=== PATIENT | female | born 1930 | race Caucasian/White ===

== ENCOUNTER → 2017-05-29 | Outpatient (CLI) | payer MEDICARE, BC ==
[2017-05-29 10:00] LABS: PROTHROMBIN TIME 24.5 SEC (11.4-15.4)
== END ==
LOC: OD 08:45
PROVIDERS: ATTEND Internal Medicine Cardiovascular Disease
DX: I48.0 Paroxysmal atrial fibrillation (principal)
CPT/HCPCS: 36415; 85610

== ENCOUNTER 2017-05-30 17:05 | Emergency (ER) | payer MEDICARE, BC ==
--- NOTE | 2017-05-30 17:36 | ER Document Report ---
ED Medical Screen (RME) - General Chief Complaint: Shortness Of Breath Stated Complaint: SHORTNESS OF BREATH Time Seen by Provider: 05/30/17 17:32 Notes: Patient was referred from her primary care doctor's office. Family states that patient's O2 saturation was in the 70s at the doctor's office. Patient also had an x-ray done today which showed new bilateral pleural effusions. Patient states she just feels weak and wore out. No specific pain. She does have shortness of breath with exertion. She has chronic afib TRAVEL OUTSIDE OF THE [place] IN LAST 30 DAYS: No - Related Data Allergies/Adverse Reactions: cefdinir [From Omnicef] Allergy (Unknown, Verified 05/30/17 17:09) Choline Fenofibrate [From Trilipix] Allergy (Unknown, Verified 05/30/17 17:09) clopidogrel bisulfate [From Plavix] Allergy (Unknown, Verified 05/30/17 17:09) codeine [Codeine] Allergy (Unknown, Verified 05/30/17 17:09) guaifenesin [From Mucinex] Allergy (Unknown, Verified 05/30/17 17:09) hydralazine [Hydralazine] Allergy (Unknown, Verified 05/30/17 17:09) Influenza Vaccine,Trival 2010 * [Influenza Vaccine,Trival 2010] Allergy (Unknown , Verified 05/30/17 17:09) lovastatin [From Mevacor] Allergy (Unknown, Verified 05/30/17 17:09) meperidine HCl [From Demerol] Allergy (Unknown, Verified 05/30/17 17:09) niacin [Niacin] Allergy (Unknown, Verified 05/30/17 17:09) nifedipine [From Procardia] Allergy (Unknown, Verified 05/30/17 17:09) pentazocine lactate [From Talwin] Allergy (Unknown, Verified 05/30/17 17:09) pravastatin sodium [From Pravachol] Allergy (Unknown, Verified 05/30/17 17:09) propoxyphene HCl [From Darvon] Allergy (Unknown, Verified 05/30/17 17:09) rosuvastatin calcium [From Crestor] Allergy (Unknown, Verified 05/30/17 17:09) Sulfa (Sulfonamide Antibiotics) Allergy (Unknown, Verified 05/30/17 17:09) metoprolol succinate [From Toprol XL] Allergy (Verified 05/30/17 17:09) atorvastatin calcium [From Lipitor] Adverse Reaction (Severe, Verified 05/30/17 17:09) Home Medications: Current Home Medications Metoprolol Tartrate 25 mg PO BID 05/30/17 [History] Past Medical History - Social History Chew tobacco use (# tins/day): No Frequency of alcohol use: None Drug Abuse: None - Past Medical History Cardiac Medical History: Reports: Hx Hypercholesterolemia, Hx Hypertension Pulmonary Medical History: Reports: Hx Bronchitis Denies: Hx Tuberculosis Renal/ Medical History: Denies: Hx Peritoneal Dialysis GI Medical History: Reports: Hx Hiatal Hernia Past Surgical History: Reports: Hx Abdominal Surgery - hernia repair 2008, Hx Cardiac Catheterization - december 2011, Hx Cardiac Surgery - triple bypass 1992, cardiac stent, Hx Cholecystectomy - 1995, Hx Coronary Artery Bypass Graft, Hx Hysterectomy, Hx PacemakerComment Only: Hx Gastric Bypass Surgery - Triple - Immunizations Hx Diphtheria, Pertussis, Tetanus Vaccination: Yes Physical Exam - Vital signs Vitals: Temp Pulse Resp BP Pulse Ox 98.2 F 119 H 22 H 154/110 H 100 05/30/17 17:08 05/30/17 17:08 05/30/17 17:08 05/30/17 17:08 05/30/17 17:08 Course - Vital Signs Vital signs: Temp Pulse Resp BP Pulse Ox 98.2 F 119 H 22 H 154/110 H 100 05/30/17 17:08 05/30/17 17:08 05/30/17 17:08 05/30/17 17:08 05/30/17 17:08
[2017-05-30 18:10] LABS: ABSOLUTE BASOPHILS # (AUTO) 0.1 10^3/uL (0.0-0.2); ABSOLUTE EOSINOPHILS # (AUTO) 0.3 10^3/uL (0.0-0.6); ABSOLUTE LYMPHOCYTES (AUTO) 1.3 10^3/uL (0.5-4.7); ABSOLUTE MONOCYTES (AUTO) 0.7 10^3/uL (0.1-1.4); BASOPHILS % (AUTO) 0.8 % (0-2); HEMATOCRIT 37.7 % (36.0-47.0); HEMOGLOBIN 12.5 g/dL (12.0-15.5); HGB HCT DIFFERENCE -0.2; LYMPHOCYTES % (AUTO) 21.1 % (13-45); MEAN CORPUSCULAR HEMOGLOBIN 26.6 pg (27.0-33.4); MEAN CORPUSCULAR VOLUME 81 fl (80-97); MONOCYTES % (AUTO) 10.6 % (3-13); RED BLOOD COUNT 4.69 10^6/uL (3.72-5.28); RED CELL DISTRIBUTION WIDTH 21.1 % (11.5-14.0); SEGMENTED NEUTROPHILS % (AUTO) 62.5 % (42-78); WHITE BLOOD COUNT 6.4 10^3/uL (4.0-10.5)
[2017-05-30 18:16] LABS: PROTHROMBIN TIME 25.2 SEC (11.4-15.4)
[2017-05-30 18:28] LABS: ALANINE AMINOTRANSFERASE 25 U/L (9-52); ALBUMIN 4.1 g/dL (3.5-5.0); ALKALINE PHOSPHATASE 90 U/L (38-126); ANION GAP 12 (5-19); ASPARTATE AMINO TRANSFERASE 24 U/L (14-36); BILIRUBIN,DIRECT 0.4 mg/dL (0.0-0.4); BILIRUBIN,TOTAL 0.8 mg/dL (0.2-1.3); BLOOD UREA NITROGEN 16 mg/dL (7-20); CARBON DIOXIDE 27 mmol/L (22-30); CHLORIDE 100 mmol/L (98-107); CREATININE RESULT 0.96 mg/dL (0.52-1.25); GLUCOSE 96 mg/dL (75-110); POTASSIUM 4.7 mmol/L (3.6-5.0); SODIUM 139.3 mmol/L (137-145); TOTAL PROTEIN 7.3 g/dL (6.3-8.2)
[2017-05-30 18:47] LABS: TROPONIN I < 0.012 ng/mL
[2017-05-30 19:02] VITALS: BP 149/89
--- NOTE | 2017-05-30 19:37 | RADIOLOGY REPORT (SQ) ---
EXAM DESCRIPTION: CHEST SINGLE VIEW COMPLETED DATE/TIME: 05/30/2017 7:23 pm REASON FOR STUDY: sob COMPARISON: 05/30/2017 1107 hours EXAM PARAMETERS: NUMBER OF VIEWS: One view. TECHNIQUE: Single frontal radiographic view of the chest acquired. RADIATION DOSE: NA LIMITATIONS: None. FINDINGS: LUNGS AND PLEURA: Persistent bilateral pleural effusions left greater than right. MEDIASTINUM AND HILAR STRUCTURES: No masses. Contour normal. HEART AND VASCULAR STRUCTURES: Heart enlarged. Mild vascular congestion. CABG hardware. BONES: No acute findings. HARDWARE: Pacemaker/ defibrillator unchanged. OTHER: No other significant finding. IMPRESSION: Persistent effusions. Persistent mild vascular congestion. TECHNICAL DOCUMENTATION: JOB ID: [id number] [employer]- All Rights Reserved
--- NOTE | 2017-05-30 20:21 | ER Document Report ---
ED General - General Chief Complaint: Shortness Of Breath Stated Complaint: SHORTNESS OF BREATH Time Seen by Provider: 05/30/17 17:32 Notes: Patient is an 87-year-old female with a past medical history of coronary artery disease, atrial fibrillation, hypertension, congestive heart failure, who presents with concerns that she had hypoxemia at her primary care doctor's office. Apparently a nurse at her doctor's office told her that her oxygen saturation was 71% but they still sent her home. A chest x-ray was obtained while she was there and she was contacted with findings of bilateral pleural effusions. This prompted her to come to the emergency department for further evaluation. Patient states her only symptom is intermittent mild shortness of breath but denies any shortness of breath at time of my assessment. She denies any chest pain. Nothing seems to improve or worsen her symptoms. She denies any recent medication changes. She has not had any fever, cough, sputum production, orthopnea. Denies any recent weight gain. She is scheduled to follow-up with her primary care doctor in the morning for repeat visit. TRAVEL OUTSIDE OF THE [place] IN LAST 30 DAYS: No - Related Data Allergies/Adverse Reactions: cefdinir [From Omnicef] Allergy (Unknown, Verified 05/30/17 17:09) Choline Fenofibrate [From Trilipix] Allergy (Unknown, Verified 05/30/17 17:09) clopidogrel bisulfate [From Plavix] Allergy (Unknown, Verified 05/30/17 17:09) codeine [Codeine] Allergy (Unknown, Verified 05/30/17 17:09) guaifenesin [From Mucinex] Allergy (Unknown, Verified 05/30/17 17:09) hydralazine [Hydralazine] Allergy (Unknown, Verified 05/30/17 17:09) Influenza Vaccine,Trival 2010 * [Influenza Vaccine,Trival 2010] Allergy (Unknown , Verified 05/30/17 17:09) lovastatin [From Mevacor] Allergy (Unknown, Verified 05/30/17 17:09) meperidine HCl [From Demerol] Allergy (Unknown, Verified 05/30/17 17:09) niacin [Niacin] Allergy (Unknown, Verified 05/30/17 17:09) nifedipine [From Procardia] Allergy (Unknown, Verified 05/30/17 17:09) pentazocine lactate [From Talwin] Allergy (Unknown, Verified 05/30/17 17:09) pravastatin sodium [From Pravachol] Allergy (Unknown, Verified 05/30/17 17:09) propoxyphene HCl [From Darvon] Allergy (Unknown, Verified 05/30/17 17:09) rosuvastatin calcium [From Crestor] Allergy (Unknown, Verified 05/30/17 17:09) Sulfa (Sulfonamide Antibiotics) Allergy (Unknown, Verified 05/30/17 17:09) metoprolol succinate [From Toprol XL] Allergy (Verified 05/30/17 17:09) atorvastatin calcium [From Lipitor] Adverse Reaction (Severe, Verified 05/30/17 17:09) Home Medications: Current Home Medications Metoprolol Tartrate 25 mg PO BID 05/30/17 [History] Past Medical History - General Information source: Patient - Social History Smoking Status: Never Smoker Chew tobacco use (# tins/day): No Frequency of alcohol use: None Drug Abuse: None Lives with: Family Family History: Reviewed & Not Pertinent Patient has suicidal ideation: No Patient has homicidal ideation: No - Past Medical History Cardiac Medical History: Reports: Hx Hypercholesterolemia, Hx Hypertension Pulmonary Medical History: Reports: Hx Bronchitis Denies: Hx Tuberculosis Renal/ Medical History: Denies: Hx Peritoneal Dialysis GI Medical History: Reports: Hx Hiatal Hernia Past Surgical History: Reports: Hx Abdominal Surgery - hernia repair 2008, Hx Cardiac Catheterization - december 2011, Hx Cardiac Surgery - triple bypass 1992, cardiac stent, Hx Cholecystectomy - 1995, Hx Coronary Artery Bypass Graft, Hx Hysterectomy, Hx PacemakerComment Only: Hx Gastric Bypass Surgery - Triple - Immunizations Hx Diphtheria, Pertussis, Tetanus Vaccination: Yes Hx Pneumococcal Vaccination: 07/17/99 Review of Systems - Review of Systems Notes: Constitutional: Negative for fever. HENT: Negative for sore throat. Eyes: Negative for visual changes. Cardiovascular: Negative for chest pain. Respiratory: Positive for shortness of breath. Gastrointestinal: Negative for abdominal pain, vomiting or diarrhea. Genitourinary: Negative for dysuria. Musculoskeletal: Negative for back pain. Skin: Negative for rash. Neurological: Negative for headaches, weakness or numbness. 10 point ROS negative except as marked above and in HPI. Physical Exam - Vital signs Vitals: Temp Pulse Resp BP Pulse Ox 98.2 F 119 H 22 H 154/110 H 100 05/30/17 17:08 05/30/17 17:08 05/30/17 17:08 05/30/17 17:08 05/30/17 17:08 Interpretation: Tachycardic Notes: PHYSICAL EXAMINATION: GENERAL: Well-appearing, well-nourished and in no acute distress. HEAD: Atraumatic, normocephalic. EYES: Pupils equal round and reactive to light, extraocular movements intact, sclera anicteric, conjunctiva are normal. ENT: nares patent, oropharynx clear without exudates. Moist mucous membranes. NECK: Normal range of motion, supple without lymphadenopathy LUNGS: Slightly diminished breath sounds at the bases bilaterally. No tachypnea or retractions. No wheezes rales or rhonchi. HEART: Irregularly irregular tachycardia without murmurs ABDOMEN: Soft, nontender, normoactive bowel sounds. No guarding, no rebound. No masses appreciated. EXTREMITIES: Normal range of motion, no pitting or edema. No cyanosis. NEUROLOGICAL: No focal neurological deficits. Moves all extremities spontaneously and on command. PSYCH: Normal mood, normal affect. SKIN: Warm, Dry, normal turgor, no rashes or lesions noted. Course - Re-evaluation Re-evalutation: 05/30/17 20:16 Patient presents with concerns of possible hypoxemia at her doctor's office although I suspect that this is a surreptitious result as patient has not been hypoxic here in the emergency department even when lying in the bed and had an ambulatory pulse oximetry that was normal. Her chest x-ray does show bilateral pleural effusions although she has a chronic left pleural effusion and dental he does have some pulmonary vascular congestion on prior chest x-rays dating back to 2011. She does have a new right pleural effusion. She does not have any symptoms to suggest an acute infectious etiology. Patient's weight is unchanged today relative to November at 56 kilograms and her BNP is actually lower today at 2040 than it was in 2011 when it was 3300. Patient herself at time of my assessment denies any symptoms and states that she would like to go home. She denies any symptoms to suggest an acute pulmonary embolus, ACS, or aortic dissection as the etiology of her presentation. Patient does report check she has a follow-up appointment with her primary care doctor at 11 AM. At this time will discharge with return precautions and follow-up recommendations. Verbal discharge instructions given a the bedside and opportunity for questions given. Medication warnings reviewed. Patient is in agreement with this plan and has verbalized understanding of return precautions and the need for primary care follow-up in the next 24-72 hours. - Vital Signs Vital signs: Temp Pulse Resp BP Pulse Ox 98.2 F 119 H 18 149/89 H 99 05/30/17 17:08 05/30/17 17:08 05/30/17 20:48 05/30/17 19:01 05/30/17 20:48 - Laboratory Result Diagrams: 05/30/17 17:59 05/30/17 17:59 Laboratory results interpreted by me: 05/30/17 05/30/17 05/30/17 17:59 17:59 17:59 MCH 26.6 L RDW 21.1 H PT 25.2 H Est GFR (Non-Af Amer) 55 L NT-Pro-B Natriuret Pep 05/30/17 17:59 MCH RDW PT Est GFR (Non-Af Amer) NT-Pro-B Natriuret Pep 2040 H - Diagnostic Test Radiology reviewed: Image reviewed, Reports reviewed Radiology results interpreted by me: 05/30/17 20:20 Chest x-ray: Bilateral basilar pleural effusions and slight pulmonary vascular congestion - EKG Interpretation by Me Additional EKG results interpreted by me: 05/30/17 20:21 Atrial fibrillation. Rate 118. Right bundle branch block. No ST elevations or depressions. Discharge - Discharge Clinical Impression: Shortness of breath, Pleural effusion Atrial fibrillation Qualifiers: Atrial fibrillation type: chronic Qualified Code(s): I48.2 - Chronic atrial fibrillation Condition: Stable Disposition: HOME, SELF-CARE Additional Instructions: Please follow-up with your primary care doctor in the morning. Your oxygen number is normal here and I suspect that the reading they got in the office was not accurate. Please return if you develop chest pain, shortness of breath, pass out, or have any other symptoms that are worrisome to you. Referrals: GRACIE JUAREZ MD [Primary Care Provider] - Follow up tomorrow
--- NOTE | 2017-05-31 09:33 | EKG REPORT ---
SEVERITY:- ABNORMAL ECG - ATRIAL FIBRILLATION RBBB AND LPFB : Confirmed by: Ynes Mohan 31-May-2017 09:33:04
== END 2017-05-30 20:48 | disposition home or self-care (01) ==
LOC: ER 17:05
DX: J90 Pleural effusion, not elsewhere classified (principal); I48.2 Chronic atrial fibrillation; R06.02 Shortness of breath; I25.10 Atherosclerotic heart disease of native coronary artery without angina pectoris; I10 Essential (primary) hypertension; I50.9 Heart failure, unspecified
CPT/HCPCS: 36415; 71010; 80053; 83880; 84484; 85025; 85610; 93005; 93010; 99285

== ENCOUNTER → 2017-05-30 | Outpatient (CLI) | payer MEDICARE, BC ==
--- NOTE | 2017-05-30 12:23 | RADIOLOGY REPORT (SQ) ---
EXAM DESCRIPTION: CHEST PA/LATERAL COMPLETED DATE/TIME: 05/30/2017 11:13 am REASON FOR STUDY: WHEEZING,COUGH,ACUTE BRONCHITIS,HYPOXEMIA COMPARISON: 01/13/2012 EXAM PARAMETERS: NUMBER OF VIEWS: two views TECHNIQUE: Digital Frontal and Lateral radiographic views of the chest acquired. RADIATION DOSE: NA LIMITATIONS: none FINDINGS: LUNGS AND PLEURA: Bilateral pleural effusions. Retrocardiac opacity. MEDIASTINUM AND HILAR STRUCTURES: No masses or contour abnormalities. HEART AND VASCULAR STRUCTURES: Cardiomegaly. BONES: No acute findings. HARDWARE: Sternotomy wires. Graft markers. Pacemaker. OTHER: No other significant finding. IMPRESSION: Bilateral pleural effusions. Retrocardiac opacification may suggest partial atelectasis in the left lower lobe. Cardiomegaly without failure TECHNICAL DOCUMENTATION: JOB ID: [id number] [employer]- All Rights Reserved
== END ==
LOC: OD 10:54
PROVIDERS: ATTEND Family Medicine
DX: J20.9 Acute bronchitis, unspecified (principal); R09.02 Hypoxemia; R06.2 Wheezing; R05 Cough
CPT/HCPCS: 71020

== ENCOUNTER → 2017-06-14 | Outpatient (CLI) | payer MEDICARE, BC ==
[2017-06-14 10:29] LABS: PROTHROMBIN TIME 19.2 SEC (11.4-15.4)
[2017-06-14 10:48] LABS: ANION GAP 13 (5-19); BLOOD UREA NITROGEN 17 mg/dL (7-20); CALCIUM 9.2 mg/dL (8.4-10.2); CARBON DIOXIDE 28 mmol/L (22-30); CHLORIDE 98 mmol/L (98-107); CREATININE RESULT 0.96 mg/dL (0.52-1.25); GLUCOSE 81 mg/dL (75-110); POTASSIUM 4.6 mmol/L (3.6-5.0); SODIUM 139.4 mmol/L (137-145)
== END ==
LOC: OD 08:37
PROVIDERS: ATTEND Internal Medicine Cardiovascular Disease
DX: I48.0 Paroxysmal atrial fibrillation (principal); I50.22 Chronic systolic (congestive) heart failure; R06.02 Shortness of breath
CPT/HCPCS: 36415; 80048; 83880; 85610

== ENCOUNTER 2018-02-20 15:42 | Emergency (ER) | payer MEDICARE, BC ==
[2018-02-20] MEDS ORDERED: DILTIAZEM HCL/D5W 125 MG/125 ML RTUINJ IV PRN (16:20)
--- NOTE | 2018-02-20 16:26 | ER Document Report ---
ED General - General Chief Complaint: Nausea/Vomiting Stated Complaint: NASUEA/VOMITING Time Seen by Provider: 02/20/18 16:09 Notes: Patient brought in by family because of being nauseated and vomiting and coughing up a lot of white phlegm for a couple of days. She has not been able to keep her medications down since yesterday morning. Patient is on warfarin because she has atrial fibrillation. She currently has that rhythm with a rate of about 150. Has not had any diarrhea. Last bowel movement was last night. Denies any chest pains or shortness of breath. Has not run any fever. Family says the patient has lost 25 pounds over the last 8-9 months. They said that she saw Dr. Nunez yesterday in the office. Did not make him aware of this weight loss or thought maybe he would have noticed it on his own. TRAVEL OUTSIDE OF THE [place] IN LAST 30 DAYS: No - Related Data Allergies/Adverse Reactions: cefdinir [From Omnicef] Allergy (Unknown, Verified 05/30/17 17:09) Choline Fenofibrate [From Trilipix] Allergy (Unknown, Verified 05/30/17 17:09) clopidogrel bisulfate [From Plavix] Allergy (Unknown, Verified 05/30/17 17:09) codeine [Codeine] Allergy (Unknown, Verified 05/30/17 17:09) guaifenesin [From Mucinex] Allergy (Unknown, Verified 05/30/17 17:09) hydralazine [Hydralazine] Allergy (Unknown, Verified 05/30/17 17:09) Influenza Vaccine,Trival 2010 * [Influenza Vaccine,Trival 2010] Allergy (Unknown , Verified 05/30/17 17:09) lovastatin [From Mevacor] Allergy (Unknown, Verified 05/30/17 17:09) meperidine HCl [From Demerol] Allergy (Unknown, Verified 05/30/17 17:09) niacin [Niacin] Allergy (Unknown, Verified 05/30/17 17:09) nifedipine [From Procardia] Allergy (Unknown, Verified 05/30/17 17:09) pentazocine lactate [From Talwin] Allergy (Unknown, Verified 05/30/17 17:09) pravastatin sodium [From Pravachol] Allergy (Unknown, Verified 05/30/17 17:09) propoxyphene HCl [From Darvon] Allergy (Unknown, Verified 05/30/17 17:09) rosuvastatin calcium [From Crestor] Allergy (Unknown, Verified 05/30/17 17:09) Sulfa (Sulfonamide Antibiotics) Allergy (Unknown, Verified 05/30/17 17:09) metoprolol succinate [From Toprol XL] Allergy (Verified 05/30/17 17:09) atorvastatin calcium [From Lipitor] Adverse Reaction (Severe, Verified 05/30/17 17:09) Past Medical History - Social History Smoking Status: Never Smoker Family History: Reviewed & Not Pertinent Patient has suicidal ideation: No Patient has homicidal ideation: No - Past Medical History Cardiac Medical History: Reports: Hx Atrial Fibrillation, Hx Hypercholesterolemia, Hx Hypertension Pulmonary Medical History: Reports: Hx Bronchitis Renal/ Medical History: Denies: Hx Peritoneal Dialysis GI Medical History: Reports: Hx Hiatal Hernia Past Surgical History: Reports: Hx Abdominal Surgery - hernia repair 2008, Hx Cardiac Catheterization - december 2011, Hx Cardiac Surgery - triple bypass 1992, cardiac stent, Hx Cholecystectomy - 1995, Hx Coronary Artery Bypass Graft, Hx Hysterectomy, Hx PacemakerComment Only: Hx Gastric Bypass Surgery - Triple - Immunizations Hx Diphtheria, Pertussis, Tetanus Vaccination: Yes Hx Pneumococcal Vaccination: 07/17/99 Review of Systems - Review of Systems Notes: REVIEW OF SYSTEMS: CONSTITUTIONAL : Denies fever. EENT: Denies eye, ear, nose or mouth or throat pain or other symptoms. CARDIOVASCULAR: Denies chest pain. RESPIRATORY: Denies cough or shortness of breath, but is coughing up a lot of clear, white phlegm.. GASTROINTESTINAL: Denies abdominal pain and no diarrhea, but is having nausea and vomiting since yesterday. GENITOURINARY: Denies difficulty or painful urinating, urinary frequency, blood in urine. MUSCULOSKELETAL: Denies back or neck pain. Denies joint pain or swelling. SKIN: Denies rash or skin lesions. NEUROLOGICAL: Denies LOC or altered mental status. Denies headache. Denies sensory loss or motor deficits. ALL OTHER SYSTEMS REVIEWED AND NEGATIVE. Physical Exam - Vital signs Vitals: BP 143/113 H 02/20/18 15:51 Interpretation: Tachycardic - Irregular heart rate at 130-150/min - Notes Notes: PHYSICAL EXAMINATION: GENERAL: Well-appearing, in no acute distress. Thin, frail looking elderly white female. HEAD: Atraumatic, normocephalic. EYES: Pupils equal round and reactive to light, extraocular movements intact. ENT: oropharynx clear without exudates. Moist mucous membranes. NECK: Normal range of motion, supple. LUNGS: Breath sounds clear and equal bilaterally. HEART: Irregularly irregular rhythm at up to 150 bpm. No peripheral edema. ABDOMEN: Soft, nontender. No guarding or rebound. No masses. BACK: No tenderness throughout entire back. EXTREMITIES: Normal range of motion without pain. Negative Homans bilaterally. NEUROLOGICAL: Normal speech, normal gait. Normal sensory, motor, and reflex exams. Awake, alert, and oriented x3. Cranial nerves normal. PSYCH: Normal mood, normal affect. SKIN: Warm, dry, no rashes. Course - Re-evaluation Re-evalutation: 02/20/18 20:49 Patient was given Cardizem drip at 10 mg/h rate, no bolus. Her heart rate quickly dropped down below 100 and settled into the 80s. She maintained atrial fibrillation rhythm, however. She was given fluids to drink and was able to do so and keep them down. We also gave her her her on metoprolol here in the ED. She is on 25 mg twice a day and we gave her 25 mg here at this time. Also on clonidine, but only takes it if her blood pressure is up. Discussed with hospitalist on who asked if patient could be considered for outpatient treatment since we have accomplished the therapeutic goal of lowering her heart rate. Labs were all essentially normal. Presented that thought to family who are agreeable to taking her home. - Vital Signs Vital signs: Temp Pulse Resp BP Pulse Ox 98.6 F 84 20 139/83 H 93 02/20/18 19:40 02/20/18 19:40 02/20/18 19:40 02/20/18 19:40 02/20/18 19:40 - Laboratory Result Diagrams: 02/20/18 16:33 02/20/18 16:33 Laboratory results interpreted by me: 02/20/18 02/20/18 02/20/18 16:33 16:33 16:33 RDW 16.8 H Plt Count 136 L Seg Neutrophils % 80.0 H Lymphocytes % 12.3 L PT 34.2 H Chloride 97 L BUN 23 H Glucose 129 H Total Bilirubin 1.6 H Direct Bilirubin 0.6 H AST 43 H Alkaline Phosphatase 167 H Creatine Kinase 25 L Total Protein 8.5 H - Diagnostic Test Radiology reviewed: Image reviewed, Reports reviewed - Chest x-ray shows a left basilar effusion, cardiomegaly, and essentially clear right lung. These findings are no different than on the patient's previous chest x-ray in May of last year. - EKG Interpretation by [place] Rate: Tachycardia - At 122. Rhythm: A.Fib Victor/QRS: RBBB Discharge - Discharge Clinical Impression: Chronic atrial fibrillation with rapid ventricular response, Nausea and vomiting Condition: Stable Disposition: HOME, SELF-CARE Additional Instructions: Atrial Fibrillation Atrial fibrillation is an abnormal heart rhythm, caused by irregular electrical circuits in the upper heart chamber. It can be caused by heart valve disease, hardening of the arteries, or metabolic problems such as thyroid disease, or may occur without a clear cause. Atrial fibrillation may occur only occasionally, or may be chronic. Atrial fibrillation often results in a very fast heart rate, with palpitations, lightheadedness, and shortness of breath. Treatment is to slow the abnormally fast rate, and to convert the rhythm back to normal, if possible. Many patients stay in atrial fibrillation for years without symptoms or complications. Your doctor will decide whether you can be converted back to a normal heart rhythm. Contact the doctor or emergency medical system at once if you develop chest pain, shortness of breath, or severe lightheadedness, or if you develop any disturbance of consciousness, problems with speech, or localized weakness. VOMITING: Vomiting (or nausea without vomiting) can be caused by many other different problems. It can mean that something's wrong with the stomach, such as ulcers or inflammation or the intestinal tract, such as appendicitis. But it can also be a symptom of a problem that has nothing to do with the stomach or intestines. Vomiting is common with severe headaches, earaches, tonsillitis, and kidney infections, etc. We see it with pneumonia or heart attacks. Drugs can cause nausea and vomiting. Many abdominal problems cause vomiting; for example, gallstones, kidney stones, pancreatitis, and intestinal obstruction ( blocked bowels). In most cases, curing the vomiting depends on fixing the problem that caused it. For temporary relief, we may use an anti-nausea medicine. For home use, we can prescribe suppositories, chewable pills, pills that dissolve in the mouth, or liquid anti-nausea drugs. If the vomiting seems to be caused by a problem in the stomach, acid-suppressing drugs may be prescribed as well. It's important to avoid dehydration. Sip small amounts of clear liquids ( soft drinks, tea, broth, etc) . Try to take fluids frequently even if you are vomiting to prevent dehydration. Take increasing amounts of fluid and when liquids are being consumed successfully, advance to small amounts of bland food (toast, soups, mashed potatoes, etc.) until you are able to resume a regular diet. Avoid aspirin, tobacco, and alcohol. If the vomiting worsens, if the problem that's making you vomit worsens, or if there's evidence of bleeding in the stomach (such as black, tarry stool, or bloody or black vomit), you should return immediately. Also, return if abdominal pain worsens or becomes localized to one area or you develop high fever. Call your doctor if you aren't improved in 24 hours. VIRAL SYNDROME: The physician has diagnosed a viral infection. Viruses not only cause "colds," but can cause many different symptoms including generalized aching, fever, headache, cough, diarrhea, nausea, vomiting, and fatigue. The treatment, for the most part, is simply relief of symptoms. This means that antibiotics are usually not given. Rest, fluids, pain medications and, occasionally, medication for the specific symptoms that are most bothersome will be prescribed. Use good handwashing to avoid passing the virus to others. Shared toys should be cleaned with disinfectant. Clean the toilets, sinks, and counter surfaces in bathrooms. Launder clothing in hot water. Contact the physician if you develop any new or unusual symptoms such as severe headache, stiff neck, high fever, chest pain, productive cough, or shortness of breath. You should be rechecked if you don't see marked improvement within seven to 10 days. INTRAVENOUS (I V) FLUIDS: As part of your care today, you received intravenous (IV) fluids. IV fluids are administered to patients who are dehydrated or to those who have certain chemical (electrolyte) abnormalities that need correcting. ANTINAUSEA MEDICATION: You have been given a medication to suppress nausea and vomiting. This type of medication can be given as a shot, pill, or suppository. It will usually last for many hours. Pills and shots usually last six to eight hours. For the typical illness, only one or two doses of the medication may be necessary. Mild lightheadedness may occur. This type of medicine can cause drowsiness. Do not drive or operate dangerous machinery while under its influence. Do not mix with alcohol. See your doctor at once if you have muscle spasms or tightness, or uncontrollable motions (particularly of the neck, mouth, or jaw). Persistent vomiting or severe lightheadedness should also be evaluated by the physician. Follow-up with your doctor, Dr. Nunez, to investigate your weight loss that has been occurring over these past many months. FOLLOW-UP CARE: If you have been referred to a physician for follow-up care, call the physician s office for an appointment as you were instructed or within the next two days. If you experience worsening or a significant change in your symptoms, notify the physician immediately or return to the Emergency Department at any time for re-evaluation. Resume your medications as before except hold her Lasix until morning to resume taking it and resume your warfarin Monday, otherwise take all your medicines as prescribed. Prescriptions: Ondansetron [Zofran Odt 4 mg Tablet] 1 - 2 tab PO Q4H PRN #15 tab.rapdis PRN Reason: For Nausea/Vomiting Referrals: AYSE NUNEZ MD [Primary Care Provider] - Follow up as needed
[2018-02-20 16:53] LABS: ABSOLUTE LYMPHOCYTES (AUTO) 0.9 10^3/uL (0.5-4.7); ABSOLUTE MONOCYTES (AUTO) 0.6 10^3/uL (0.1-1.4); ABSOLUTE NEUT (AUTO) 6.1 10^3/uL (1.7-8.2); BASOPHILS % (AUTO) 0.3 % (0-2); HEMATOCRIT 42.3 % (36.0-47.0); LYMPHOCYTES % (AUTO) 12.3 % (13-45); MEAN CORPUSCULAR HEMOGLOBIN 29.4 pg (27.0-33.4); MEAN CORPUSCULAR HGB CONC 33.1 g/dL (32.0-36.0); MEAN CORPUSCULAR VOLUME 89 fl (80-97); MONOCYTES % (AUTO) 7.4 % (3-13); PLATELET COUNT 136 10^3/uL (150-450); RED BLOOD COUNT 4.76 10^6/uL (3.72-5.28); RED CELL DISTRIBUTION WIDTH 16.8 % (11.5-14.0); TOTAL CELLS COUNTED % (AUTO) 100 %; WHITE BLOOD COUNT 7.7 10^3/uL (4.0-10.5)
[2018-02-20 16:56] LABS: PROTHROMBIN TIME 34.2 SEC (11.4-15.4)
[2018-02-20 17:10] LABS: ALANINE AMINOTRANSFERASE 27 U/L (9-52); ALBUMIN 4.1 g/dL (3.5-5.0); ALKALINE PHOSPHATASE 167 U/L (38-126); ANION GAP 17 (5-19); ASPARTATE AMINO TRANSFERASE 43 U/L (14-36); BILIRUBIN,DIRECT 0.6 mg/dL (0.0-0.4); BILIRUBIN,TOTAL 1.6 mg/dL (0.2-1.3); BLOOD UREA NITROGEN 23 mg/dL (7-20); CALCIUM 9.5 mg/dL (8.4-10.2); CARBON DIOXIDE 23 mmol/L (22-30); CHLORIDE 97 mmol/L (98-107); CREATINE KINASE 25 U/L (30-135); GLUCOSE 129 mg/dL (75-110); POTASSIUM 4.9 mmol/L (3.6-5.0); TOTAL PROTEIN 8.5 g/dL (6.3-8.2)
[2018-02-20 17:22] LABS: CREATINE KINASE MB 0.77 ng/mL (<4.55); TROPONIN I 0.016 ng/mL
--- NOTE | 2018-02-20 18:38 | RADIOLOGY REPORT (SQ) ---
EXAM DESCRIPTION: CHEST SINGLE VIEW COMPLETED DATE/TIME: 02/20/2018 6:28 pm REASON FOR STUDY: Atrial fibrillation 8 COMPARISON: None. NUMBER OF VIEWS: One view. TECHNIQUE: Single frontal radiographic view of the chest acquired. LIMITATIONS: None. FINDINGS: LUNGS AND PLEURA: Moderate left pleural effusion with left basilar density. Right lung re latively clear. MEDIASTINUM AND HILAR STRUCTURES: No masses or contour abnormality. HEART AND VASCULATURE: Cardiac enlargement. Vascular congestion. BONES: No acute findings. HARDWARE: Sternotomy wires, surgical clips, coronary bypass markers, pacemaker. OTHER: No other significant finding. IMPRESSION: CARDIAC ENLARGEMENT. VASCULAR CONGESTION. MODERATE LEFT PLEURAL EFFUSION WITH LEFT BAS ILAR DENSITY SECONDARY TO ATELECTASIS AND/OR PNEUMONIA. TECHNICAL DOCUMENTATION: JOB ID: [id number] [employer]- All Rights Reserved Reading location - IP/workstation name: [email or web address]
[2018-02-20 19:40] VITALS: BP 139/83
--- NOTE | 2018-02-20 22:32 | EKG REPORT ---
SEVERITY:- ABNORMAL ECG - ATRIAL FIBRILLATION VENTRICULAR BIGEMINY RBBB AND LPFB : Confirmed by: Osiris Rivers MD 20-Feb-2018 22:31:24
== END 2018-02-20 19:42 | disposition home or self-care (01) ==
LOC: ER 15:42
DX: I48.2 Chronic atrial fibrillation (principal); R11.2 Nausea with vomiting, unspecified; R05 Cough; I10 Essential (primary) hypertension; Z79.01 Long term (current) use of anticoagulants; Z79.899 Other long term (current) drug therapy
CPT/HCPCS: 93005; 99284; 96365; 96366; 36415; 82553; 82550; 85025; 85610; 80053; 84484; 71045; 93010; J3490

== ENCOUNTER 2018-02-24 11:43 | Inpatient (IN) | payer MEDICARE, BC ==
[2018-02-24] MEDS ORDERED: DIPH/PERTUSS(ACELL)/TETANUS VAC/PF 0.5 ML SYR (>=10YO) IM ONE (12:13)
[2018-02-24] MEDS ORDERED: NORMAL SALINE 500 ML IV ONE (12:13)
--- NOTE | 2018-02-24 12:14 | ER Document Report ---
ED General - General Chief Complaint: Fall Injury Stated Complaint: FALL,HEAD INJURY Time Seen by Provider: 02/24/18 12:04 Mode of Arrival: Medic Information source: Patient, Relative, [facility] Records Notes: 87-year-old female with atrial fibrillation (on Coumadin), hypertension, coronary artery disease with pacemaker presents after falling off of her toilet striking her face on the windowsill. Patient denies any preceding chest pain, lightheadedness, dizziness. Unclear whether had a LOC. Daughter is at the bedside and states that the patient has become progressively weak over the last 9 months with worsening over the last few weeks. Patient was seen recently in the emergency after an episode of nausea and vomiting she was discharged home. TRAVEL OUTSIDE OF THE [place] IN LAST 30 DAYS: No - HPI Onset: Just prior to arrival Onset/Duration: Sudden Quality of pain: Achy Severity: Mild Associated symptoms: Body/muscle aches. denies: Chest pain, Headache, Nausea, Shortness of breath Exacerbated by: Movement Relieved by: Remaining still Similar symptoms previously: No Recently seen / treated by doctor: Yes - 02/21/18 - Related Data Allergies/Adverse Reactions: cefdinir [From Omnicef] Allergy (Unknown, Verified 05/30/17 17:09) Choline Fenofibrate [From Trilipix] Allergy (Unknown, Verified 05/30/17 17:09) clopidogrel bisulfate [From Plavix] Allergy (Unknown, Verified 05/30/17 17:09) codeine [Codeine] Allergy (Unknown, Verified 05/30/17 17:09) guaifenesin [From Mucinex] Allergy (Unknown, Verified 05/30/17 17:09) hydralazine [Hydralazine] Allergy (Unknown, Verified 05/30/17 17:09) Influenza Vaccine,Trival 2010 * [Influenza Vaccine,Trival 2010] Allergy (Unknown , Verified 05/30/17 17:09) lovastatin [From Mevacor] Allergy (Unknown, Verified 05/30/17 17:09) meperidine HCl [From Demerol] Allergy (Unknown, Verified 05/30/17 17:09) niacin [Niacin] Allergy (Unknown, Verified 05/30/17 17:09) nifedipine [From Procardia] Allergy (Unknown, Verified 05/30/17 17:09) pentazocine lactate [From Talwin] Allergy (Unknown, Verified 05/30/17 17:09) pravastatin sodium [From Pravachol] Allergy (Unknown, Verified 05/30/17 17:09) propoxyphene HCl [From Darvon] Allergy (Unknown, Verified 05/30/17 17:09) rosuvastatin calcium [From Crestor] Allergy (Unknown, Verified 05/30/17 17:09) Sulfa (Sulfonamide Antibiotics) Allergy (Unknown, Verified 05/30/17 17:09) metoprolol succinate [From Toprol XL] Allergy (Verified 05/30/17 17:09) atorvastatin calcium [From Lipitor] Adverse Reaction (Severe, Verified 05/30/17 17:09) Past Medical History - General Information source: Patient, Relative, [facility] Records - Social History Smoking Status: Never Smoker Chew tobacco use (# tins/day): No Frequency of alcohol use: None Drug Abuse: None Lives with: Spouse/Significant other Family History: Reviewed & Not Pertinent Patient has suicidal ideation: No Patient has homicidal ideation: No - Past Medical History Cardiac Medical History: Reports: Hx Atrial Fibrillation, Hx Hypercholesterolemia, Hx Hypertension Pulmonary Medical History: Reports: Hx Bronchitis Denies: Hx Tuberculosis Renal/ Medical History: Denies: Hx Peritoneal Dialysis GI Medical History: Reports: Hx Hiatal Hernia Past Surgical History: Reports: Hx Abdominal Surgery - hernia repair 2008, Hx Cardiac Catheterization - december 2011, Hx Cardiac Surgery - triple bypass 1992, cardiac stent, Hx Cholecystectomy - 1995, Hx Coronary Artery Bypass Graft, Hx Hysterectomy, Hx PacemakerComment Only: Hx Gastric Bypass Surgery - Triple - Immunizations Hx Diphtheria, Pertussis, Tetanus Vaccination: Yes Hx Pneumococcal Vaccination: 07/17/99 Review of Systems - Review of Systems Constitutional: Weakness. denies: Recent illness EENT: denies: Eye pain, Blurred vision, Sinus pressure, Difficulty swallowing Cardiovascular: denies: Chest pain, Palpitations, Syncope, Dizziness, Lightheaded Respiratory: denies: Cough, Short of breath Gastrointestinal: denies: Abdominal pain, Nausea Genitourinary: denies: Flank pain Female Genitourinary: No symptoms reported Musculoskeletal: Joint pain, Muscle pain, Muscle stiffness. denies: Deformity, Leg swelling, Ankle swelling Skin: Rash, Other - Multiple skin tears Neurological/Psychological: Weakness. denies: Confusion, Lost consciousness -: Yes All other systems reviewed and negative Physical Exam - Vital signs Vitals: Pulse Ox 89 L 02/24/18 11:44 Interpretation: Hypertensive, Tachycardic - Notes Notes: PHYSICAL EXAMINATION: GENERAL: Well-appearing, well-nourished and in no acute distress. On backboard. GCS 15 HEAD: Large cephalohematoma of the forehead. Large area of ecchymosis along the bridge of nose. EYES: Pupils equal round and reactive to light, extraocular movements intact, sclera anicteric, conjunctiva are normal. ENT: Nares patent, oropharynx clear without exudates. Moist mucous membranes. No hemanotympanum . No blood in nares. No dental fracture NECK: Normal range of motion, supple without lymphadenopathy. Trachea midline LUNGS: Breath sounds clear to auscultation bilaterally and equal. No wheezes rales or rhonchi. HEART: Tachycardic, regular rhythm without murmurs. Pulses intact all throughout. ABDOMEN: Soft, nontender, nondistended abdomen. No guarding, no rebound. No masses appreciated. Musculoskeletal: Left shoulder-limited range of motion secondary to pain. No obvious deformity. Radial pulse intact. Cap refill less than 2 seconds. Sensation intact. Pelvis stable. NEUROLOGICAL: Cranial nerves grossly intact. Normal speech, normal gait. Normal sensory, motor, and reflex exams. PSYCH: Normal mood, normal affect. SKIN: Large skin tear of the left elbow, left hand. Skin tear of left elbow with mild bleeding. Course - Re-evaluation Re-evalutation: Laboratory 02/24/18 02/24/18 02/24/18 13:10 13:10 13:10 WBC 7.9 RBC 5.14 Hgb 15.3 Hct 46.1 MCV 90 MCH 29.7 MCHC 33.1 RDW 17.2 H Plt Count 211 Seg Neutrophils % 79.3 H Lymphocytes % 9.1 L Monocytes % 10.4 Eosinophils % 0.6 Basophils % 0.6 Absolute Neutrophils 6.3 Absolute Lymphocytes 0.7 Absolute Monocytes 0.8 Absolute Eosinophils 0.0 Absolute Basophils 0.0 PT 40.6 H INR 3.97 APTT 52.0 H Creatine Kinase 29 L CK-MB (CK-2) Troponin I NT-Pro-B Natriuret Pep Urine Color Urine Appearance Urine pH Ur Specific [place] Urine Protein Urine Glucose (UA) Urine Ketones Urine Blood Urine Nitrite Urine Bilirubin Urine Urobilinogen Ur Leukocyte Esterase Urine WBC (Auto) Urine RBC (Auto) Squamous Epi Cells Auto Urine Mucus (Auto) Urine Ascorbic Acid 02/24/18 02/24/18 02/24/18 13:10 13:10 13:10 WBC RBC Hgb Hct MCV MCH MCHC RDW Plt Count Seg Neutrophils % Lymphocytes % Monocytes % Eosinophils % Basophils % Absolute Neutrophils Absolute Lymphocytes Absolute Monocytes Absolute Eosinophils Absolute Basophils PT INR APTT Creatine Kinase CK-MB (CK-2) 0.65 Troponin I < 0.012 NT-Pro-B Natriuret Pep 9570 H Urine Color NICHOLAS Urine Appearance CLEAR Urine pH 5.0 Ur Specific [place] 1.020 Urine Protein NEGATIVE Urine Glucose (UA) NEGATIVE Urine Ketones NEGATIVE Urine Blood NEGATIVE Urine Nitrite NEGATIVE Urine Bilirubin NEGATIVE Urine Urobilinogen 4.0 H Ur Leukocyte Esterase NEGATIVE Urine WBC (Auto) 0 Urine RBC (Auto) 1 Squamous Epi Cells Auto <1 Urine Mucus (Auto) RARE Urine Ascorbic Acid [address] 02/24/18 00:00 IMPRESSION: FRONTAL SCALP HEMATOMA WITHOUT UNDERLYING CALVARIAL FRACTURE OR INTRACRANIAL HEMORRHAGE. BACKGROUND OF MICROVASCULAR AND INVOLUTIONAL CHANGES. EVIDENCE OF ACUTE STROKE: NO. Cervical Spine CT 02/24/18 12:11 IMPRESSION: NO ACUTE OR SIGNIFICANT FINDINGS IN THE CERVICAL SPINE. Chest X-Ray 02/24/18 12:11 IMPRESSION: Small left pleural effusion. Hand X-Ray 02/24/18 12:11 IMPRESSION: NO RADIOGRAPHIC EVIDENCE OF ACUTE INJURY. Humerus X-Ray 02/24/18 12:11 IMPRESSION: NO RADIOGRAPHIC EVIDENCE OF ACUTE INJURY. Knee X-Ray 02/24/18 12:11 IMPRESSION: NO RADIOGRAPHIC EVIDENCE OF ACUTE INJURY. Pelvis X-Ray 02/24/18 12:11 IMPRESSION: No acute findings. 02/24/18 17:56 87-year-old female with atrial fibrillation (on Coumadin), hypertension, coronary artery disease with pacemaker presents after falling off of her toilet striking her face on the windowsill. Patient denies any preceding chest pain, lightheadedness, dizziness. Daughter is at the bedside and states that the patient has become progressively weak over the last 9 months with worsening over the last few weeks. Patient was seen recently in the emergency after an episode of nausea and vomiting she was discharged home. upon arrival she is tachycardic but afebrile and not hypoxic. she has her eyes closed throughout exam but opens when asked and is answering questions appropriately. She is declining pain medications. Tetanus updated. wounds dressed. INR found to be 3.98. Patient's family is at the bedside and is concerned for the patient's inability to care for herself. She lives with her elderly and for days has been unable to ambulate or care for herself. 02/24/18 17:57 - Vital Signs Vital signs: Temp Pulse Resp BP Pulse Ox 98.4 F 138 H 19 108/84 98 02/24/18 11:51 02/24/18 11:51 02/24/18 17:01 02/24/18 17:01 02/24/18 17:28 - Laboratory Result Diagrams: 02/24/18 13:10 Laboratory results interpreted by me: 02/24/18 02/24/18 02/24/18 13:10 13:10 13:10 RDW 17.2 H Seg Neutrophils % 79.3 H Lymphocytes % 9.1 L PT 40.6 H APTT 52.0 H Creatine Kinase 29 L NT-Pro-B Natriuret Pep Urine Urobilinogen Urine Ascorbic Acid 02/24/18 02/24/18 13:10 13:10 RDW Seg Neutrophils % Lymphocytes % PT APTT Creatine Kinase NT-Pro-B Natriuret Pep 9570 H Urine Urobilinogen 4.0 H Urine Ascorbic Acid 40 H - Diagnostic Test Radiology reviewed: Image reviewed, Reports reviewed Discharge - Discharge Clinical Impression: Syncope and collapse, Elevated INR, Weakness Head injury Qualifiers: Encounter type: initial encounter Qualified Code(s): S09.90XA - Unspecified injury of head, initial encounter Altered mental status Qualifiers: Altered mental status type: unspecified Qualified Code(s): R41.82 - Altered mental status, unspecified Contusion of face Qualifiers: Encounter type: initial encounter Qualified Code(s): S00.83XA - Contusion of other part of head, initial encounter Avulsion of skin of elbow Qualifiers: Encounter type: initial encounter Laterality: left Qualified Code(s): S51.002A - Unspecified open wound of left elbow, initial encounter Failure to thrive Qualifiers: Failure to thrive age range: in adult Qualified Code(s): R62.7 - Adult failure to thrive Condition: Fair Disposition: ADMITTED INPATIENT Admitting Provider: Hospitalist Unit Admitted: Medical Floor
--- NOTE | 2018-02-24 12:51 | RADIOLOGY REPORT (SQ) ---
EXAM DESCRIPTION: CT CERVICAL SPINE WITHOUT COMPLETED DATE/TIME: 02/24/2018 12:31 pm REASON FOR STUDY: fall on thinners COMPARISON: None. TECHNIQUE: Axial images acquired through the cervical spine without intravenous contrast. Images re viewed with lung, soft tissue and bone windows. Reconstructed coronal and sagittal MPR images review ed. Images stored on PACS. All CT scanners at this facility use dose modulation, iterative reconstruction, and/or weight based d osing when appropriate to reduce radiation dose to as low as reasonably achievable (ALARA). [facility]: Dose Right [facility]: CareDose [facility]: Dose Right [facility]: Teradose 4D [facility]: [employer] RADIATION DOSE: CT Rad equipment meets quality standard of care and radiation dose reduction techniq ues were employed. CTDIvol: 10.1 mGy. DLP: 192 mGy-cm. mGy. LIMITATIONS: None. FINDINGS: ALIGNMENT: Anatomic. MINERALIZATION: Normal. VERTEBRAL BODIES: No fractures or dislocation. DISCS: No significant disc disease. FACETS, LATERAL MASSES, POSTERIOR ELEMENTS: No fractures. No dislocation. No acute findings. HARDWARE: None in the spine. VISUALIZED RIBS: No fractures. LUNG APICES AND SOFT TISSUES: No significant or acute findings. OTHER: No other significant finding. IMPRESSION: NO ACUTE OR SIGNIFICANT FINDINGS IN THE CERVICAL SPINE. TECHNICAL DOCUMENTATION: JOB ID: [id number] Quality ID # [id number]: Final reports with documentation of one or more dose reduction techniques (e.g., Au tomated exposure control, adjustment of the mA and/or kV according to patient size, use of iterative reconstruction technique) 2010 [employer]- All Rights Reserved Reading location - IP/workstation name: [email or web address]
[2018-02-24 13:23] LABS: ABSOLUTE LYMPHOCYTES (AUTO) 0.7 10^3/uL (0.5-4.7); ABSOLUTE MONOCYTES (AUTO) 0.8 10^3/uL (0.1-1.4); ABSOLUTE NEUT (AUTO) 6.3 10^3/uL (1.7-8.2); BASOPHILS % (AUTO) 0.6 % (0-2); EOSINOPHILS % (AUTO) 0.6 % (0-6); HEMATOCRIT 46.1 % (36.0-47.0); HEMOGLOBIN 15.3 g/dL (12.0-15.5); LYMPHOCYTES % (AUTO) 9.1 % (13-45); MEAN CORPUSCULAR HEMOGLOBIN 29.7 pg (27.0-33.4); MEAN CORPUSCULAR HGB CONC 33.1 g/dL (32.0-36.0); MEAN CORPUSCULAR VOLUME 90 fl (80-97); MONOCYTES % (AUTO) 10.4 % (3-13); PLATELET COUNT 211 10^3/uL (150-450); RED BLOOD COUNT 5.14 10^6/uL (3.72-5.28); RED CELL DISTRIBUTION WIDTH 17.2 % (11.5-14.0); SEGMENTED NEUTROPHILS % (AUTO) 79.3 % (42-78); TOTAL CELLS COUNTED % (AUTO) 100 %; WHITE BLOOD COUNT 7.9 10^3/uL (4.0-10.5)
[2018-02-24 13:26] LABS: APPEARANCE,URINE CLEAR; BILIRUBIN,URINE NEGATIVE (NEGATIVE); COLOR,URINE AMBER; GLUCOSE, URINE NEGATIVE (NEGATIVE); KETONES,URINE NEGATIVE (NEGATIVE); LEUKOCYTE ESTERASE,URINE NEGATIVE (NEGATIVE); NITRITE,URINE NEGATIVE (NEGATIVE); PROTEIN,URINE NEGATIVE (NEGATIVE)
[2018-02-24 13:28] LABS: INTERNATIONAL RATION (INR) 3.97; PROTHROMBIN TIME 40.6 SEC (11.4-15.4)
--- NOTE | 2018-02-24 13:31 | RADIOLOGY REPORT (SQ) ---
EXAM DESCRIPTION: HAND LEFT 3 VIEWS COMPLETED DATE/TIME: 02/24/2018 1:12 pm REASON FOR STUDY: fall on thinners COMPARISON: None. EXAM PARAMETERS: NUMBER OF VIEWS: Three views. TECHNIQUE: AP, lateral and oblique radiographic images acquired of the left hand. LIMITATIONS: None. FINDINGS: MINERALIZATION: Osteopenia. BONES: No acute fracture or dislocation. No worrisome bone lesions. JOINTS: No effusions. SOFT TISSUES: No soft tissue swelling. No foreign body. OTHER: No other significant finding. IMPRESSION: NO RADIOGRAPHIC EVIDENCE OF ACUTE INJURY. TECHNICAL DOCUMENTATION: JOB ID: [id number] [employer] All Rights Reserved Reading location - IP/workstation name: [email or web address]
--- NOTE | 2018-02-24 13:32 | RADIOLOGY REPORT (SQ) ---
EXAM DESCRIPTION: HUMERUS LEFT COMPLETED DATE/TIME: 02/24/2018 1:12 pm REASON FOR STUDY: fall on thinners COMPARISON: None. NUMBER OF VIEWS: Two views. TECHNIQUE: Two radiographic images were acquired of the left humerus to include elbow and shoulder i n at least one projection. LIMITATIONS: None. FINDINGS: MINERALIZATION: Osteopenia. BONES: No acute fracture or dislocation. No worrisome bone lesions. SOFT TISSUES: No obvious swelling or foreign body. OTHER: No other significant finding. IMPRESSION: NO RADIOGRAPHIC EVIDENCE OF ACUTE INJURY. TECHNICAL DOCUMENTATION: JOB ID: [id number] [employer]- All Rights Reserved Reading location - IP/workstation name: [email or web address] [id number]
--- NOTE | 2018-02-24 13:33 | RADIOLOGY REPORT (SQ) ---
EXAM DESCRIPTION: PELVIS AP COMPLETED DATE/TIME: 02/24/2018 1:12 pm REASON FOR STUDY: fall on thinners COMPARISON: None. NUMBER OF VIEWS: One view TECHNIQUE: AP Pelvis LIMITATIONS: None. FINDINGS: Bones are osteopenic. No evidence of fracture or dislocation. IMPRESSION: No acute findings. TECHNICAL DOCUMENTATION: JOB ID: [id number] [employer]- All Rights Reserved Reading location - IP/workstation name: [email or web address]
--- NOTE | 2018-02-24 13:34 | RADIOLOGY REPORT (SQ) ---
EXAM DESCRIPTION: CHEST SINGLE VIEW COMPLETED DATE/TIME: 02/24/2018 1:12 pm REASON FOR STUDY: fall on thinners COMPARISON: 01/13/2012 NUMBER OF VIEWS: One view. TECHNIQUE: Single frontal radiographic image of the chest acquired. LIMITATIONS: None. FINDINGS: LUNGS AND PLEURA: Small left pleural effusion could be recurrent or chronic. No pneumotho rax. There is a background of COPD. MEDIASTINUM AND HEART: Stable heart size and mediastinal structures. SUPPORT DEVICES: Appropriate location without change. BONY STRUCTURES: No acute findings. HARDWARE: CABG. OTHER: No other significant finding. IMPRESSION: Small left pleural effusion. Reading location - IP/workstation name: [email or web address]
--- NOTE | 2018-02-24 13:36 | RADIOLOGY REPORT (SQ) ---
EXAM DESCRIPTION: KNEE LEFT 3 VIEWS COMPLETED DATE/TIME: 02/24/2018 1:12 pm REASON FOR STUDY: fall on thinners COMPARISON: None. NUMBER OF VIEWS: Three views. TECHNIQUE: AP, lateral, and sunrise patella radiographic images acquired of the left knee. LIMITATIONS: None. FINDINGS: MINERALIZATION: Osteopenia. BONES: No acute fracture or dislocation. No worrisome bone lesions. JOINT: No effusion. SOFT TISSUES: No soft tissue swelling. No radio-opaque foreign body. OTHER: No other significant finding. IMPRESSION: NO RADIOGRAPHIC EVIDENCE OF ACUTE INJURY. TECHNICAL DOCUMENTATION: JOB ID: [id number] [employer]- All Rights Reserved Reading location - IP/workstation name: [email or web address]
[2018-02-24 14:04] LABS: CREATINE KINASE MB 0.65 ng/mL (<4.55)
[2018-02-24 14:06] LABS: TROPONIN I < 0.012 ng/mL
--- NOTE | 2018-02-24 14:14 | RADIOLOGY REPORT (SQ) ---
EXAM DESCRIPTION: CT HEAD WITHOUT COMPLETED DATE/TIME: 02/24/2018 12:08 pm REASON FOR STUDY: Fall injury on blood thinners COMPARISON: 12/23/11 TECHNIQUE: Axial images acquired through the brain without intravenous contrast. Images reviewed wi th bone, brain and subdural windows. Additional sagittal and coronal reconstructions were generated. Images stored on PACS. All CT scanners at this facility use dose modulation, iterative reconstruction, and/or weight based d osing when appropriate to reduce radiation dose to as low as reasonably achievable (ALARA). [facility]: Dose Right [facility]: CareDose [facility]: Dose Right [facility]: Teradose 4D [facility]: [employer] RADIATION DOSE: CT Rad equipment meets quality standard of care and radiation dose reduction techniq ues were employed. CTDIvol: 53.2 mGy. DLP: 964 mGy-cm.mGy. LIMITATIONS: None. FINDINGS: VENTRICLES: Prominent. CEREBRUM: No masses. No hemorrhage. No midline shift. Areas of low density in the white matter mos t likely due to chronic micro-vascular ischemic change. No evidence for acute infarction. CEREBELLUM: No masses. No hemorrhage. No alteration of density. No evidence for acute infarction. EXTRAAXIAL SPACES: Age-related involutional change. No fluid collections. No masses. ORBITS AND GLOBE: No intra- or extraconal masses. Normal contour of globe without masses. CALVARIUM: No fracture. PARANASAL SINUSES: No fluid or mucosal thickening. SOFT TISSUES: Frontal scalp hematoma. OTHER: No other significant finding. IMPRESSION: FRONTAL SCALP HEMATOMA WITHOUT UNDERLYING CALVARIAL FRACTURE OR INTRACRANIAL HEMORRHAGE. BACKGROUND OF MICROVASCULAR AND INVOLUTIONAL CHANGES. EVIDENCE OF ACUTE STROKE: NO. TECHNICAL DOCUMENTATION: JOB ID: [id number] Quality ID # [id number]: Final reports with documentation of one or more dose reduction techniques (e.g., Au tomated exposure control, adjustment of the mA and/or kV according to patient size, use of iterative reconstruction technique) 2010 [email or web address]- All Rights Reserved Reading location - IP/workstation name: [email or web address]
[2018-02-24] MEDS ORDERED: ONDANSETRON 4 MG TAB.RAPDIS PO PRN (15:36)
[2018-02-24] MEDS ORDERED: METOPROLOL TARTRATE PF/INJ 5 MG/5 ML SDV IV ONE (16:00)
[2018-02-24] MEDS ORDERED: DILTIAZEM HCL INJ 25 MG/5 ML VIAL ONE (16:14)
[2018-02-24] MEDS ORDERED: DILTIAZEM HCL INJ 25 MG/5 ML VIAL IV ONE (16:30)
--- NOTE | 2018-02-24 18:02 | PDOC H&P ---
History of Present Illness Admission Date/PCP: 02/24/18 15:09 AYSE CAO MD Patient complains of: FALL. FACIAL TRAUMA History of Present Illness: GIBSON VILLARREAL is a 87 year old female who fell at home this morning when getting up from the toilet. Fall was unwitnessed. Patient reports she did not lose consciousness. + Head trauma. Daughter was home, heard the patient fall, immediately called EMS when she found patient on bathroom floor. Of note, family reports that the patient has been experiencing viral illness-like symptoms for approximately 1 week. She came to [facility] ED 4 days ago for nausea and vomiting, was subsequently discharged home that same day. PMH includes atrial fibrillation (on coumadin), CABG, CAD, CHF, HTN, HLD, hypothyroidism, AICD Upon arrival to the emergency department, VS HR 138 (rapid AFIB) BP 122/105 RR 18 T 98.4 SPO2 93% on RA. Large hematoma to forehead. Multiple areas of bruising scattered all over her face, arms, and lower extremities. Very superficial abrasion to right lateral chest wall. Skin tears to left upper extremity, left knee and left hand. Head CT negative. Cervical spine CT negative. X-ray of left hand, left knee, pelvis negative. CXR chest reveals LLL pleural effusion, no other pathology. EKG shows rapid A. fib, RBBB, T-wave inversion in leads V1-V4. INR 3.4. BNP 9570. All other lab work (CBC, cardiac enzymes, CMP) benign. Upon assessment, the patient is resting comfortably in bed. She is alert and oriented to person, place, time. She is disoriented to situation, states she does not know why she is in the hospital. The patient endorses very mild pain to the skin tear on her left upper extremity. She denies headache, neck pain, dizziness, blurry vision, chest pain, shortness of breath, nausea, fatigue or weakness. Pupils are equal round and reactive. Lung sounds are clear to auscultation. Heart rate is irregular. Pulses are palpable but faint in all 4 extremities. Evidence of trace edema in her lower extremities. + BS. Denies chest wall or abdominal tenderness. No deformities noted to the long bones or facial structures. Plan to admit to hospitalist service for rapid A. fib and monitor for bleeding. Past Medical History Cardiac Medical History: Reports: Atrial Fibrillation, Congestive Heart Failure , Coronary Artery Disease, Hyperlipidema, Hypertension, Peripheral Vascular Disease Pulmonary Medical History: Reports: Bronchitis Denies: Tuberculosis Endocrine Medical History: Reports: Hypothyroidism GI Medical History: Reports: Hiatal Hernia Past Surgical History Past Surgical History: Reports: Cardiac Catheterization - december 2011, Cholecystectomy - 1995, Coronary Artery Bypass Graft, Hysterectomy, Pacemaker Comment Only: Gastric Bypass Surgery - Triple Social History Information Source: Patient, Relative Lives with: Family - DAUGHTER & SON IN LAW Smoking Status: Never Smoker Frequency of Alcohol Use: None Hx Recreational Drug Use: No Drugs: None Hx Prescription Drug Abuse: No - Advance Directive Resuscitation Status: Full Code Family History Family History: Reviewed & Not Pertinent Parental Family History Reviewed: No Children Family History Reviewed: No Sibling(s) Family History Reviewed.: No Medication/Allergy Home Medications: Benazepril HCl [Lotensin 20 Mg Tablet] 20 mg PO DAILY 07/29/11 Aspirin [Ecotrin 81 mg EC Tablet] 81 mg PO DAILY 11/18/11 Nitroglycerin [Nitrostat 0.4 mg (1/150 Gr) Tabs 25/Bottle] 0.4 mg SL PRN PRN 10/26 Warfarin Sodium [Coumadin 2.5 Mg Tablet] 2.5 mg PO TUTH@2200 PRN 02/04/12 Citalopram Hydrobromide [Celexa 10 mg Tablet] 20 mg PO DAILY 02/24/18 Clonidine HCl [Catapres 0.1 mg Tablet] 0.1 mg PO HSP PRN 02/24/18 Furosemide [Lasix 20 mg Tablet] 40 mg PO QAM 02/24/18 Levothyroxine Sodium [Synthroid 0.075 mg Tablet] 0.075 mg PO Q6AM 02/24/18 Metoprolol Succinate [Toprol Xl 25 mg Tab.sr] 25 mg PO Q12 02/24/18 Ondansetron [Zofran Odt 4 mg Tablet] 4 mg PO Q4HP PRN 02/24/18 Pitavastatin Calcium [Livalo] 2 mg PO Q48H MDD AT BEDTIME 02/24/18 Warfarin Sodium [Coumadin 5 mg Tablet] 5 mg PO SUMOWEFRSA@2200 02/24/18 Allergies/Adverse Reactions: cefdinir [From Omnicef] Allergy (Unknown, Verified 05/30/17 17:09) Choline Fenofibrate [From Trilipix] Allergy (Unknown, Verified 05/30/17 17:09) clopidogrel bisulfate [From Plavix] Allergy (Unknown, Verified 05/30/17 17:09) codeine [Codeine] Allergy (Unknown, Verified 05/30/17 17:09) guaifenesin [From Mucinex] Allergy (Unknown, Verified 05/30/17 17:09) hydralazine [Hydralazine] Allergy (Unknown, Verified 05/30/17 17:09) Influenza Vaccine,Trival 2010 * [Influenza Vaccine,Trival 2010] Allergy (Unknown , Verified 05/30/17 17:09) lovastatin [From Mevacor] Allergy (Unknown, Verified 05/30/17 17:09) meperidine HCl [From Demerol] Allergy (Unknown, Verified 05/30/17 17:09) niacin [Niacin] Allergy (Unknown, Verified 05/30/17 17:09) nifedipine [From Procardia] Allergy (Unknown, Verified 05/30/17 17:09) pentazocine lactate [From Talwin] Allergy (Unknown, Verified 05/30/17 17:09) pravastatin sodium [From Pravachol] Allergy (Unknown, Verified 05/30/17 17:09) propoxyphene HCl [From Darvon] Allergy (Unknown, Verified 05/30/17 17:09) rosuvastatin calcium [From Crestor] Allergy (Unknown, Verified 05/30/17 17:09) Sulfa (Sulfonamide Antibiotics) Allergy (Unknown, Verified 05/30/17 17:09) metoprolol succinate [From Toprol XL] Allergy (Verified 05/30/17 17:09) atorvastatin calcium [From Lipitor] Adverse Reaction (Severe, Verified 05/30/17 17:09) Review of Systems All systems: reviewed and no additional remarkable complaints except as stated Physical Exam Vital Signs: Temp Pulse Resp BP Pulse Ox 98.4 F 138 H 18 125/97 H 93 02/24/18 11:51 02/24/18 11:51 02/24/18 15:01 02/24/18 15:01 02/24/18 11:51 Intake & Output 02/23/18 02/24/18 02/25/18 06:59 06:59 06:59 Intake Total 500 Balance 500 General appearance: PRESENT: thin Head Image: 1 - HEMATOMA 2 - BRUISING 3 - BRUISING Eye exam: PRESENT: conjunctiva pink, PERRLA, other - PERIORBITAL BRUISING. ABSENT: nystagmus, periorbital swelling Mouth exam: PRESENT: moist Teeth exam: PRESENT: poor dentation Neck exam: PRESENT: full ROM, JVD Respiratory exam: PRESENT: clear to auscultation tenzin, symmetrical, unlabored Cardiovascular exam: PRESENT: irregular rhythm, systolic murmur, tachycardia Pulses: PRESENT: normal radial pulses, normal dorsalis pedis pul Vascular exam: PRESENT: normal capillary refill GI/Abdominal exam: PRESENT: normal bowel sounds, soft. ABSENT: distended, tenderness Rectal exam: PRESENT: deferred Extremities exam: PRESENT: full ROM, other - SKIN DISCOLORATION TO LOWER EXTREMITIES - CONSISTENT WITH PERIPHERAL VASCULAR DISEASE. ABSENT: joint swelling, pedal edema, tenderness Musculoskeletal exam: PRESENT: ambulatory, full ROM, tenderness Neurological exam: PRESENT: alert, awake, oriented to person, oriented to place , oriented to time. ABSENT: oriented to situation Psychiatric exam: PRESENT: appropriate affect Skin exam: PRESENT: dry, skin tears, warm Adult Front & Back Image: 1 - SKIN TEAR 2 - SKIN TEAR 3 - MULTIPLE NEW BRUISES 4 - MULTIPLE BRUISES 5 - MULTIPLE LARGE BRUISES 6 - MULTIPLE BRUISES Results Impressions: Head CT 02/24/18 00:00 IMPRESSION: FRONTAL SCALP HEMATOMA WITHOUT UNDERLYING CALVARIAL FRACTURE OR INTRACRANIAL HEMORRHAGE. BACKGROUND OF MICROVASCULAR AND INVOLUTIONAL CHANGES. EVIDENCE OF ACUTE STROKE: NO. Cervical Spine CT 02/24/18 12:11 IMPRESSION: NO ACUTE OR SIGNIFICANT FINDINGS IN THE CERVICAL SPINE. Chest X-Ray 02/24/18 12:11 IMPRESSION: Small left pleural effusion. Hand X-Ray 02/24/18 12:11 IMPRESSION: NO RADIOGRAPHIC EVIDENCE OF ACUTE INJURY. Humerus X-Ray 02/24/18 12:11 IMPRESSION: NO RADIOGRAPHIC EVIDENCE OF ACUTE INJURY. Knee X-Ray 02/24/18 12:11 IMPRESSION: NO RADIOGRAPHIC EVIDENCE OF ACUTE INJURY. Pelvis X-Ray 02/24/18 12:11 IMPRESSION: No acute findings. Status: Imported from PACS Assessment & Plan - Diagnosis (1) Syncope and collapse Is this a current diagnosis for this admission?: Yes Plan: Unwitnessed fall at home +Head trauma. Patient denies LOC Head CT and cervical spine CT negative XRAY pelvis, knee and hand all negative CXR show LLL pleural effusion Large hematoma to forehead, multiple areas of bruising to face Admit to [facility] with continuous telemetry monitoring Plan to repeat head CT in 6 hrs from original imaging to evaluate for intracranial bleeding Repeat CXR in AM to evaluate for progression of effusion and possible development of pulmonary contusion Serial CBC checks (q6hr) to evaluate for acute bleeding Fall and seizure precautions (2) Chronic atrial fibrillation with rapid ventricular response Is this a current diagnosis for this admission?: Yes Plan: History of AFIB on coumadin Rate control with Toprol XL Daughter reports patient did not take morning medications HR 140s in ED - Administered 5mg Lopressor IV - no change in HR Plan to administer cardizem Resume home dose Metoprolol Consult cardiology, appreciate their recommendations (3) CHF (congestive heart failure) Qualifiers: Heart failure type: combined systolic and diastolic Heart failure chronicity: chronic Qualified Code(s): I50.42 - Chronic combined systolic ( congestive) and diastolic (congestive) heart failure Is this a current diagnosis for this admission?: Yes Plan: BNP 9570 Extensive history of heart disease Looking back through old records, there is no ECHOcardiogram on file Plan for routine ECHO on Monday to evaluate for heart failure as possible contributor to today's fall (4) HTN (hypertension) Is this a current diagnosis for this admission?: Yes Plan: History of HTN Resume home dose anti-hypertensives (5) HLD (hyperlipidemia) Is this a current diagnosis for this admission?: Yes Plan: History of HLD Resume home dose statin (6) Hypothyroid Is this a current diagnosis for this admission?: Yes Plan: History of HYPOthyroidism Check TSH with AM labs Resume home dose synthroid (7) Avulsion of skin of elbow Qualifiers: Encounter type: initial encounter Laterality: left Qualified Code(s): S51.002A - Unspecified open wound of left elbow, initial encounter Is this a current diagnosis for this admission?: Yes Plan: Secondary to fall. Bacitracin and dressing per nursing (8) Elevated INR Is this a current diagnosis for this admission?: Yes Plan: Patient taking coumadin for AFIB INR 3.4 No need for reversal at this time Monitor for signs of bleeding If symptoms arise, will consider Vitamin K and blood product administration (9) Head injury Qualifiers: Encounter type: initial encounter Qualified Code(s): S09.90XA - Unspecified injury of head, initial encounter Is this a current diagnosis for this admission?: Yes Plan: Unwitnessed fall at home Heat CT negative for fractures or intracranial bleeding Large hematoma to forehead, multiple areas of bruising to face High risk for bleeding given elevated INR + traumatic injury Plan for re-CT 6hrs after original CT - Time Time Spent: 30 to 50 Minutes Medications reviewed and adjusted accordingly: Yes Anticipated discharge: Home Within: within 72 hours - Inpatient Certification Based on my medical assessment, after consideration of the patient's comorbidities, presenting symptoms, or acuity I expect that the services needed warrant INPATIENT care.: Yes I certify that my determination is in accordance with my understanding of Medicare's requirements for reasonable and necessary INPATIENT services [42 CFR 412.3e].: Yes Medical Necessity: Risk of Complication if Not Cared For in Hospital - Plan Summary Plan Summary: SERIAL CBC'S. REPEAT HEAD CT IN 6 HRS. REPEAT CXR IN AM. MONITOR FOR S/S OF BLEEDING
[2018-02-24 19:31] LABS: HEMATOCRIT 43.3 % (36.0-47.0); HEMOGLOBIN 14.2 g/dL (12.0-15.5); MEAN CORPUSCULAR HEMOGLOBIN 29.5 pg (27.0-33.4); MEAN CORPUSCULAR HGB CONC 32.8 g/dL (32.0-36.0); MEAN CORPUSCULAR VOLUME 90 fl (80-97); PLATELET COUNT 165 10^3/uL (150-450); RED BLOOD COUNT 4.82 10^6/uL (3.72-5.28); RED CELL DISTRIBUTION WIDTH 16.8 % (11.5-14.0); WHITE BLOOD COUNT 8.4 10^3/uL (4.0-10.5)
[2018-02-24 19:56] LABS: CREATINE KINASE MB 0.66 ng/mL (<4.55)
[2018-02-24] MEDS: OXYCODONE-ACETAMINOPHEN 5-325 MG TABLET PO PRN (19:56)
[2018-02-24 20:07] LABS: TROPONIN I < 0.012 ng/mL
--- NOTE | 2018-02-24 21:09 | EKG REPORT ---
SEVERITY:- ABNORMAL ECG - ATRIAL FIBRILLATION RBBB AND LPFB : Confirmed by: Osiris Rivers MD 24-Feb-2018 21:08:15
--- NOTE | 2018-02-24 21:35 | RADIOLOGY REPORT (SQ) ---
EXAM DESCRIPTION: CT HEAD WITHOUT COMPLETED DATE/TIME: 02/24/2018 7:28 pm REASON FOR STUDY: head trauma. repeat study to eval for ICH COMPARISON: Earlier the same day. TECHNIQUE: Axial images acquired through the brain without intravenous contrast. Images reviewed wi th bone, brain and subdural windows. Images stored on PACS. All CT scanners at this facility use dose modulation, iterative reconstruction, and/or weight based d osing when appropriate to reduce radiation dose to as low as reasonably achievable (ALARA). [facility]: Dose Right [facility]: CareDose [facility]: Dose Right [facility]: Teradose 4D [facility]: Smart [employer] RADIATION DOSE: CT Rad equipment meets quality standard of care and radiation dose reduction techniq ues were employed. CTDIvol: 53.2 mGy. DLP: 964 mGy-cm.mGy. LIMITATIONS: None. FINDINGS: VENTRICLES: Prominent. CEREBRUM: No masses. No hemorrhage. No midline shift. Areas of low density in the white matter mos t likely due to chronic micro-vascular ischemic change. No evidence for acute infarction. CEREBELLUM: No masses. No hemorrhage. No alteration of density. No evidence for acute infarction. EXTRAAXIAL SPACES: Age-related involutional change. No fluid collections. No masses. ORBITS AND GLOBE: No intra- or extraconal masses. Normal contour of globe without masses. CALVARIUM: No fracture. PARANASAL SINUSES: No fluid or mucosal thickening. SOFT TISSUES: Frontal scalp hematoma. OTHER: No other significant finding. IMPRESSION: No significant change from earlier the same day. EVIDENCE OF ACUTE STROKE: NO. TECHNICAL DOCUMENTATION: JOB ID: [id number] Quality ID # [id number]: Final reports with documentation of one or more dose reduction techniques (e.g., Au tomated exposure control, adjustment of the mA and/or kV according to patient size, use of iterative reconstruction technique) 2010 [employer]- All Rights Reserved Reading location - IP/workstation name: [email or web address]
[2018-02-24] MEDS ORDERED: METOPROLOL SUCCINATE 25 MG TAB.SR.24H PO SCH (22:00)
[2018-02-25 01:34] LABS: HEMATOCRIT 38.6 % (36.0-47.0); MEAN CORPUSCULAR HEMOGLOBIN 30.2 pg (27.0-33.4); MEAN CORPUSCULAR HGB CONC 33.8 g/dL (32.0-36.0); MEAN CORPUSCULAR VOLUME 89 fl (80-97); PLATELET COUNT 181 10^3/uL (150-450); RED BLOOD COUNT 4.33 10^6/uL (3.72-5.28); RED CELL DISTRIBUTION WIDTH 16.6 % (11.5-14.0); WHITE BLOOD COUNT 7.9 10^3/uL (4.0-10.5)
[2018-02-25 02:11] LABS: CREATINE KINASE MB 0.66 ng/mL (<4.55); TROPONIN I < 0.012 ng/mL
[2018-02-25] MEDS: LEVOTHYROXINE SODIUM 0.075 MG TABLET PO SCH (05:08)
[2018-02-25] MEDS ORDERED: FUROSEMIDE 20 MG TABLET PO SCH (08:00)
[2018-02-25 08:30] LABS: HEMATOCRIT 43.5 % (36.0-47.0); HEMOGLOBIN 14.4 g/dL (12.0-15.5); MEAN CORPUSCULAR HEMOGLOBIN 29.8 pg (27.0-33.4); MEAN CORPUSCULAR HGB CONC 33.2 g/dL (32.0-36.0); MEAN CORPUSCULAR VOLUME 90 fl (80-97); PLATELET COUNT 183 10^3/uL (150-450); RED BLOOD COUNT 4.85 10^6/uL (3.72-5.28); WHITE BLOOD COUNT 7.8 10^3/uL (4.0-10.5)
[2018-02-25 08:37] LABS: INTERNATIONAL RATION (INR) 4.64; PROTHROMBIN TIME 45.9 SEC (11.4-15.4)
--- NOTE | 2018-02-25 08:45 | RADIOLOGY REPORT (SQ) ---
EXAM DESCRIPTION: CHEST 2 VIEWS COMPLETED DATE/TIME: 02/25/2018 8:19 am REASON FOR STUDY: Fall. Pleural effusion COMPARISON: May 2018 NUMBER OF VIEWS: Two view TECHNIQUE: Frontal and lateral radiographic images of the chest acquired. LIMITATIONS: Positioning. FINDINGS: LUNGS AND PLEURA: Small left pleural effusion and associated airspace disease not signific antly changed. Right lung is clear. There is a background of COPD. MEDIASTINUM AND HILAR STRUCTURES: Stable heart size and mediastinal structures. HEART AND VASCULAR STRUCTURES: Stable appearance. SUPPORT DEVICES: Appropriate location without change. BONES: No acute findings. OTHER: No other significant finding. IMPRESSION: Left pleural effusion. COPD. No significant change. TECHNICAL DOCUMENTATION: JOB ID: [id number] [employer]- All Rights Reserved Reading location - IP/workstation name: [email or web address]
[2018-02-25 08:59] LABS: ANION GAP 9 (5-19); BLOOD UREA NITROGEN 22 mg/dL (7-20); CALCIUM 8.6 mg/dL (8.4-10.2); CARBON DIOXIDE 27 mmol/L (22-30); CHLORIDE 98 mmol/L (98-107); GLUCOSE 91 mg/dL (75-110); PHOSPHORUS 3.5 mg/dL (2.5-4.5); POTASSIUM 5.2 mmol/L (3.6-5.0); SODIUM 134.4 mmol/L (137-145)
[2018-02-25 09:00] LABS: CREATINE KINASE < 20 U/L (30-135)
[2018-02-25 09:08] LABS: CREATINE KINASE MB 0.74 ng/mL (<4.55)
[2018-02-25 09:13] LABS: TROPONIN I < 0.012 ng/mL
[2018-02-25] MEDS: ASPIRIN 81 MG TABLET, ENT COATED PO SCH (09:51)
[2018-02-25] MEDS: METOPROLOL TARTRATE 25 MG TABLET PO SCH ×2 (09:51→23:13)
[2018-02-25] MEDS ORDERED: BENAZEPRIL HCL 20 MG TABLET PO SCH ×3 (10:00→13:56)
[2018-02-25] MEDS ORDERED: CLONIDINE HCL 0.1 MG TABLET PO SCH (10:00)
[2018-02-25] MEDS ORDERED: CLONIDINE HCL 0.1 MG TABLET PO PRN (10:11)
[2018-02-25] MEDS ORDERED: CITALOPRAM HYDROBROMIDE 20 MG PO SCH (10:15)
[2018-02-25] MEDS ORDERED: SODIUM POLYSTYRENE SULFONATE 15 GM/60 ML PO ONE (11:30)
--- NOTE | 2018-02-25 12:48 | PDOC PROGRESS REPORT ---
Subjective Progress Note for:: 02/25/18 Subjective:: Patient is seen at my office at [facility]. Patient is on chronic Coumadin therapy for atrial fibrillation. Patient was admitted through the emergency department because she fell at home this morning when getting up from the toilet. Fall was unwitnessed. Patient reports she did not lose consciousness. + Head trauma. Daughter was home, heard the patient fall, immediately called EMS when she found patient on bathroom floor. Of note, family reports that the patient has been experiencing viral illness-like symptoms for approximately 1 week. She came to [facility] ED 4 days ago for nausea and vomiting, was subsequently discharged home that same day. PMH includes atrial fibrillation (on coumadin), CABG, CAD, CHF, HTN, HLD, hypothyroidism, AICD Upon arrival to the emergency department, VS HR 138 (rapid AFIB) BP 122/105 RR 18 T 98.4 SPO2 93% on RA. Large hematoma to forehead. Multiple areas of bruising scattered all over her face, arms, and lower extremities. Very superficial abrasion to right lateral chest wall. Skin tears to left upper extremity, left knee and left hand. Head CT negative. Cervical spine CT negative. X-ray of left hand, left knee, pelvis negative. CXR chest reveals LLL pleural effusion, no other pathology. EKG shows rapid A. fib, RBBB, T-wave inversion in leads V1-V4. INR 3.4. BNP 9570. All other lab work (CBC, cardiac enzymes, CMP) benign. Upon assessment, the patient is resting comfortably in bed. She is alert and oriented to person, place, time. She is disoriented to situation, states she does not know why she is in the hospital. The patient endorses very mild pain to the skin tear on her left upper extremity. She denies headache, neck pain, dizziness, blurry vision, chest pain, shortness of breath, nausea, fatigue or weakness. Pupils are equal round and reactive. Lung sounds are clear to auscultation. Heart rate is irregular. Pulses are palpable but faint in all 4 extremities. Evidence of trace edema in her lower extremities. + BS. Denies chest wall or abdominal tenderness. No deformities noted to the long bones or facial structures. Plan to admit to hospitalist service for rapid A. fib and monitor for bleeding. This history obtained by the hospitalist was reviewed and confirmed. Reason For Visit: SYNCOPE AND COLLAPSE,INJURY OF HEAD,ALTERED MENTAL Physical Exam Vital Signs: Temp Pulse Resp BP Pulse Ox 97.8 F 104 H 18 117/60 94 02/25/18 11:13 02/25/18 11:13 02/25/18 11:13 02/25/18 11:13 02/25/18 11:13 Intake & Output 02/24/18 02/25/18 02/26/18 06:59 06:59 06:59 Intake Total 500 150 Output Total 151 Balance 349 150 Weight 48.2 kg Exam: GENERAL: well-nourished and in no acute distress. Alert and oriented x3 HEAD: Shows significant superficial bruising., normocephalic. EYES: Pupils equal round and reactive to light, extraocular movements intact, sclera anicteric, conjunctiva are normal. ENT: TMs normal, nares patent, oropharynx clear without exudates. Moist mucous membranes. No oral ulcerations or bleeding gums noted NECK: supple without lymphadenopathy. Trachea is central. No cervical or axillary lymphadenopathy noted. Carotids are 2+, JVD WNL LUNGS: Respiration seems nonlabored, no significant accessory muscle action noted. Few bibasilar crackles is noted with diminished breath sounds left base. There is also some dullness noted left base. CHEST: Palpation of the chest wall shows no significant chest wall tenderness. HEART: [place] [employer], No PSH, 1/6 SHELL aortic area, 1/6 groves systolic murmur mitral area, no rubs, no gallops. ABDOMEN: Soft, no significant tenderness appreciated, normoactive bowel sounds. No guarding, no rebound. No rigidity noted . No masses appreciated. EXTREMITIES: Pedal pulses are 1-2+, no calf tenderness noted. No clubbing or cyanosis. negative pedal edema noted NEUROLOGICAL: Focused neurological exam showed no significant neurologic deficit. Normal speech, no focal weakness appreciated. PSYCH: Normal mood, normal affect. Judgment and insight within normal limits. SKIN: No significant ecchymosis, skin is noted to be warm. MUSCULOSKELETAL EXAM: No significant acute joint swelling noted. Results Laboratory Results: 02/25/18 07:34 02/25/18 07:34 02/24/18 02/25/18 02/25/18 19:15 01:15 07:34 WBC 8.4 7.9 RBC 4.82 4.33 Hgb 14.2 13.0 Hct 43.3 38.6 MCV 90 89 MCH 29.5 30.2 MCHC 32.8 33.8 RDW 16.8 H 16.6 H Plt Count 165 181 Sodium 134.4 L Potassium 5.2 H Chloride 98 Carbon Dioxide 27 Anion Gap 9 BUN 22 H Creatinine 0.57 Est GFR ( Amer) > 60 Est GFR (Non-Af Amer) > 60 Glucose 91 Calcium 8.6 Phosphorus 3.5 Magnesium 2.2 TSH 02/25/18 02/25/18 07:34 07:34 WBC 7.8 RBC 4.85 Hgb 14.4 Hct 43.5 MCV 90 MCH 29.8 MCHC 33.2 RDW 17.0 H Plt Count 183 Sodium Potassium Chloride Carbon Dioxide Anion Gap BUN Creatinine Est GFR ( Amer) Est GFR (Non-Af Amer) Glucose Calcium Phosphorus Magnesium TSH 4.91 H 02/24/18 02/25/18 02/25/18 19:15 01:15 07:34 Creatine Kinase CK-MB (CK-2) 0.66 0.66 0.74 Troponin I < 0.012 < 0.012 < 0.012 NT-Pro-B Natriuret Pep 02/25/18 02/25/18 07:34 07:34 Creatine Kinase < 20 L CK-MB (CK-2) Troponin I NT-Pro-B Natriuret Pep 6870 H EKG Comments: Atrial fibrillation, heart rate reasonably well controlled. Impressions: Cervical Spine CT 02/24/18 12:11 IMPRESSION: NO ACUTE OR SIGNIFICANT FINDINGS IN THE CERVICAL SPINE. Hand X-Ray 02/24/18 12:11 IMPRESSION: NO RADIOGRAPHIC EVIDENCE OF ACUTE INJURY. Humerus X-Ray 02/24/18 12:11 IMPRESSION: NO RADIOGRAPHIC EVIDENCE OF ACUTE INJURY. Knee X-Ray 02/24/18 12:11 IMPRESSION: NO RADIOGRAPHIC EVIDENCE OF ACUTE INJURY. Pelvis X-Ray 02/24/18 12:11 IMPRESSION: No acute findings. Head CT 02/24/18 19:00 IMPRESSION: No significant change from earlier the same day. EVIDENCE OF ACUTE STROKE: NO. Chest X-Ray 02/25/18 05:00 IMPRESSION: Left pleural effusion. COPD. No significant change. Assessment & Plan - Diagnosis (1) Contusion of face Qualifiers: Encounter type: initial encounter Qualified Code(s): S00.83XA - Contusion of other part of head, initial encounter Is this a current diagnosis for this admission?: Yes (2) Failure to thrive Qualifiers: Failure to thrive age range: in adult Qualified Code(s): R62.7 - Adult failure to thrive Is this a current diagnosis for this admission?: Yes (3) HLD (hyperlipidemia) Qualifiers: Hyperlipidemia type: unspecified Qualified Code(s): E78.5 - Hyperlipidemia , unspecified Is this a current diagnosis for this admission?: Yes (4) HTN (hypertension) Qualifiers: Hypertension type: essential hypertension Qualified Code(s): I10 - Essential (primary) hypertension Is this a current diagnosis for this admission?: Yes (5) Weakness Is this a current diagnosis for this admission?: Yes (6) Chronic atrial fibrillation with rapid ventricular response Is this a current diagnosis for this admission?: Yes (7) CHF (congestive heart failure) Qualifiers: Heart failure type: combined systolic and diastolic Heart failure chronicity: acute on chronic Qualified Code(s): I50.43 - Acute on chronic combined systolic (congestive) and diastolic (congestive) heart failure Is this a current diagnosis for this admission?: Yes - Notes Notes: Contusion of the face, related to fall, because of fall not. But could well be generalized weakness. Patient could have a vasovagal presyncope. Patient will benefit from physical therapy, fall prevention exercises and general strengthening of the muscles. Failure to thrive: Patient seems to be underweight and somewhat malnourished. Recommend that patient has nutritional consultation. Dyslipidemia: LDL goal is less than 70. Continue home statin therapy. Hypertension: Patient claims that blood pressure has been somewhat on the low side. Will monitor this very closely. Will like to avoid any pure vasodilators in patient with history of fall. Beta-blockers and JUSTIN inhibitor/ ARB's are usually preferred. Generalized weakness: Recommend strengthening exercises and nutritional improvement. Chronic atrial fibrillation with rapid ventricular response: Agree with beta- blockers for rate control. May use digoxin if needed especially if blood pressure is a problem. CHF: This is a chronic problem for this patient. Patient has history of chronic pleural effusion left more than right. Review of chest x-ray shows pleural effusion is somewhat worse. Have switched patient to torsemide this has better bioavailability and has been shown to reduce CHF related readmissions. We will continue to follow. Last echocardiogram performed was in September 2017 which showed LVEF of 50%, diastolic dysfunction, RV was noted to be moderately dilated, mild to moderate aortic incompetence, RV systolic function was noted to be depressed. Patient was also noted to have severe tricuspid regurgitation. Will recommend repeating the 2D echo. - Time Time with patient: Greater than 35 minutes - CODE STATUS was discussed, patient remains full code. Surrogate decision-maker patient's daughter. Multiple medical problems were addressed. More than 50% of the time spent coordinating care, discussing management plans with involved caregivers. Management plans discussed with involved personnels. Medical decision making was of moderate to high complexity, patient's has multiple comorbidities. Medications reviewed and adjusted accordingly: Yes
--- NOTE | 2018-02-25 15:27 | PDOC CONSULTATION ---
Consultation Consult Date: 02/25/18 Consult reason:: skin tears allong right elbow,wrist and knee after a fall yesterday am History of Present Illness Admission Date/PCP: 02/24/18 15:09 AYSE CAO MD Patient complains of: pains along wounds left arm History of Present Illness: GIBSON VILLRAREAL is a 87 year old female Past Medical History Cardiac Medical History: Reports: Atrial Fibrillation, Congestive Heart Failure , Coronary Artery Disease, Hyperlipidema, Hypertension, Peripheral Vascular Disease Pulmonary Medical History: Reports: Bronchitis Denies: Tuberculosis Endocrine Medical History: Reports: Hypothyroidism GI Medical History: Reports: Hiatal Hernia Psychiatric Medical History: Reports: Depression Past Surgical History Past Surgical History: Reports: Cardiac Catheterization - december 2011, Cholecystectomy - 1995, Coronary Artery Bypass Graft, Hysterectomy, Pacemaker Comment Only: Gastric Bypass Surgery - Triple Social History Lives with: Spouse/Significant other Smoking Status: Never Smoker Frequency of Alcohol Use: None Hx Recreational Drug Use: No Drugs: None Hx Prescription Drug Abuse: No - Advance Directive Resuscitation Status: Full Code Family History Family History: Reviewed & Not Pertinent Parental Family History Reviewed: Yes Children Family History Reviewed: No Sibling(s) Family History Reviewed.: No Medication/Allergy Home Medications: Benazepril HCl [Lotensin 20 Mg Tablet] 20 mg PO DAILY 07/29/11 Aspirin [Ecotrin 81 mg EC Tablet] 81 mg PO DAILY 11/18/11 Nitroglycerin [Nitrostat 0.4 mg (1/150 Gr) Tabs 25/Bottle] 0.4 mg SL PRN PRN 10/26 Warfarin Sodium [Coumadin 2.5 Mg Tablet] 2.5 mg PO TUTH@2200 PRN 02/04/12 Citalopram Hydrobromide [Celexa 10 mg Tablet] 20 mg PO DAILY 02/24/18 Clonidine HCl [Catapres 0.1 mg Tablet] 0.1 mg PO HSP PRN 02/24/18 Furosemide [Lasix 20 mg Tablet] 40 mg PO QAM 02/24/18 Levothyroxine Sodium [Synthroid 0.075 mg Tablet] 0.075 mg PO Q6AM 02/24/18 Metoprolol Succinate [Toprol Xl 25 mg Tab.sr] 25 mg PO Q12 02/24/18 Ondansetron [Zofran Odt 4 mg Tablet] 4 mg PO Q4HP PRN 02/24/18 Pitavastatin Calcium [Livalo] 2 mg PO Q48H MDD AT BEDTIME 02/24/18 Warfarin Sodium [Coumadin 5 mg Tablet] 5 mg PO SUMOWEFRSA@2200 02/24/18 Allergies/Adverse Reactions: cefdinir [From Omnicef] Allergy (Unknown, Verified 05/30/17 17:09) Choline Fenofibrate [From Trilipix] Allergy (Unknown, Verified 05/30/17 17:09) clopidogrel bisulfate [From Plavix] Allergy (Unknown, Verified 05/30/17 17:09) codeine [Codeine] Allergy (Unknown, Verified 05/30/17 17:09) guaifenesin [From Mucinex] Allergy (Unknown, Verified 05/30/17:09) hydralazine [Hydralazine] Allergy (Unknown, Verified 05/30/17 17:) Influenza Vaccine,Trival 2010 * [Influenza Vaccine,Trival 2010] Allergy (Unknown , Verified 05/30/17 17:09) lovastatin [From Mevacor] Allergy (Unknown, Verified 05/30/17 17:09) meperidine HCl [From Demerol] Allergy (Unknown, Verified 05/30/17 17:09) niacin [Niacin] Allergy (Unknown, Verified 05/30/17 17:09) nifedipine [From Procardia] Allergy (Unknown, Verified 05/30/17 17:09) pentazocine lactate [From Talwin] Allergy (Unknown, Verified 05/30/17 17:09) pravastatin sodium [From Pravachol] Allergy (Unknown, Verified 05/30/17 17:09) propoxyphene HCl [From Darvon] Allergy (Unknown, Verified 05/30/17 17:09) rosuvastatin calcium [From Crestor] Allergy (Unknown, Verified 05/30/17 17:09) Sulfa (Sulfonamide Antibiotics) Allergy (Unknown, Verified 05/30/17 17:09) metoprolol succinate [From Toprol XL] Allergy (Verified 05/30/17 17:09) atorvastatin calcium [From Lipitor] Adverse Reaction (Severe, Verified 05/30/17 17:09) Review of Systems ROS unobtainable: Due to mental status Physical Exam Vital Signs: Temp Pulse Resp BP Pulse Ox 97.8 F 98 18 117/60 94 02/25/18 11:13 02/25/18 14:00 02/25/18 11:13 02/25/18 11:13 02/25/18 11:13 Intake & Output 02/24/18 02/25/18 02/26/18 06:59 06:59 06:59 Intake Total 500 150 Output Total 151 Balance 349 150 Weight 48.2 kg General appearance: PRESENT: no acute distress Head exam: PRESENT: atraumatic Eye exam: PRESENT: conjunctiva pink Mouth exam: PRESENT: moist Neck exam: PRESENT: full ROM Respiratory exam: PRESENT: clear to auscultation tenzin Cardiovascular exam: PRESENT: RRR Pulses: PRESENT: normal radial pulses Vascular exam: PRESENT: normal capillary refill GI/Abdominal exam: PRESENT: soft Rectal exam: PRESENT: deferred Extremities exam: PRESENT: other - Has partial skin avulsion just above the wrist ant and posterior areas each roughly about 2x4 cm. No drainage. skin tears partially folded. Smaller skin avusion right wrist about 1.5x1.5cm. Right knee has a 1.5x1.5 cm skin avulsion Results Laboratory Results: 02/25/18 07:34 02/25/18 07:34 02/24/18 02/25/18 02/25/18 19:15 01:15 07:34 WBC 8.4 7.9 RBC 4.82 4.33 Hgb 14.2 13.0 Hct 43.3 38.6 MCV 90 89 MCH 29.5 30.2 MCHC 32.8 33.8 RDW 16.8 H 16.6 H Plt Count 165 181 Sodium 134.4 L Potassium 5.2 H Chloride 98 Carbon Dioxide 27 Anion Gap 9 BUN 22 H Creatinine 0.57 Est GFR ( Amer) > 60 Est GFR (Non-Af Amer) > 60 Glucose 91 Calcium 8.6 Phosphorus 3.5 Magnesium 2.2 TSH 02/25/18 02/25/18 07:34 07:34 WBC 7.8 RBC 4.85 Hgb 14.4 Hct 43.5 MCV 90 MCH 29.8 MCHC 33.2 RDW 17.0 H Plt Count 183 Sodium Potassium Chloride Carbon Dioxide Anion Gap BUN Creatinine Est GFR ( Amer) Est GFR (Non-Af Amer) Glucose Calcium Phosphorus Magnesium TSH 4.91 H 02/24/18 02/25/18 02/25/18 19:15 01:15 07:34 Creatine Kinase CK-MB (CK-2) 0.66 0.66 0.74 Troponin I < 0.012 < 0.012 < 0.012 NT-Pro-B Natriuret Pep 02/25/18 02/25/18 07:34 07:34 Creatine Kinase < 20 L CK-MB (CK-2) Troponin I NT-Pro-B Natriuret Pep 6870 H Impressions: Cervical Spine CT 02/24/18 12:11 IMPRESSION: NO ACUTE OR SIGNIFICANT FINDINGS IN THE CERVICAL SPINE. Hand X-Ray 02/24/18 12:11 IMPRESSION: NO RADIOGRAPHIC EVIDENCE OF ACUTE INJURY. Humerus X-Ray 02/24/18 12:11 IMPRESSION: NO RADIOGRAPHIC EVIDENCE OF ACUTE INJURY. Knee X-Ray 02/24/18 12:11 IMPRESSION: NO RADIOGRAPHIC EVIDENCE OF ACUTE INJURY. Pelvis X-Ray 02/24/18 12:11 IMPRESSION: No acute findings. Head CT 02/24/18 19:00 IMPRESSION: No significant change from earlier the same day. EVIDENCE OF ACUTE STROKE: NO. Chest X-Ray 02/25/18 05:00 IMPRESSION: Left pleural effusion. COPD. No significant change. Assessment & Plan - Diagnosis (1) partial skin avulsion right elbow.wrist Is this a current diagnosis for this admission?: Yes - Time Time Spent: 30 to 50 Minutes - Plan Summary Plan Summary: Wounds are not amenable for surgical closure. Would recommend Silvadine dressings to all skin avulsions 1-2x /day for 7-10 days.
[2018-02-25] MEDS: SILVER SULFADIAZINE 1% CREAM 50 GM TP SCH (17:38)
[2018-02-25] MEDS: OXYCODONE-ACETAMINOPHEN 5-325 MG TABLET PO PRN (17:38)
[2018-02-25] MEDS: BENAZEPRIL HCL 10 MG TABLET PO SCH (21:00)
--- NOTE | 2018-02-25 21:59 | PDOC PROGRESS REPORT ---
Subjective Progress Note for:: 02/25/18 Subjective:: 87 y.o. F who fell at home when getting up from toilet. Multiple areas of bruising but no fractures or ICH. Patient seen this morning on rounds, she is resting comfortably in bedside recliner. Patient complains of pain to L shoulder. No obvious deformity. Imaging from yesterday reveal no fracture or dislocation. Denies BETTENCOURT, blurry vision, neck pain, chest pain or palpitations. Serial CBCs all negative for bleeding. Plan to keep inpatient. Attempt to find placement for the patient in acute rehab facility. Reason For Visit: SYNCOPE AND COLLAPSE,INJURY OF HEAD,ALTERED MENTAL Physical Exam Vital Signs: Temp Pulse Resp BP Pulse Ox 98.2 F 82 16 100/50 L 94 02/25/18 19:56 02/25/18 19:56 02/25/18 19:56 02/25/18 19:56 02/25/18 19:56 Intake & Output 02/24/18 02/25/18 02/26/18 06:59 06:59 06:59 Intake Total 500 425 Output Total 151 Balance 349 425 Weight 48.2 kg General appearance: PRESENT: thin Head exam: PRESENT: other - multiple facial bruises Eye exam: PRESENT: conjunctiva pink, PERRLA Mouth exam: PRESENT: moist Respiratory exam: PRESENT: clear to auscultation tenzin, symmetrical, unlabored Cardiovascular exam: PRESENT: +S1, +S2 Pulses: PRESENT: normal radial pulses, normal dorsalis pedis pul Vascular exam: PRESENT: normal capillary refill GI/Abdominal exam: PRESENT: normal bowel sounds, soft. ABSENT: tenderness Rectal exam: PRESENT: deferred Extremities exam: PRESENT: full ROM, tenderness - L shoulder Musculoskeletal exam: PRESENT: other - R shoulder pain Neurological exam: PRESENT: alert, awake, oriented to person, oriented to place , oriented to time, oriented to situation Psychiatric exam: PRESENT: appropriate affect Skin exam: PRESENT: abrasion, erythema, skin tears - L AC and L elbow and L hand Results Laboratory Results: 02/25/18 07:34 02/25/18 07:34 02/25/18 02/25/18 02/25/18 01:15 07:34 07:34 WBC 7.9 RBC 4.33 Hgb 13.0 Hct 38.6 MCV 89 MCH 30.2 MCHC 33.8 RDW 16.6 H Plt Count 181 Sodium 134.4 L Potassium 5.2 H Chloride 98 Carbon Dioxide 27 Anion Gap 9 BUN 22 H Creatinine 0.57 Est GFR ( Amer) > 60 Est GFR (Non-Af Amer) > 60 Glucose 91 Calcium 8.6 Phosphorus 3.5 Magnesium 2.2 TSH 4.91 H 02/25/18 07:34 WBC 7.8 RBC 4.85 Hgb 14.4 Hct 43.5 MCV 90 MCH 29.8 MCHC 33.2 RDW 17.0 H Plt Count 183 Sodium Potassium Chloride Carbon Dioxide Anion Gap BUN Creatinine Est GFR ( Amer) Est GFR (Non-Af Amer) Glucose Calcium Phosphorus Magnesium TSH 02/24/18 02/25/18 02/25/18 19:15 01:15 07:34 Creatine Kinase CK-MB (CK-2) 0.66 0.66 0.74 Troponin I < 0.012 < 0.012 < 0.012 NT-Pro-B Natriuret Pep 02/25/18 02/25/18 07:34 07:34 Creatine Kinase < 20 L CK-MB (CK-2) Troponin I NT-Pro-B Natriuret Pep 6870 H Impressions: Cervical Spine CT 02/24/18 12:11 IMPRESSION: NO ACUTE OR SIGNIFICANT FINDINGS IN THE CERVICAL SPINE. Hand X-Ray 02/24/18 12:11 IMPRESSION: NO RADIOGRAPHIC EVIDENCE OF ACUTE INJURY. Humerus X-Ray 02/24/18 12:11 IMPRESSION: NO RADIOGRAPHIC EVIDENCE OF ACUTE INJURY. Knee X-Ray 02/24/18 12:11 IMPRESSION: NO RADIOGRAPHIC EVIDENCE OF ACUTE INJURY. Pelvis X-Ray 02/24/18 12:11 IMPRESSION: No acute findings. Head CT 02/24/18 19:00 IMPRESSION: No significant change from earlier the same day. EVIDENCE OF ACUTE STROKE: NO. Chest X-Ray 02/25/18 05:00 IMPRESSION: Left pleural effusion. COPD. No significant change. Status: Imported from PACS Assessment & Plan - Diagnosis (1) Syncope and collapse Is this a current diagnosis for this admission?: Yes Plan: Unwitnessed fall at home +Head trauma. Patient denies LOC Head CT and cervical spine CT negative XRAY pelvis, knee and hand all negative CXR show LLL pleural effusion Large hematoma to forehead, multiple areas of bruising to face Admit to [facility] with continuous telemetry monitoring Repeat head CT 6 hrs from original imaging is negative (-) for intracranial bleeding CXR today shows mild progression of effusion, initiate torsemide for diuresis Fall and seizure precautions (2) Chronic atrial fibrillation with rapid ventricular response Is this a current diagnosis for this admission?: Yes Plan: History of AFIB on coumadin Rate control with Toprol XL Daughter reports patient did not take morning medications HR 140s in ED - Administered 5mg Lopressor IV - no change in HR Plan to administer cardizem Resume home dose Metoprolol Consult cardiology, appreciate their recommendations (3) CHF (congestive heart failure) Qualifiers: Heart failure type: combined systolic and diastolic Heart failure chronicity: acute on chronic Qualified Code(s): I50.43 - Acute on chronic combined systolic (congestive) and diastolic (congestive) heart failure Is this a current diagnosis for this admission?: Yes Plan: BNP 9570 -> 6870 Extensive history of heart disease Cardiology consulted, appreciate their recommendations Initiate torsemide for diuresis We will continue to follow. Last echocardiogram performed was in September 2017 which showed LVEF of 50%, diastolic dysfunction, RV was noted to be moderately dilated, mild to moderate aortic incompetence, RV systolic function was noted to be depressed. Patient was also noted to have severe tricuspid regurgitation. (4) HTN (hypertension) Qualifiers: Hypertension type: essential hypertension Qualified Code(s): I10 - Essential (primary) hypertension Is this a current diagnosis for this admission?: Yes Plan: History of HTN Resume home dose anti-hypertensives (5) HLD (hyperlipidemia) Qualifiers: Hyperlipidemia type: unspecified Qualified Code(s): E78.5 - Hyperlipidemia , unspecified Is this a current diagnosis for this admission?: Yes Plan: History of HLD Resume home dose statin (6) Hypothyroid Is this a current diagnosis for this admission?: Yes Plan: History of HYPOthyroidism Check TSH with AM labs Resume home dose synthroid (7) Avulsion of skin of elbow Qualifiers: Encounter type: initial encounter Laterality: left Qualified Code(s): S51.002A - Unspecified open wound of left elbow, initial encounter Is this a current diagnosis for this admission?: Yes Plan: Secondary to fall. Bacitracin and dressing per nursing Surgery called to bedside to assist in assessment, possible suturing of avulsion. Not a candidate (see consult note) (8) Elevated INR Is this a current diagnosis for this admission?: Yes Plan: Patient taking coumadin for AFIB INR 3.4 No need for reversal at this time Monitor for signs of bleeding If symptoms arise, will consider Vitamin K and blood product administration (9) Head injury Qualifiers: Encounter type: initial encounter Qualified Code(s): S09.90XA - Unspecified injury of head, initial encounter Is this a current diagnosis for this admission?: Yes Plan: Unwitnessed fall at home Heat CT negative for fractures or intracranial bleeding Large hematoma to forehead, multiple areas of bruising to face High risk for bleeding given elevated INR + traumatic injury Repeat CT 6hrs after original CT was also negative - Time Time Spent with patient: 15-24 minutes Medications reviewed and adjusted accordingly: Yes Anticipated discharge: SNF Within: within 24 hours - Inpatient Certification Based on my medical assessment, after consideration of the patient's comorbidities, presenting symptoms, or acuity I expect that the services needed warrant INPATIENT care.: Yes I certify that my determination is in accordance with my understanding of Medicare's requirements for reasonable and necessary INPATIENT services [42 CFR 412.3e].: Yes Medical Necessity: Risk of Complication if Not Cared For in Hospital
[2018-02-26] MEDS: LEVOTHYROXINE SODIUM 0.075 MG TABLET PO SCH (06:43)
[2018-02-26] MEDS: METOPROLOL TARTRATE 25 MG TABLET PO SCH ×2 (09:53→22:40)
[2018-02-26] MEDS: ASPIRIN 81 MG TABLET, ENT COATED PO SCH (09:53)
[2018-02-26] MEDS: TORSEMIDE 20 MG TABLET PO SCH (09:54)
[2018-02-26] MEDS: BENAZEPRIL HCL 10 MG TABLET PO SCH ×2 (09:54→22:41)
[2018-02-26 11:27] LABS: HEMATOCRIT 39.9 % (36.0-47.0); HEMOGLOBIN 13.2 g/dL (12.0-15.5); MEAN CORPUSCULAR HEMOGLOBIN 29.6 pg (27.0-33.4); MEAN CORPUSCULAR VOLUME 90 fl (80-97); PLATELET COUNT 209 10^3/uL (150-450); RED BLOOD COUNT 4.44 10^6/uL (3.72-5.28); RED CELL DISTRIBUTION WIDTH 16.9 % (11.5-14.0); WHITE BLOOD COUNT 8.5 10^3/uL (4.0-10.5)
[2018-02-26 11:35] LABS: INTERNATIONAL RATION (INR) 4.01; PROTHROMBIN TIME 40.9 SEC (11.4-15.4)
[2018-02-26 11:50] LABS: ANION GAP 9 (5-19); BLOOD UREA NITROGEN 19 mg/dL (7-20); CALCIUM 8.2 mg/dL (8.4-10.2); CARBON DIOXIDE 28 mmol/L (22-30); CHLORIDE 94 mmol/L (98-107); GLUCOSE 148 mg/dL (75-110); POTASSIUM 4.1 mmol/L (3.6-5.0); SODIUM 131.4 mmol/L (137-145)
[2018-02-26] MEDS: SILVER SULFADIAZINE 1% CREAM 50 GM TP SCH ×2 (12:38→19:32)
[2018-02-26] MEDS: CITALOPRAM HYDROBROMIDE 20 MG TABLET PO SCH (13:03)
--- NOTE | 2018-02-26 18:01 | PDOC CONSULTATION ---
History of Present Illness Admission Date/PCP: 02/24/18 15:09 AYSE CAO MD Patient complains of: Left shoulder pain History of Present Illness: GIBSON VILLARREAL is a 87 year old female who sustained a fall onto her left shoulder on 02/24/18 when she was getting up from her toilet. She states she fell into the tub and had difficulty ambulating and was brought to the emergency room by EMS. Patient was admitted under the hospitalist service for syncopal episode. Currently states her pain in her right shoulder has been ever going since date of injury. Denies previous pain. Pain 04/25. Unable to actively lift the shoulder. Denies numbness. Past Medical History Cardiac Medical History: Reports: Atrial Fibrillation, Congestive Heart Failure , Coronary Artery Disease, Hyperlipidema, Hypertension, Peripheral Vascular Disease Pulmonary Medical History: Reports: Bronchitis Denies: Tuberculosis Endocrine Medical History: Reports: Hypothyroidism GI Medical History: Reports: Hiatal Hernia Psychiatric Medical History: Reports: Depression Past Surgical History Past Surgical History: Reports: Cardiac Catheterization - december 2011, Cholecystectomy - 1995, Coronary Artery Bypass Graft, Hysterectomy, Pacemaker Comment Only: Gastric Bypass Surgery - Triple Social History Lives with: Spouse/Significant other Smoking Status: Never Smoker Frequency of Alcohol Use: None Hx Recreational Drug Use: No Drugs: None Hx Prescription Drug Abuse: No - Advance Directive Resuscitation Status: Full Code Family History Family History: Reviewed & Not Pertinent Parental Family History Reviewed: No Children Family History Reviewed: No Sibling(s) Family History Reviewed.: No Medication/Allergy Home Medications: Benazepril HCl [Lotensin 20 Mg Tablet] 20 mg PO DAILY 07/29/11 Aspirin [Ecotrin 81 mg EC Tablet] 81 mg PO DAILY 11/18/11 Nitroglycerin [Nitrostat 0.4 mg (1/150 Gr) Tabs 25/Bottle] 0.4 mg SL PRN PRN 10/26 Warfarin Sodium [Coumadin 2.5 Mg Tablet] 2.5 mg PO TUTH@2200 PRN 02/04/12 Citalopram Hydrobromide [Celexa 10 mg Tablet] 20 mg PO DAILY 02/24/18 Clonidine HCl [Catapres 0.1 mg Tablet] 0.1 mg PO HSP PRN 02/24/18 Furosemide [Lasix 20 mg Tablet] 40 mg PO QAM 02/24/18 Levothyroxine Sodium [Synthroid 0.075 mg Tablet] 0.075 mg PO Q6AM 02/24/18 Metoprolol Succinate [Toprol Xl 25 mg Tab.sr] 25 mg PO Q12 02/24/18 Ondansetron [Zofran Odt 4 mg Tablet] 4 mg PO Q4HP PRN 02/24/18 Pitavastatin Calcium [Livalo] 2 mg PO Q48H MDD AT BEDTIME 02/24/18 Warfarin Sodium [Coumadin 5 mg Tablet] 5 mg PO SUMOWEFRSA@2200 02/24/18 Allergies/Adverse Reactions: cefdinir [From Omnicef] Allergy (Unknown, Verified 05/30/17 17:09) Choline Fenofibrate [From Trilipix] Allergy (Unknown, Verified 05/30/17 17:) clopidogrel bisulfate [From Plavix] Allergy (Unknown, Verified 05/30/17 17:) codeine [Codeine] Allergy (Unknown, Verified 05/30/17 17:) guaifenesin [From Mucinex] Allergy (Unknown, Verified 05/30/17 17:) hydralazine [Hydralazine] Allergy (Unknown, Verified 05/30/17 17:09) Influenza Vaccine,Trival 2010 * [Influenza Vaccine,Trival 2010] Allergy (Unknown , Verified 05/30/17 17:09) lovastatin [From Mevacor] Allergy (Unknown, Verified 05/30/17 17:09) meperidine HCl [From Demerol] Allergy (Unknown, Verified 05/30/17 17:09) niacin [Niacin] Allergy (Unknown, Verified 05/30/17 17:09) nifedipine [From Procardia] Allergy (Unknown, Verified 05/30/17 17:09) pentazocine lactate [From Talwin] Allergy (Unknown, Verified 05/30/17 17:09) pravastatin sodium [From Pravachol] Allergy (Unknown, Verified 05/30/17 17:09) propoxyphene HCl [From Darvon] Allergy (Unknown, Verified 05/30/17 17:09) rosuvastatin calcium [From Crestor] Allergy (Unknown, Verified 05/30/17 17:09) Sulfa (Sulfonamide Antibiotics) Allergy (Unknown, Verified 05/30/17 17:09) metoprolol succinate [From Toprol XL] Allergy (Verified 05/30/17 17:09) atorvastatin calcium [From Lipitor] Adverse Reaction (Severe, Verified 05/30/17 17:09) Review of Systems Constitutional: ABSENT: chills, fever(s), headache(s), weight gain, weight loss Eyes: ABSENT: visual disturbances Ears: ABSENT: hearing changes Cardiovascular: ABSENT: chest pain, dyspnea on exertion, edema, orthropnea, palpitations Respiratory: ABSENT: cough, hemoptysis Gastrointestinal: PRESENT: abdominal pain, nausea, vomiting. ABSENT: constipation, diarrhea, hematemesis, hematochezia Genitourinary: ABSENT: dysuria, hematuria Musculoskeletal: PRESENT: as per HPI, other Integumentary: ABSENT: rash, wounds Neurological: PRESENT: frequent falls. ABSENT: abnormal gait, abnormal speech, confusion, dizziness, focal weakness, syncope Psychiatric: ABSENT: anxiety, depression, homidical ideation, suicidal ideation Endocrine: ABSENT: cold intolerance, heat intolerance, menstrual abnormalities, polydipsia, polyuria Hematologic/Lymphatic: PRESENT: easy bleeding, easy bruising. ABSENT: lymphadenopathy Physical Exam Vital Signs: Temp Pulse Resp BP Pulse Ox 98.5 F 63 18 103/70 98 02/26/18 15:24 02/26/18 15:24 02/26/18 15:24 02/26/18 15:24 02/26/18 15:24 Intake & Output 02/25/18 02/26/18 02/27/18 06:59 06:59 06:59 Intake Total 500 425 820 Output Total 151 0 Balance 349 425 820 Weight 48.2 kg 48.5 kg General appearance: PRESENT: no acute distress, well-developed, well-nourished Head exam: PRESENT: normocephalic, other - Ecchymosis throughout the forehead with bilateral orbital ecchymosis. Eye exam: PRESENT: conjunctiva pink, EOMI, PERRLA. ABSENT: scleral icterus Ear exam: PRESENT: normal external ear exam Mouth exam: PRESENT: moist, tongue midline Neck exam: PRESENT: full ROM. ABSENT: carotid bruit, JVD, lymphadenopathy, thyromegaly Respiratory exam: PRESENT: unlabored Cardiovascular exam: PRESENT: RRR. ABSENT: diastolic murmur, rubs, systolic murmur Pulses: PRESENT: normal dorsalis pedis pul, +2 pedal pulses bilateral Vascular exam: PRESENT: normal capillary refill GI/Abdominal exam: PRESENT: normal bowel sounds, soft. ABSENT: distended, guarding, mass, organolmegaly, rebound, tenderness Rectal exam: PRESENT: deferred Musculoskeletal exam: PRESENT: other - Left shoulder: Mild ecchymosis along the lateral aspect of the acromion no significant effusion appreciated. Pain with attempted passive range of motion. High riding humeral head noted. Limited examination secondary to pain. Intact active elbow flexion/extension. No sensory deficits. Neurological exam: PRESENT: alert, awake, oriented to person, oriented to place , oriented to time, oriented to situation, CN II-XII grossly intact. ABSENT: motor sensory deficit Psychiatric exam: PRESENT: appropriate affect, normal mood. ABSENT: homicidal ideation, suicidal ideation Skin exam: PRESENT: dry, intact, skin tears, warm. ABSENT: cyanosis, rash Results Laboratory Results: 02/26/18 10:58 02/26/18 10:58 02/26/18 02/26/18 10:58 10:58 WBC 8.5 RBC 4.44 Hgb 13.2 Hct 39.9 MCV 90 MCH 29.6 MCHC 33.0 RDW 16.9 H Plt Count 209 Sodium 131.4 L Potassium 4.1 Chloride 94 L Carbon Dioxide 28 Anion Gap 9 BUN 19 Creatinine 0.51 L Est GFR ( Amer) > 60 Est GFR (Non-Af Amer) > 60 Glucose 148 H Calcium 8.2 L Phosphorus 3.0 Magnesium 1.9 02/24/18 02/25/18 02/25/18 19:15 01:15 07:34 Creatine Kinase CK-MB (CK-2) 0.66 0.66 0.74 Troponin I < 0.012 < 0.012 < 0.012 NT-Pro-B Natriuret Pep 02/25/18 02/25/18 02/26/18 07:34 07:34 10:58 Creatine Kinase < 20 L CK-MB (CK-2) Troponin I NT-Pro-B Natriuret Pep 6870 H 3810 H Impressions: Cervical Spine CT 02/24/18 12:11 IMPRESSION: NO ACUTE OR SIGNIFICANT FINDINGS IN THE CERVICAL SPINE. Hand X-Ray 02/24/18 12:11 IMPRESSION: NO RADIOGRAPHIC EVIDENCE OF ACUTE INJURY. Humerus X-Ray 02/24/18 12:11 IMPRESSION: NO RADIOGRAPHIC EVIDENCE OF ACUTE INJURY. Knee X-Ray 02/24/18 12:11 IMPRESSION: NO RADIOGRAPHIC EVIDENCE OF ACUTE INJURY. Pelvis X-Ray 02/24/18 12:11 IMPRESSION: No acute findings. Head CT 02/24/18 19:00 IMPRESSION: No significant change from earlier the same day. EVIDENCE OF ACUTE STROKE: NO. Chest X-Ray 02/25/18 05:00 IMPRESSION: Left pleural effusion. COPD. No significant change. Status: Image reviewed by me - I have reviewed patient's radiographs which demonstrate no evidence of fracture. Assessment & Plan - Diagnosis (1) Rotator cuff tear, left Qualifiers: Rotator cuff tear extent: unspecified tear extent Qualified Code(s): M75.102 - Unspecified rotator cuff tear or rupture of left shoulder, not specified as traumatic Is this a current diagnosis for this admission?: Yes Plan: On examination patient has findings suggesting rotator cuff tear with pseudoparalysis. At this point I have recommended observation with ice for the first 5 days and then transition to heat. Also recommended sling but continuing elbow, wrist and hand range of motion. Patient may benefit from a subacromial corticosteroid injection but would recommend delaying injection for approximately 10 days after the acute event. Patient should follow-up as an outpatient for recheck.
--- NOTE | 2018-02-26 18:25 | PDOC PROGRESS REPORT ---
Subjective Progress Note for:: 02/26/18 Subjective:: Patient is seen at my office at [facility]. Patient is on chronic Coumadin therapy for atrial fibrillation. Patient was admitted through the emergency department because she fell at home this morning when getting up from the toilet. Fall was unwitnessed. Patient reports she did not lose consciousness. + Head trauma. Daughter was home, heard the patient fall, immediately called EMS when she found patient on bathroom floor. Of note, family reports that the patient has been experiencing viral illness-like symptoms for approximately 1 week. She came to [facility] 4 days ago for nausea and vomiting, was subsequently discharged home that same day. PMH includes atrial fibrillation (on coumadin), CABG, CAD, CHF, HTN, HLD, hypothyroidism, AICD Upon arrival to the emergency department, VS HR 138 (rapid AFIB) BP 122/105 RR 18 T 98.4 SPO2 93% on RA. Large hematoma to forehead. Multiple areas of bruising scattered all over her face, arms, and lower extremities. Very superficial abrasion to right lateral chest wall. Skin tears to left upper extremity, left knee and left hand. Head CT negative. Cervical spine CT negative. X-ray of left hand, left knee, pelvis negative. CXR chest reveals LLL pleural effusion, no other pathology. EKG shows rapid A. fib, RBBB, T-wave inversion in leads V1-V4. INR 3.4. BNP 9570. All other lab work (CBC, cardiac enzymes, CMP) benign. Upon assessment, the patient is resting comfortably in bed. She is alert and oriented to person, place, time. She is disoriented to situation, states she does not know why she is in the hospital. The patient endorses very mild pain to the skin tear on her left upper extremity. She denies headache, neck pain, dizziness, blurry vision, chest pain, shortness of breath, nausea, fatigue or weakness. Pupils are equal round and reactive. Lung sounds are clear to auscultation. Heart rate is irregular. Pulses are palpable but faint in all 4 extremities. Evidence of trace edema in her lower extremities. + BS. Denies chest wall or abdominal tenderness. No deformities noted to the long bones or facial structures. Plan to admit to hospitalist service for rapid A. fib and monitor for bleeding. This history obtained by the hospitalist was reviewed and confirmed. Patient seen today that this 26 February at lunchtime. Patient being surrounded by family members. Patient is noted to have some shoulder discomfort and is due to see orthopedics surgeon. Telemetry strips were reviewed. It shows atrial fibrillation with controlled ventricular response. PT INR noted to be high. Did discuss chronic anticoagulation issue with patient and relative, will consider switch to a new oral anticoagulant on discharge especially when PT with INR comes below 2.0.. Reason For Visit: SYNCOPE AND COLLAPSE,INJURY OF HEAD,ALTERED MENTAL Physical Exam Vital Signs: Temp Pulse Resp BP Pulse Ox 98.5 F 63 18 103/70 98 02/26/18 15:24 02/26/18 15:24 02/26/18 15:24 02/26/18 15:24 02/26/18 15:24 Intake & Output 02/25/18 02/26/18 02/27/18 06:59 06:59 06:59 Intake Total 500 425 820 Output Total 151 0 Balance 349 425 820 Weight 48.2 kg 48.5 kg Exam: GENERAL: well-nourished and in no acute distress. Alert and oriented x3 HEAD: Significant facial bruising noted., normocephalic. EYES: Pupils equal round and reactive to light, extraocular movements intact, sclera anicteric, conjunctiva are normal. ENT: TMs normal, nares patent, oropharynx clear without exudates. Moist mucous membranes. No oral ulcerations or bleeding gums noted NECK: supple without lymphadenopathy. Trachea is central. No cervical or axillary lymphadenopathy noted. Carotids are 2+, JVD WNL LUNGS: Respiration seems nonlabored, no significant accessory muscle action noted. Breath sounds clear to auscultation bilaterally and equal noted. No wheezes rales or rhonchi noted. No significant dullness noted on percussion. CHEST: Palpation of the chest wall shows no significant chest wall tenderness. HEART: [place] [employer], No PSH, 1/6 SHELL aortic area, 1/6 groves systolic murmur mitral area, no rubs, no gallops. ABDOMEN: Soft, no significant tenderness appreciated, normoactive bowel sounds. No guarding, no rebound. No rigidity noted . No masses appreciated. EXTREMITIES: Pedal pulses are 1-2+, no calf tenderness noted. No clubbing or cyanosis. negative pedal edema noted NEUROLOGICAL: Focused neurological exam showed no significant neurologic deficit. Normal speech, no focal weakness appreciated. PSYCH: Normal mood, normal affect. Judgment and insight within normal limits. SKIN: No significant ecchymosis, skin is noted to be warm. MUSCULOSKELETAL EXAM: No significant acute joint swelling noted. Exam being best to left to orthopedic surgeon. Results Laboratory Results: 02/26/18 10:58 02/26/18 10:58 02/26/18 02/26/18 10:58 10:58 WBC 8.5 RBC 4.44 Hgb 13.2 Hct 39.9 MCV 90 MCH 29.6 MCHC 33.0 RDW 16.9 H Plt Count 209 Sodium 131.4 L Potassium 4.1 Chloride 94 L Carbon Dioxide 28 Anion Gap 9 BUN 19 Creatinine 0.51 L Est GFR ( Amer) > 60 Est GFR (Non-Af Amer) > 60 Glucose 148 H Calcium 8.2 L Phosphorus 3.0 Magnesium 1.9 02/24/18 02/25/18 02/25/18 19:15 01:15 07:34 Creatine Kinase CK-MB (CK-2) 0.66 0.66 0.74 Troponin I < 0.012 < 0.012 < 0.012 NT-Pro-B Natriuret Pep 02/25/18 02/25/18 02/26/18 07:34 07:34 10:58 Creatine Kinase < 20 L CK-MB (CK-2) Troponin I NT-Pro-B Natriuret Pep 6870 H 3810 H EKG Comments: Shows atrial fibrillation without any sustained tachycardia or bradycardia arrhythmia. Impressions: Cervical Spine CT 02/24/18 12:11 IMPRESSION: NO ACUTE OR SIGNIFICANT FINDINGS IN THE CERVICAL SPINE. Hand X-Ray 02/24/18 12:11 IMPRESSION: NO RADIOGRAPHIC EVIDENCE OF ACUTE INJURY. Humerus X-Ray 02/24/18 12:11 IMPRESSION: NO RADIOGRAPHIC EVIDENCE OF ACUTE INJURY. Knee X-Ray 02/24/18 12:11 IMPRESSION: NO RADIOGRAPHIC EVIDENCE OF ACUTE INJURY. Pelvis X-Ray 02/24/18 12:11 IMPRESSION: No acute findings. Head CT 02/24/18 19:00 IMPRESSION: No significant change from earlier the same day. EVIDENCE OF ACUTE STROKE: NO. Chest X-Ray 02/25/18 05:00 IMPRESSION: Left pleural effusion. COPD. No significant change. Assessment & Plan - Diagnosis (1) Contusion of face Qualifiers: Encounter type: initial encounter Qualified Code(s): S00.83XA - Contusion of other part of head, initial encounter Is this a current diagnosis for this admission?: Yes (2) Failure to thrive Qualifiers: Failure to thrive age range: in adult Qualified Code(s): R62.7 - Adult failure to thrive Is this a current diagnosis for this admission?: Yes (3) HLD (hyperlipidemia) Qualifiers: Hyperlipidemia type: unspecified Qualified Code(s): E78.5 - Hyperlipidemia , unspecified Is this a current diagnosis for this admission?: Yes (4) HTN (hypertension) Qualifiers: Hypertension type: essential hypertension Qualified Code(s): I10 - Essential (primary) hypertension Is this a current diagnosis for this admission?: Yes (5) Weakness Is this a current diagnosis for this admission?: Yes (6) Chronic atrial fibrillation with rapid ventricular response Is this a current diagnosis for this admission?: Yes (7) CHF (congestive heart failure) Qualifiers: Heart failure type: combined systolic and diastolic Heart failure chronicity: acute on chronic Qualified Code(s): I50.43 - Acute on chronic combined systolic (congestive) and diastolic (congestive) heart failure Is this a current diagnosis for this admission?: Yes - Notes Notes: Continue cardiac monitoring for any transient arrhythmia as cause of fall. Patient will benefit from physical therapy and it may be worthwhile to consider a short stay at the rehab facility. As regards atrial fibrillation, heart rate seems in reasonably well controlled. As regards patient being somewhat undernourished, patient will benefit from improving nutritional status. Patient started on torsemide. Will repeat a 2D echo. Contusion of the face, related to fall, because of fall not. But could well be generalized weakness. Patient could have a vasovagal presyncope. Patient will benefit from physical therapy, fall prevention exercises and general strengthening of the muscles. Failure to thrive: Patient seems to be underweight and somewhat malnourished. Recommend that patient has nutritional consultation. Dyslipidemia: LDL goal is less than 70. Continue home statin therapy. Hypertension: Patient claims that blood pressure has been somewhat on the low side. Will monitor this very closely. Will like to avoid any pure vasodilators in patient with history of fall. Beta-blockers and JUSTIN inhibitor/ ARB's are usually preferred. Generalized weakness: Recommend strengthening exercises and nutritional improvement. Chronic atrial fibrillation with rapid ventricular response: Agree with beta- blockers for rate control. May use digoxin if needed especially if blood pressure is a problem. CHF: This is a chronic problem for this patient. Patient has history of chronic pleural effusion left more than right. Review of chest x-ray shows pleural effusion is somewhat worse. Have switched patient to torsemide this has better bioavailability and has been shown to reduce CHF related readmissions. We will continue to follow. Last echocardiogram performed was in September 2017 which showed LVEF of 50%, diastolic dysfunction, RV was noted to be moderately dilated, mild to moderate aortic incompetence, RV systolic function was noted to be depressed. Patient was also noted to have severe tricuspid regurgitation. Will recommend repeating the 2D echo. - Time Time with patient: 15-25 minutes - CODE STATUS was discussed, patient remains full code. Surrogate decision-maker unchanged. Multiple medical problems were addressed. More than 50% of the time spent coordinating care, discussing management plans with involved caregivers. Management plans discussed with involved personnels. Medical decision making was of moderate to high complexity , patient's has multiple comorbidities. Medications reviewed and adjusted accordingly: Yes
--- NOTE | 2018-02-26 19:15 | PDOC PROGRESS REPORT ---
Subjective Progress Note for:: 02/26/18 Subjective:: 87 y.o. F who fell at home when getting up from toilet. Multiple areas of bruising but no fractures or ICH. Patient seen this morning on rounds, she is resting comfortably in bedside recliner. Family at the bedside. Patient complains of pain to L shoulder. No obvious deformity. No ROM to shoulder. Imaging from ED reveals no fracture or dislocation. Denies BETTENCOURT, blurry vision, neck pain, chest pain or palpitations. Plan to keep inpatient. Attempt to find placement for the patient in acute rehab facility. Consulted Dr. Bailey of orthopedics regarding left shoulder, he states he will evaluate the patient tomorrow AM. Reason For Visit: SYNCOPE AND COLLAPSE,INJURY OF HEAD,ALTERED MENTAL Physical Exam Vital Signs: Temp Pulse Resp BP Pulse Ox 98.5 F 63 18 103/70 98 02/26/18 15:24 02/26/18 15:24 02/26/18 15:24 02/26/18 15:24 02/26/18 15:24 Intake & Output 02/25/18 02/26/18 02/27/18 06:59 06:59 06:59 Intake Total 500 425 820 Output Total 151 0 Balance 349 425 820 Weight 48.2 kg 48.5 kg General appearance: PRESENT: no acute distress, well-developed, well-nourished Head exam: PRESENT: atraumatic Eye exam: PRESENT: conjunctiva pink, PERRLA Mouth exam: PRESENT: moist Neck exam: PRESENT: full ROM Respiratory exam: PRESENT: clear to auscultation tenzin, symmetrical, unlabored Cardiovascular exam: PRESENT: +S1, +S2 Pulses: PRESENT: normal radial pulses, normal dorsalis pedis pul GI/Abdominal exam: PRESENT: soft. ABSENT: tenderness Rectal exam: PRESENT: deferred Extremities exam: PRESENT: full ROM Musculoskeletal exam: PRESENT: ambulatory, full ROM Neurological exam: PRESENT: alert, awake, oriented to person, oriented to place , oriented to time, oriented to situation Psychiatric exam: PRESENT: appropriate affect Skin exam: PRESENT: dry, intact, normal color, other - multiple areas of bruising to face, arms and legs Results Laboratory Results: 02/26/18 10:58 02/26/18 10:58 02/26/18 02/26/18 10:58 10:58 WBC 8.5 RBC 4.44 Hgb 13.2 Hct 39.9 MCV 90 MCH 29.6 MCHC 33.0 RDW 16.9 H Plt Count 209 Sodium 131.4 L Potassium 4.1 Chloride 94 L Carbon Dioxide 28 Anion Gap 9 BUN 19 Creatinine 0.51 L Est GFR ( Amer) > 60 Est GFR (Non-Af Amer) > 60 Glucose 148 H Calcium 8.2 L Phosphorus 3.0 Magnesium 1.9 02/24/18 02/25/18 02/25/18 19:15 01:15 07:34 Creatine Kinase CK-MB (CK-2) 0.66 0.66 0.74 Troponin I < 0.012 < 0.012 < 0.012 NT-Pro-B Natriuret Pep 02/25/18 02/25/18 02/26/18 07:34 07:34 10:58 Creatine Kinase < 20 L CK-MB (CK-2) Troponin I NT-Pro-B Natriuret Pep 6870 H 3810 H Impressions: Cervical Spine CT 02/24/18 12:11 IMPRESSION: NO ACUTE OR SIGNIFICANT FINDINGS IN THE CERVICAL SPINE. Hand X-Ray 02/24/18 12:11 IMPRESSION: NO RADIOGRAPHIC EVIDENCE OF ACUTE INJURY. Humerus X-Ray 02/24/18 12:11 IMPRESSION: NO RADIOGRAPHIC EVIDENCE OF ACUTE INJURY. Knee X-Ray 02/24/18 12:11 IMPRESSION: NO RADIOGRAPHIC EVIDENCE OF ACUTE INJURY. Pelvis X-Ray 02/24/18 12:11 IMPRESSION: No acute findings. Head CT 02/24/18 19:00 IMPRESSION: No significant change from earlier the same day. EVIDENCE OF ACUTE STROKE: NO. Chest X-Ray 02/25/18 05:00 IMPRESSION: Left pleural effusion. COPD. No significant change. Status: Imported from PACS Assessment & Plan - Diagnosis (1) Syncope and collapse Is this a current diagnosis for this admission?: Yes Plan: Unwitnessed fall at home +Head trauma. Patient denies LOC Head CT and cervical spine CT negative XRAY pelvis, knee and hand all negative CXR show LLL pleural effusion Large hematoma to forehead, multiple areas of bruising to face Admit to [facility] with continuous telemetry monitoring Repeat head CT 6 hrs from original imaging is negative (-) for intracranial bleeding CXR today shows mild progression of effusion, initiate torsemide for diuresis Fall and seizure precautions (2) Chronic atrial fibrillation with rapid ventricular response Is this a current diagnosis for this admission?: Yes Plan: History of AFIB on coumadin Rate control with Toprol XL Daughter reports patient did not take morning medications HR 140s in ED - Administered 5mg Lopressor IV - no change in HR Plan to administer cardizem Resume home dose Metoprolol Consult cardiology (Dr. Mohan), appreciate their recommendations (3) CHF (congestive heart failure) Qualifiers: Heart failure type: combined systolic and diastolic Heart failure chronicity: acute on chronic Qualified Code(s): I50.43 - Acute on chronic combined systolic (congestive) and diastolic (congestive) heart failure Is this a current diagnosis for this admission?: Yes Plan: BNP 9570->3810 Extensive history of heart disease Cardiology consulted, appreciate their recommendations Initiate torsemide for diuresis We will continue to follow. Last echocardiogram performed was in September 2017 which showed LVEF of 50%, diastolic dysfunction, RV was noted to be moderately dilated, mild to moderate aortic incompetence, RV systolic function was noted to be depressed. Patient was also noted to have severe tricuspid regurgitation. Plan for repeat ECHOcardiogram tomorrow (4) HTN (hypertension) Qualifiers: Hypertension type: essential hypertension Qualified Code(s): I10 - Essential (primary) hypertension Is this a current diagnosis for this admission?: Yes Plan: History of HTN Resume home dose anti-hypertensives (5) HLD (hyperlipidemia) Qualifiers: Hyperlipidemia type: unspecified Qualified Code(s): E78.5 - Hyperlipidemia , unspecified Is this a current diagnosis for this admission?: Yes Plan: History of HLD Resume home dose statin (6) Hypothyroid Is this a current diagnosis for this admission?: Yes Plan: History of HYPOthyroidism TSH 4.91 this AM Check T3 and free T4 in AM Resume home dose synthroid (7) Avulsion of skin of elbow Qualifiers: Encounter type: initial encounter Laterality: left Qualified Code(s): S51.002A - Unspecified open wound of left elbow, initial encounter Is this a current diagnosis for this admission?: Yes Plan: Secondary to fall. Bacitracin and dressing per nursing Surgery called to bedside to assist in assessment, possible suturing of avulsion. Not a candidate (see consult note) for any surgical intervention (8) Elevated INR Is this a current diagnosis for this admission?: Yes Plan: Patient taking coumadin for AFIB INR 4.0 No need for reversal at this time Monitor for signs of bleeding If symptoms arise, will consider Vitamin K and blood product administration (9) Head injury Qualifiers: Encounter type: initial encounter Qualified Code(s): S09.90XA - Unspecified injury of head, initial encounter Is this a current diagnosis for this admission?: Yes Plan: Unwitnessed fall at home Heat CT negative for fractures or intracranial bleeding Large hematoma to forehead, multiple areas of bruising to face High risk for bleeding given elevated INR + traumatic injury Repeat CT 6hrs after original CT was also negative (10) Shoulder pain, acute Qualifiers: Laterality: left Qualified Code(s): M25.512 - Pain in left shoulder Is this a current diagnosis for this admission?: Yes Plan: Left shoulder pain s/p fall No ROM Multiple imaging studies confirm there is no joint dislocation or fracture Consulted Dr. Bailey of orthopedic surgery, he plans to evaluate the patient tomorrow a.m. - Time Time Spent with patient: 15-24 minutes Medications reviewed and adjusted accordingly: Yes Anticipated discharge: SNF - Inpatient Certification Based on my medical assessment, after consideration of the patient's comorbidities, presenting symptoms, or acuity I expect that the services needed warrant INPATIENT care.: Yes I certify that my determination is in accordance with my understanding of Medicare's requirements for reasonable and necessary INPATIENT services [42 CFR 412.3e].: Yes Medical Necessity: Risk of Complication if Not Cared For in Hospital - Plan Summary Plan Summary: ORTHO EVAL IN AM. ECHO TOMORROW PER CARDIOLOGY REQUEST. RE-ADDRESS COUMADIN DOSING WITH CARDIOLOGY
[2018-02-26] MEDS: OXYCODONE-ACETAMINOPHEN 5-325 MG TABLET PO PRN (19:32)
[2018-02-27] MEDS: LEVOTHYROXINE SODIUM 0.075 MG TABLET PO SCH (05:15)
[2018-02-27 09:00] LABS: HEMATOCRIT 39.2 % (36.0-47.0); HEMOGLOBIN 13.1 g/dL (12.0-15.5); MEAN CORPUSCULAR HEMOGLOBIN 29.9 pg (27.0-33.4); MEAN CORPUSCULAR HGB CONC 33.5 g/dL (32.0-36.0); MEAN CORPUSCULAR VOLUME 90 fl (80-97); PLATELET COUNT 220 10^3/uL (150-450); RED BLOOD COUNT 4.38 10^6/uL (3.72-5.28); RED CELL DISTRIBUTION WIDTH 16.8 % (11.5-14.0); WHITE BLOOD COUNT 8.7 10^3/uL (4.0-10.5)
[2018-02-27 09:18] LABS: ANION GAP 10 (5-19); BLOOD UREA NITROGEN 18 mg/dL (7-20); CARBON DIOXIDE 29 mmol/L (22-30); CHLORIDE 93 mmol/L (98-107); GLUCOSE 84 mg/dL (75-110); POTASSIUM 4.1 mmol/L (3.6-5.0); SODIUM 131.6 mmol/L (137-145)
[2018-02-27 09:35] LABS: FREE T3 2.58 pg/mL (2.77-5.27); FREE T4 (FREE THYROXINE) 1.85 ng/dL (0.78-2.19)
[2018-02-27] MEDS: METOPROLOL TARTRATE 25 MG TABLET PO SCH ×2 (11:16→22:43)
[2018-02-27] MEDS: CITALOPRAM HYDROBROMIDE 20 MG TABLET PO SCH (11:16)
[2018-02-27] MEDS: BENAZEPRIL HCL 10 MG TABLET PO SCH ×2 (11:16→22:44)
[2018-02-27] MEDS: TORSEMIDE 20 MG TABLET PO SCH (11:17)
[2018-02-27] MEDS: SILVER SULFADIAZINE 1% CREAM 50 GM TP SCH ×2 (11:17→17:58)
[2018-02-27] MEDS: ASPIRIN 81 MG TABLET, ENT COATED PO SCH (11:17)
--- NOTE | 2018-02-27 18:32 | PDOC PROGRESS REPORT ---
Subjective Progress Note for:: 02/27/18 Subjective:: The patient is an 87-year-old female with a past medical history of atrial fibrillation (chronic anticoagulation on Coumadin), CHF, CAD, CABG, AICD, hyperlipidemia, hypertension, PVD, hypothyroidism who was admitted on 02/24/18 for a unwitnessed fall at home tilting and multiple skin tears to bilateral upper extremities, left shoulder pain, and facial ecchymosis/hematoma. Patient was seen on morning rounds. She was found sitting up in bed eating her breakfast comfortably on room air. She reports continued left shoulder pain but is appreciative of the orthopedic evaluation yesterday and plan for follow- up in approximately 2 weeks for consideration of steroid injection. Otherwise, she denies complaints at this time; no headache, dizziness, blurred vision, chest pain, palpitations, dyspnea, orthopnea, abdominal pain, back, hip, or joint pain other than her left shoulder. The patient tells me that she is hopeful to be discharged to SNF for short-term rehabilitation with plans to return to her home where she lives with her . She has no other questions or concerns at this time. No concerns per nursing. Reason For Visit: SYNCOPE AND COLLAPSE,INJURY OF HEAD,ALTERED MENTAL Physical Exam Vital Signs: Temp Pulse Resp BP Pulse Ox 97.9 F 128 H 18 99/58 L 95 02/27/18 12:12 02/27/18 14:00 02/27/18 12:12 02/27/18 12:12 02/27/18 12:12 Intake & Output 02/26/18 02/27/18 02/28/18 06:59 06:59 06:59 Intake Total 425 820 Output Total 0 0 Balance 425 820 Weight 48.5 kg 49.5 kg General appearance: PRESENT: no acute distress, cooperative, well-developed, well-nourished Head exam: PRESENT: normocephalic, other - Numerous ecchymosis to face, bilateral orbits, hematoma to left forehead Eye exam: PRESENT: conjunctiva pink, EOMI, PERRLA. ABSENT: scleral icterus Ear exam: PRESENT: normal external ear exam Mouth exam: PRESENT: moist, tongue midline Neck exam: ABSENT: carotid bruit, JVD, lymphadenopathy, thyromegaly Respiratory exam: PRESENT: clear to auscultation tenzin, symmetrical, unlabored. ABSENT: rales, rhonchi, wheezes Cardiovascular exam: PRESENT: irregular rhythm, +S1, +S2. ABSENT: diastolic murmur, rubs, systolic murmur Pulses: PRESENT: normal dorsalis pedis pul Vascular exam: PRESENT: normal capillary refill GI/Abdominal exam: PRESENT: normal bowel sounds, soft. ABSENT: distended, guarding, mass, organolmegaly, rebound, tenderness Rectal exam: PRESENT: deferred Extremities exam: PRESENT: tenderness - Left shoulder, other - Limited range of motion to left shoulder. ABSENT: calf tenderness, clubbing, pedal edema Musculoskeletal exam: PRESENT: ambulatory Neurological exam: PRESENT: alert, awake, oriented to person, oriented to place , oriented to time, oriented to situation, CN II-XII grossly intact. ABSENT: motor sensory deficit Psychiatric exam: PRESENT: appropriate affect, normal mood. ABSENT: homicidal ideation, suicidal ideation Skin exam: PRESENT: dry, skin tears - Bilateral hands, left upper arm, left posterior elbow, left anterior lower arm; no surrounding erythema or drainage noted, warm, other - Scattered ecchymosis to face, arms and legs. ABSENT: cyanosis, rash Results Laboratory Results: 02/27/18 08:30 02/27/18 08:30 02/27/18 02/27/18 02/27/18 08:30 08:30 08:30 WBC 8.7 RBC 4.38 Hgb 13.1 Hct 39.2 MCV 90 MCH 29.9 MCHC 33.5 RDW 16.8 H Plt Count 220 Sodium 131.6 L Potassium 4.1 Chloride 93 L Carbon Dioxide 29 Anion Gap 10 BUN 18 Creatinine 0.53 Est GFR ( Amer) > 60 Est GFR (Non-Af Amer) > 60 Glucose 84 Calcium 8.0 L Free T4 1.85 Free T3 pg/mL 2.58 L 02/24/18 02/25/18 02/25/18 19:15 01:15 07:34 Creatine Kinase CK-MB (CK-2) 0.66 0.66 0.74 Troponin I < 0.012 < 0.012 < 0.012 NT-Pro-B Natriuret Pep 02/25/18 02/25/18 02/26/18 07:34 07:34 10:58 Creatine Kinase < 20 L CK-MB (CK-2) Troponin I NT-Pro-B Natriuret Pep 6870 H 3810 H Impressions: Cervical Spine CT 02/24/18 12:11 IMPRESSION: NO ACUTE OR SIGNIFICANT FINDINGS IN THE CERVICAL SPINE. Hand X-Ray 02/24/18 12:11 IMPRESSION: NO RADIOGRAPHIC EVIDENCE OF ACUTE INJURY. Humerus X-Ray 02/24/18 12:11 IMPRESSION: NO RADIOGRAPHIC EVIDENCE OF ACUTE INJURY. Knee X-Ray 02/24/18 12:11 IMPRESSION: NO RADIOGRAPHIC EVIDENCE OF ACUTE INJURY. Pelvis X-Ray 02/24/18 12:11 IMPRESSION: No acute findings. Head CT 02/24/18 19:00 IMPRESSION: No significant change from earlier the same day. EVIDENCE OF ACUTE STROKE: NO. Chest X-Ray 02/25/18 05:00 IMPRESSION: Left pleural effusion. COPD. No significant change. Assessment & Plan - Diagnosis (1) Syncope and collapse Is this a current diagnosis for this admission?: Yes Plan: The patient had an unwitnessed fall while in the restroom home; unclear etiology : Mechanical fall versus use of vagal versus arrhythmia. Patient is chronically anticoagulated on Coumadin and was found to be supratherapeutic with an INR of 3.97. The patient did have head trauma; forehead hematoma and multiple facial bruising is noted. Patient denies loss of consciousness. Head and cervical spine CT are negative Repeat head CT 6 hours from original scan is negative for intracranial bleeding X-ray of the pelvis, knee, and hands are negative. Chest x-ray shows a left lower lobe pleural effusion Patient is admitted to [facility] on continuous cardiac telemetry. Fall and seizure precautions. PT/OT to evaluate and treat. Anticipate SNF for short-term rehab at discharge. (2) CHF (congestive heart failure) Qualifiers: Heart failure type: combined systolic and diastolic Heart failure chronicity: acute on chronic Qualified Code(s): I50.43 - Acute on chronic combined systolic (congestive) and diastolic (congestive) heart failure Is this a current diagnosis for this admission?: Yes Plan: Improved; acute CHF exacerbation secondary to atrial fibrillation with RVR. BNP 9570-->3810 Echocardiogram has been obtained; report not yet available. Previous echocardiogram from September 2017 showed LVEF of 50% with diastolic dysfunction. Cardiology has been consulted; appreciate their evaluation recommendations. Patient is currently on benazepril 10 mg twice daily, clonidine 0.1 mg p.o. daily as needed blood pressure, and torsemide 10 mg p.o. daily for diuresis. Patient is placed on a cardiac diet. Daily weights. (3) Elevated INR Is this a current diagnosis for this admission?: Yes Plan: On admission, INR found to be elevated to 3.97 Currently holding Coumadin. Cardiology has been consulted; recommend transition to DOAC once INR is less than 2. (4) HTN (hypertension) Qualifiers: Hypertension type: essential hypertension Qualified Code(s): I10 - Essential (primary) hypertension Is this a current diagnosis for this admission?: Yes Plan: Home medications are continued. Cardiology has been consulted for atrial fibrillation with RVR and acute CHF exacerbation; medication adjustments per their expertise. (5) Head injury Qualifiers: Encounter type: initial encounter Qualified Code(s): S09.90XA - Unspecified injury of head, initial encounter Is this a current diagnosis for this admission?: Yes Plan: Secondary to unwitnessed fall at home. Head CT negative for fractures or intracranial bleeding. Repeat head CT 6 hours later also negative. Patient is noted to have a large hematoma to her forehead and multiple areas of bruising. Neuro exam is intact today; she remains at high risk for bleed given her age and elevated INR. Low threshold for repeat imaging. (6) Hypothyroid Is this a current diagnosis for this admission?: Yes Plan: TSH is slightly elevated at 4.91. T3 and free T4 are appropriate. Continue home dose Synthroid. (7) Chronic atrial fibrillation with rapid ventricular response Is this a current diagnosis for this admission?: Yes Plan: Currently rate controlled on home medication regiment. History of A. fib on Coumadin previously rate controlled with Toprol-XL. On admission, heart rate was found to be elevated to 140s. Family reports that the patient had not had her medications yet. Patient is admitted to [facility] on continuous cardiac telemetry. Her home dose metoprolol is resumed. Holding Coumadin secondary to elevated INR. Echocardiogram is pending. Cardiology is consulted; appreciate their evaluation recommendations. (8) Rotator cuff tear, left Qualifiers: Rotator cuff tear extent: unspecified tear extent Qualified Code(s): M75.102 - Unspecified rotator cuff tear or rupture of left shoulder, not specified as traumatic Is this a current diagnosis for this admission?: Yes Plan: Left shoulder pain status post fall with limited range of motion. Imaging studies are negative for dislocation or fracture. Orthopedics was consulted; appreciate their evaluation recommendation. Recommend ice and sling 10 days then may transition to heat for comfort. Follow-up in the office for consideration of steroid injection. (9) Avulsion of skin of elbow Qualifiers: Encounter type: initial encounter Laterality: left Qualified Code(s): S51.002A - Unspecified open wound of left elbow, initial encounter Is this a current diagnosis for this admission?: Yes Plan: Secondary to fall. Surgery was consulted; appreciate their evaluation recommendations. Continue Silvadene ointment and dressing changes twice daily. (10) HLD (hyperlipidemia) Qualifiers: Hyperlipidemia type: unspecified Qualified Code(s): E78.5 - Hyperlipidemia , unspecified Is this a current diagnosis for this admission?: Yes Plan: Continue home dose statin - Time Time Spent with patient: 35 or more minutes Medications reviewed and adjusted accordingly: Yes Anticipated discharge: Acute Rehab Within: within 48 hours - Pending cardiac clearance.
--- NOTE | 2018-02-27 19:23 | XCELERA REPORT ---
[address] [address] Transthoracic Echocardiogram Report Name: GIBSON VILLARREAL Age: 87 yrs Gender: Female : 1930 Patient Status: Inpatient Patient Location: [address] [place] [address] Study Date: 02/27/2018 11:39 AM Procedure: A complete two-dimensional transthoracic echocardiogram was performed (2D, M-mode, spectral and color flow Doppler). The study was technically difficult with many images being suboptimal in quality. Reason For Study: CHF, severe TR Ordering Physician: YNES YOUNG Performed By: Mari Reagan Interpretation Summary The left ventricular ejection fraction is normal. There is mild concentric left ventricular hypertrophy. The left ventricle is grossly normal size. Wall motion cannot be accurately commented on, but no definite regional wall motion abnormalities noted. LV diastolic function could not be adequately assessed due to atrial fibrilation. The right ventricle is moderately dilated. The right ventricular systolic function is mildly reduced. The right atrium is moderately dilated. The left atrium is mildly dilated. There is a mild amount of mitral regurgitation There is no mitral valve stenosis. There is a trace to mild amount of aortic regurgitation There is no aortic valve stenosis There is a moderate to severe amount of tricuspid regurgitation Right ventricular systolic pressure is estimated to be elevated at 40-50mmHg. There is mild to moderate pulmonary hypertension by echo The aortic root is not well visualized but is probably normal size. The inferior vena cava appeared normal and decreased < 50% with respiration (RAP 10-15 mmHg) There is no pericardial effusion. MMode/2D Measurements & Calculations RVDd: 3.7 cm LVIDd: 4.0 cm FS: 19.3 % Ao root diam: 2.7 cm IVSd: 0.95 cm LVIDs: 3.2 cm EDV(Teich): 70.9 ml Ao root area: 5.8 cm2 LVPWd: 0.82 cm ESV(Teich): 42.4 ml EF(Teich): 40.2 % LVOT diam: 1.8 cm LVOT area: 2.7 cm2 Doppler Measurements & Calculations MV E max mateusz: MV dec slope: Ao V2 max: AI max mateusz: 74.9 cm/sec 106.7 cm/sec 338.8 cm/sec MV A max mateusz: 548.2 cm/sec2 Ao max PG: AI max P.9 mmHg 27.8 cm/sec MV dec time: 4.6 mmHg AI dec slope: MV E/A: 2.7 0.14 sec Ao V2 mean: 69.2 cm/sec 101.2 cm/sec2 Ao mean PG: AI P1/2t: 980.8 msec 2.2 mmHg Ao V2 VTI: 14.8 cm CHAR(I,D): 1.5 cm2 CHAR(V,D): 1.4 cm2 LV V1 max PG: SV(LVOT): 22.1 ml TR max mateusz: 1.3 mmHg 259.8 cm/sec LV V1 mean PG: TR max P.75 mmHg 27.0 mmHg LV V1 max: 57.3 cm/sec LV V1 mean: 40.5 cm/sec LV V1 VTI: 8.3 cm Left Ventricle The left ventricle is grossly normal size. There is mild concentric left ventricular hypertrophy. The left ventricular ejection fraction is normal. LV diastolic function could not be adequately assessed due to atrial fibrilation. Wall motion cannot be accurately commented on, but no definite regional wall motion abnormalities noted. Right Ventricle The right ventricle is moderately dilated. The right ventricle appears to be hypertrophied. The right ventricular systolic function is mildly reduced. Atria The right atrium is moderately dilated. The left atrium is mildly dilated. Interarterial septum not well visualized and not well dopplered. Cannot comment on ASD/PFO presence. Mitral Valve The mitral valve leaflets are sclerotic, but show no functional abnormalities. There is no mitral valve stenosis. There is a mild amount of mitral regurgitation. Aortic Valve The aortic valve is mildly calcified. There is no aortic valve stenosis. There is a trace to mild amount of aortic regurgitation. Tricuspid Valve The tricuspid valve is not well visualized, but is grossly normal. There is no tricuspid stenosis. There is a moderate to severe amount of tricuspid regurgitation. Right ventricular systolic pressure is estimated to be elevated at 40-50mmHg. There is mild to moderate pulmonary hypertension by echo. Pulmonic Valve The pulmonic valve is not well visualized. Great Vessels The aortic root is not well visualized but is probably normal size. The inferior vena cava appeared normal and decreased < 50% with respiration (RAP 10-15 mmHg). Effusions There is no pericardial effusion. : YNES YOUNG > Ynes Young
--- NOTE | 2018-02-27 19:51 | PDOC CONSULTATION ---
Consultation Consult Date: 02/25/18 Attending physician:: JUNIOR PINEDA Consult reason:: Near syncope and fall History of Present Illness Admission Date/PCP: 02/24/18 15:09 AYSE CAO MD Patient complains of: Near syncope and fall History of Present Illness: Patient was seen in consultation on February 25, a progress report was dictated but I am told by my billing person that it should have been a consult. GIBSON VILLARREAL is a 87 year old female who fell at home this morning when getting up from the toilet. Fall was unwitnessed. Patient reports she did not lose consciousness. + Head trauma. Daughter was home, heard the patient fall, immediately called EMS when she found patient on bathroom floor. Of note, family reports that the patient has been experiencing viral illness-like symptoms for approximately 1 week. She came to [facility] ED 4 days ago for nausea and vomiting, was subsequently discharged home that same day. PMH includes atrial fibrillation (on coumadin), CABG, CAD, CHF, HTN, HLD, hypothyroidism, AICD Upon arrival to the emergency department, VS HR 138 (rapid AFIB) BP 122/105 RR 18 T 98.4 SPO2 93% on RA. Large hematoma to forehead. Multiple areas of bruising scattered all over her face, arms, and lower extremities. Very superficial abrasion to right lateral chest wall. Skin tears to left upper extremity, left knee and left hand. Head CT negative. Cervical spine CT negative. X-ray of left hand, left knee, pelvis negative. CXR chest reveals LLL pleural effusion, no other pathology. EKG shows rapid A. fib, RBBB, T-wave inversion in leads V1-V4. INR 3.4. BNP 9570. All other lab work (CBC, cardiac enzymes, CMP) benign. Upon assessment, the patient is resting comfortably in bed. She is alert and oriented to person, place, time. She is disoriented to situation, states she does not know why she is in the hospital. The patient endorses very mild pain to the skin tear on her left upper extremity. She denies headache, neck pain, dizziness, blurry vision, chest pain, shortness of breath, nausea, fatigue or weakness. Pupils are equal round and reactive. Lung sounds are clear to auscultation. Heart rate is irregular. Pulses are palpable but faint in all 4 extremities. Evidence of trace edema in her lower extremities. + BS. Denies chest wall or abdominal tenderness. No deformities noted to the long bones or facial structures. Plan to admit to hospitalist service for rapid A. fib and monitor for bleeding. This history obtained by the hospitalist was reviewed and confirmed. Patient follows with me and my physician licensed physical therapy assistant at the office. She is on chronic Coumadin therapy. As noted above patient not sure whether she lost consciousness or not but most likely had a presyncopal spell. Patient is generally quite debilitated and is very frail overall. Past Medical History Cardiac Medical History: Reports: Atrial Fibrillation, Congestive Heart Failure , Coronary Artery Disease, Hyperlipidema, Hypertension, Peripheral Vascular Disease Pulmonary Medical History: Reports: Bronchitis Denies: Tuberculosis Endocrine Medical History: Reports: Hypothyroidism GI Medical History: Reports: Hiatal Hernia Psychiatric Medical History: Reports: Depression Past Surgical History Past Surgical History: Reports: Cardiac Catheterization - december 2011, Cholecystectomy - 1995, Coronary Artery Bypass Graft, Hysterectomy, Pacemaker Comment Only: Gastric Bypass Surgery - Triple Social History Information Source: Patient Lives with: Spouse/Significant other Smoking Status: Never Smoker Frequency of Alcohol Use: None Hx Recreational Drug Use: No Drugs: None Hx Prescription Drug Abuse: No - Advance Directive Resuscitation Status: Full Code Surrogate healthcare decision maker:: Patient's daughter is the surrogate decision-maker Family History Family History: Hypertension Parental Family History Reviewed: Yes Children Family History Reviewed: Yes Sibling(s) Family History Reviewed.: Yes Medication/Allergy Home Medications: Benazepril HCl [Lotensin 20 Mg Tablet] 20 mg PO DAILY 07/29/11 Aspirin [Ecotrin 81 mg EC Tablet] 81 mg PO DAILY 11/18/11 Nitroglycerin [Nitrostat 0.4 mg (1/150 Gr) Tabs 25/Bottle] 0.4 mg SL PRN PRN 10/26 Warfarin Sodium [Coumadin 2.5 Mg Tablet] 2.5 mg PO TUTH@2200 PRN 02/04/12 Citalopram Hydrobromide [Celexa 10 mg Tablet] 20 mg PO DAILY 02/24/18 Clonidine HCl [Catapres 0.1 mg Tablet] 0.1 mg PO HSP PRN 02/24/18 Furosemide [Lasix 20 mg Tablet] 40 mg PO QAM 02/24/18 Levothyroxine Sodium [Synthroid 0.075 mg Tablet] 0.075 mg PO Q6AM 02/24/18 Metoprolol Succinate [Toprol Xl 25 mg Tab.sr] 25 mg PO Q12 02/24/18 Ondansetron [Zofran Odt 4 mg Tablet] 4 mg PO Q4HP PRN 02/24/18 Pitavastatin Calcium [Livalo] 2 mg PO Q48H MDD AT BEDTIME 02/24/18 Warfarin Sodium [Coumadin 5 mg Tablet] 5 mg PO SUMOWEFRSA@2200 02/24/18 Allergies/Adverse Reactions: cefdinir [From Omnicef] Allergy (Unknown, Verified 05/30/17 17:09) Choline Fenofibrate [From Trilipix] Allergy (Unknown, Verified 05/30/17 17:09) clopidogrel bisulfate [From Plavix] Allergy (Unknown, Verified 05/30/17 17:09) codeine [Codeine] Allergy (Unknown, Verified 05/30/17 17:09) guaifenesin [From Mucinex] Allergy (Unknown, Verified 05/30/17 17:09) hydralazine [Hydralazine] Allergy (Unknown, Verified 05/30/17 17:09) Influenza Vaccine,Trival 2010 * [Influenza Vaccine,Trival 2010] Allergy (Unknown , Verified 05/30/17 17:09) lovastatin [From Mevacor] Allergy (Unknown, Verified 05/30/17 17:09) meperidine HCl [From Demerol] Allergy (Unknown, Verified 05/30/17 17:09) niacin [Niacin] Allergy (Unknown, Verified 05/30/17 17:09) nifedipine [From Procardia] Allergy (Unknown, Verified 05/30/17 17:09) pentazocine lactate [From Talwin] Allergy (Unknown, Verified 05/30/17 17:09) pravastatin sodium [From Pravachol] Allergy (Unknown, Verified 05/30/17 17:09) propoxyphene HCl [From Darvon] Allergy (Unknown, Verified 05/30/17 17:09) rosuvastatin calcium [From Crestor] Allergy (Unknown, Verified 05/30/17 17:09) Sulfa (Sulfonamide Antibiotics) Allergy (Unknown, Verified 05/30/17 17:09) metoprolol succinate [From Toprol XL] Allergy (Verified 05/30/17 17:09) atorvastatin calcium [From Lipitor] Adverse Reaction (Severe, Verified 05/30/17 17:09) Review of Systems Review of Systems: Please see history of present illness and past medical history as wall. Constitutional: No fever or chills reported. Generalized weakness reported. Head : No recent chronic headaches, recent head injury. Eyes: No recent eye pain, diplopia, redness, discharge, acute visual changes. Ears: No recent chronic ear pain, acute hearing loss, ear discharge. Oral cavity: No recent ulcerations, bleeding, oral cavity discomfort. Neck: No recent acute neck pain reported. Hematologic: No recent easy bruising or bleeding. Lymphatic: No recent lymph node enlargement reported. Cardiovascular system review: See history of present illness. Respiratory system review: No hemoptysis or blood clots in the lungs reported. Shortness of breath on exertion Gastrointestinal system review: Negative for any recent acute hematemesis, melena. Genitourinary system review: No recent acute or chronic hematuria, flank pain, UTI etc. reported. Skin system review: Negative for any recent abnormal bruising, no rash, no pruritus reported. Neurologic: No prior history of strokes, mini strokes, seizure disorder. Psychologic: No history of major psychosis or major depression reported. Noted mild memory loss. Musculoskeletal: Minor aches and pains reported. No acute joint swelling reported. Endocrine: No recent polyuria, polydipsia, recent heat or cold intolerance. Physical Exam Vital Signs: Temp Pulse Resp BP Pulse Ox 98.5 F 63 18 103/70 98 02/26/18 15:24 02/26/18 15:24 02/26/18 15:24 02/26/18 15:24 02/26/18 15:24 Intake & Output 02/25/18 02/26/18 02/27/18 06:59 06:59 06:59 Intake Total 500 425 820 Output Total 151 0 Balance 349 425 820 Weight 48.2 kg 48.5 kg Exam: GENERAL: well-nourished and in no acute distress. Alert and oriented x3 HEAD: Significant bruising noted over the eyebrows, upper face. normocephalic. EYES: Pupils equal round and reactive to light, extraocular movements intact, sclera anicteric, conjunctiva are normal. ENT: TMs normal, nares patent, oropharynx clear without exudates. Moist mucous membranes. No oral ulcerations or bleeding gums noted NECK: supple without lymphadenopathy. Trachea is central. No cervical or axillary lymphadenopathy noted. Carotids are 2+, JVD WNL LUNGS: Respiration seems nonlabored, no significant accessory muscle action noted. Breath sounds clear to auscultation bilaterally and equal noted. No wheezes rales or rhonchi noted. No significant dullness noted on percussion. CHEST: Palpation of the chest wall shows no significant chest wall tenderness. 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 ABDOMEN: Soft, no significant tenderness appreciated, normoactive bowel sounds. No guarding, no rebound. No rigidity noted . No masses appreciated. EXTREMITIES: Pedal pulses are 1-2+, no calf tenderness noted. No clubbing or cyanosis. negative pedal edema noted NEUROLOGICAL: Focused neurological exam showed no significant neurologic deficit. Normal speech, no focal weakness appreciated. PSYCH: Normal mood, normal affect. Judgment and insight within normal limits. SKIN: significant ecchymosis, skin is noted to be warm. MUSCULOSKELETAL EXAM: No significant acute joint swelling noted. Results Laboratory Results: 02/26/18 10:58 02/26/18 10:58 02/26/18 02/26/18 10:58 10:58 WBC 8.5 RBC 4.44 Hgb 13.2 Hct 39.9 MCV 90 MCH 29.6 MCHC 33.0 RDW 16.9 H Plt Count 209 Sodium 131.4 L Potassium 4.1 Chloride 94 L Carbon Dioxide 28 Anion Gap 9 BUN 19 Creatinine 0.51 L Est GFR ( Amer) > 60 Est GFR (Non-Af Amer) > 60 Glucose 148 H Calcium 8.2 L Phosphorus 3.0 Magnesium 1.9 02/24/18 02/25/18 02/25/18 19:15 01:15 07:34 Creatine Kinase CK-MB (CK-2) 0.66 0.66 0.74 Troponin I < 0.012 < 0.012 < 0.012 NT-Pro-B Natriuret Pep 02/25/18 02/25/18 02/26/18 07:34 07:34 10:58 Creatine Kinase < 20 L CK-MB (CK-2) Troponin I NT-Pro-B Natriuret Pep 6870 H 3810 H EKG Comments: Shows atrial fibrillation with somewhat rapid ventricular response. Impressions: Cervical Spine CT 02/24/18 12:11 IMPRESSION: NO ACUTE OR SIGNIFICANT FINDINGS IN THE CERVICAL SPINE. Hand X-Ray 02/24/18 12:11 IMPRESSION: NO RADIOGRAPHIC EVIDENCE OF ACUTE INJURY. Humerus X-Ray 02/24/18 12:11 IMPRESSION: NO RADIOGRAPHIC EVIDENCE OF ACUTE INJURY. Knee X-Ray 02/24/18 12:11 IMPRESSION: NO RADIOGRAPHIC EVIDENCE OF ACUTE INJURY. Pelvis X-Ray 02/24/18 12:11 IMPRESSION: No acute findings. Head CT 02/24/18 19:00 IMPRESSION: No significant change from earlier the same day. EVIDENCE OF ACUTE STROKE: NO. Chest X-Ray 02/25/18 05:00 IMPRESSION: Left pleural effusion. COPD. No significant change. Assessment & Plan - Diagnosis (1) Contusion of face Qualifiers: Encounter type: initial encounter Qualified Code(s): S00.83XA - Contusion of other part of head, initial encounter Is this a current diagnosis for this admission?: Yes (2) Failure to thrive Qualifiers: Failure to thrive age range: in adult Qualified Code(s): R62.7 - Adult failure to thrive Is this a current diagnosis for this admission?: Yes (3) HLD (hyperlipidemia) Qualifiers: Hyperlipidemia type: unspecified Qualified Code(s): E78.5 - Hyperlipidemia , unspecified Is this a current diagnosis for this admission?: Yes (4) HTN (hypertension) Qualifiers: Hypertension type: essential hypertension Qualified Code(s): I10 - Essential (primary) hypertension Is this a current diagnosis for this admission?: Yes (5) Weakness Is this a current diagnosis for this admission?: Yes (6) Chronic atrial fibrillation with rapid ventricular response Is this a current diagnosis for this admission?: Yes (7) CHF (congestive heart failure) Qualifiers: Heart failure type: combined systolic and diastolic Heart failure chronicity: acute on chronic Qualified Code(s): I50.43 - Acute on chronic combined systolic (congestive) and diastolic (congestive) heart failure Is this a current diagnosis for this admission?: Yes - Notes Notes: Contusion of the face, related to fall, because of fall not. But could well be generalized weakness. Patient could have a vasovagal presyncope. Patient will benefit from physical therapy, fall prevention exercises and general strengthening of the muscles. Failure to thrive: Patient seems to be underweight and somewhat malnourished. Recommend that patient has nutritional consultation. Dyslipidemia: LDL goal is less than 70. Continue home statin therapy. Hypertension: Patient claims that blood pressure has been somewhat on the low side. Will monitor this very closely. Will like to avoid any pure vasodilators in patient with history of fall. Beta-blockers and JUSTIN inhibitor/ ARB's are usually preferred. Generalized weakness: Recommend strengthening exercises and nutritional improvement. Chronic atrial fibrillation with rapid ventricular response: Agree with beta- blockers for rate control. May use digoxin if needed especially if blood pressure is a problem. CHF: This is a chronic problem for this patient. Patient has history of chronic pleural effusion left more than right. Review of chest x-ray shows pleural effusion is somewhat worse. Have switched patient to torsemide this has better bioavailability and has been shown to reduce CHF related readmissions. We will continue to follow. Last echocardiogram performed was in September 2017 which showed LVEF of 50%, diastolic dysfunction, RV was noted to be moderately dilated, mild to moderate aortic incompetence, RV systolic function was noted to be depressed. Patient was also noted to have severe tricuspid regurgitation. Will recommend repeating the 2D echo. - Time Time Spent: 30 to 50 Minutes - CODE STATUS was discussed, patient remains full code. Surrogate decision-maker unchanged. Multiple medical problems were addressed. More than 50% of the time spent coordinating care, discussing management plans with involved caregivers. Management plans discussed with involved personnels. Medical decision making was of moderate to high complexity , patient's has multiple comorbidities. Medications reviewed and adjusted accordingly: Yes
[2018-02-27] MEDS: OXYCODONE-ACETAMINOPHEN 5-325 MG TABLET PO PRN (22:52)
[2018-02-28 05:18] LABS: INTERNATIONAL RATION (INR) 2.08; PROTHROMBIN TIME 24.4 SEC (11.4-15.4)
[2018-02-28 05:49] LABS: ANION GAP 11 (5-19); BLOOD UREA NITROGEN 19 mg/dL (7-20); CALCIUM 8.3 mg/dL (8.4-10.2); CARBON DIOXIDE 27 mmol/L (22-30); CHLORIDE 92 mmol/L (98-107); GLUCOSE 108 mg/dL (75-110); POTASSIUM 4.9 mmol/L (3.6-5.0); SODIUM 130.2 mmol/L (137-145)
[2018-02-28] MEDS: LEVOTHYROXINE SODIUM 0.075 MG TABLET PO SCH (05:54)
[2018-02-28] MEDS: METOPROLOL TARTRATE 25 MG TABLET PO SCH (10:26)
[2018-02-28] MEDS: CITALOPRAM HYDROBROMIDE 20 MG TABLET PO SCH (10:27)
[2018-02-28] MEDS: ASPIRIN 81 MG TABLET, ENT COATED PO SCH (10:27)
[2018-02-28] MEDS: BENAZEPRIL HCL 10 MG TABLET PO SCH ×2 (10:28→21:38)
[2018-02-28] MEDS: TORSEMIDE 20 MG TABLET PO SCH (10:28)
[2018-02-28] MEDS: SILVER SULFADIAZINE 1% CREAM 50 GM TP SCH ×2 (10:34→19:41)
[2018-02-28] MEDS: OXYCODONE-ACETAMINOPHEN 5-325 MG TABLET PO PRN (17:42)
--- NOTE | 2018-02-28 17:56 | PDOC PROGRESS REPORT ---
Subjective Progress Note for:: 02/28/18 Subjective:: The patient is an 87-year-old female with a past medical history of atrial fibrillation (chronic anticoagulation on Coumadin), CHF, CAD, CABG, AICD, hyperlipidemia, hypertension, PVD, hypothyroidism who was admitted on 02/24/18 for a unwitnessed fall at home tilting and multiple skin tears to bilateral upper extremities, left shoulder pain, and facial ecchymosis/hematoma. Patient was seen on afternoon rounds. She is found resting in bed comfortably on room air. She is sleeping soundly and does arouse slightly when I say her name but does not wake fully. Per nursing, the patient was awake most of the day and has just received medication for her pain. Unfortunately, there are no family members at this time. Nursing reports that the patient has complained of continued left shoulder discomfort, which appears to respond well to Percocet and fatigue, but otherwise has not voiced any complaints or concerns today. No concerns per nursing at this time. Reason For Visit: SYNCOPE AND COLLAPSE,INJURY OF HEAD,ALTERED MENTAL Physical Exam Vital Signs: Temp Pulse Resp BP Pulse Ox 97.9 F 144 H 16 119/90 H 95 02/28/18 16:00 02/28/18 16:00 02/28/18 16:00 02/28/18 16:00 02/28/18 16:00 Intake & Output 02/27/18 02/28/18 03/01/18 06:59 06:59 06:59 Intake Total 820 624 0 Output Total 0 Balance 820 624 0 Weight 49.5 kg 49.9 kg General appearance: PRESENT: no acute distress, thin, well-developed Head exam: PRESENT: normocephalic, other - Numerous bruises to face, bilateral orbits, hematoma to left forehead (decreased in size today) Ear exam: PRESENT: normal external ear exam Mouth exam: PRESENT: moist, tongue midline Neck exam: ABSENT: carotid bruit, JVD, lymphadenopathy, thyromegaly Respiratory exam: PRESENT: clear to auscultation tenzin, symmetrical, unlabored. ABSENT: rales, rhonchi, wheezes Cardiovascular exam: PRESENT: irregular rhythm, tachycardia. ABSENT: diastolic murmur, rubs, systolic murmur Pulses: PRESENT: normal dorsalis pedis pul Vascular exam: PRESENT: normal capillary refill GI/Abdominal exam: PRESENT: normal bowel sounds, soft. ABSENT: distended, guarding, mass, organolmegaly, rebound, tenderness Rectal exam: PRESENT: deferred Extremities exam: PRESENT: tenderness - Left shoulder; limited range of motion. ABSENT: calf tenderness, clubbing, pedal edema Neurological exam: PRESENT: CN II-XII grossly intact, other - Sleeping soundly; oriented 4 per nursing. ABSENT: motor sensory deficit Psychiatric exam: ABSENT: homicidal ideation, suicidal ideation Skin exam: PRESENT: dry, skin tears - Bilateral hands, left upper arm, left posterior elbow, left anterior lower arm; no surrounding erythema or edema. Scattered ecchymosis to face and upper and lower extremities., warm. ABSENT: cyanosis, rash Results Laboratory Results: 02/27/18 08:30 02/28/18 04:42 02/28/18 04:42 Sodium 130.2 L Potassium 4.9 Chloride 92 L Carbon Dioxide 27 Anion Gap 11 BUN 19 Creatinine 0.57 Est GFR ( Amer) > 60 Est GFR (Non-Af Amer) > 60 Glucose 108 Calcium 8.3 L 02/24/18 02/25/18 02/25/18 19:15 01:15 07:34 Creatine Kinase CK-MB (CK-2) 0.66 0.66 0.74 Troponin I < 0.012 < 0.012 < 0.012 NT-Pro-B Natriuret Pep 02/25/18 02/25/18 02/26/18 07:34 07:34 10:58 Creatine Kinase < 20 L CK-MB (CK-2) Troponin I NT-Pro-B Natriuret Pep 6870 H 3810 H Impressions: Cervical Spine CT 02/24/18 12:11 IMPRESSION: NO ACUTE OR SIGNIFICANT FINDINGS IN THE CERVICAL SPINE. Hand X-Ray 02/24/18 12:11 IMPRESSION: NO RADIOGRAPHIC EVIDENCE OF ACUTE INJURY. Humerus X-Ray 02/24/18 12:11 IMPRESSION: NO RADIOGRAPHIC EVIDENCE OF ACUTE INJURY. Knee X-Ray 02/24/18 12:11 IMPRESSION: NO RADIOGRAPHIC EVIDENCE OF ACUTE INJURY. Pelvis X-Ray 02/24/18 12:11 IMPRESSION: No acute findings. Head CT 02/24/18 19:00 IMPRESSION: No significant change from earlier the same day. EVIDENCE OF ACUTE STROKE: NO. Chest X-Ray 02/25/18 05:00 IMPRESSION: Left pleural effusion. COPD. No significant change. Assessment & Plan - Diagnosis (1) Syncope and collapse Is this a current diagnosis for this admission?: Yes Plan: The patient had an unwitnessed fall while in the restroom home; unclear etiology : Mechanical fall versus use of vagal versus arrhythmia. Patient is chronically anticoagulated on Coumadin and was found to be supratherapeutic with an INR of 3.97. The patient did have head trauma; forehead hematoma and multiple facial bruising is noted. Patient denies loss of consciousness. Head and cervical spine CT are negative Repeat head CT 6 hours from original scan is negative for intracranial bleeding X-ray of the pelvis, knee, and hands are negative. Chest x-ray shows a left lower lobe pleural effusion Patient is admitted to [facility] on continuous cardiac telemetry. Fall and seizure precautions. PT/OT to evaluate and treat. Anticipate SNF for short-term rehab at discharge; she has been offered a bed at [facility]. (2) CHF (congestive heart failure) Qualifiers: Heart failure type: combined systolic and diastolic Heart failure chronicity: acute on chronic Qualified Code(s): I50.43 - Acute on chronic combined systolic (congestive) and diastolic (congestive) heart failure Is this a current diagnosis for this admission?: Yes Plan: Improved; acute CHF exacerbation secondary to atrial fibrillation with RVR. BNP 9570-->3810 Echocardiogram reveals a preserved ejection fraction, moderately dilatated RV with mildly reduced RV systolic function, and mild to moderate pulmonary hypertension. Previous echocardiogram from September 2017 showed LVEF of 50% with diastolic dysfunction. Cardiology has been consulted; appreciate their evaluation recommendations. I did speak with Dr. Mohan today by phone. He recommended increasing the patient' s metoprolol from 25 mg twice daily to 50 mg twice daily for improved rate control. Otherwise, no new recommendations. Patient is placed on a cardiac diet. Daily weights. (3) Elevated INR Is this a current diagnosis for this admission?: Yes Plan: Trending down. On admission, INR found to be elevated to 3.97 Currently holding Coumadin. Cardiology has been consulted; recommend transition to Eliquis once INR is less than 2. (4) HTN (hypertension) Qualifiers: Hypertension type: essential hypertension Qualified Code(s): I10 - Essential (primary) hypertension Is this a current diagnosis for this admission?: Yes Plan: Home medications are continued; metoprolol increased from 25 twice daily to 50 twice daily today. Cardiology has been consulted for atrial fibrillation with RVR and acute CHF exacerbation; medication adjustments per their expertise. (5) Head injury Qualifiers: Encounter type: initial encounter Qualified Code(s): S09.90XA - Unspecified injury of head, initial encounter Is this a current diagnosis for this admission?: Yes Plan: Secondary to unwitnessed fall at home. Head CT negative for fractures or intracranial bleeding. Repeat head CT 6 hours later also negative. Patient is noted to have a large hematoma to her forehead and multiple areas of bruising. Neuro exam is intact today; she remains at high risk for bleed given her age and elevated INR. Low threshold for repeat imaging. (6) Hypothyroid Is this a current diagnosis for this admission?: Yes Plan: TSH is slightly elevated at 4.91. T3 and free T4 are appropriate. Continue home dose Synthroid. (7) Chronic atrial fibrillation with rapid ventricular response Is this a current diagnosis for this admission?: Yes Plan: The patient's heart rate is noted to be trending upwards; 120s-140s today. History of A. fib on Coumadin previously rate controlled with Toprol-XL. Patient is admitted to [facility] on continuous cardiac telemetry. Spoke with the patient's primary preschool head teacher, Dr. Mohan, today. He recommended increasing her metoprolol to 50 mg twice daily. May need to consider diltiazem drip if there is no response. Holding Coumadin secondary to elevated INR. Cardiology is consulted; appreciate their evaluation recommendations. (8) Rotator cuff tear, left Qualifiers: Rotator cuff tear extent: unspecified tear extent Qualified Code(s): M75.102 - Unspecified rotator cuff tear or rupture of left shoulder, not specified as traumatic Is this a current diagnosis for this admission?: Yes Plan: Left shoulder pain status post fall with limited range of motion. Imaging studies are negative for dislocation or fracture. Orthopedics was consulted; appreciate their evaluation recommendation. Recommend ice and sling 10 days then may transition to heat for comfort. Follow-up in the office for consideration of steroid injection. (9) Avulsion of skin of elbow Qualifiers: Encounter type: initial encounter Laterality: left Qualified Code(s): S51.002A - Unspecified open wound of left elbow, initial encounter Is this a current diagnosis for this admission?: Yes Plan: Secondary to fall. Surgery was consulted; appreciate their evaluation recommendations. Continue Silvadene ointment and dressing changes twice daily. (10) HLD (hyperlipidemia) Qualifiers: Hyperlipidemia type: unspecified Qualified Code(s): E78.5 - Hyperlipidemia , unspecified Is this a current diagnosis for this admission?: Yes Plan: Continue home dose statin (11) Hyponatremia Is this a current diagnosis for this admission?: Yes Plan: Sodium is trending down 137-->130.2; likely secondary to torsemide. The patient is no longer receiving IV fluids. She is currently on a cardiac diet; though with poor intake. The patient's weight is stable, lung sounds clear, and no evidence of edema at this time. We will hold torsemide today. Repeat chemistry in the morning. Consider need for reduced dosing or schedule of torsemide. - Time Time Spent with patient: 25-34 minutes Medications reviewed and adjusted accordingly: Yes Anticipated discharge: Acute Rehab - [place] Within: Other - Once HR controll is achieved; possible tomorrow.
--- NOTE | 2018-02-28 19:25 | PDOC PROGRESS REPORT ---
Subjective Progress Note for:: 02/27/18 Subjective:: Patient seen yesterday that is February 27 at lunchtime. Patient patient's daughter in the room. Patient is noted to have some shoulder discomfort. Telemetry strips were reviewed. It shows atrial fibrillation with intermittent rapid ventricular response. PT INR noted to be high. Did discuss chronic anticoagulation issue with patient and relative, will consider switch to a new oral anticoagulant on discharge especially when PT with INR comes below 2.0.. Reason For Visit: SYNCOPE AND COLLAPSE,INJURY OF HEAD,ALTERED MENTAL Physical Exam Vital Signs: Temp Pulse Resp BP Pulse Ox 97.9 F 144 H 16 119/90 H 95 02/28/18 16:00 02/28/18 16:00 02/28/18 16:00 02/28/18 16:00 02/28/18 16:00 Intake & Output 02/27/18 02/28/18 03/01/18 06:59 06:59 06:59 Intake Total 820 624 0 Output Total 0 Balance 820 624 0 Weight 49.5 kg 49.9 kg Exam: GENERAL: well-nourished and in no acute distress. Alert and oriented x 2 HEAD: Still has chronic bruising of the upper face bilaterally, normocephalic. EYES: Pupils equal round and reactive to light, extraocular movements intact, sclera anicteric, conjunctiva are normal. ENT: TMs normal, nares patent, oropharynx clear without exudates. Moist mucous membranes. No oral ulcerations or bleeding gums noted NECK: supple without lymphadenopathy. Trachea is central. No cervical or axillary lymphadenopathy noted. Carotids are 2+, JVD WNL LUNGS: Respiration seems nonlabored, no significant accessory muscle action noted. Bibasilar coarse crackles and few a scattered wheezes rales or rhonchi noted. Mild left basal dullness noted on percussion. CHEST: Palpation of the chest wall shows no significant chest wall tenderness. 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 ABDOMEN: Soft, no significant tenderness appreciated, normoactive bowel sounds. No guarding, no rebound. No rigidity noted . No masses appreciated. EXTREMITIES: Pedal pulses are 1-2+, no calf tenderness noted. No clubbing or cyanosis. negative pedal edema noted NEUROLOGICAL: Focused neurological exam showed no significant neurologic deficit. Normal speech, no focal weakness appreciated. PSYCH: Normal mood, normal affect. Judgment and insight within normal limits. SKIN: No significant ecchymosis, skin is noted to be warm. MUSCULOSKELETAL EXAM: No significant acute joint swelling noted. Noted to have left rotator cuff tear in the shoulder. Results Laboratory Results: 02/27/18 08:30 02/28/18 04:42 02/28/18 04:42 Sodium 130.2 L Potassium 4.9 Chloride 92 L Carbon Dioxide 27 Anion Gap 11 BUN 19 Creatinine 0.57 Est GFR ( Amer) > 60 Est GFR (Non-Af Amer) > 60 Glucose 108 Calcium 8.3 L 02/24/18 02/25/18 02/25/18 19:15 01:15 07:34 Creatine Kinase CK-MB (CK-2) 0.66 0.66 0.74 Troponin I < 0.012 < 0.012 < 0.012 NT-Pro-B Natriuret Pep 02/25/18 02/25/18 02/26/18 07:34 07:34 10:58 Creatine Kinase < 20 L CK-MB (CK-2) Troponin I NT-Pro-B Natriuret Pep 6870 H 3810 H EKG Comments: Telemetry shows atrial fibrillation with somewhat rapid ventricular response. Impressions: Cervical Spine CT 02/24/18 12:11 IMPRESSION: NO ACUTE OR SIGNIFICANT FINDINGS IN THE CERVICAL SPINE. Hand X-Ray 02/24/18 12:11 IMPRESSION: NO RADIOGRAPHIC EVIDENCE OF ACUTE INJURY. Humerus X-Ray 02/24/18 12:11 IMPRESSION: NO RADIOGRAPHIC EVIDENCE OF ACUTE INJURY. Knee X-Ray 02/24/18 12:11 IMPRESSION: NO RADIOGRAPHIC EVIDENCE OF ACUTE INJURY. Pelvis X-Ray 02/24/18 12:11 IMPRESSION: No acute findings. Head CT 02/24/18 19:00 IMPRESSION: No significant change from earlier the same day. EVIDENCE OF ACUTE STROKE: NO. Chest X-Ray 02/25/18 05:00 IMPRESSION: Left pleural effusion. COPD. No significant change. Assessment & Plan - Diagnosis (1) Contusion of face Qualifiers: Encounter type: initial encounter Qualified Code(s): S00.83XA - Contusion of other part of head, initial encounter Is this a current diagnosis for this admission?: Yes (2) Failure to thrive Qualifiers: Failure to thrive age range: in adult Qualified Code(s): R62.7 - Adult failure to thrive Is this a current diagnosis for this admission?: Yes (3) HLD (hyperlipidemia) Qualifiers: Hyperlipidemia type: unspecified Qualified Code(s): E78.5 - Hyperlipidemia , unspecified Is this a current diagnosis for this admission?: Yes (4) HTN (hypertension) Qualifiers: Hypertension type: essential hypertension Qualified Code(s): I10 - Essential (primary) hypertension Is this a current diagnosis for this admission?: Yes (5) Weakness Is this a current diagnosis for this admission?: Yes (6) Chronic atrial fibrillation with rapid ventricular response Is this a current diagnosis for this admission?: Yes (7) CHF (congestive heart failure) Qualifiers: Heart failure type: combined systolic and diastolic Heart failure chronicity: acute on chronic Qualified Code(s): I50.43 - Acute on chronic combined systolic (congestive) and diastolic (congestive) heart failure Is this a current diagnosis for this admission?: Yes - Notes Notes: PT with INR is still high. Once INR less than 2.0 recommend switch to Eliquis at 2.5 mg p.o. twice daily. BNP has come down nicely. Continue torsemide. Watch for any hypotension. Patient is generally debilitated and might have to go to a rehab unit. Echocardiogram was reviewed. It shows LVEF to be normal. RV is noted to be moderately dilated with probable depressed RV EF. Tricuspid regurgitation was noted to be moderate to severe and seem somewhat less when compared to previous echo. Contusion of the face, related to fall, because of fall not. But could well be generalized weakness. Patient could have a vasovagal presyncope. Patient will benefit from physical therapy, fall prevention exercises and general strengthening of the muscles. Failure to thrive: Patient seems to be underweight and somewhat malnourished. Recommend that patient has nutritional consultation. Dyslipidemia: LDL goal is less than 70. Continue home statin therapy. Hypertension: Patient claims that blood pressure has been somewhat on the low side. Will monitor this very closely. Will like to avoid any pure vasodilators in patient with history of fall. Beta-blockers and JUSTIN inhibitor/ ARB's are usually preferred. Generalized weakness: Recommend strengthening exercises and nutritional improvement. Chronic atrial fibrillation with rapid ventricular response: Agree with beta- blockers for rate control. May use digoxin if needed especially if blood pressure is a problem. CHF: This is a chronic problem for this patient. Patient has history of chronic pleural effusion left more than right. Review of chest x-ray shows pleural effusion is somewhat worse. Have switched patient to torsemide this has better bioavailability and has been shown to reduce CHF related readmissions. We will continue to follow. - Time Time with patient: Greater than 35 minutes - CODE STATUS was discussed, patient remains full code. Surrogate decision-maker unchanged. Multiple medical problems were addressed. More than 50% of the time spent coordinating care, discussing management plans with involved caregivers. Management plans discussed with involved personnels. Medical decision making was of moderate to high complexity, patient's has multiple comorbidities. Medications reviewed and adjusted accordingly: Yes
--- NOTE | 2018-02-28 19:29 | PDOC PROGRESS REPORT ---
Subjective Progress Note for:: 02/28/18 Subjective:: Patient claims to be fatigued and tired.. Patient patient's daughter in the room. Patient is noted to have some shoulder discomfort. Telemetry strips were reviewed. It shows atrial fibrillation with rapid ventricular response. PT INR noted to be high and just above 2.0. Did discuss chronic anticoagulation issue with patient and relative, will consider switch to a new oral anticoagulant on discharge especially when PT with INR comes below 2.0.. Reason For Visit: SYNCOPE AND COLLAPSE,INJURY OF HEAD,ALTERED MENTAL Physical Exam Vital Signs: Temp Pulse Resp BP Pulse Ox 97.9 F 144 H 16 119/90 H 95 02/28/18 16:00 02/28/18 16:00 02/28/18 16:00 02/28/18 16:00 02/28/18 16:00 Intake & Output 02/27/18 02/28/18 03/01/18 06:59 06:59 06:59 Intake Total 820 624 0 Output Total 0 Balance 820 624 0 Weight 49.5 kg 49.9 kg Exam: GENERAL: well-nourished and in no acute distress. Alert and oriented x 2 HEAD: Resolving ecchymosis noted upper face bilaterally., normocephalic. EYES: Pupils equal round and reactive to light, extraocular movements intact, sclera anicteric, conjunctiva are normal. ENT: TMs normal, nares patent, oropharynx clear without exudates. Moist mucous membranes. No oral ulcerations or bleeding gums noted NECK: supple without lymphadenopathy. Trachea is central. No cervical or axillary lymphadenopathy noted. Carotids are 2+, JVD WNL LUNGS: Respiration seems nonlabored, no significant accessory muscle action noted. Breath sounds clear to auscultation bilaterally and equal noted. No wheezes rales or rhonchi noted. No significant dullness noted on percussion. CHEST: Palpation of the chest wall shows no significant chest wall tenderness. HEART: [place] [employer], No PSH, 1/6 SHELL aortic area, 1/6 groves systolic murmur mitral area, no rubs, no gallops. ABDOMEN: Soft, no significant tenderness appreciated, normoactive bowel sounds. No guarding, no rebound. No rigidity noted . No masses appreciated. EXTREMITIES: Pedal pulses are 1-2+, no calf tenderness noted. No clubbing or cyanosis. negative pedal edema noted NEUROLOGICAL: Focused neurological exam showed no significant neurologic deficit. Normal speech, no focal weakness appreciated. PSYCH: Normal mood, normal affect. Judgment and insight within normal limits. SKIN: Multiple areas of ecchymosis, skin is noted to be warm. MUSCULOSKELETAL EXAM: No significant acute joint swelling noted. Left shoulder movement pain. Injury to rotator cuff tear Results Laboratory Results: 02/27/18 08:30 02/28/18 04:42 02/28/18 04:42 Sodium 130.2 L Potassium 4.9 Chloride 92 L Carbon Dioxide 27 Anion Gap 11 BUN 19 Creatinine 0.57 Est GFR ( Amer) > 60 Est GFR (Non-Af Amer) > 60 Glucose 108 Calcium 8.3 L 02/24/18 02/25/18 02/25/18 19:15 01:15 07:34 Creatine Kinase CK-MB (CK-2) 0.66 0.66 0.74 Troponin I < 0.012 < 0.012 < 0.012 NT-Pro-B Natriuret Pep 02/25/18 02/25/18 02/26/18 07:34 07:34 10:58 Creatine Kinase < 20 L CK-MB (CK-2) Troponin I NT-Pro-B Natriuret Pep 6870 H 3810 H EKG Comments: Atrial fibrillation with rapid ventricular response. Impressions: Cervical Spine CT 02/24/18 12:11 IMPRESSION: NO ACUTE OR SIGNIFICANT FINDINGS IN THE CERVICAL SPINE. Hand X-Ray 02/24/18 12:11 IMPRESSION: NO RADIOGRAPHIC EVIDENCE OF ACUTE INJURY. Humerus X-Ray 02/24/18 12:11 IMPRESSION: NO RADIOGRAPHIC EVIDENCE OF ACUTE INJURY. Knee X-Ray 02/24/18 12:11 IMPRESSION: NO RADIOGRAPHIC EVIDENCE OF ACUTE INJURY. Pelvis X-Ray 02/24/18 12:11 IMPRESSION: No acute findings. Head CT 02/24/18 19:00 IMPRESSION: No significant change from earlier the same day. EVIDENCE OF ACUTE STROKE: NO. Chest X-Ray 02/25/18 05:00 IMPRESSION: Left pleural effusion. COPD. No significant change. Assessment & Plan - Diagnosis (1) Contusion of face Qualifiers: Encounter type: initial encounter Qualified Code(s): S00.83XA - Contusion of other part of head, initial encounter Is this a current diagnosis for this admission?: Yes (2) Failure to thrive Qualifiers: Failure to thrive age range: in adult Qualified Code(s): R62.7 - Adult failure to thrive Is this a current diagnosis for this admission?: Yes (3) HLD (hyperlipidemia) Qualifiers: Hyperlipidemia type: unspecified Qualified Code(s): E78.5 - Hyperlipidemia , unspecified Is this a current diagnosis for this admission?: Yes (4) HTN (hypertension) Qualifiers: Hypertension type: essential hypertension Qualified Code(s): I10 - Essential (primary) hypertension Is this a current diagnosis for this admission?: Yes (5) Weakness Is this a current diagnosis for this admission?: Yes (6) Chronic atrial fibrillation with rapid ventricular response Is this a current diagnosis for this admission?: Yes (7) CHF (congestive heart failure) Qualifiers: Heart failure type: combined systolic and diastolic Heart failure chronicity: acute on chronic Qualified Code(s): I50.43 - Acute on chronic combined systolic (congestive) and diastolic (congestive) heart failure Is this a current diagnosis for this admission?: Yes - Notes Notes: I am told that patient will be going to a rehab [facility] PT with INR is still high. Once INR less than 2.0 recommend switch to Eliquis at 2.5 mg p.o. twice daily. Hopefully by tomorrow she could be discharged on Eliquis at 2.5 mg p.o. twice daily. BNP has come down nicely. Reduce torsemide to every other day. Watch for any hypotension. Heart rate noted to be high. After discussion with hospitalist, we decided to double the dose of metoprolol succinate. Will watch for any hypotension. Patient is generally debilitated and might have to go to a rehab unit. Echocardiogram was reviewed. It shows LVEF to be normal. RV is noted to be moderately dilated with probable depressed RV EF. Tricuspid regurgitation was noted to be moderate to severe and seem somewhat less when compared to previous echo. Contusion of the face, related to fall, because of fall not. But could well be generalized weakness. Patient could have a vasovagal presyncope. Patient will benefit from physical therapy, fall prevention exercises and general strengthening of the muscles. Failure to thrive: Patient seems to be underweight and somewhat malnourished. Recommend that patient has nutritional consultation. Dyslipidemia: LDL goal is less than 70. Continue home statin therapy. Hypertension: Patient claims that blood pressure has been somewhat on the low side. Will monitor this very closely. Will like to avoid any pure vasodilators in patient with history of fall. Beta-blockers and JUSTIN inhibitor/ ARB's are usually preferred. Generalized weakness: Recommend strengthening exercises and nutritional improvement. Chronic atrial fibrillation with rapid ventricular response: Agree with beta- blockers for rate control. May use digoxin if needed especially if blood pressure is a problem. CHF: This is a chronic problem for this patient. Patient has history of chronic pleural effusion left more than right. Review of chest x-ray shows pleural effusion is somewhat worse. Have switched patient to torsemide this has better bioavailability and has been shown to reduce CHF related readmissions. Clinically seems much improved as regards CHF. Will reduce torsemide to every other day. Hold if hypotension. - Time Time with patient: Greater than 35 minutes - CODE STATUS was discussed, patient remains full code. Surrogate decision-maker unchanged. Multiple medical problems were addressed. More than 50% of the time spent coordinating care, discussing management plans with involved caregivers. Management plans discussed with involved personnels. Medical decision making was of moderate to high complexity, patient's has multiple comorbidities. Medications reviewed and adjusted accordingly: Yes
[2018-02-28] MEDS ORDERED: METOPROLOL TARTRATE 50 MG TABLET PO SCH (22:00)
[2018-02-28] MEDS ORDERED: METOPROLOL SUCCINATE 25 MG TAB.SR.24H PO SCH (22:00)
[2018-03-01 05:39] LABS: INTERNATIONAL RATION (INR) 1.54; PROTHROMBIN TIME 19.2 SEC (11.4-15.4)
[2018-03-01 05:43] LABS: ANION GAP 9 (5-19); BLOOD UREA NITROGEN 19 mg/dL (7-20); CALCIUM 8.3 mg/dL (8.4-10.2); CARBON DIOXIDE 28 mmol/L (22-30); CHLORIDE 93 mmol/L (98-107); GLUCOSE 76 mg/dL (75-110); POTASSIUM 4.3 mmol/L (3.6-5.0); SODIUM 130.1 mmol/L (137-145)
[2018-03-01] MEDS: LEVOTHYROXINE SODIUM 0.075 MG TABLET PO SCH (06:06)
[2018-03-01] MEDS ORDERED: DILTIAZEM HCL/D5W 125 MG/125 ML RTUINJ IV PRN (10:00)
[2018-03-01 10:26] LABS: HEMATOCRIT 38.6 % (36.0-47.0); HEMOGLOBIN 12.8 g/dL (12.0-15.5); MEAN CORPUSCULAR HEMOGLOBIN 29.6 pg (27.0-33.4); MEAN CORPUSCULAR HGB CONC 33.2 g/dL (32.0-36.0); MEAN CORPUSCULAR VOLUME 89 fl (80-97); PLATELET COUNT 252 10^3/uL (150-450); RED BLOOD COUNT 4.34 10^6/uL (3.72-5.28); RED CELL DISTRIBUTION WIDTH 16.4 % (11.5-14.0); WHITE BLOOD COUNT 7.6 10^3/uL (4.0-10.5)
[2018-03-01 10:45] LABS: ANION GAP 11 (5-19); BLOOD UREA NITROGEN 18 mg/dL (7-20); CALCIUM 8.3 mg/dL (8.4-10.2); CARBON DIOXIDE 27 mmol/L (22-30); CHLORIDE 93 mmol/L (98-107); GLUCOSE 70 mg/dL (75-110); POTASSIUM 4.3 mmol/L (3.6-5.0); SODIUM 130.6 mmol/L (137-145)
[2018-03-01] MEDS: CITALOPRAM HYDROBROMIDE 20 MG TABLET PO SCH (11:08)
[2018-03-01] MEDS: ASPIRIN 81 MG TABLET, ENT COATED PO SCH (11:08)
[2018-03-01] MEDS: APIXABAN 2.5 MG TABLET PO SCH ×2 (11:08→17:36)
[2018-03-01] MEDS: SILVER SULFADIAZINE 1% CREAM 50 GM TP SCH ×2 (11:15→17:37)
[2018-03-01] MEDS: TORSEMIDE 20 MG TABLET PO SCH (12:10)
[2018-03-01] MEDS: BENAZEPRIL HCL 10 MG TABLET PO SCH ×2 (12:11→21:18)
--- NOTE | 2018-03-01 12:29 | EKG REPORT ---
SEVERITY:- ABNORMAL ECG - A FIBRILLATION WITH RVR. NONSPECIFIC INTRAVENTRICULAR CONDUCTION DELAY CONSIDER ANTERIOR INFARCT ST DEPRESSION, CONSIDER ISCHEMIA, ANT-LAT LDS : Confirmed by: Miguel Pittman MD 01-Mar-2018 12:28:34
[2018-03-01] MEDS ORDERED: BISACODYL 10 MG SUPP.RECT PR PRN (14:08)
--- NOTE | 2018-03-01 14:18 | PDOC PROGRESS REPORT ---
Subjective Progress Note for:: 03/01/18 Subjective:: The patient is an 87-year-old female with a past medical history of atrial fibrillation (chronic anticoagulation on Coumadin), CHF, CAD, CABG, AICD, hyperlipidemia, hypertension, PVD, hypothyroidism who was admitted on 02/24/18 for a unwitnessed fall at home tilting and multiple skin tears to bilateral upper extremities, left shoulder pain, and facial ecchymosis/hematoma. Patient was seen on morning rounds with her present. She is found resting in bed comfortably on room air. She is awake, alert and oriented 4, then noted to be drowsy. She reports continued left shoulder pain and decreased mobility but otherwise has no complaints and states that she is "a little bit better today." She denies fever, chills, headache, dizziness, chest pain, palpitations, dyspnea , orthopnea, abdominal pain, nausea vomiting and diarrhea. She does state that she has not a bowel movement since admission but denies abdominal discomfort or sensation of constipation. The patient has been having no new concerns. Reason For Visit: SYNCOPE AND COLLAPSE,INJURY OF HEAD,ALTERED MENTAL Physical Exam Vital Signs: Temp Pulse Resp BP Pulse Ox 97.4 F 123 H 15 113/79 93 03/01/18 11:24 03/01/18 11:24 03/01/18 11:24 03/01/18 11:24 03/01/18 11:24 Intake & Output 02/28/18 03/01/18 03/02/18 06:59 06:59 06:59 Intake Total 624 0 118 Balance 624 0 118 Weight 49.9 kg 48.3 kg General appearance: PRESENT: no acute distress, thin, well-developed Head exam: PRESENT: normocephalic, other - Ecchymosis to face, improving. Hematoma is decreased in size. Eye exam: PRESENT: conjunctiva pink, EOMI, PERRLA. ABSENT: scleral icterus Ear exam: PRESENT: normal external ear exam Mouth exam: PRESENT: moist, tongue midline Neck exam: ABSENT: carotid bruit, JVD, lymphadenopathy, thyromegaly Respiratory exam: PRESENT: clear to auscultation tenzin, symmetrical, unlabored. ABSENT: rales, rhonchi, wheezes Cardiovascular exam: PRESENT: irregular rhythm, tachycardia. ABSENT: diastolic murmur, rubs, systolic murmur Pulses: PRESENT: normal dorsalis pedis pul Vascular exam: PRESENT: normal capillary refill GI/Abdominal exam: PRESENT: normal bowel sounds, soft. ABSENT: distended, guarding, mass, organolmegaly, rebound, tenderness Rectal exam: PRESENT: deferred Extremities exam: PRESENT: tenderness - Left shoulder; decreased left arm mobility. ABSENT: calf tenderness, clubbing, pedal edema Neurological exam: PRESENT: alert, awake, oriented to person, oriented to place , oriented to time, oriented to situation, CN II-XII grossly intact. ABSENT: motor sensory deficit Psychiatric exam: PRESENT: flat affect, normal mood. ABSENT: homicidal ideation , suicidal ideation Skin exam: PRESENT: dry, warm, other - Scattered ecchymosis; skin tears to bilateral hands and left upper extremity. ABSENT: cyanosis, rash Results Laboratory Results: 03/01/18 09:43 03/01/18 09:43 03/01/18 03/01/18 03/01/18 04:55 09:43 09:43 WBC 7.6 RBC 4.34 Hgb 12.8 Hct 38.6 MCV 89 MCH 29.6 MCHC 33.2 RDW 16.4 H Plt Count 252 Sodium 130.1 L 130.6 L Potassium 4.3 4.3 Chloride 93 L 93 L Carbon Dioxide 28 27 Anion Gap 9 11 BUN 19 18 Creatinine 0.56 0.55 Est GFR ( Amer) > 60 > 60 Est GFR (Non-Af Amer) > 60 > 60 Glucose 76 70 L Calcium 8.3 L 8.3 L Magnesium 2.0 02/24/18 02/25/18 02/25/18 19:15 01:15 07:34 Creatine Kinase CK-MB (CK-2) 0.66 0.66 0.74 Troponin I < 0.012 < 0.012 < 0.012 NT-Pro-B Natriuret Pep 02/25/18 02/25/18 02/26/18 07:34 07:34 10:58 Creatine Kinase < 20 L CK-MB (CK-2) Troponin I NT-Pro-B Natriuret Pep 6870 H 3810 H 03/01/18 09:43 Creatine Kinase CK-MB (CK-2) Troponin I < 0.012 NT-Pro-B Natriuret Pep Impressions: Cervical Spine CT 02/24/18 12:11 IMPRESSION: NO ACUTE OR SIGNIFICANT FINDINGS IN THE CERVICAL SPINE. Hand X-Ray 02/24/18 12:11 IMPRESSION: NO RADIOGRAPHIC EVIDENCE OF ACUTE INJURY. Humerus X-Ray 02/24/18 12:11 IMPRESSION: NO RADIOGRAPHIC EVIDENCE OF ACUTE INJURY. Knee X-Ray 02/24/18 12:11 IMPRESSION: NO RADIOGRAPHIC EVIDENCE OF ACUTE INJURY. Pelvis X-Ray 02/24/18 12:11 IMPRESSION: No acute findings. Head CT 02/24/18 19:00 IMPRESSION: No significant change from earlier the same day. EVIDENCE OF ACUTE STROKE: NO. Chest X-Ray 02/25/18 05:00 IMPRESSION: Left pleural effusion. COPD. No significant change. Assessment & Plan - Diagnosis (1) Syncope and collapse Is this a current diagnosis for this admission?: Yes Plan: The patient had an unwitnessed fall while in the restroom home; unclear etiology : Mechanical fall versus use of vagal versus arrhythmia. Patient is chronically anticoagulated on Coumadin and was found to be supratherapeutic with an INR of 3.97. The patient did have head trauma; forehead hematoma and multiple facial bruising is noted. Patient denies loss of consciousness. Head and cervical spine CT are negative Repeat head CT 6 hours from original scan is negative for intracranial bleeding X-ray of the pelvis, knee, and hands are negative. Chest x-ray shows a left lower lobe pleural effusion Patient is admitted to [facility] on continuous cardiac telemetry. Fall and seizure precautions. PT/OT to evaluate and treat. Anticipate SNF for short-term rehab at discharge; she has been offered a bed at [facility]. (2) Chronic atrial fibrillation with rapid ventricular response Is this a current diagnosis for this admission?: Yes Plan: History of A. fib on Coumadin previously rate controlled with Toprol-XL. EKG today demonstrated atrial fibrillation with rapid ventricular rate, nonspecific intraventricular conduction delay Chemistry, magnesium and troponin normal. Patient is admitted to [facility] on continuous cardiac telemetry. The patient was noted to have an increasing heart rate yesterday; the patient's metoprolol was increased without effect. Metoprolol is discontinued and the patient is placed on a diltiazem drip. Cardiology is consulted; appreciate their evaluation recommendations. INR is1.54; patient and are agreeable to starting Eliquis. Patient is placed on 2.5 mg twice daily. (3) CHF (congestive heart failure) Qualifiers: Heart failure type: combined systolic and diastolic Heart failure chronicity: acute on chronic Qualified Code(s): I50.43 - Acute on chronic combined systolic (congestive) and diastolic (congestive) heart failure Is this a current diagnosis for this admission?: Yes Plan: Improved; acute CHF exacerbation secondary to atrial fibrillation with RVR. BNP 9570-->3810 Echocardiogram reveals a preserved ejection fraction, moderately dilatated RV with mildly reduced RV systolic function, and mild to moderate pulmonary hypertension. Previous echocardiogram from September 2017 showed LVEF of 50% with diastolic dysfunction. Cardiology has been consulted; appreciate their evaluation recommendations. Patient is placed on a cardiac diet. Daily weights. (4) Elevated INR Is this a current diagnosis for this admission?: Yes Plan: Trending down. On admission, INR found to be elevated to 3.97 now 1.5. The patient is transitioned to Eliquis 2.5 mg twice daily. (5) HTN (hypertension) Qualifiers: Hypertension type: essential hypertension Qualified Code(s): I10 - Essential (primary) hypertension Is this a current diagnosis for this admission?: Yes Plan: Home medications are continued with the exception of metoprolol. Cardiology has been consulted for atrial fibrillation with RVR and acute CHF exacerbation. She is now on torsemide 5 mg every other day. She has been placed on oral and IV diltiazem for rate control. (6) Head injury Qualifiers: Encounter type: initial encounter Qualified Code(s): S09.90XA - Unspecified injury of head, initial encounter Is this a current diagnosis for this admission?: Yes Plan: Secondary to unwitnessed fall at home. Head CT negative for fractures or intracranial bleeding. Repeat head CT 6 hours later also negative. Patient is noted to have a large hematoma to her forehead and multiple areas of bruising. Low threshold for repeat imaging. (7) Hypothyroid Is this a current diagnosis for this admission?: Yes Plan: TSH is slightly elevated at 4.91. T3 and free T4 are appropriate. Continue home dose Synthroid. (8) Rotator cuff tear, left Qualifiers: Rotator cuff tear extent: unspecified tear extent Qualified Code(s): M75.102 - Unspecified rotator cuff tear or rupture of left shoulder, not specified as traumatic Is this a current diagnosis for this admission?: Yes Plan: Left shoulder pain status post fall with limited range of motion. Imaging studies are negative for dislocation or fracture. Orthopedics was consulted; appreciate their evaluation recommendation. Recommend ice and sling 10 days then may transition to heat for comfort. Follow-up in the office for consideration of steroid injection. (9) Avulsion of skin of elbow Qualifiers: Encounter type: initial encounter Laterality: left Qualified Code(s): S51.002A - Unspecified open wound of left elbow, initial encounter Is this a current diagnosis for this admission?: Yes Plan: Secondary to fall. Surgery was consulted; appreciate their evaluation recommendations. Continue Silvadene ointment and dressing changes twice daily. (10) HLD (hyperlipidemia) Qualifiers: Hyperlipidemia type: unspecified Qualified Code(s): E78.5 - Hyperlipidemia , unspecified Is this a current diagnosis for this admission?: Yes Plan: Continue home dose statin (11) Hyponatremia Is this a current diagnosis for this admission?: Yes Plan: Sodium stable today. 137-->130.2--> 130.6; likely secondary to torsemide. The patient is no longer receiving IV fluids. She is currently on a cardiac diet; though with poor intake. The patient's weight is stable, lung sounds clear, and no evidence of edema at this time. Torsemide is decreased to 5 mg every other day. We will continue to monitor daily chemistries. (12) At risk for malnutrition Is this a current diagnosis for this admission?: Yes Plan: The patient is noted to be frail, elderly, with a low BMI of 19.5. Albumin was 4.1. She is noted to have minimal p.o. intake; <25% of meals daily. The registered dietitian has been consulted; appreciate their recommendations. - Time Time Spent with patient: 25-34 minutes
[2018-03-01] MEDS: DILTIAZEM HCL 60 MG TABLET PO SCH ×2 (14:47→21:17)
[2018-03-01] MEDS ORDERED: MAGNESIUM HYDROXIDE SUSP 30 ML UDCUP PO ONE (15:30)
[2018-03-01] MEDS: DOCUSATE SODIUM 100 MG CAPSULE PO SCH (17:36)
--- NOTE | 2018-03-01 19:19 | PDOC PROGRESS REPORT ---
Subjective Progress Note for:: 03/01/18 Subjective:: Patient claims to be fatigued and tired. She was noted to be taking a nap after lunch. Patient's family member in the room. Patient is noted to have some shoulder discomfort. Telemetry strips were reviewed. It shows atrial fibrillation with rapid ventricular response. Patient currently on Cardizem drip. Have placed patient on Cardizem CD 60 mg p.o. every 8, drip could be discontinued once heart rate comes below 70 bpm. Reason For Visit: SYNCOPE AND COLLAPSE,INJURY OF HEAD,ALTERED MENTAL Physical Exam Vital Signs: Temp Pulse Resp BP Pulse Ox 97.3 F 72 17 116/69 100 03/01/18 15:27 03/01/18 18:54 03/01/18 15:27 03/01/18 16:50 03/01/18 15:27 Intake & Output 02/28/18 03/01/18 03/02/18 06:59 06:59 06:59 Intake Total 624 0 548 Balance 624 0 548 Weight 49.9 kg 48.3 kg Exam: GENERAL: well-nourished and in no acute distress. Alert and oriented x3 HEAD: Significant chronic bruising noted over upper half of face., normocephalic. EYES: Pupils equal round and reactive to light, extraocular movements intact, sclera anicteric, conjunctiva are normal. ENT: TMs normal, nares patent, oropharynx clear without exudates. Moist mucous membranes. No oral ulcerations or bleeding gums noted NECK: supple without lymphadenopathy. Trachea is central. No cervical or axillary lymphadenopathy noted. Carotids are 2+, JVD WNL LUNGS: Respiration seems nonlabored, no significant accessory muscle action noted. Breath sounds clear to auscultation bilaterally and equal noted. No wheezes rales or rhonchi noted. No significant dullness noted on percussion. CHEST: Palpation of the chest wall shows no significant chest wall tenderness. Pacemaker noted on the left side. 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 ABDOMEN: Soft, no significant tenderness appreciated, normoactive bowel sounds. No guarding, no rebound. No rigidity noted . No masses appreciated. EXTREMITIES: Pedal pulses are 1-2+, no calf tenderness noted. No clubbing or cyanosis. negative pedal edema noted NEUROLOGICAL: Focused neurological exam showed no significant neurologic deficit. Normal speech, no focal weakness appreciated. PSYCH: Normal mood, normal affect. Judgment and insight within normal limits. SKIN: Positive for significant ecchymosis, skin is noted to be warm. MUSCULOSKELETAL EXAM: No significant acute joint swelling noted. Left shoulder discomfort noted Results Laboratory Results: 03/01/18 09:43 03/01/18 09:43 03/01/18 03/01/18 03/01/18 04:55 09:43 09:43 WBC 7.6 RBC 4.34 Hgb 12.8 Hct 38.6 MCV 89 MCH 29.6 MCHC 33.2 RDW 16.4 H Plt Count 252 Sodium 130.1 L 130.6 L Potassium 4.3 4.3 Chloride 93 L 93 L Carbon Dioxide 28 27 Anion Gap 9 11 BUN 19 18 Creatinine 0.56 0.55 Est GFR ( Amer) > 60 > 60 Est GFR (Non-Af Amer) > 60 > 60 Glucose 76 70 L Calcium 8.3 L 8.3 L Magnesium 2.0 02/24/18 02/25/18 02/25/18 19:15 01:15 07:34 Creatine Kinase CK-MB (CK-2) 0.66 0.66 0.74 Troponin I < 0.012 < 0.012 < 0.012 NT-Pro-B Natriuret Pep 02/25/18 02/25/18 02/26/18 07:34 07:34 10:58 Creatine Kinase < 20 L CK-MB (CK-2) Troponin I NT-Pro-B Natriuret Pep 6870 H 3810 H 03/01/18 09:43 Creatine Kinase CK-MB (CK-2) Troponin I < 0.012 NT-Pro-B Natriuret Pep EKG Comments: Telemetry shows atrial fibrillation with rapid ventricular response Impressions: Cervical Spine CT 02/24/18 12:11 IMPRESSION: NO ACUTE OR SIGNIFICANT FINDINGS IN THE CERVICAL SPINE. Hand X-Ray 02/24/18 12:11 IMPRESSION: NO RADIOGRAPHIC EVIDENCE OF ACUTE INJURY. Humerus X-Ray 02/24/18 12:11 IMPRESSION: NO RADIOGRAPHIC EVIDENCE OF ACUTE INJURY. Knee X-Ray 02/24/18 12:11 IMPRESSION: NO RADIOGRAPHIC EVIDENCE OF ACUTE INJURY. Pelvis X-Ray 02/24/18 12:11 IMPRESSION: No acute findings. Head CT 02/24/18 19:00 IMPRESSION: No significant change from earlier the same day. EVIDENCE OF ACUTE STROKE: NO. Chest X-Ray 02/25/18 05:00 IMPRESSION: Left pleural effusion. COPD. No significant change. Assessment & Plan - Diagnosis (1) Contusion of face Qualifiers: Encounter type: initial encounter Qualified Code(s): S00.83XA - Contusion of other part of head, initial encounter Is this a current diagnosis for this admission?: Yes (2) Failure to thrive Qualifiers: Failure to thrive age range: in adult Qualified Code(s): R62.7 - Adult failure to thrive Is this a current diagnosis for this admission?: Yes (3) HLD (hyperlipidemia) Qualifiers: Hyperlipidemia type: unspecified Qualified Code(s): E78.5 - Hyperlipidemia , unspecified Is this a current diagnosis for this admission?: Yes (4) HTN (hypertension) Qualifiers: Hypertension type: essential hypertension Qualified Code(s): I10 - Essential (primary) hypertension Is this a current diagnosis for this admission?: Yes (5) Weakness Is this a current diagnosis for this admission?: Yes (6) Chronic atrial fibrillation with rapid ventricular response Is this a current diagnosis for this admission?: Yes (7) CHF (congestive heart failure) Qualifiers: Heart failure type: combined systolic and diastolic Heart failure chronicity: acute on chronic Qualified Code(s): I50.43 - Acute on chronic combined systolic (congestive) and diastolic (congestive) heart failure Is this a current diagnosis for this admission?: Yes - Notes Notes: Main problem for last 24-48 hours has been atrial fibrillation with rapid ventricular response. It seems patient not responding adequately to metoprolol succinate. Therefore was started on Cardizem drip. Have placed patient on Cardizem CD 60 mg p.o. daily. Patient also placed on Eliquis 2.5 mg p.o. twice daily. This is really satisfactory. This is the right dose given patient's age and body weight. Contusion of the face, related to fall, because of fall not. But could well be generalized weakness. Patient could have a vasovagal presyncope. Patient will benefit from physical therapy, fall prevention exercises and general strengthening of the muscles. Failure to thrive: Patient seems to be underweight and somewhat malnourished. Recommend that patient has nutritional consultation. Dyslipidemia: LDL goal is less than 70. Continue home statin therapy. Hypertension: Patient claims that blood pressure has been somewhat on the low side. Will monitor this very closely. Will like to avoid any pure vasodilators in patient with history of fall. Beta-blockers and JUSTIN inhibitor/ ARB's are usually preferred. Generalized weakness: Recommend strengthening exercises and nutritional improvement. Chronic atrial fibrillation with rapid ventricular response: Agree with beta- blockers for rate control. May use digoxin if needed especially if blood pressure is a problem. CHF: This is a chronic problem for this patient. Patient has history of chronic pleural effusion left more than right. Review of chest x-ray shows pleural effusion is somewhat worse. Have switched patient to torsemide this has better bioavailability and has been shown to reduce CHF related readmissions. Clinically seems much improved as regards CHF. Will reduce torsemide to every other day. Hold if hypotension. - Time Time with patient: Greater than 35 minutes - CODE STATUS was discussed, patient remains full code. Surrogate decision-maker unchanged. Multiple medical problems were addressed. More than 50% of the time spent coordinating care, discussing management plans with involved caregivers. Management plans discussed with involved personnels. Medical decision making was of moderate to high complexity, patient's has multiple comorbidities. Medications reviewed and adjusted accordingly: Yes
[2018-03-02] MEDS: LEVOTHYROXINE SODIUM 0.075 MG TABLET PO SCH (05:26)
[2018-03-02] MEDS: DILTIAZEM HCL 60 MG TABLET PO SCH ×2 (05:26→13:55)
[2018-03-02 05:33] LABS: ANION GAP 10 (5-19); BLOOD UREA NITROGEN 19 mg/dL (7-20); CALCIUM 8.4 mg/dL (8.4-10.2); CARBON DIOXIDE 28 mmol/L (22-30); CHLORIDE 91 mmol/L (98-107); GLUCOSE 95 mg/dL (75-110); POTASSIUM 4.9 mmol/L (3.6-5.0); SODIUM 128.5 mmol/L (137-145)
[2018-03-02] MEDS ORDERED: CITALOPRAM HYDROBROMIDE 20 MG TABLET PO SCH (08:00)
[2018-03-02] MEDS: BENAZEPRIL HCL 10 MG TABLET PO SCH (10:34)
[2018-03-02] MEDS: TORSEMIDE 20 MG TABLET PO SCH (10:35)
[2018-03-02] MEDS: ASPIRIN 81 MG TABLET, ENT COATED PO SCH (10:35)
[2018-03-02] MEDS: APIXABAN 2.5 MG TABLET PO SCH (10:36)
[2018-03-02] MEDS: DOCUSATE SODIUM 100 MG CAPSULE PO SCH (10:36)
[2018-03-02] MEDS: SILVER SULFADIAZINE 1% CREAM 50 GM TP SCH (10:41)
[2018-03-02 12:42] VITALS: BP 117/69
[2018-03-02] MEDS ORDERED: TORSEMIDE 20 MG TABLET PO SCH (13:00)
--- NOTE | 2018-03-02 14:52 | PDOC TRANSFER SUMMARY ---
General - Admit/Disc Date/PCP Admission Date/Primary Care Provider: 02/24/18 15:09 AYSE CAO MD Discharge Date: 03/02/18 - Discharge Diagnosis (1) Syncope and collapse Is this a current diagnosis for this admission?: Yes (2) Chronic atrial fibrillation with rapid ventricular response Is this a current diagnosis for this admission?: Yes (3) CHF (congestive heart failure) Is this a current diagnosis for this admission?: Yes (4) Elevated INR Is this a current diagnosis for this admission?: Yes (5) HTN (hypertension) Is this a current diagnosis for this admission?: Yes (6) Head injury Is this a current diagnosis for this admission?: Yes (7) Hypothyroid Is this a current diagnosis for this admission?: Yes (8) Rotator cuff tear, left Is this a current diagnosis for this admission?: Yes (9) Avulsion of skin of elbow Is this a current diagnosis for this admission?: Yes (10) HLD (hyperlipidemia) Is this a current diagnosis for this admission?: Yes (11) Hyponatremia Is this a current diagnosis for this admission?: Yes (12) At risk for malnutrition Is this a current diagnosis for this admission?: Yes - Additional Information Resuscitation Status: Full Code Discharge Diet: Regular Discharge Activity: Activity As Tolerated, Balance Activity w/Rest, Weigh Daily Prescriptions: Apixaban [Eliquis 2.5 mg Tablet] 2.5 mg PO BID #60 tablet Benazepril HCl [Lotensin 10 mg Tablet] 10 mg PO Q12 #60 tablet Diltiazem HCl [Cardizem 60 mg Tablet] 60 mg PO Q8 #90 tablet Oxycodone HCl/Acetaminophen [Percocet 5-325 mg Tablet] 1 tab PO BIDP PRN #6 tablet PRN Reason: Silver Sulfadiazine [Silvadene 1% Cream 50 gm] 1 applic TP BID #1 tube Torsemide [Demadex 20 mg Tablet] 5 mg PO Q48H #14 tablet Home Medications: Aspirin [Ecotrin 81 mg EC Tablet] 81 mg PO DAILY 11/18/11 Nitroglycerin [Nitrostat 0.4 mg (1/150 Gr) Tabs 25/Bottle] 0.4 mg SL PRN PRN 10/26 Citalopram Hydrobromide [Celexa 10 mg Tablet] 20 mg PO DAILY 08/11/18 Levothyroxine Sodium [Synthroid 0.075 mg Tablet] 0.075 mg PO Q6AM 02/24/18 Pitavastatin Calcium [Livalo] 2 mg PO Q48H MDD AT BEDTIME 02/24/18 Apixaban [Eliquis 2.5 mg Tablet] 2.5 mg PO BID #60 tablet 03/02/18 Benazepril HCl [Lotensin 10 mg Tablet] 10 mg PO Q12 #60 tablet 03/02/18 Bisacodyl [Dulcolax 10 mg Supp.rect] 10 mg TN DAILYP PRN supp.rect 03/02/18 Diltiazem HCl [Cardizem 60 mg Tablet] 60 mg PO Q8 #90 tablet 03/02/18 Docusate Sodium [Colace 100 mg Capsule] 100 mg PO BID capsule 03/02/18 Oxycodone HCl/Acetaminophen [Percocet 5-325 mg Tablet] 1 tab PO BIDP PRN #6 tablet 03/02/18 Silver Sulfadiazine [Silvadene 1% Cream 50 gm] 1 applic TP BID #1 tube 03/02/18 Torsemide [Demadex 20 mg Tablet] 5 mg PO Q48H #14 tablet 03/02/18 History of Present Illness Admission Date/PCP: 02/24/18 15:09 AYSE CAO MD History of Present Illness: Per H&P by SERVANDO Haskins/Dr. Tate: GIBSON VILLARREAL is a 87 year old female who fell at home this morning when getting up from the toilet. Fall was unwitnessed. Patient reports she did not lose consciousness. + Head trauma. Daughter was home, heard the patient fall, immediately called EMS when she found patient on bathroom floor. Of note, family reports that the patient has been experiencing viral illness-like symptoms for approximately 1 week. She came to [facility] 4 days ago for nausea and vomiting, was subsequently discharged home that same day. PMH includes atrial fibrillation (on coumadin), CABG, CAD, CHF, HTN, HLD, hypothyroidism, AICD Upon arrival to the emergency department, VS HR 138 (rapid AFIB) BP 122/105 RR 18 T 98.4 SPO2 93% on RA. Large hematoma to forehead. Multiple areas of bruising scattered all over her face, arms, and lower extremities. Very superficial abrasion to right lateral chest wall. Skin tears to left upper extremity, left knee and left hand. Head CT negative. Cervical spine CT negative. X-ray of left hand, left knee, pelvis negative. CXR chest reveals LLL pleural effusion, no other pathology. EKG shows rapid A. fib, RBBB, T-wave inversion in leads V1-V4. INR 3.4. BNP 9570. All other lab work (CBC, cardiac enzymes, CMP) benign. Upon assessment, the patient is resting comfortably in bed. She is alert and oriented to person, place, time. She is disoriented to situation, states she does not know why she is in the hospital. The patient endorses very mild pain to the skin tear on her left upper extremity. She denies headache, neck pain, dizziness, blurry vision, chest pain, shortness of breath, nausea, fatigue or weakness. Pupils are equal round and reactive. Lung sounds are clear to auscultation. Heart rate is irregular. Pulses are palpable but faint in all 4 extremities. Evidence of trace edema in her lower extremities. + BS. Denies chest wall or abdominal tenderness. No deformities noted to the long bones or facial structures. Plan to admit to hospitalist service for rapid A. fib and monitor for bleeding. Hospital Course Hospital Course: The patient was admitted with an unwitnessed fall at home while in the bathroom. Likely mechanical fall versus vagal response. The patient was chronically anticoagulated on Coumadin; found to be supratherapeutic with an INR of 3.97. Patient is sustained and facial bruising and hematoma to her forehead. No report of loss of consciousness. Head and cervical CT were negative. A repeat head CT obtained 6 hours later was again negative for intracranial bleeding. X-ray of the pelvis, knees, bilateral hands were negative. Chest x-ray demonstrated a left lower lobe pleural effusion which is known to be chronic for this patient. She was found to be in atrial fibrillation with RVR; heart rate in the 140s. Her home dose metoprolol was resumed and adjusted without response. She was shortly placed on an Cardizem drip with heart rate control weekly achieved. She has been successfully transitioned to oral Cardizem. She is rate controlled with a rate in the 70s/80s. She was found to have an acute CHF exacerbation, secondary to atrial fibrillation with RVR. Repeat echocardiogram revealed preserved ejection fraction, mildly dilated RV with mildly reduced RV systolic function, and mild to moderate pulmonary hypertension. Cardiology was consulted with adjustments to her medications made; her BNP has trended down and she no longer has clinical evidence of CHF exacerbation. The patient continues to have left shoulder pain with limited range of motion. Imaging studies were negative for dislocation or fracture. Orthopedics were consulted. They have confirmed a rotator cuff tear and recommend ice and sling for the first 10 days followed by heat for comfort. Patient should follow-up in the office approximately 1 week for consideration of steroid injection. During the patient's fall, she sustained skin tears to bilateral posterior hands , anterior left upper extremity, posterior left elbow, and anterior left lower extremity. Surgery was consulted; skin tears were not amenable to suturing. Recommend twice daily dressing changes with Silvadene ointment. Following transition to torsemide, the patient is noted to have a decline in her sodium. She does have poor p.o. intake; less than 25% of meals daily. This was discussed with cardiology. They have improved advancing the patient to a regular diet. Her torsemide has been decreased to 5 mg every other day. At time of discharge, the patient is in stable condition, ambulatory in the hallways with a front wheeled walker and standby assistance. She continues to have left shoulder pain which is improved and well controlled with Tylenol or occasional oxycodone for breakthrough pain. The patient is discharged to [facility] for short-term rehabilitation. Physical Exam Vital Signs: Temp Pulse Resp BP Pulse Ox 97.4 F 148 H 16 117/69 91 L 03/02/18 12:23 03/02/18 12:23 03/02/18 12:23 03/02/18 12:23 03/02/18 12:23 Intake & Output 03/01/18 03/02/18 03/03/18 06:59 06:59 06:59 Intake Total 0 648 318 Balance 0 648 318 Weight 48.3 kg 54.5 kg General appearance: PRESENT: no acute distress, cooperative, thin, well- developed Head exam: PRESENT: normocephalic, other - Scattered ecchymosis to face; improved. Hematoma has resolved. Eye exam: PRESENT: conjunctiva pink, EOMI, PERRLA. ABSENT: scleral icterus Ear exam: PRESENT: normal external ear exam Mouth exam: PRESENT: moist, tongue midline Neck exam: ABSENT: carotid bruit, JVD, lymphadenopathy, thyromegaly Respiratory exam: PRESENT: clear to auscultation tenzin, symmetrical, unlabored. ABSENT: rales, rhonchi, wheezes Cardiovascular exam: PRESENT: irregular rhythm. ABSENT: diastolic murmur, rubs , systolic murmur Pulses: PRESENT: normal dorsalis pedis pul Vascular exam: PRESENT: normal capillary refill GI/Abdominal exam: PRESENT: normal bowel sounds, soft. ABSENT: distended, guarding, mass, organolmegaly, rebound, tenderness Rectal exam: PRESENT: deferred Extremities exam: PRESENT: full ROM. ABSENT: calf tenderness, clubbing, pedal edema Neurological exam: PRESENT: alert, awake, oriented to person, oriented to place , oriented to time, oriented to situation, CN II-XII grossly intact. ABSENT: motor sensory deficit Psychiatric exam: PRESENT: appropriate affect, normal mood. ABSENT: homicidal ideation, suicidal ideation Skin exam: PRESENT: dry, skin tears - Bilateral posterior hands, left upper extremity, warm, other - Scattered ecchymosis. ABSENT: cyanosis, rash Results Laboratory Results: 03/01/18 09:43 03/02/18 04:39 03/02/18 04:39 Sodium 128.5 L Potassium 4.9 Chloride 91 L Carbon Dioxide 28 Anion Gap 10 BUN 19 Creatinine 0.52 Est GFR ( Amer) > 60 Est GFR (Non-Af Amer) > 60 Glucose 95 Calcium 8.4 02/24/18 02/25/18 02/25/18 19:15 01:15 07:34 Creatine Kinase CK-MB (CK-2) 0.66 0.66 0.74 Troponin I < 0.012 < 0.012 < 0.012 NT-Pro-B Natriuret Pep 02/25/18 02/25/18 02/26/18 07:34 07:34 10:58 Creatine Kinase < 20 L CK-MB (CK-2) Troponin I NT-Pro-B Natriuret Pep 6870 H 3810 H 03/01/18 09:43 Creatine Kinase CK-MB (CK-2) Troponin I < 0.012 NT-Pro-B Natriuret Pep Impressions: Cervical Spine CT 02/24/18 12:11 IMPRESSION: NO ACUTE OR SIGNIFICANT FINDINGS IN THE CERVICAL SPINE. Hand X-Ray 02/24/18 12:11 IMPRESSION: NO RADIOGRAPHIC EVIDENCE OF ACUTE INJURY. Humerus X-Ray 02/24/18 12:11 IMPRESSION: NO RADIOGRAPHIC EVIDENCE OF ACUTE INJURY. Knee X-Ray 02/24/18 12:11 IMPRESSION: NO RADIOGRAPHIC EVIDENCE OF ACUTE INJURY. Pelvis X-Ray 02/24/18 12:11 IMPRESSION: No acute findings. Head CT 02/24/18 19:00 IMPRESSION: No significant change from earlier the same day. EVIDENCE OF ACUTE STROKE: NO. Chest X-Ray 02/25/18 05:00 IMPRESSION: Left pleural effusion. COPD. No significant change. Transfer Plan - Time Spent with Patient Time spent with patient: Less than 30 Minutes Qualifiers - * PATIENT BEING DISCHARGED WITH ANY OF THE FOLLOWING DIAGNOSIS: Heart Failure HF Pt being discharged on ACEI for LVEF less than 40%?: Yes HF Pt being discharged on ARBS for LVEF less than 40%?: No Reason(s) for not prescribing ARBS:: Medical Contraindication - on JUSTIN HF Pt with Afib discharged with Warfarin?: No Reason(s) for not prescribing Warfarin:: Contraindicated - On Eliquis HF Pt discharged on evidence-based Beta Kayleen:: No Reason(s) for not prescribing evidence-based Beta Kyaleen:: Tx not tolerated Plan Discharge Plan: Transfer to [facility] for acute rehabilitation. Recommend repeat BMP in 3-5 days. Time Spent: Less than 30 Minutes
[2018-03-02] MEDS: OXYCODONE-ACETAMINOPHEN 5-325 MG TABLET PO PRN (15:42)
--- NOTE | 2018-03-02 19:41 | PDOC PROGRESS REPORT ---
Subjective Progress Note for:: 03/02/18 Subjective:: Patient feeling much brighter today. She is sitting on the bedside chair and eating lunch. Patient's family member in the room. Patient is noted to have some shoulder discomfort. Telemetry strips were reviewed. It showed heart rate to be well controlled in the 70s at rest. Patient tolerating Cardizem dose well. Reason For Visit: SYNCOPE AND COLLAPSE,INJURY OF HEAD,ALTERED MENTAL Physical Exam Vital Signs: Temp Pulse Resp BP Pulse Ox 97.4 F 148 H 16 117/69 91 L 03/02/18 12:23 03/02/18 12:23 03/02/18 12:23 03/02/18 12:23 03/02/18 12:23 Intake & Output 03/01/18 03/02/18 03/03/18 06:59 06:59 06:59 Intake Total 0 648 318 Balance 0 648 318 Weight 48.3 kg 54.5 kg Exam: GENERAL: well-nourished and in no acute distress. Alert and oriented x3 HEAD: Significant upper facial ecchymosis noted, normocephalic. EYES: Pupils equal round and reactive to light, extraocular movements intact, sclera anicteric, conjunctiva are normal. ENT: TMs normal, nares patent, oropharynx clear without exudates. Moist mucous membranes. No oral ulcerations or bleeding gums noted NECK: supple without lymphadenopathy. Trachea is central. No cervical or axillary lymphadenopathy noted. Carotids are 2+, JVD WNL LUNGS: Respiration seems nonlabored, no significant accessory muscle action noted. Breath sounds clear to auscultation bilaterally and equal noted. No wheezes rales or rhonchi noted. No significant dullness noted on percussion. CHEST: Palpation of the chest wall shows no significant chest wall tenderness. 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 ABDOMEN: Soft, no significant tenderness appreciated, normoactive bowel sounds. No guarding, no rebound. No rigidity noted . No masses appreciated. EXTREMITIES: Pedal pulses are 1-2+, no calf tenderness noted. No clubbing or cyanosis. negative pedal edema noted NEUROLOGICAL: Focused neurological exam showed no significant neurologic deficit. Normal speech, no focal weakness appreciated. Generalized weakness noted PSYCH: Normal mood, normal affect. Judgment and insight within normal limits. SKIN: Significant ecchymosis, skin is noted to be warm. MUSCULOSKELETAL EXAM: No significant acute joint swelling noted. Left shoulder movement limited and somewhat painful Results Laboratory Results: 03/01/18 09:43 03/02/18 04:39 03/02/18 04:39 Sodium 128.5 L Potassium 4.9 Chloride 91 L Carbon Dioxide 28 Anion Gap 10 BUN 19 Creatinine 0.52 Est GFR ( Amer) > 60 Est GFR (Non-Af Amer) > 60 Glucose 95 Calcium 8.4 02/24/18 02/25/18 02/25/18 19:15 01:15 07:34 Creatine Kinase CK-MB (CK-2) 0.66 0.66 0.74 Troponin I < 0.012 < 0.012 < 0.012 NT-Pro-B Natriuret Pep 02/25/18 02/25/18 02/26/18 07:34 07:34 10:58 Creatine Kinase < 20 L CK-MB (CK-2) Troponin I NT-Pro-B Natriuret Pep 6870 H 3810 H 03/01/18 09:43 Creatine Kinase CK-MB (CK-2) Troponin I < 0.012 NT-Pro-B Natriuret Pep EKG Comments: Telemetry shows atrial fibrillation with controlled ventricular response Impressions: Cervical Spine CT 02/24/18 12:11 IMPRESSION: NO ACUTE OR SIGNIFICANT FINDINGS IN THE CERVICAL SPINE. Hand X-Ray 02/24/18 12:11 IMPRESSION: NO RADIOGRAPHIC EVIDENCE OF ACUTE INJURY. Humerus X-Ray 02/24/18 12:11 IMPRESSION: NO RADIOGRAPHIC EVIDENCE OF ACUTE INJURY. Knee X-Ray 02/24/18 12:11 IMPRESSION: NO RADIOGRAPHIC EVIDENCE OF ACUTE INJURY. Pelvis X-Ray 02/24/18 12:11 IMPRESSION: No acute findings. Head CT 02/24/18 19:00 IMPRESSION: No significant change from earlier the same day. EVIDENCE OF ACUTE STROKE: NO. Chest X-Ray 02/25/18 05:00 IMPRESSION: Left pleural effusion. COPD. No significant change. Assessment & Plan - Diagnosis (1) Contusion of face Qualifiers: Encounter type: initial encounter Qualified Code(s): S00.83XA - Contusion of other part of head, initial encounter Is this a current diagnosis for this admission?: Yes (2) Failure to thrive Qualifiers: Failure to thrive age range: in adult Qualified Code(s): R62.7 - Adult failure to thrive Is this a current diagnosis for this admission?: Yes (3) HLD (hyperlipidemia) Qualifiers: Hyperlipidemia type: unspecified Qualified Code(s): E78.5 - Hyperlipidemia , unspecified Is this a current diagnosis for this admission?: Yes (4) HTN (hypertension) Qualifiers: Hypertension type: essential hypertension Qualified Code(s): I10 - Essential (primary) hypertension Is this a current diagnosis for this admission?: Yes (5) Weakness Is this a current diagnosis for this admission?: Yes (6) Chronic atrial fibrillation with rapid ventricular response Is this a current diagnosis for this admission?: Yes (7) CHF (congestive heart failure) Qualifiers: Heart failure type: combined systolic and diastolic Heart failure chronicity: acute on chronic Qualified Code(s): I50.43 - Acute on chronic combined systolic (congestive) and diastolic (congestive) heart failure Is this a current diagnosis for this admission?: Yes - Notes Notes: Continue patient on Cardizem CD 60 mg p.o. daily, or switch to Cardizem CD at 180 mg p.o. daily. This was discussed with Cathy Gutierrez. Patient to continue on Eliquis 2.5 mg p.o. twice daily. This is really satisfactory. This is the right dose given patient's age and body weight. Contusion of the face, related to fall, because of fall not. But could well be generalized weakness. Patient could have a vasovagal presyncope. Patient will benefit from physical therapy, fall prevention exercises and general strengthening of the muscles. Failure to thrive: Patient seems to be underweight and somewhat malnourished. Recommend that patient has nutritional consultation. Dyslipidemia: LDL goal is less than 70. Continue home statin therapy. Hypertension: Patient claims that blood pressure has been somewhat on the low side. Will monitor this very closely. Will like to avoid any pure vasodilators in patient with history of fall. Beta-blockers and JUSTIN inhibitor/ ARB's are usually preferred. Generalized weakness: Recommend strengthening exercises and nutritional improvement. Chronic atrial fibrillation with rapid ventricular response: Rate now well controlled at Cardizem total dose of 180 mg a day. CHF: This is a chronic problem for this patient. Clinically seems compensated. Will monitor diuretic therapy as an outpatient. Clinically seems much improved as regards CHF. Will reduce torsemide to every other day. Hold if hypotension. - Time Time with patient: 15-25 minutes - CODE STATUS was discussed, patient remains full code. Surrogate decision-maker unchanged. Multiple medical problems were addressed. More than 50% of the time spent coordinating care, discussing management plans with involved caregivers. Management plans discussed with involved personnels. Medical decision making was of moderate to high complexity , patient's has multiple comorbidities. Medications reviewed and adjusted accordingly: Yes
== END 2018-03-02 16:33 | DRG 308 ==
LOC: ER 11:43 → EH 15:09 → 3N 17:50
PROVIDERS: ADMIT Internal Medicine; ATTEND Internal Medicine
PROC: 3E0234Z Introduction of Serum, Toxoid and Vaccine into Muscle, Percutaneous Approach (ICD-10-PCS; principal; 2018-02-24)
DX: I48.2 Chronic atrial fibrillation (principal); I50.43 Acute on chronic combined systolic (congestive) and diastolic (congestive) heart failure; E87.1 Hypo-osmolality and hyponatremia; E46 Unspecified protein-calorie malnutrition; I11.0 Hypertensive heart disease with heart failure; W19.XXXA Unspecified fall, initial encounter; E03.9 Hypothyroidism, unspecified; M75.102 Unspecified rotator cuff tear or rupture of left shoulder, not specified as traumatic; S51.009A Unspecified open wound of unspecified elbow, initial encounter; E78.00 Pure hypercholesterolemia, unspecified; W18.11XA Fall from or off toilet without subsequent striking against object, initial encounter; I25.10 Atherosclerotic heart disease of native coronary artery without angina pectoris; Y93.E1 Activity, personal bathing and showering; Y92.012 Bathroom of single-family (private) house as the place of occurrence of the external cause; S00.83XA Contusion of other part of head, initial encounter; I73.9 Peripheral vascular disease, unspecified; K44.9 Diaphragmatic hernia without obstruction or gangrene; F32.9 Major depressive disorder, single episode, unspecified; R62.7 Adult failure to thrive; Z68.22 Body mass index [BMI] 22.0-22.9, adult; Z23 Encounter for immunization; Z79.82 Long term (current) use of aspirin; Z79.899 Other long term (current) drug therapy; Z79.01 Long term (current) use of anticoagulants; Z95.1 Presence of aortocoronary bypass graft; Z95.5 Presence of coronary angioplasty implant and graft; Z95.810 Presence of automatic (implantable) cardiac defibrillator; Z90.49 Acquired absence of other specified parts of digestive tract; Z90.710 Acquired absence of both cervix and uterus; Z95.0 Presence of cardiac pacemaker; Z88.6 Allergy status to analgesic agent; Z88.1 Allergy status to other antibiotic agents; Z88.2 Allergy status to sulfonamides; Z88.8 Allergy status to other drugs, medicaments and biological substances; Z82.49 Family history of ischemic heart disease and other diseases of the circulatory system
CPT/HCPCS: 36415; 70450; 71045; 71046; 72125; 72170; 80048; 81001; 82550; 82553; 82962; 83735; 83880; 84100; 84439; 84443; 84481; 84484; 85025; 85027; 85610; 85730; 90471; 90715; 93005; 93010; 93306; 94640; 94799; 96360; 96361; 99285; G8987-GO; G8988-GO; J3490; J7040

== ENCOUNTER → 2018-07-28 | Outpatient (CLI) | payer MEDICARE, BC ==
--- NOTE | 2018-07-28 12:19 | RADIOLOGY REPORT (SQ) ---
EXAM DESCRIPTION: FOOT LEFT COMPLETE COMPLETED DATE/TIME: 07/28/2018 12:04 pm REASON FOR STUDY: SWOLLEN, PAINFUL LT FOOT R60.0 LOCALIZED EDEMA R58 HEMORRHAGE, NOT ELSEWHERE CLA SSIFIED M79.672 PAIN IN LEFT FOOT COMPARISON: None. NUMBER OF VIEWS: Three views. TECHNIQUE: AP, lateral and oblique radiographic images acquired of the left foot. LIMITATIONS: None. FINDINGS: MINERALIZATION: Osteopenia. BONES: No acute fracture or dislocation. No worrisome bone lesions. JOINTS: No effusions. SOFT TISSUES: No soft tissue swelling. No foreign body. OTHER: No other significant finding. IMPRESSION: NEGATIVE STUDY OF THE LEFT FOOT. NO RADIOGRAPHIC EVIDENCE OF ACUTE INJURY. TECHNICAL DOCUMENTATION: JOB ID: [id number] [employer] All Rights Reserved Reading location - IP/workstation name: [email or web address]
== END ==
LOC: RAD 11:39
PROVIDERS: ATTEND Family Medicine
DX: M79.672 Pain in left foot (principal); R60.0 Localized edema; R58 Hemorrhage, not elsewhere classified

== ENCOUNTER 2018-08-07 05:39 | Emergency (ER) | payer MEDICARE, BC ==
[2018-08-07] MEDS ORDERED: MORPHINE SULFATE 10 MG/ML INJ IV ONE (06:21)
--- NOTE | 2018-08-07 06:21 | ER Document Report ---
ED Extremity Problem, Lower - General Chief Complaint: Wound Infection Stated Complaint: LEFT FOOT PAIN Time Seen by Provider: 08/07/18 06:09 Primary Care Provider: AYSE CAO MD [Primary Care Provider] - Follow up tomorrow TRAVEL OUTSIDE OF THE [place] IN LAST 30 DAYS: No - HPI Notes: Patient is a 88-year-old female that presents to the emergency department for chief complaint of left foot pain. Patient is currently on Eliquis for pacer and A. fib. She had a nontraumatic hematoma on her dorsal left foot that was incised and drained at [facility] emergency room last Monday. Patient has been on doxycycline since then. She presents today complaining of increased pain and swelling in the left foot. Patient denied any fevers or chills but was found to be hypothermic in triage. She reports mild cough. She denies dysuria and urinary frequency. She denies any chest pain, shortness of breath, nausea, vomiting and diarrhea. Patient has been compliant with her doxycycline. Family notes minimal drainage from the foot. Past Medical History: Atrial fibrillation Past Surgical History: Pacemaker Social History: Reviewed in chart Family History: Reviewed and noncontributory for presenting illness Allergies: Reviewed, see documented allergy list. REVIEW OF SYSTEMS: CONSTITUTIONAL : No fever No chills No diaphoresis No recent illness EENT: No vision changes No congestion No sore throat CARDIOVASCULAR: No chest pain No palpitations RESPIRATORY: No shortness of breath No cough No difficulty breathing GASTROINTESTINAL: No abdominal pain No nausea No vomiting No diarrhea GENITOURINARY: No dysuria No hematuria No difficulty urinating MUSCULOSKELETAL: No back pain Foot pain No arm pain SKIN: No rashes lesions LYMPHATIC: No swollen, enlarged glands. NEUROLOGICAL: No lightheadedness No headache No weakness No paresthesias PSYCHIATRIC: No anxiety No depression PHYSICAL EXAMINATION: Vital signs reviewed, nursing noted reviewed. GENERAL: Well-appearing, well-nourished and in no acute distress. HEAD: Atraumatic, normocephalic. EYES: Eyes appear normal, extraocular movements intact, sclera anicteric, conjunctiva are normal. ENT: nares patent, oropharynx clear without exudates. Mildly dry mucous membranes. NECK: Normal range of motion, supple without lymphadenopathy LUNGS: Breath sounds clear to auscultation bilaterally and equal. No wheezes rales or rhonchi. HEART: Regular rate and rhythm without murmurs ABDOMEN: Soft, nontender, normoactive bowel sounds. No rebound, guarding, or rigidity. No masses appreciated. EXTREMITIES: Left foot tenderness and edema, good range of motion. NEUROLOGICAL: No focal neurological deficits. Moves all extremities spont aneously Motor and sensory grossly intact on exam. PSYCH: Normal mood, normal affect. SKIN: Warm, Dry, normal turgor, ecchymosis in multiple stages of healing to bilateral upper and lower extremities, multiple small nonbleeding skin tears to upper and lower extremities. Dorsal left foot edema, erythema and tenderness with overlying scab, no active drainage. - Related Data Allergies/Adverse Reactions: cefdinir [From Omnicef] Allergy (Unknown, Verified 05/30/17 17:09) Choline Fenofibrate [From Trilipix] Allergy (Unknown, Verified 05/30/17 17:) clopidogrel bisulfate [From Plavix] Allergy (Unknown, Verified 05/30/17 17:) codeine [Codeine] Allergy (Unknown, Verified 05/30/17 17:) guaifenesin [From Mucinex] Allergy (Unknown, Verified 05/30/17 17:09) hydralazine [Hydralazine] Allergy (Unknown, Verified 05/30/17 17:09) Influenza Vaccine,Trival 2010 * [Influenza Vaccine,Trival 2010] Allergy (Unknown, Verified 05/30/17 17:09) lovastatin [From Mevacor] Allergy (Unknown, Verified 05/30/17 17:09) meperidine HCl [From Demerol] Allergy (Unknown, Verified 05/30/17 17:) niacin [Niacin] Allergy (Unknown, Verified 05/30/17 17:) nifedipine [From Procardia] Allergy (Unknown, Verified 05/30/17 17:09) pentazocine lactate [From Talwin] Allergy (Unknown, Verified 05/30/17 17:09) pravastatin sodium [From Pravachol] Allergy (Unknown, Verified 05/30/17 17:09) propoxyphene HCl [From Darvon] Allergy (Unknown, Verified 05/30/17 17:09) rosuvastatin calcium [From Crestor] Allergy (Unknown, Verified 05/30/17 17:09) Sulfa (Sulfonamide Antibiotics) Allergy (Unknown, Verified 05/30/17 17:09) atorvastatin calcium [From Lipitor] Adverse Reaction (Severe, Verified 05/30/17 17:09) Past Medical History - Social History Smoking Status: Never Smoker Family History: Hypertension - Past Medical History Cardiac Medical History: Reports: Hx Atrial Fibrillation, Hx Congestive Heart Failure, Hx Coronary Artery Disease, Hx Hypercholesterolemia, Hx Hypertension, Hx Peripheral Vascular Disease Pulmonary Medical History: Reports: Hx Bronchitis Denies: Hx Tuberculosis Endocrine Medical History: Reports: Hx Hypothyroidism Renal/ Medical History: Denies: Hx Peritoneal Dialysis GI Medical History: Reports: Hx Hiatal Hernia Psychiatric Medical History: Reports: Hx Depression Past Surgical History: Reports: Hx Abdominal Surgery - hernia repair 2008, Hx Cardiac Catheterization - december 2011, Hx Cardiac Surgery - triple bypass 1992, cardiac stent, Hx Cholecystectomy - 1995, Hx Coronary Artery Bypass Graft, Hx Hysterectomy, Hx PacemakerComment Only: Hx Gastric Bypass Surgery - Triple - Immunizations Hx Diphtheria, Pertussis, Tetanus Vaccination: Yes Hx Pneumococcal Vaccination: 07/17/99 Physical Exam - Vital signs Vitals: Resp 16 08/07/18 05:46 Course - Re-evaluation Re-evalutation: 08/07/18 08:03 Vitals reviewed. Nursing notes reviewed. Patient's rectal temperature was low at presentation and she was placed on a bear hugger. It is 20 degrees outside and some of her hypothermia may have been related to environmental exposures. Patient has swelling on the dorsal aspect of her left foot concerning for her hematoma with cellulitis. She is currently on doxycycline. There is no streaking up her leg. X-ray shows no osteomyelitis. She has a normal ESR and only slightly elevated CRP. I am clinically not highly suspicious of osteomyelitis at this time. Patient also has a normal leukocytosis. She is not septic. There is no urinary tract infection or pneumonia. Patient did have improvement of her pain after morphine. On my reevaluation her foot exam is the same. Patient's family is now telling me that she has been complaining of low back pain for the last week. She has not had any traumas but they would like an x-ray performed. X-ray will be ordered at this time. Patient has no focal lumbar spine tenderness but reports diffuse pain when she sits up. Laboratory 08/07/18 08/07/18 08/07/18 06:29 06:29 06:29 WBC 4.8 RBC 4.31 Hgb 12.7 Hct 38.6 MCV 90 MCH 29.5 MCHC 32.9 RDW 17.4 H Plt Count 181 Seg Neutrophils % 78.7 H Lymphocytes % 10.3 L Monocytes % 9.5 Eosinophils % 0.7 Basophils % 0.8 Absolute Neutrophils 3.8 Absolute Lymphocytes 0.5 Absolute Monocytes 0.5 Absolute Eosinophils 0.0 Absolute Basophils 0.0 ESR 27 PT 22.3 H INR 1.86 VBG pH VBG pCO2 VBG HCO3 VBG Base Excess Sodium 139.1 Potassium 4.4 Chloride 99 Carbon Dioxide 31 H Anion Gap 9 BUN 31 H Creatinine 0.67 Est GFR ( Amer) > 60 Est GFR (Non-Af Amer) > 60 Glucose 88 Lactic Acid Calcium 9.2 Total Bilirubin 0.8 Direct Bilirubin 0.7 H Neonat Total Bilirubin Not Reportable Neonat Direct Bilirubin Not Reportable Neonat Indirect Bili Not Reportable AST 25 ALT 17 Alkaline Phosphatase 129 H C-Reactive Protein 58.5 H Total Protein 7.3 Albumin 3.7 Urine Color Urine Appearance Urine pH Ur Specific [place] Urine Protein Urine Glucose (UA) Urine Ketones Urine Blood Urine Nitrite Urine Bilirubin Urine Urobilinogen Ur Leukocyte Esterase Urine WBC (Auto) Urine RBC (Auto) U Hyaline Cast (Auto) Squamous Epi Cells Auto Urine Mucus (Auto) Urine Ascorbic Acid 08/07/18 08/07/18 08/07/18 06:29 06:29 06:34 WBC RBC Hgb Hct MCV MCH MCHC RDW Plt Count Seg Neutrophils % Lymphocytes % Monocytes % Eosinophils % Basophils % Absolute Neutrophils Absolute Lymphocytes Absolute Monocytes Absolute Eosinophils Absolute Basophils ESR PT INR VBG pH 7.36 VBG pCO2 51.3 VBG HCO3 28.5 VBG Base Excess 2.3 Sodium Potassium Chloride Carbon Dioxide Anion Gap BUN Creatinine Est GFR ( Amer) Est GFR (Non-Af Amer) Glucose Lactic Acid 2.0 Calcium Total Bilirubin Direct Bilirubin Neonat Total Bilirubin Neonat Direct Bilirubin Neonat Indirect Bili AST ALT Alkaline Phosphatase C-Reactive Protein Total Protein Albumin Urine Color DARK YELLOW Urine Appearance SLIGHTLY-CLOUDY Urine pH 5.0 Ur Specific [place] 1.027 Urine Protein NEGATIVE Urine Glucose (UA) NEGATIVE Urine Ketones NEGATIVE Urine Blood NEGATIVE Urine Nitrite NEGATIVE Urine Bilirubin NEGATIVE Urine Urobilinogen 2.0 H Ur Leukocyte Esterase NEGATIVE Urine WBC (Auto) 2 Urine RBC (Auto) 2 U Hyaline Cast (Auto) 7 Squamous Epi Cells Auto 1 Urine Mucus (Auto) FEW Urine Ascorbic Acid NEGATIVE Chest X-Ray 08/07/18 06:01 IMPRESSION: 1. Moderate left and small right pleural effusions with likely underlying atelectasis or consolidation. Continued radiographic follow-up recommended. Foot X-Ray 08/07/18 06:18 IMPRESSION: 1. No acute fracture identified. No destructive osseous lesions. If there is concern for osteomyelitis, MRI would provide additional characterization. 2. Diffuse dorsal soft tissue prominence. These findings could be seen with cellulitis or edema. copyright 2010 [employer]- All Rights Reserved 08/07/18 09:48 X-ray shows multiple compression fractures that are age-indeterminate. Patient has not had any recent trauma to suggest this occurred in the last few days. There are also some lesions on her ribs which I did discuss with family. They were advised to follow with primary care for further evaluation of her rib lesions. She is stable at discharge. - Vital Signs Vital signs: Temp Pulse Resp BP Pulse Ox 97.8 F 19 117/68 93 08/07/18 08:25 08/07/18 07:00 08/07/18 06:01 08/07/18 07:00 - Laboratory Result Diagrams: 08/07/18 06:29 08/07/18 06:29 Laboratory results interpreted by me: 08/07/18 08/07/18 08/07/18 06:29 06:29 06:29 RDW 17.4 H Seg Neutrophils % 78.7 H Lymphocytes % 10.3 L PT 22.3 H Carbon Dioxide 31 H BUN 31 H Direct Bilirubin 0.7 H Alkaline Phosphatase 129 H C-Reactive Protein 58.5 H Urine Urobilinogen 08/07/18 06:34 RDW Seg Neutrophils % Lymphocytes % PT Carbon Dioxide BUN Direct Bilirubin Alkaline Phosphatase C-Reactive Protein Urine Urobilinogen 2.0 H - Diagnostic Test Radiology reviewed: Image reviewed, Reports reviewed - EKG Interpretation by Me Additional EKG results interpreted by me: 08/07/18 06:49 Interpreted by myself [id number]: Ventricularly paced, rate 83, normal axis, PVC, nonspecific idioventric ular conduction delay Discharge - Discharge Clinical Impression: Wound of left foot Low back pain Qualifiers: Chronicity: acute Back pain laterality: bilateral Sciatica presence: without sciatica Qualified Code(s): M54.5 - Low back pain Lumbar compression fracture Qualifiers: Encounter type: initial encounter Lumbar vertebra fracture level: L3 Fracture type: closed Qualified Code(s): S32.030A - Wedge compression fracture of third lumbar vertebra, initial encounter for closed fracture Condition: Stable Disposition: HOME, SELF-CARE Instructions: Cellulitis ([facility]), Low Back Pain ([facility]), Compression Fracture of the Spine ([facility]) Additional Instructions: Please return to the emergency department if you have any worsening, or concern of your symptoms. Please return to the emergency department if you develop chest pain, difficulty breathing, severe abdominal pain, or ongoing vomiting. Please follow-up with your primary care physician in 2-3 days and any other recommended physicians. If prescribed, take all medications as directed. If you have any questions or concerns do not hesitate to return the emergency department for evaluation. If the redness begins to spread past the purple marker outlined today you should be evaluated back in the emergency room. Follow closely with your primary care doctor for wound center referral. Continue taking the doxycycline as previously prescribed X-ray of your lumbar spine showed compression fractures, this may have occurred sometime in the last few weeks. X-ray of the back also showed some lesions in the ribs that need to be followed by primary care for further evaluation. Referrals: AYSE CAO MD [Primary Care Provider] - Follow up tomorrow
[2018-08-07 06:50] LABS: APPEARANCE,URINE SLIGHTLY-CLOUDY; BILIRUBIN,URINE NEGATIVE (NEGATIVE); GLUCOSE, URINE NEGATIVE (NEGATIVE); KETONES,URINE NEGATIVE (NEGATIVE); LEUKOCYTE ESTERASE,URINE NEGATIVE (NEGATIVE); NITRITE,URINE NEGATIVE (NEGATIVE); PROTEIN,URINE NEGATIVE (NEGATIVE); URINE SPECIFIC GRAVITY 1.027
[2018-08-07 06:52] LABS: ABSOLUTE LYMPHOCYTES (AUTO) 0.5 10^3/uL (0.5-4.7); ABSOLUTE MONOCYTES (AUTO) 0.5 10^3/uL (0.1-1.4); ABSOLUTE NEUT (AUTO) 3.8 10^3/uL (1.7-8.2); BASOPHILS % (AUTO) 0.8 % (0-2); EOSINOPHILS % (AUTO) 0.7 % (0-6); HEMATOCRIT 38.6 % (36.0-47.0); HEMOGLOBIN 12.7 g/dL (12.0-15.5); LYMPHOCYTES % (AUTO) 10.3 % (13-45); MEAN CORPUSCULAR HEMOGLOBIN 29.5 pg (27.0-33.4); MEAN CORPUSCULAR HGB CONC 32.9 g/dL (32.0-36.0); MEAN CORPUSCULAR VOLUME 90 fl (80-97); MONOCYTES % (AUTO) 9.5 % (3-13); PLATELET COUNT 181 10^3/uL (150-450); RED BLOOD COUNT 4.31 10^6/uL (3.72-5.28); RED CELL DISTRIBUTION WIDTH 17.4 % (11.5-14.0); SEGMENTED NEUTROPHILS % (AUTO) 78.7 % (42-78); TOTAL CELLS COUNTED % (AUTO) 100 %; VENOUS BLOOD BASE EXCESS 2.3 mmol/L; VENOUS BLOOD HCO3 28.5 mmol/L (20-32); VENOUS BLOOD PCO2 51.3 mmHg (35-63); VENOUS BLOOD PH 7.36 (7.30-7.42); WHITE BLOOD COUNT 4.8 10^3/uL (4.0-10.5)
[2018-08-07 06:53] LABS: COLOR,URINE DARK YELLOW
[2018-08-07 06:58] LABS: INTERNATIONAL RATION (INR) 1.86; PROTHROMBIN TIME 22.3 SEC (11.4-15.4)
[2018-08-07 07:11] LABS: ALANINE AMINOTRANSFERASE 17 U/L (9-52); ALBUMIN 3.7 g/dL (3.5-5.0); ALKALINE PHOSPHATASE 129 U/L (38-126); ANION GAP 9 (5-19); ASPARTATE AMINO TRANSFERASE 25 U/L (14-36); BILIRUBIN,DIRECT 0.7 mg/dL (0.0-0.4); BILIRUBIN,TOTAL 0.8 mg/dL (0.2-1.3); BLOOD UREA NITROGEN 31 mg/dL (7-20); C-REACTIVE PROTEIN 58.5 mg/L (<10.0); CALCIUM 9.2 mg/dL (8.4-10.2); CARBON DIOXIDE 31 mmol/L (22-30); CHLORIDE 99 mmol/L (98-107); GLUCOSE 88 mg/dL (75-110); POTASSIUM 4.4 mmol/L (3.6-5.0); SODIUM 139.1 mmol/L (137-145); TOTAL PROTEIN 7.3 g/dL (6.3-8.2)
--- NOTE | 2018-08-07 07:24 | RADIOLOGY REPORT (SQ) ---
EXAM DESCRIPTION: XR FOOT 3 OR MORE VIEWS COMPLETED DATE/TME: 08/07/2018 06:18 CLINICAL HISTORY: 88 years, Female, redness, pain COMPARISON: 07/28/2018 FINDINGS: 3 views of the left foot. No acute fracture or dislocation. Osteopenia. Tarsals and metatarsals appear appropriately aligned. No destructive osseous lesions. Atherosclerotic vascular calcification. Dorsal soft tissue swelling. IMPRESSION: 1. No acute fracture identified. No destructive osseous lesions. If there is concern for osteomyelitis, MRI would provide additional characterization. 2. Diffuse dorsal soft tissue prominence. These findings could be seen with cellulitis or edema. copyright 2010 [employer]- All Rights Reserved
--- NOTE | 2018-08-07 07:26 | RADIOLOGY REPORT (SQ) ---
EXAM DESCRIPTION: XR CHEST 1 VIEW COMPLETED DATE/TME: 08/07/2018 06:01 CLINICAL HISTORY: pain, low SPO2 COMPARISON: 02/25/2018 FINDINGS: Single frontal view of the chest. Prior median sternotomy. Left-sided pacemaker. Atherosclerotic calcification aortic arch. Moderate left and small right pleural effusion with bibasilar airspace opacity. No pneumothorax. Leads overlie the chest. No acute osseous abnormality. Upper abdominal soft tissues are unremarkable. IMPRESSION: 1. Moderate left and small right pleural effusions with likely underlying atelectasis or consolidation. Continued radiographic follow-up recommended.
[2018-08-07 07:32] LABS: ERYTHROCYTE SEDIMENTATION RATE 27 mm/hr (0-30)
--- NOTE | 2018-08-07 07:55 | EKG REPORT ---
SEVERITY:- ABNORMAL ECG - VENTRICULAR-PACED COMPLEXES NONSPECIFIC INTRAVENTRICULAR CONDUCTION DELAY MINIMAL ST DEPRESSION, DIFFUSE LEADS : Confirmed by: Osiris Rivers MD 07-Aug-2018 07:54:38
[2018-08-07] MEDS ORDERED: LIDOCAINE 1% INJ-PF (10 MG/ML) 30 ML SDV INJ ONE (08:03)
--- NOTE | 2018-08-07 09:40 | RADIOLOGY REPORT (SQ) ---
EXAM DESCRIPTION: L SPINE WHOLE COMPLETED DATE/TIME: 08/07/2018 9:12 am REASON FOR STUDY: back pain COMPARISON: 10/05/2006 NUMBER OF VIEWS: Five views including obliques. TECHNIQUE: AP, lateral, oblique, and sacral radiographic images acquired of the lumbar spine. LIMITATIONS: None. FINDINGS: MINERALIZATION: Generalized Osteopenia. SEGMENTATION: Transitional anatomy. ALIGNMENT: Mild scoliosis or tilting, apex to the right. VERTEBRAE: The last well-developed disc space is labeled as L5-S1, consistent with the prior study. There is remote compression deformity of the T12 vertebra, stable finding. Mild remote compression deformities involving the L1, L2 and L3 vertebrae, new findings since the prior study. DISCS: Mild multilevel disc space narrowing. No significant osteophytes or end plate irregularity. POSTERIOR ELEMENTS: Facet arthrosis lower lumbar spine. Pedicles are intact. No pars defect or pos terior arch defects. HARDWARE: None in the spine. PARASPINAL SOFT TISSUES: Normal. PELVIS: Intact as visualized. No fractures or worrisome bone lesions. SI joints intact. OTHER: Atherosclerotic changes involving the abdominal aorta. Focal lucencies in the visualized low er ribs. IMPRESSION: 1. Crossed osteopenia. As on the prior examination dated 10/06/1999, transitional anato my. The lumbar vertebrae are labeled in correlation with the prior examination for continuity purpos es. 2. Old remote compression deformity involving the T12 vertebra, unchanged finding. New mild ryan dejan deformities involving L1, L2 and L3 vertebrae, ages are indeterminate. 3. Tilting and or mild dextroconvex scoliosis of the lumbar spine, new finding since the prior study . 4. Focal lucencies in the visualized lower ribs. No acute fractures. Is there any underlying histo ry of multiple myeloma? TECHNICAL DOCUMENTATION: JOB ID: [id number] [employer]- All Rights Reserved Reading location - IP/workstation name: [email or web address]
[2018-08-07 10:34] VITALS: BP 100/71
== END 2018-08-07 10:34 | disposition home or self-care (01) ==
LOC: ER 05:39
DX: M79.672 Pain in left foot (principal); M54.5 Low back pain; Z98.890 Other specified postprocedural states; S32.030A Wedge compression fracture of third lumbar vertebra, initial encounter for closed fracture; X58.XXXA Exposure to other specified factors, initial encounter; Z95.0 Presence of cardiac pacemaker; I48.91 Unspecified atrial fibrillation; Z79.01 Long term (current) use of anticoagulants; Z88.2 Allergy status to sulfonamides; I50.9 Heart failure, unspecified; I25.10 Atherosclerotic heart disease of native coronary artery without angina pectoris; E78.00 Pure hypercholesterolemia, unspecified; I11.0 Hypertensive heart disease with heart failure; E03.9 Hypothyroidism, unspecified; Z95.1 Presence of aortocoronary bypass graft; Z90.710 Acquired absence of both cervix and uterus
CPT/HCPCS: 93005; 99284; 51701; 96374; 36415; 87040; 87086; 82962; 85025; 85652; 85610; 86140; 80053; 81001; 82803; 83605; 71045; 73630; 72110; 93010; J2270

== ENCOUNTER 2018-08-09 13:47 | Inpatient (IN) | payer MEDICARE, BC ==
--- NOTE | 2018-08-09 14:28 | ER Document Report ---
ED Medical Screen (RME) - General Chief Complaint: Foot Pain Stated Complaint: LEFT FOOT PAIN Time Seen by Provider: 08/09/18 14:20 Primary Care Provider: AYSE NUNEZ MD [Primary Care Provider] - Follow up as needed Mode of Arrival: Medic Information source: Patient, Dr. Office Notes: This is an 88-year-old female that is sent over from Dr. Nunez's office for cellulitis with low blood pressure in the office. Patient is on chronic anticoagulation and was seen 2 days ago for hematoma of the left foot. The foot is cool in triage but she does have capillary refill of the toes. There is a large area of fluctuance to the dorsal area of the entire foot. There is overlying erythema. Where having difficulty getting a temperature in triage (review of the recent report shows that her temperature was low last time she was here). TRAVEL OUTSIDE OF THE [place] IN LAST 30 DAYS: No - Related Data Allergies/Adverse Reactions: cefdinir [From Omnicef] Allergy (Unknown, Verified 05/30/17 17:09) Choline Fenofibrate [From Trilipix] Allergy (Unknown, Verified 05/30/17 17:09) clopidogrel bisulfate [From Plavix] Allergy (Unknown, Verified 05/30/17 17:09) codeine [Codeine] Allergy (Unknown, Verified 05/30/17 17:09) guaifenesin [From Mucinex] Allergy (Unknown, Verified 05/30/17 17:09) hydralazine [Hydralazine] Allergy (Unknown, Verified 05/30/17 17:09) Influenza Vaccine,Trival 2010 * [Influenza Vaccine,Trival 2010] Allergy (Unknown, Verified 05/30/17 17:09) lovastatin [From Mevacor] Allergy (Unknown, Verified 05/30/17 17:09) meperidine HCl [From Demerol] Allergy (Unknown, Verified 05/30/17 17:09) niacin [Niacin] Allergy (Unknown, Verified 05/30/17 17:09) nifedipine [From Procardia] Allergy (Unknown, Verified 05/30/17 17:09) pentazocine lactate [From Talwin] Allergy (Unknown, Verified 05/30/17 17:09) pravastatin sodium [From Pravachol] Allergy (Unknown, Verified 05/30/17 17:09) propoxyphene HCl [From Darvon] Allergy (Unknown, Verified 05/30/17 17:09) rosuvastatin calcium [From Crestor] Allergy (Unknown, Verified 05/30/17 17:09) Sulfa (Sulfonamide Antibiotics) Allergy (Unknown, Verified 05/30/17 17:09) atorvastatin calcium [From Lipitor] Adverse Reaction (Severe, Verified 05/30/17 17:09) Past Medical History - Past Medical History Cardiac Medical History: Reports: Hx Atrial Fibrillation, Hx Congestive Heart Failure, Hx Coronary Artery Disease, Hx Hypercholesterolemia, Hx Hypertension, Hx Peripheral Vascular Disease Pulmonary Medical History: Reports: Hx Bronchitis Denies: Hx Tuberculosis Endocrine Medical History: Reports: Hx Hypothyroidism Renal/ Medical History: Denies: Hx Peritoneal Dialysis GI Medical History: Reports: Hx Hiatal Hernia Psychiatric Medical History: Reports: Hx Depression Past Surgical History: Reports: Hx Abdominal Surgery - hernia repair 2008, Hx Cardiac Catheterization - december 2011, Hx Cardiac Surgery - triple bypass 1992, cardiac stent, Hx Cholecystectomy - 1995, Hx Coronary Artery Bypass Graft, Hx Hysterectomy, Hx PacemakerComment Only: Hx Gastric Bypass Surgery - Triple - Immunizations Hx Diphtheria, Pertussis, Tetanus Vaccination: Yes History of Influenza Vaccine for 04/2017 - 09/2017 Season: No Physical Exam - Vital signs Vitals: Pulse Resp BP Pulse Ox 70 18 118/68 98 08/09/18 14:00 08/09/18 14:00 08/09/18 14:00 08/09/18 14:00 Course - Vital Signs Vital signs: Temp Pulse Resp BP Pulse Ox 70 18 118/68 98 08/09/18 14:00 08/09/18 14:00 08/09/18 14:00 08/09/18 14:00 Doctor's Discharge - Discharge Referrals: AYSE NUNEZ MD [Primary Care Provider] - Follow up as needed
[2018-08-09 15:15] LABS: ABSOLUTE LYMPHOCYTES (AUTO) 0.5 10^3/uL (0.5-4.7); ABSOLUTE MONOCYTES (AUTO) 0.3 10^3/uL (0.1-1.4); ABSOLUTE NEUT (AUTO) 5.6 10^3/uL (1.7-8.2); BASOPHILS % (AUTO) 0.2 % (0-2); EOSINOPHILS % (AUTO) 0.2 % (0-6); HEMATOCRIT 39.8 % (36.0-47.0); HEMOGLOBIN 13.1 g/dL (12.0-15.5); LYMPHOCYTES % (AUTO) 7.9 % (13-45); MEAN CORPUSCULAR HEMOGLOBIN 29.7 pg (27.0-33.4); MEAN CORPUSCULAR HGB CONC 32.9 g/dL (32.0-36.0); MEAN CORPUSCULAR VOLUME 90 fl (80-97); MONOCYTES % (AUTO) 4.7 % (3-13); PLATELET COUNT 195 10^3/uL (150-450); RED BLOOD COUNT 4.42 10^6/uL (3.72-5.28); RED CELL DISTRIBUTION WIDTH 17.3 % (11.5-14.0); TOTAL CELLS COUNTED % (AUTO) 100 %; WHITE BLOOD COUNT 6.4 10^3/uL (4.0-10.5)
[2018-08-09 15:41] LABS: ALANINE AMINOTRANSFERASE 10 U/L (9-52); ALBUMIN 3.9 g/dL (3.5-5.0); ALKALINE PHOSPHATASE 139 U/L (38-126); ANION GAP 9 (5-19); ASPARTATE AMINO TRANSFERASE 42 U/L (14-36); BILIRUBIN,TOTAL 1.1 mg/dL (0.2-1.3); BLOOD UREA NITROGEN 36 mg/dL (7-20); CALCIUM 9.4 mg/dL (8.4-10.2); CARBON DIOXIDE 29 mmol/L (22-30); CHLORIDE 100 mmol/L (98-107); GLUCOSE 106 mg/dL (75-110); POTASSIUM 4.9 mmol/L (3.6-5.0); SODIUM 137.6 mmol/L (137-145)
--- NOTE | 2018-08-09 16:11 | ER Document Report ---
ED Extremity Problem, Lower - General Chief Complaint: Foot Pain Stated Complaint: LEFT FOOT PAIN Time Seen by Provider: 08/09/18 14:20 Mode of Arrival: Medic Notes: 88-year-old female patient sent over by primary care doctor for evaluation of possible cellulitis which may require IV antibiotics. Patient reportedly had cellulitis on the left foot versus a hematoma on the left foot. Had I&D done at another hospital several days ago and placed on doxycycline. Patient continues to have increased amount of pain and swelling in the left foot. Was seen here 2 days ago and had x-ray and workup done and was offered admission but they decided to try to take her home. Has also nonhealing ulcers on the right lower extremity on the anterior koenig. There is a large amount of serous drainage from the right lower extremity. Family member states that she has had increasing weakness. Having a hard time walking. Will not eat or drink. They seem to think that she is dwindling quite fast. They do not how they can take care of her anymore at home as there is also an elderly father that they take care of in the home. They are requesting hospitalization as well as the primary care doctor is requesting hospitalization to help take care of these lower healing ulcers and to workup possible multiple myeloma which was discovered on Monday after an x-ray showed lucency in the ribs which could represent multiple m yeloma. Patient has chronic low back pain with osteoporosis and hurts all over. Family members state that she has not had a fever however she is excessively cold all the time. TRAVEL OUTSIDE OF THE [place] IN LAST 30 DAYS: No - HPI Patient complains to provider of: Pain, Swelling Location: Leg Onset/Duration: Gradual, Worse Quality of pain: Dull, Throbbing Severity: Moderate Pain Level: 3 Recent injury: Possibly - Related Data Allergies/Adverse Reactions: cefdinir [From Omnicef] Allergy (Unknown, Verified 05/30/17 17:09) Choline Fenofibrate [From Trilipix] Allergy (Unknown, Verified 05/30/17 17:09) clopidogrel bisulfate [From Plavix] Allergy (Unknown, Verified 05/30/17 17:09) codeine [Codeine] Allergy (Unknown, Verified 05/30/17 17:09) guaifenesin [From Mucinex] Allergy (Unknown, Verified 05/30/17 17:09) hydralazine [Hydralazine] Allergy (Unknown, Verified 05/30/17 17:09) Influenza Vaccine,Trival 2010 * [Influenza Vaccine,Trival 2010] Allergy (Unknown, Verified 05/30/17 17:09) lovastatin [From Mevacor] Allergy (Unknown, Verified 05/30/17 17:09) meperidine HCl [From Demerol] Allergy (Unknown, Verified 05/30/17 17:09) niacin [Niacin] Allergy (Unknown, Verified 05/30/17 17:09) nifedipine [From Procardia] Allergy (Unknown, Verified 05/30/17 17:09) pentazocine lactate [From Talwin] Allergy (Unknown, Verified 05/30/17 17:09) pravastatin sodium [From Pravachol] Allergy (Unknown, Verified 05/30/17 17:09) propoxyphene HCl [From Darvon] Allergy (Unknown, Verified 05/30/17 17:09) rosuvastatin calcium [From Crestor] Allergy (Unknown, Verified 05/30/17 17:09) Sulfa (Sulfonamide Antibiotics) Allergy (Unknown, Verified 05/30/17 17:09) atorvastatin calcium [From Lipitor] Adverse Reaction (Severe, Verified 05/30/17 17:09) Past Medical History - General Information source: Patient, DrBrunilda Office - Social History Smoking Status: Never Smoker Frequency of alcohol use: None Drug Abuse: None Family History: Hypertension Patient has suicidal ideation: No Patient has homicidal ideation: No - Past Medical History Cardiac Medical History: Reports: Hx Atrial Fibrillation, Hx Congestive Heart Failure, Hx Coronary Artery Disease, Hx Hypercholesterolemia, Hx Hypertension, Hx Peripheral Vascular Disease Pulmonary Medical History: Reports: Hx Bronchitis Denies: Hx Tuberculosis Endocrine Medical History: Reports: Hx Hypothyroidism Renal/ Medical History: Denies: Hx Peritoneal Dialysis GI Medical History: Reports: Hx Hiatal Hernia Psychiatric Medical History: Reports: Hx Depression Past Surgical History: Reports: Hx Abdominal Surgery - hernia repair 2008, Hx Cardiac Catheterization - december 2011, Hx Cardiac Surgery - triple bypass 1992, cardiac stent, Hx Cholecystectomy - 1995, Hx Coronary Artery Bypass Graft, Hx Hysterectomy, Hx PacemakerComment Only: Hx Gastric Bypass Surgery - Triple - Immunizations Hx Diphtheria, Pertussis, Tetanus Vaccination: Yes Hx Pneumococcal Vaccination: 07/17/99 Review of Systems - Review of Systems Notes: Constitutional: denies: Chills, Diaphoresis, Fever,. Increased amount of the following: Malaise, Weakness EENT: denies: Eye discharge, Blurred vision, Tearing, Double vision, Nose congestion, Nose discharge, Throat swelling, Mouth pain Cardiovascular: denies: Palpitations, Heart racing, Orthopnea, Dyspnea, Chest pain Respiratory: denies: Cough, Hurts to breathe, Wheezing, Shortness of breath Gastrointestinal: denies: Abdominal pain, Diarrhea, Nausea, Vomiting, Black stools, bright red blood in stool Genitourinary: denies: Burning, Dysuria, Discharge, Frequency, Flank pain, Hematuria Musculoskeletal: denies: Joint pain, Joint swelling, Muscle pain, Muscle stiffness, back pain Hematologic/Lymphatic: denies: Anemia, Easy bleeding, Easy bruising, Blood clots Neurological/Psychological: denies: Confusion, +Dementia. Neg: Depression, Loss of consciousness Skin: Breakdowns reported on bilateral lower extremities with oozing present. Hematoma versus cellulitis on the left foot. Physical Exam - Vital signs Vitals: Pulse Resp BP Pulse Ox 70 18 118/68 98 08/09/18 14:00 08/09/18 14:00 08/09/18 14:00 08/09/18 14:00 Interpretation: Normal - General General appearance: Appears well, Lethargic - HEENT Head: Normocephalic, Atraumatic Eyes: Normal Pupils: PERRL - Respiratory Respiratory status: No respiratory distress Chest status: Nontender Breath sounds: Normal Chest palpation: Normal - Cardiovascular Rhythm: Regular Heart sounds: Normal auscultation Murmur: No - Abdominal Inspection: Normal Distension: No distension Bowel sounds: Normal Tenderness: Nontender Organomegaly: No organomegaly - Back Back: Normal, Nontender - Extremities General upper extremity: Normal inspection, Nontender, Normal color, Normal ROM, Normal temperature General lower extremity: Edema, Normal ROM, Other - hematoma on the left foot versus cellulitis. Oozing. Ant right koenig ulcers with ozing. No: Normal temper ature - cold, Normal weight bearing, Elvira's sign - Neurological Neuro grossly intact: Yes Cognition: Short term memory loss Orientation: Disoriented to place [place] Coma Scale Eye Opening: Spontaneous [place] Coma Scale Verbal: Oriented [place] Coma Scale Motor: Obeys Commands [place] Coma Scale Total: 15 Speech: Normal Motor strength normal: LUE, RUE, LLE, RLE Sensory: Normal - Psychological Associated symptoms: Normal affect, Normal mood - Skin Skin Temperature: Warm Skin Moisture: Dry Skin Color: Other - There is an ulcer present in the right anterior koenig with bruising. There is a large hematoma and oozing on the left foot. Course - Vital Signs Vital signs: Temp Pulse Resp BP Pulse Ox 70 18 118/68 98 08/09/18 14:00 08/09/18 14:00 08/09/18 14:00 08/09/18 14:00 - Laboratory Result Diagrams: 08/09/18 14:51 08/09/18 14:51 Laboratory results interpreted by me: 08/09/18 08/09/18 08/09/18 14:51 14:51 17:03 RDW 17.3 H Seg Neutrophils % 87.0 H Lymphocytes % 7.9 L BUN 36 H Direct Bilirubin 1.0 H AST 42 H Alkaline Phosphatase 139 H C-Reactive Protein 35.3 H Discharge - Discharge Clinical Impression: Stasis edema with ulcer of right lower extremity Failure to thrive Qualifiers: Failure to thrive age range: in adult Qualified Code(s): R62.7 - Adult failure to thrive Traumatic hematoma of left foot Qualifiers: Encounter type: sequela Qualified Code(s): S90.32XS - Contusion of left foot, sequela Condition: Fair Disposition: ADMITTED INPATIENT Admitting Provider: Hospitalist - [facility] Admitted: Telemetry
--- NOTE | 2018-08-09 16:37 | RADIOLOGY REPORT (SQ) ---
EXAM DESCRIPTION: ARTERIAL LOWER EXTREM UNILAT COMPLETED DATE/TIME: 08/09/2018 4:16 pm REASON FOR STUDY: lle swelling/abscess, dec pulse COMPARISON: None. TECHNIQUE: Dynamic and static haynes scale and color images acquired of the left lower extremity arter ies. Additional selected spectral images recorded. ABIs were not recorded. LIMITATIONS: None. FINDINGS: LEFT LEG: ABIS: Not performed. INFLOW ARTERIES: Normal, no obstruction evident. FEMORAL ARTERIES:Multiphasic waveforms. Normal, no velocity elevation to suggest focal stenosis. Norm al color Doppler evaluation. No aneurysm. POPLITEAL ARTERY:Multiphasic waveforms. Normal, no velocity elevation to suggest focal stenosis. Norm al color Doppler evaluation. No aneurysm. PATENT TIBIOPERONEAL TRUNK AND 3 VESSEL RUNOFF: Three-vessel runoff in the calf without stenosis in t he calf. Antegrade flow in the proximal portion of the dorsalis pedis artery. Retrograde flow in th e distal aspect of the dorsalis pedis artery of uncertain clinical significance. TBI: Not performed. OTHER: No other significant finding. IMPRESSION: ESSENTIALLY NORMAL LEFT LOWER EXTREMITY ARTERIAL DOPPLER. COMMENT: [facility] NORMAL: Greater than 1.0 MINIMAL DISEASE: 0.9 to 1.0 CLAUDICATION: 0.5 to 0.9 SEVERE ARTERIAL DISEASE: Less than 0.5 [facility] [place] [facility] NORMAL: Greater than 1.0 (1.2 If Heavy Calcifications) NORMAL TO MILD ISCHEMIA: 0.8 to 1.0 MODERATE ISCHEMIA: 0.4 to 0.8 SEVERE ISCHEMIA: Less than 0.4 TECHNICAL DOCUMENTATION: JOB ID: [id number] [employer]- All Rights Reserved Reading location - IP/workstation name: [email or web address]
--- NOTE | 2018-08-09 18:56 | PDOC H&P ---
History of Present Illness Admission Date/PCP: 08/09/18 17:25 AYSE CAO MD Patient complains of: Left lower extremity redness History of Present Illness: GIBSON VILLARREAL is a 88 year old female with history of CAD, PVD, CHF. Patient has had problems with lower extremity redness and worsening edema. She was seen at [facility] and diagnosed with cellulitis and treated with doxycycline. Patient states that there has been helpful but not very well. The past few days her feet have been getting worse, particularly the swelling. She went to see her PCP and was advised to come to the ED. Patient denies fever or chills, no chest pain or palpitations. She reports some shortness of breath. She has not been eating much and she has been weak. She also complains of back pain. Of note is that she had x-ray of the lumbar spine during her last ED visit that revealed compression fractures of varied chronicity. There was also concern for focal lucencies in the visualized lower ribs, raising concern for possible multiple myeloma. In the ED, blood cultures done. Patient referred for admission. Past Medical History Cardiac Medical History: Reports: Atrial Fibrillation, Congestive Heart Failure, Coronary Artery Disease, Hyperlipidema, Hypertension, Peripheral Vascular Disease Pulmonary Medical History: Reports: Bronchitis Denies: Tuberculosis Endocrine Medical History: Reports: Hypothyroidism GI Medical History: Reports: Hiatal Hernia Psychiatric Medical History: Reports: Depression Past Surgical History Past Surgical History: Reports: Cardiac Catheterization - december 2011, Cholecystectomy - 1995, Coronary Artery Bypass Graft, Hysterectomy, Pacemaker Comment Only: Gastric Bypass Surgery - Triple Social History Smoking Status: Never Smoker Frequency of Alcohol Use: None Hx Recreational Drug Use: No Drugs: None Hx Prescription Drug Abuse: No Family History Family History: CAD, CVA, Hypertension Parental Family History Reviewed: Yes Children Family History Reviewed: Yes Sibling(s) Family History Reviewed.: Yes Medication/Allergy Home Medications: Nitroglycerin [Nitrostat 0.4 mg (1/150 Gr) Tabs 25/Bottle] 0.4 mg SL DAILYP PRN 11/18/11 Citalopram Hydrobromide [Celexa 10 mg Tablet] 10 mg PO DAILY 02/24/18 Levothyroxine Sodium [Synthroid 0.075 mg Tablet] 0.075 mg PO Q6AM 02/24/18 Pitavastatin Calcium [Livalo] 2 mg PO Q48H MDD AT BEDTIME 02/24/18 Apixaban [Eliquis 2.5 mg Tablet] 2.5 mg PO BID #60 tablet 03/02/18 Diltiazem HCl [Cardizem 60 mg Tablet] 60 mg PO Q8 #90 tablet 03/02/18 Torsemide [Demadex 20 mg Tablet] 5 mg PO Q48H #14 tablet 03/02/18 Allergies/Adverse Reactions: cefdinir [From Omnicef] Allergy (Unknown, Verified 05/30/17 17:09) Choline Fenofibrate [From Trilipix] Allergy (Unknown, Verified 05/30/17 17:09) clopidogrel bisulfate [From Plavix] Allergy (Unknown, Verified 05/30/17 17:09) codeine [Codeine] Allergy (Unknown, Verified 05/30/17 17:09) guaifenesin [From Mucinex] Allergy (Unknown, Verified 05/30/17 17:09) hydralazine [Hydralazine] Allergy (Unknown, Verified 05/30/17 17:09) Influenza Vaccine,Trival 2010 * [Influenza Vaccine,Trival 2010] Allergy (Unknown, Verified 05/30/17 17:09) lovastatin [From Mevacor] Allergy (Unknown, Verified 05/30/17 17:09) meperidine HCl [From Demerol] Allergy (Unknown, Verified 05/30/17 17:09) niacin [Niacin] Allergy (Unknown, Verified 05/30/17 17:09) nifedipine [From Procardia] Allergy (Unknown, Verified 05/30/17 17:09) pentazocine lactate [From Talwin] Allergy (Unknown, Verified 05/30/17 17:09) pravastatin sodium [From Pravachol] Allergy (Unknown, Verified 05/30/17 17:09) propoxyphene HCl [From Darvon] Allergy (Unknown, Verified 05/30/17 17:09) rosuvastatin calcium [From Crestor] Allergy (Unknown, Verified 05/30/17 17:09) Sulfa (Sulfonamide Antibiotics) Allergy (Unknown, Verified 05/30/17 17:09) atorvastatin calcium [From Lipitor] Adverse Reaction (Severe, Verified 05/30/17 17:09) Review of Systems Review of Systems: CONSTITUTIONAL : Fever, chills -- No; patient with fatigue EENT: Denies eye, ear, throat, or mouth pain or symptoms. Denies nasal or s inus congestion or discharge. Denies throat, tongue, or mouth swelling or difficulty swallowing. CARDIOVASCULAR: Denies chest pain. No racing heart RESPIRATORY: Denies cough, no shortness of breath, difficulty breathing. GASTROINTESTINAL: Denies abdominal pain or distention. Denies nausea, vomi ting, or diarrhea. No rectal bleeding. GENITOURINARY: Urinary symptoms -- no. MUSCULOSKELETAL: No acute weakness SKIN: Denies rash, lesions or sores. HEMATOLOGIC : Denies easy bruising or bleeding. LYMPHATIC: Denies swollen, enlarged glands. NEUROLOGICAL: New weakness, headaches, slured speach - No PSYCHIATRIC: Changes anxiety or stress, depression, suicidal ideation, or homicidal ideation -- No ALL OTHER SYSTEMS REVIEWED AND NEGATIVE. Physical Exam Vital Signs: Temp Pulse Resp BP Pulse Ox 70 18 118/68 98 08/09/18 14:00 08/09/18 14:00 08/09/18 14:00 08/09/18 14:00 Intake & Output 08/08/18 08/09/18 08/10/18 06:59 06:59 06:59 Weight 53.2 kg GENERAL: Well-developed, cachectic female no acute distress HEENT: Normocephalic/atraumatic NECK supple, no JVD CARDIOVASCULAR: Irregularly irregular, normal S1-S2 LUNGS: CTA bilaterally ABDOMEN: Soft, NT, NL bowel sounds MUSCULOSKELETAL: Tenderness low back EXTREMITIES: 2-3+ weeping edema bilaterally, mild erythema worse left foot NEUROLOGICAL: Alert, oriented x 3, no acute lateralizing weakness Results Laboratory Results: 08/09/18 14:51 08/09/18 14:51 08/09/18 08/09/18 08/09/18 14:51 14:51 14:51 WBC 6.4 RBC 4.42 Hgb 13.1 Hct 39.8 MCV 90 MCH 29.7 MCHC 32.9 RDW 17.3 H Plt Count 195 Seg Neutrophils % 87.0 H Lymphocytes % 7.9 L Monocytes % 4.7 Eosinophils % 0.2 Basophils % 0.2 Absolute Neutrophils 5.6 Absolute Lymphocytes 0.5 Absolute Monocytes 0.3 Absolute Eosinophils 0.0 Absolute Basophils 0.0 Sodium 137.6 Potassium 4.9 Chloride 100 Carbon Dioxide 29 Anion Gap 9 BUN 36 H Creatinine 0.81 Est GFR ( Amer) > 60 Est GFR (Non-Af Amer) > 60 Glucose 106 Lactic Acid 1.4 Calcium 9.4 Total Bilirubin 1.1 AST 42 H ALT 10 Alkaline Phosphatase 139 H C-Reactive Protein Total Protein 8.0 Albumin 3.9 08/09/18 17:03 WBC RBC Hgb Hct MCV MCH MCHC RDW Plt Count Seg Neutrophils % Lymphocytes % Monocytes % Eosinophils % Basophils % Absolute Neutrophils Absolute Lymphocytes Absolute Monocytes Absolute Eosinophils Absolute Basophils Sodium Potassium Chloride Carbon Dioxide Anion Gap BUN Creatinine Est GFR ( Amer) Est GFR (Non-Af Amer) Glucose Lactic Acid Calcium Total Bilirubin AST ALT Alkaline Phosphatase C-Reactive Protein 35.3 H Total Protein Albumin Impressions: Extremity Arterial Study 08/09/18 14:22 IMPRESSION: ESSENTIALLY NORMAL LEFT LOWER EXTREMITY ARTERIAL DOPPLER. Assessment & Plan - Diagnosis (1) Cellulitis of lower leg Is this a current diagnosis for this admission?: Yes Plan: Keep feet elevated (2) CHF (congestive heart failure) Qualifiers: Heart failure type: combined systolic and diastolic Heart failure chronici ty: acute on chronic Qualified Code(s): I50.43 - Acute on chronic combined systolic (congestive) and diastolic (congestive) heart failure Is this a current diagnosis for this admission?: Yes (3) HTN (hypertension) Qualifiers: Hypertension type: essential hypertension Qualified Code(s): I10 - Essential (primary) hypertension (4) Low back pain Qualifiers: Chronicity: acute Back pain laterality: bilateral Sciatica presence: without sciatica Qualified Code(s): M54.5 - Low back pain (5) Lumbar compression fracture Qualifiers: Encounter type: initial encounter Lumbar vertebra fracture level: L3 Fracture type: closed Qualified Code(s): S32.030A - Wedge compression fracture of third lumbar vertebra, initial encounter for closed fracture - Inpatient Certification Based on my medical assessment, after consideration of the patient's comorbidities, presenting symptoms, or acuity I expect that the services needed warrant INPATIENT care.: Yes I certify that my determination is in accordance with my understanding of Medicare's requirements for reasonable and necessary INPATIENT services [42 CFR 412.3e].: Yes Medical Necessity: Failure to Improve With Outpatient Therapy, Need Close Monitoring Due to Risk of Patient Decompensation, Need for IV Antibiotics - Plan Summary Plan Summary: For cellulitis, we will treat with clindamycin 300 marijuana IV every 8. Of note is that patient allergic to cephalosporins. I doubt that this is all primarily cellulitis, in light of the normal white blood cells count. I am concerned for CHF rather, given weeping bilateral lower extremity edema and shortness of breath. Echo from 02/27/18 revealed normal EF, but diastolic function could not be assessed due to A. fib. Lung exam today also with basilar crackles. Will continue her diuretics. Will check BNP, chest x-ray. Will consider IV Lasix if these are elevated. We'll also check troponin. Will repeat echo. Patient with several compression fractures in the spine and the concern for lucency on the lower ribs. This was supposed to be workup as outpatient, but has not be done and family concerned. I informed that that a thorough workup will need to be done by his PCP as outpatient and possible referral to an oncologist. For now, will check UPEP and SPEP.
[2018-08-09] MEDS ORDERED: NITROGLYCERIN 0.4 MG/TAB 25 TAB/BOTTLE SL PRN (21:47)
[2018-08-09] MEDS ORDERED: (PENDING PHARMACY ID) (Pitavastatin Calcium [Livalo] 2 MG) PO SCH (22:00)
[2018-08-09] MEDS ORDERED: TORSEMIDE 20 MG TABLET PO SCH (22:00)
[2018-08-09] MEDS ORDERED: DILTIAZEM HCL 60 MG TABLET PO ONE (22:30)
[2018-08-10] MEDS ORDERED: LEVOTHYROXINE SODIUM 0.075 MG TABLET ONE (05:43)
[2018-08-10] MEDS: DILTIAZEM HCL 60 MG TABLET PO SCH ×3 (05:49→22:35)
[2018-08-10] MEDS: LEVOTHYROXINE SODIUM 0.075 MG TABLET PO SCH (05:49)
[2018-08-10 06:53] LABS: HEMOGLOBIN 12.6 g/dL (12.0-15.5); MEAN CORPUSCULAR HGB CONC 33.2 g/dL (32.0-36.0); MEAN CORPUSCULAR VOLUME 90 fl (80-97); PLATELET COUNT 181 10^3/uL (150-450); WHITE BLOOD COUNT 7.7 10^3/uL (4.0-10.5)
[2018-08-10 07:11] LABS: ALANINE AMINOTRANSFERASE 26 U/L (9-52); ALBUMIN 3.2 g/dL (3.5-5.0); ALKALINE PHOSPHATASE 126 U/L (38-126); ANION GAP 6 (5-19); ASPARTATE AMINO TRANSFERASE 25 U/L (14-36); BILIRUBIN,DIRECT 0.6 mg/dL (0.0-0.4); BILIRUBIN,TOTAL 0.9 mg/dL (0.2-1.3); BLOOD UREA NITROGEN 31 mg/dL (7-20); CALCIUM 9.1 mg/dL (8.4-10.2); CARBON DIOXIDE 31 mmol/L (22-30); CHLORIDE 101 mmol/L (98-107); GLUCOSE 90 mg/dL (75-110); PHOSPHORUS 3.8 mg/dL (2.5-4.5); POTASSIUM 4.5 mmol/L (3.6-5.0); SODIUM 137.5 mmol/L (137-145); TOTAL PROTEIN 6.5 g/dL (6.3-8.2)
[2018-08-10] MEDS ORDERED: ENOXAPARIN SODIUM INJ 30 MG/0.3 ML DISP.SYRIN SUBCUT SCH (10:00)
[2018-08-10] MEDS: APIXABAN 2.5 MG TABLET PO SCH ×2 (10:35→17:39)
[2018-08-10] MEDS: CITALOPRAM HYDROBROMIDE 20 MG TABLET PO SCH (10:35)
[2018-08-10] MEDS: IBUPROFEN 800 MG TABLET PO PRN (12:16)
--- NOTE | 2018-08-10 14:40 | RADIOLOGY REPORT (SQ) ---
EXAM DESCRIPTION: CHEST 2 VIEWS COMPLETED DATE/TIME: 08/10/2018 2:10 pm REASON FOR STUDY: A-fib, LE edema COMPARISON: 08/07/2018, 02/24/2018, 01/13/2012 chest films EXAM PARAMETERS: NUMBER OF VIEWS: two views TECHNIQUE: Digital Frontal and Lateral radiographic views of the chest acquired. RADIATION DOSE: NA LIMITATIONS: none FINDINGS: LUNGS AND PLEURA: Moderate pleural effusions left greater than right, similar compared to 08/07/2018 but definitely increased compared to 02/24/2018. Bilateral lower lobe partial collapse/ consolidation, right middle lobe collapse and consolidation. Superimposed pneumonia could not be excluded. No pneumothorax MEDIASTINUM AND HILAR STRUCTURES: No masses or contour abnormalities. HEART AND VASCULAR STRUCTURES: Cardiac silhouette size obscured by the pleural effusions BONES: No acute findings. HARDWARE: None in the chest. OTHER: No other significant finding. IMPRESSION: Bilateral pleural effusions left greater than right with bilateral lower lobe collapse a nd consolidation. TECHNICAL DOCUMENTATION: JOB ID: [id number] [employer]- All Rights Reserved Reading location - IP/workstation name: [email or web address]
[2018-08-10] MEDS: CLINDAMYCIN 300 MG/D5W RTU 300 MG/50 ML RTUPB IV SCH (18:32)
--- NOTE | 2018-08-10 19:41 | PDOC PROGRESS REPORT ---
Subjective Progress Note for:: 08/10/18 Subjective:: Patient still with lower extremity swelling and redness. Denies fever or chills, no chest pain no palpitations. Still with some difficulty breathing. Note is that BMP came back elevated and there is pleural effusion on chest x- ray, making CHF exacerbation a major concern. Reason For Visit: LEFT LEG CELLULITIS Physical Exam Vital Signs: Temp Pulse Resp BP Pulse Ox 97.6 F 131 H 16 125/71 93 08/10/18 04:47 08/10/18 04:47 08/10/18 04:47 08/10/18 01:01 08/10/18 04:47 Intake & Output 08/09/18 08/10/18 08/11/18 06:59 06:59 06:59 Weight 53.2 kg GENERAL: Well-developed, cachectic female no acute distress HEENT: Normocephalic/atraumatic NECK supple, no JVD CARDIOVASCULAR: Irregularly irregular, normal S1-S2 LUNGS: CTA bilaterally ABDOMEN: Soft, NT, NL bowel sounds MUSCULOSKELETAL: Tenderness low back EXTREMITIES: 2+ weeping edema bilaterally, mild erythema worse left foot NEUROLOGICAL: Alert, oriented x 3, no acute lateralizing weakness Results Laboratory Results: 08/10/18 06:42 08/10/18 06:42 08/09/18 08/10/18 08/10/18 17:03 06:42 06:42 WBC 7.7 RBC 4.20 Hgb 12.6 Hct 38.0 MCV 90 MCH 30.0 MCHC 33.2 RDW 17.0 H Plt Count 181 Sodium 137.5 Potassium 4.5 Chloride 101 Carbon Dioxide 31 H Anion Gap 6 BUN 31 H Creatinine 0.71 Est GFR ( Amer) > 60 Est GFR (Non-Af Amer) > 60 Glucose 90 Calcium 9.1 Phosphorus 3.8 Magnesium 2.0 Total Bilirubin 0.9 AST 25 ALT 26 Alkaline Phosphatase 126 C-Reactive Protein 35.3 H Total Protein 6.5 Albumin 3.2 L TSH 08/10/18 06:42 WBC RBC Hgb Hct MCV MCH MCHC RDW Plt Count Sodium Potassium Chloride Carbon Dioxide Anion Gap BUN Creatinine Est GFR ( Amer) Est GFR (Non-Af Amer) Glucose Calcium Phosphorus Magnesium Total Bilirubin AST ALT Alkaline Phosphatase C-Reactive Protein Total Protein Albumin TSH 3.03 08/09/18 08/10/18 14:51 11:27 Troponin I < 0.012 NT-Pro-B Natriuret Pep 5720 H Impressions: Extremity Arterial Study 08/09/18 14:22 IMPRESSION: ESSENTIALLY NORMAL LEFT LOWER EXTREMITY ARTERIAL DOPPLER. Chest X-Ray 08/10/18 00:00 IMPRESSION: Bilateral pleural effusions left greater than right with bilateral lower lobe collapse and consolidation. Assessment & Plan - Diagnosis (1) CHF (congestive heart failure) Qualifiers: Heart failure type: combined systolic and diastolic Heart failure chronicity: acute on chronic Qualified Code(s): I50.43 - Acute on chronic combined systolic (congestive) and diastolic (congestive) heart failure Is this a current diagnosis for this admission?: Yes (2) Cellulitis of lower leg Is this a current diagnosis for this admission?: Yes (3) HTN (hypertension) Qualifiers: Hypertension type: essential hypertension Qualified Code(s): I10 - Essential (primary) hypertension Is this a current diagnosis for this admission?: Yes (4) Low back pain Qualifiers: Chronicity: acute Back pain laterality: bilateral Sciatica presence: without sciatica Qualified Code(s): M54.5 - Low back pain Is this a current diagnosis for this admission?: Yes (5) Lumbar compression fracture Qualifiers: Encounter type: initial encounter Lumbar vertebra fracture level: L3 Fracture type: closed Qualified Code(s): S32.030A - Wedge compression fracture of third lumbar vertebra, initial encounter for closed fracture Is this a current diagnosis for this admission?: Yes - Plan Summary Plan Summary: Unsure of what type of CHF at this time, likely acute on chronic diastolic. Will change diuretics to IV Lasix to see if helps better. Will order a new echo to reevaluate EF and see if we could better evaluate for diastolic dysfunction. Continue clindamycin IV for now. Follow-up blood cultures result. Thank of multiple myeloma, SPEP and [facility] are send out test. If they are not back by the time patient is being discharged, she can follow-up test results with her PCP. Patient appears debilitated. Will order PT consult as family interested in possible care home facility with rehab.
[2018-08-10] MEDS: FUROSEMIDE INJ/PF 40 MG/4 ML SDV IV SCH (22:35)
[2018-08-11 05:43] LABS: ABSOLUTE LYMPHOCYTES (AUTO) 0.6 10^3/uL (0.5-4.7); ABSOLUTE MONOCYTES (AUTO) 0.7 10^3/uL (0.1-1.4); ABSOLUTE NEUT (AUTO) 7.1 10^3/uL (1.7-8.2); BASOPHILS % (AUTO) 0.3 % (0-2); EOSINOPHILS % (AUTO) 0.3 % (0-6); HEMATOCRIT 37.3 % (36.0-47.0); HEMOGLOBIN 12.4 g/dL (12.0-15.5); LYMPHOCYTES % (AUTO) 7.3 % (13-45); MEAN CORPUSCULAR HEMOGLOBIN 29.5 pg (27.0-33.4); MEAN CORPUSCULAR HGB CONC 33.2 g/dL (32.0-36.0); MEAN CORPUSCULAR VOLUME 89 fl (80-97); MONOCYTES % (AUTO) 8.5 % (3-13); PLATELET COUNT 179 10^3/uL (150-450); RED CELL DISTRIBUTION WIDTH 16.9 % (11.5-14.0); SEGMENTED NEUTROPHILS % (AUTO) 83.6 % (42-78); TOTAL CELLS COUNTED % (AUTO) 100 %; WHITE BLOOD COUNT 8.5 10^3/uL (4.0-10.5)
[2018-08-11] MEDS: DILTIAZEM HCL 60 MG TABLET PO SCH ×3 (05:48→21:04)
[2018-08-11] MEDS: CLINDAMYCIN 300 MG/D5W RTU 300 MG/50 ML RTUPB IV SCH ×3 (05:52→21:04)
[2018-08-11 06:04] LABS: ANION GAP 9 (5-19); BLOOD UREA NITROGEN 26 mg/dL (7-20); CALCIUM 8.7 mg/dL (8.4-10.2); CARBON DIOXIDE 31 mmol/L (22-30); CHLORIDE 99 mmol/L (98-107); GLUCOSE 78 mg/dL (75-110); POTASSIUM 4.1 mmol/L (3.6-5.0); SODIUM 138.7 mmol/L (137-145)
[2018-08-11] MEDS: APIXABAN 2.5 MG TABLET PO SCH ×2 (10:07→18:02)
[2018-08-11] MEDS: CITALOPRAM HYDROBROMIDE 20 MG TABLET PO SCH (10:07)
[2018-08-11] MEDS: FUROSEMIDE INJ/PF 40 MG/4 ML SDV IV SCH ×2 (10:07→21:05)
[2018-08-11] MEDS: LEVOTHYROXINE SODIUM 0.075 MG TABLET PO SCH (10:12)
[2018-08-11] MEDS ORDERED: ALBUTEROL SULFATE 0.083% NEB 2.5 MG/3 ML AMPUL NEB PRN (11:14)
--- NOTE | 2018-08-11 11:19 | PDOC PROGRESS REPORT ---
Subjective Progress Note for:: 08/11/18 Subjective:: Patient was seen and examined at bedside. Swelling of her left foot is persistent. And is tender. She has chronic dyspnea on exertion. She has bilateral pleural effusions. Her ejection fraction last February was normal. Reason For Visit: LEFT LEG CELLULITIS Physical Exam Vital Signs: Temp Pulse Resp BP Pulse Ox 97.4 F 89 15 128/77 H 97 08/11/18 03:53 08/11/18 07:00 08/11/18 03:53 08/11/18 03:53 08/11/18 03:53 Intake & Output 08/10/18 08/11/18 08/12/18 06:59 06:59 06:59 Intake Total 672 50 Balance 672 50 Weight 117 lb 4.575 oz 112 lb 10.499 oz General appearance: PRESENT: no acute distress, cooperative, thin Head exam: PRESENT: atraumatic, normocephalic Eye exam: ABSENT: conjunctival injection Ear exam: ABSENT: bleeding, drainage Respiratory exam: PRESENT: wheezes. ABSENT: accessory muscle use, chest wall tenderness Cardiovascular exam: PRESENT: RRR Extremities exam: PRESENT: other - Left foot has a fluctuant mass on the dorsum part. 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 ABSENT: pedal edema Neurological exam: PRESENT: alert, awake, oriented to person, oriented to place, oriented to time, oriented to situation Psychiatric exam: ABSENT: agitated, anxious Results Laboratory Results: 08/11/18 04:30 08/11/18 04:36 08/11/18 08/11/18 04:30 04:36 WBC 8.5 RBC 4.20 Hgb 12.4 Hct 37.3 MCV 89 MCH 29.5 MCHC 33.2 RDW 16.9 H Plt Count 179 Seg Neutrophils % 83.6 H Lymphocytes % 7.3 L Monocytes % 8.5 Eosinophils % 0.3 Basophils % 0.3 Absolute Neutrophils 7.1 Absolute Lymphocytes 0.6 Absolute Monocytes 0.7 Absolute Eosinophils 0.0 Absolute Basophils 0.0 Sodium 138.7 Potassium 4.1 Chloride 99 Carbon Dioxide 31 H Anion Gap 9 BUN 26 H Creatinine 0.57 Est GFR ( Amer) > 60 Est GFR (Non-Af Amer) > 60 Glucose 78 Calcium 8.7 Magnesium 1.9 08/09/18 08/10/18 14:51 11:27 Troponin I < 0.012 NT-Pro-B Natriuret Pep 5720 H Impressions: Extremity Arterial Study 08/09/18 14:22 IMPRESSION: ESSENTIALLY NORMAL LEFT LOWER EXTREMITY ARTERIAL DOPPLER. Chest X-Ray 08/10/18 00:00 IMPRESSION: Bilateral pleural effusions left greater than right with bilateral lower lobe collapse and consolidation. Assessment & Plan - Diagnosis (1) Cellulitis of lower leg Is this a current diagnosis for this admission?: Yes Plan: We suspect abscess versus hematoma on the dorsal part of left foot. Continue antibiotics. Consult orthopedic surgery. (2) CHF (congestive heart failure) Qualifiers: Heart failure type: combined systolic and diastolic Heart failure chronicity: acute on chronic Qualified Code(s): I50.43 - Acute on chronic combined systolic (congestive) and diastolic (congestive) heart failure Is this a current diagnosis for this admission?: Yes Plan: Continue IV Lasix. Repeat echocardiogram is pending. Consult cardiology. (3) HLD (hyperlipidemia) Qualifiers: Hyperlipidemia type: unspecified Qualified Code(s): E78.5 - Hyperlipidemia, unspecified Is this a current diagnosis for this admission?: Yes Plan: continue statin (4) HTN (hypertension) Qualifiers: Hypertension type: essential hypertension Qualified Code(s): I10 - Es sential (primary) hypertension Is this a current diagnosis for this admission?: Yes Plan: Continue current medications. Monitor blood pressure. (5) Hypothyroid Is this a current diagnosis for this admission?: Yes Plan: Continue levothyroxine (6) Pleural effusion Is this a current diagnosis for this admission?: Yes Plan: May need thoracentesis.
[2018-08-11] MEDS: IBUPROFEN 800 MG TABLET PO PRN (12:55)
[2018-08-11] MEDS ORDERED: LIDOCAINE 1% INJ-PF (10 MG/ML) 30 ML SDV ONE (18:05)
[2018-08-11 18:53] LABS: INTERNATIONAL RATION (INR) 1.73; PROTHROMBIN TIME 21.1 SEC (11.4-15.4)
[2018-08-11 18:54] LABS: PARTIAL THROMBOPLASTIN TIME 39.4 SEC (23.5-35.8)
--- NOTE | 2018-08-11 21:52 | RADIOLOGY REPORT (SQ) ---
EXAM DESCRIPTION: CT LOWER EXTREMITY WITH IV CONTRAST COMPLETED DATE/TME: 08/11/2018 00:00 CLINICAL HISTORY: 88 years, Female, possible abcess left foot COMPARISON: Plain films 08/07/2018 TECHNIQUE: 216 Images stored on PACS. All CT scanners at this facility use dose modulation, iterative reconstruction, and/or weight based dosing when appropriate to reduce radiation dose to as low as reasonably achievable (ALARA). [facility]: Dose Right [facility]: CareDose [facility]: Dose Right [facility]: Teradose 4D [facility]: Catalog Spree LIMITATIONS: None. FINDINGS: Diffuse subcutaneous edema and soft tissue swelling consistent with cellulitis. No soft tissue gas. No acute fracture. No discrete or defined abscess, however there is more extensive dorsal soft tissue swelling and phlegmon of the distal foot. This does not have typical imaging characteristics for abscess given its hyperdense appearance. Nevertheless, developing abscess would be difficult to exclude. Vascular calcifications. Degenerative changes throughout the foot. IMPRESSION: Diffuse subcutaneous edema/inflammation likely reflecting cellulitis. More focal inflammation and soft tissue swelling/phlegmon along the dorsal aspect of the distal foot. This has a somewhat hyperdense appearance.Developing abscess would be difficult to exclude entirely. However, no underlying osseous abnormality. TECHNICAL DOCUMENTATION: Quality ID # 436: Final reports with documentation of one or more dose reduction techniques (e.g., Automated exposure control, adjustment of the mA and/or kV according to patient size, use of iterative reconstruction technique) copyright 2010 [employer]- All Rights Reserved
[2018-08-12] MEDS ORDERED: DILTIAZEM HCL INJ 25 MG/5 ML VIAL IV ONE ×2 (05:00→20:45)
[2018-08-12] MEDS ORDERED: DILTIAZEM HCL 90 MG TABLET PO ONE (05:00)
[2018-08-12] MEDS ORDERED: DILTIAZEM HCL 90 MG TABLET ONE (05:11)
[2018-08-12] MEDS: CLINDAMYCIN 300 MG/D5W RTU 300 MG/50 ML RTUPB IV SCH ×3 (06:10→23:41)
[2018-08-12] MEDS: LEVOTHYROXINE SODIUM 0.075 MG TABLET PO SCH (06:10)
[2018-08-12 06:18] LABS: HEMATOCRIT 35.3 % (36.0-47.0); HEMOGLOBIN 11.9 g/dL (12.0-15.5); MEAN CORPUSCULAR HEMOGLOBIN 29.6 pg (27.0-33.4); MEAN CORPUSCULAR HGB CONC 33.8 g/dL (32.0-36.0); MEAN CORPUSCULAR VOLUME 88 fl (80-97); PLATELET COUNT 180 10^3/uL (150-450); RED BLOOD COUNT 4.02 10^6/uL (3.72-5.28); RED CELL DISTRIBUTION WIDTH 16.7 % (11.5-14.0); WHITE BLOOD COUNT 9.3 10^3/uL (4.0-10.5)
[2018-08-12 07:02] LABS: ANION GAP 7 (5-19); BLOOD UREA NITROGEN 20 mg/dL (7-20); CALCIUM 8.4 mg/dL (8.4-10.2); CARBON DIOXIDE 33 mmol/L (22-30); CHLORIDE 97 mmol/L (98-107); GLUCOSE 89 mg/dL (75-110); POTASSIUM 3.4 mmol/L (3.6-5.0); SODIUM 137.2 mmol/L (137-145)
[2018-08-12] MEDS ORDERED: DILTIAZEM HCL INJ 25 MG/5 ML VIAL ONE (09:01)
[2018-08-12] MEDS ORDERED: POTASSIUM CHLORIDE 10 MEQ CAPSULE.ER PO ONE (10:25)
--- NOTE | 2018-08-12 10:33 | PDOC PROGRESS REPORT ---
Subjective Progress Note for:: 08/12/18 Subjective:: Patient was seen and examined at bedside. Swelling of her left foot is persistent. And is tender. She has chronic dyspnea on exertion. She has bilateral pleural effusions. Her ejection fraction last February was normal. She developed A. fib with rapid ventricular response last night. She was given IV Cardizem 20 mg at night. She was given another dose of 10 mg this morning. She takes 90 milligrams of Cardizem every 8 hours. We will increase her dose to Cardizem CD 180 mg twice daily. Reason For Visit: LEFT LEG CELLULITIS Physical Exam Vital Signs: Temp Pulse Resp BP Pulse Ox 97.6 F 110 H 16 138/96 H 97 08/12/18 08:19 08/12/18 08:19 08/12/18 08:19 08/12/18 08:19 08/12/18 08:19 Intake & Output 08/11/18 08/12/18 08/13/18 06:59 06:59 06:59 Intake Total 672 470 Output Total 500 Balance 672 -30 Weight 112 lb 10.499 oz 107 lb 12.897 oz General appearance: PRESENT: no acute distress, cooperative, thin Head exam: PRESENT: atraumatic, normocephalic Eye exam: ABSENT: conjunctival injection Mouth exam: PRESENT: moist, neck supple Neck exam: ABSENT: meningismus, tenderness Respiratory exam: PRESENT: other - Reason breathing sounds lower lungs bilaterally. ABSENT: accessory muscle use Cardiovascular exam: PRESENT: irregular rhythm, tachycardia GI/Abdominal exam: PRESENT: normal bowel sounds, soft. ABSENT: tenderness Rectal exam: PRESENT: deferred Extremities exam: PRESENT: other - Swelling of the dorsal aspect of the left foot with fluctuation most likely an abscess or hematoma. ABSENT: pedal edema Neurological exam: PRESENT: alert, awake, oriented to person, oriented to place, oriented to time, oriented to situation Results Laboratory Results: 08/12/18 05:33 08/12/18 05:33 08/12/18 08/12/18 05:33 05:33 WBC 9.3 RBC 4.02 Hgb 11.9 L Hct 35.3 L MCV 88 MCH 29.6 MCHC 33.8 RDW 16.7 H Plt Count 180 Sodium 137.2 Potassium 3.4 L Chloride 97 L Carbon Dioxide 33 H Anion Gap 7 BUN 20 Creatinine 0.50 L Est GFR ( Amer) > 60 Est GFR (Non-Af Amer) > 60 Glucose 89 Calcium 8.4 08/09/18 08/10/18 14:51 11:27 Troponin I < 0.012 NT-Pro-B Natriuret Pep 5720 H Impressions: Extremity Arterial Study 08/09/18 14:22 IMPRESSION: ESSENTIALLY NORMAL LEFT LOWER EXTREMITY ARTERIAL DOPPLER. Chest X-Ray 08/10/18 00:00 IMPRESSION: Bilateral pleural effusions left greater than right with bilateral lower lobe collapse and consolidation. Lower Extremity CT 08/11/18 00:00 IMPRESSION: Diffuse subcutaneous edema/inflammation likely reflecting cellulitis. More focal inflammation and soft tissue swelling/phlegmon along the dorsal aspect of the distal foot. This has a somewhat hyperdense appearance.Developing abscess would be difficult to exclude entirely. However, no underlying osseous abnormality. TECHNICAL DOCUMENTATION: Quality ID # 436: Final reports with documentation of one or more dose reduction techniques (e.g., Automated exposure control, adjustment of the mA and/or kV according to patient size, use of iterative reconstruction technique) copyright 2011 [employer]- All Rights Reserved Assessment & Plan - Diagnosis (1) Cellulitis of lower leg Is this a current diagnosis for this admission?: Yes Plan: We suspect abscess versus hematoma on the dorsal part of left foot. Continue antibiotics. Consult orthopedic surgery pending. CT scan reviewed. (2) CHF (congestive heart failure) Qualifiers: Heart failure type: combined systolic and diastolic Heart failure chronic ity: acute on chronic Qualified Code(s): I50.43 - Acute on chronic combined systolic (congestive) and diastolic (congestive) heart failure Is this a current diagnosis for this admission?: Yes Plan: Continue IV Lasix. Repeat echocardiogram is pending. Consult cardiology pending. (3) HLD (hyperlipidemia) Qualifiers: Hyperlipidemia type: unspecified Qualified Code(s): E78.5 - Hyperlipidemia, unspecified Is this a current diagnosis for this admission?: Yes Plan: continue statin (4) HTN (hypertension) Qualifiers: Hypertension type: essential hypertension Qualified Code(s): I10 - Essential (primary) hypertension Is this a current diagnosis for this admission?: Yes Plan: Continue current medications. Monitor blood pressure. (5) Hypothyroid Is this a current diagnosis for this admission?: Yes Plan: Continue levothyroxine (6) Pleural effusion Is this a current diagnosis for this admission?: Yes Plan: May need thoracentesis. (7) Atrial fibrillation with rapid ventricular response Is this a current diagnosis for this admission?: Yes Plan: She has a history of atrial fibrillation. She developed A. fib with rapid ventricular response last night. She was given IV Cardizem 20 mg at night. She was given another dose of 10 mg this morning. She takes 90 milligrams of Cardizem every 8 hours. We will increase her dose to Cardizem CD 180 mg twice daily.
[2018-08-12] MEDS: FUROSEMIDE INJ/PF 40 MG/4 ML SDV IV SCH ×2 (10:57→23:38)
[2018-08-12] MEDS: CITALOPRAM HYDROBROMIDE 20 MG TABLET PO SCH (10:57)
[2018-08-12] MEDS ORDERED: DILTIAZEM HCL 180 MG CAPSULE.CR PO SCH (11:00)
[2018-08-12] MEDS ORDERED: DILTIAZEM HCL 90 MG TABLET PO SCH (12:00)
--- NOTE | 2018-08-12 13:53 | PDOC CONSULTATION ---
Consultation Consult Date: 08/12/18 Consult reason:: Left foot swelling History of Present Illness Admission Date/PCP: 08/09/18 17:25 AYSE CAO MD History of Present Illness: GIBSON VILLARREAL is a 88 year old female who previously had a I&D the left foot infected hematoma. She was placed on antibiotics and given a dressing. Patient since has been admitted here to [facility] and developed swelling again and purple discoloration of the dorsal foot mass with a scab. Orthopedic was consulted for evaluation of potential abscess. Speaking to the family members she denies any fevers or chills. She states she has been on her course of antibiotics. Admits that the redness is not present and only sees the discoloration and purple mass with a scab on her foot. Patient complains of tenderness and pain and weightbearing causes discomfort as well. Denies any other extremity injury or abscess or swelling Past Medical History Cardiac Medical History: Reports: Atrial Fibrillation, Congestive Heart Failure, Coronary Artery Disease, Hyperlipidema, Hypertension, Peripheral Vascular Disease Pulmonary Medical History: Reports: Bronchitis Denies: Tuberculosis Endocrine Medical History: Reports: Hypothyroidism GI Medical History: Reports: Hiatal Hernia Psychiatric Medical History: Reports: Depression Past Surgical History Past Surgical History: Reports: Cardiac Catheterization - december 2011, Cholecystectomy - 1995, Coronary Artery Bypass Graft, Hysterectomy, Pacemaker Comment Only: Gastric Bypass Surgery - Triple Social History Smoking Status: Never Smoker Frequency of Alcohol Use: None Hx Recreational Drug Use: No Drugs: None Hx Prescription Drug Abuse: No Family History Family History: CAD, CVA, Hypertension Parental Family History Reviewed: No Children Family History Reviewed: No Sibling(s) Family History Reviewed.: No Medication/Allergy Home Medications: Nitroglycerin [Nitrostat 0.4 mg (1/150 Gr) Tabs 25/Bottle] 0.4 mg SL DAILYP PRN 11/18/11 Citalopram Hydrobromide [Celexa 10 mg Tablet] 10 mg PO DAILY 02/24/18 Levothyroxine Sodium [Synthroid 0.075 mg Tablet] 0.075 mg PO Q6AM 02/24/18 Pitavastatin Calcium [Livalo] 2 mg PO Q48H MDD AT BEDTIME 02/24/18 Apixaban [Eliquis 2.5 mg Tablet] 2.5 mg PO BID #60 tablet 03/02/18 Diltiazem HCl [Cardizem 60 mg Tablet] 60 mg PO Q8 #90 tablet 03/02/18 Torsemide [Demadex 20 mg Tablet] 5 mg PO Q48H #14 tablet 03/02/18 Allergies/Adverse Reactions: cefdinir [From Omnicef] Allergy (Unknown, Verified 05/30/17 17:09) Choline Fenofibrate [From Trilipix] Allergy (Unknown, Verified 05/30/17 17:09) clopidogrel bisulfate [From Plavix] Allergy (Unknown, Verified 05/30/17 17:09) codeine [Codeine] Allergy (Unknown, Verified 05/30/17 17:09) guaifenesin [From Mucinex] Allergy (Unknown, Verified 05/30/17 17:09) hydralazine [Hydralazine] Allergy (Unknown, Verified 05/30/17 17:09) Influenza Vaccine,Trival 2010 * [Influenza Vaccine,Trival 2010] Allergy (Unknown, Verified 05/30/17 17:09) lovastatin [From Mevacor] Allergy (Unknown, Verified 05/30/17 17:09) meperidine HCl [From Demerol] Allergy (Unknown, Verified 05/30/17 17:09) niacin [Niacin] Allergy (Unknown, Verified 05/30/17 17:09) nifedipine [From Procardia] Allergy (Unknown, Verified 05/30/17 17:09) pentazocine lactate [From Talwin] Allergy (Unknown, Verified 05/30/17 17:09) pravastatin sodium [From Pravachol] Allergy (Unknown, Verified 05/30/17 17:09) propoxyphene HCl [From Darvon] Allergy (Unknown, Verified 05/30/17 17:09) rosuvastatin calcium [From Crestor] Allergy (Unknown, Verified 05/30/17 17:09) Sulfa (Sulfonamide Antibiotics) Allergy (Unknown, Verified 05/30/17 17:09) atorvastatin calcium [From Lipitor] Adverse Reaction (Severe, Verified 05/30/17 17:09) Review of Systems Review of Systems: Constitutional: [PRESENT: as per HPI. ABSENT: chills, fever(s), headache(s), weight gain, weight loss] Eyes: [ABSENT: visual disturbances] Ears: [ABSENT: hearing changes] Cardiovascular: [ABSENT: chest pain, dyspnea on exertion, edema, orthropnea, palpitations] Respiratory: [ABSENT: cough, hemoptysis] Gastrointestinal: [ABSENT: abdominal pain, constipation, diarrhea, hematemesis, hematochezia, nausea, vomiting] Genitourinary: [ABSENT: dysuria, hematuria] Musculoskeletal: As per HPI Integumentary: [ABSENT: rash, wounds] Neurological: [ABSENT: abnormal gait, abnormal speech, confusion, dizziness, focal weakness, syncope] Psychiatric: [ABSENT: anxiety, depression, homicidal ideation, suicidal ideation] Endocrine: [ABSENT: cold intolerance, heat intolerance, menstrual abnormalities, polydipsia, polyuria] Hematologic/Lymphatic: [ABSENT: easy bleeding, easy bruising, lymphadenopathy] Physical Exam Vital Signs: Temp Pulse Resp BP Pulse Ox 36.2 C 101 H 18 109/72 91 L 08/12/18 11:42 08/12/18 11:42 08/12/18 11:42 08/12/18 11:42 08/12/18 11:42 Intake & Output 08/11/18 08/12/18 08/13/18 06:59 06:59 06:59 Intake Total 672 470 Output Total 500 Balance 672 -30 Weight 51.1 kg 48.9 kg General appearance: PRESENT: no acute distress Head exam: PRESENT: atraumatic, normocephalic Eye exam: PRESENT: EOMI, other - Round pupils with white sclera Respiratory exam: PRESENT: symmetrical, unlabored. ABSENT: accessory muscle use, tachypnea Vascular exam: PRESENT: normal capillary refill Adult Front & Back Image: 1 - Hematoma on the dorsum of the foot with a black scab on top from previous incision and drainage. I do not see any erythema. The markings show that there is no erythema and there is things Within the margins. She has full flexion- extension of her ankle. Results Laboratory Results: 08/12/18 05:33 08/12/18 05:33 08/12/18 08/12/18 05:33 05:33 WBC 9.3 RBC 4.02 Hgb 11.9 L Hct 35.3 L MCV 88 MCH 29.6 MCHC 33.8 RDW 16.7 H Plt Count 180 Sodium 137.2 Potassium 3.4 L Chloride 97 L Carbon Dioxide 33 H Anion Gap 7 BUN 20 Creatinine 0.50 L Est GFR ( Amer) > 60 Est GFR (Non-Af Amer) > 60 Glucose 89 Calcium 8.4 08/09/18 08/10/18 14:51 11:27 Troponin I < 0.012 NT-Pro-B Natriuret Pep 5720 H Impressions: Extremity Arterial Study 08/09/18 14:22 IMPRESSION: ESSENTIALLY NORMAL LEFT LOWER EXTREMITY ARTERIAL DOPPLER. Chest X-Ray 08/10/18 00:00 IMPRESSION: Bilateral pleural effusions left greater than right with bilateral lower lobe collapse and consolidation. Lower Extremity CT 08/11/18 00:00 IMPRESSION: Diffuse subcutaneous edema/inflammation likely reflecting cellulitis. More focal inflammation and soft tissue swelling/phlegmon along the dorsal aspect of the distal foot. This has a somewhat hyperdense appearance.Developing abscess would be difficult to exclude entirely. However, no underlying osseous abnormality. TECHNICAL DOCUMENTATION: Quality ID # 436: Final reports with documentation of one or more dose reduction techniques (e.g., Automated exposure control, adjustment of the mA and/or kV according to patient size, use of iterative reconstruction technique) copyright 2011 [employer]- All Rights Reserved Assessment & Plan - Diagnosis (1) Traumatic hematoma of left foot Qualifiers: Encounter type: initial encounter Qualified Code(s): S90.32XA - Contusion of left foot, initial encounter Is this a current diagnosis for this admission?: Yes Plan: 88-year-old female with recurrent hematoma of the left foot. Previous scab on the foot is dry with no drainage. There is no erythema. I believe she responded to antibiotics. Her white count and sed rate are all within its. She has no fevers. I believe this can resolve on its own and will just continue doing dressing changes as needed. No need for surgical intervention at this time. If she develops clinical objective findings concerning for infected hematoma then please call us back otherwise we will sign off.
[2018-08-12 18:55] LABS: FLUID APPEARANCE HAZY; FLUID COLOR YELLOW; FLUID SOURCE LUNG; FLUID TYPE PLEURAL; FLUID VISCOSITY LIQUID
--- NOTE | 2018-08-12 19:04 | RADIOLOGY REPORT (SQ) ---
EXAM DESCRIPTION: CHEST SINGLE VIEW COMPLETED DATE/TIME: 08/12/2018 6:50 pm REASON FOR STUDY: Post thoracentesis COMPARISON: 08/10/2018 EXAM PARAMETERS: NUMBER OF VIEWS: One view. TECHNIQUE: Single frontal radiographic view of the chest acquired. RADIATION DOSE: NA LIMITATIONS: None. FINDINGS: LUNGS AND PLEURA: Bilateral pleural effusions and basilar opacity. Slight decrease in the left effusion. No pneumothorax. MEDIASTINUM AND HILAR STRUCTURES: No masses. Contour normal. HEART AND VASCULAR STRUCTURES: Heart enlarged. CABG hardware. BONES: No acute findings. HARDWARE: Pacemaker. OTHER: No other significant finding. IMPRESSION: Bilateral pleural effusions. Left pleural effusion is decreased over previous. No pneu mothorax. TECHNICAL DOCUMENTATION: JOB ID: [id number] [employer]- All Rights Reserved Reading location - IP/workstation name: NIA
--- NOTE | 2018-08-12 20:25 | Operative Report ---
Bedside Procedure - History of Present Illness History of Present Illness: GIBSON VILLARREAL is a 88 year old female who previously had a I&D the left foot infected hematoma. She was placed on antibiotics and given a dressing. Patient since has been admitted here to [facility] and developed swelling again and purple discoloration of the dorsal foot mass with a scab. Orthopedic was consulted for evaluation of potential abscess. Speaking to the family members she denies any fevers or chills. She states she has been on her course of antibiotics. Admits that the redness is not present and only sees the discoloration and purple mass with a scab on her foot. Patient complains of tenderness and pain and weightbearing causes discomfort as well. Denies any other extremity injury or abscess or swelling Indication for Procedure: pleural effusion Date: 08/12/18 Surgeon: JADYN WINSTON - Thoracentesis Left Time completed: 16:00 Consent obtained: Yes Thoracentesis pre-procedure: Sterile drapes applied Anesthetic type: 1% Lidocaine mL's of anesthetic: 5 Number of attempts: 1 Ultrasound guided: Yes Complications: No Notes: indication: pleural effusion performed by: Jadyn Winston MD cosent was obtained from prior to the procedure. Indications, risks, and benefits were explained at length. procedure summary: A time out was performed and the chest x-ray was reviewed, the appropriate side was confirmed and marked. usual sterile procedures were maintained throughout the procedure. The appropriate level was percussed and confirmed by ultrasound. 1% lidocaine was used to anesthesize the skin, subcutaneous tissue, superior aspect of the rib periosteum and parietal pleura. A finder needle was then introduced over the superior aspect of the rib to locate the pleural fluid; straw colored fluid was aspirated. A scalpel was used to shaheen the skin at the insertion site. The thoracentesis needle was then introduced through the skin incision into the pleural space using negative aspiration pressure and the red colometric indicator to confirm appropriate positioning of the needle. The thoracentesis catheter was then threaded without difficulty. 1100 ml of straw colored fluid was removed without difficulty. The catheter was then removed. No immediate complications were noted during the procedure. A post-procedure chest x-ray shows no pneumothorax. The fluid will be sent for studies.
[2018-08-12] MEDS: DILTIAZEM HCL 60 MG TABLET PO SCH (23:37)
[2018-08-13] MEDS: CLINDAMYCIN 300 MG/D5W RTU 300 MG/50 ML RTUPB IV SCH (05:50)
[2018-08-13] MEDS: DILTIAZEM HCL 60 MG TABLET PO SCH ×3 (05:50→16:24)
[2018-08-13] MEDS: LEVOTHYROXINE SODIUM 0.075 MG TABLET PO SCH (05:52)
--- NOTE | 2018-08-13 07:26 | EKG REPORT ---
SEVERITY:- ABNORMAL ECG - ATRIAL FIBRILLATION RBBB AND LPFB ST DEPRESSION, CONSIDER ISCHEMIA, ANT-LAT LDS : Confirmed by: Osiris Rivers MD 13-Aug-2018 07:25:44
[2018-08-13 09:28] LABS: ANION GAP 8 (5-19); BLOOD UREA NITROGEN 18 mg/dL (7-20); CALCIUM 8.5 mg/dL (8.4-10.2); CARBON DIOXIDE 32 mmol/L (22-30); CHLORIDE 98 mmol/L (98-107); GLUCOSE 108 mg/dL (75-110); POTASSIUM 4.1 mmol/L (3.6-5.0); SODIUM 137.8 mmol/L (137-145)
--- NOTE | 2018-08-13 10:26 | RADIOLOGY REPORT (SQ) ---
EXAM DESCRIPTION: CT HEAD WITHOUT COMPLETED DATE/TIME: 08/13/2018 10:17 am REASON FOR STUDY: AMS COMPARISON: None. TECHNIQUE: Axial images acquired through the brain without intravenous contrast. Images reviewed wi th bone, brain and subdural windows. Additional sagittal and coronal reconstructions were generated. Images stored on PACS. All CT scanners at this facility use dose modulation, iterative reconstruction, and/or weight based d osing when appropriate to reduce radiation dose to as low as reasonably achievable (ALARA). [facility]: Dose Right [facility]: CareDose [facility]: Dose Right [facility]: Teradose 4D [facility]: [employer] Direct RADIATION DOSE: CT Rad equipment meets quality standard of care and radiation dose reduction techniq ues were employed. CTDIvol: 48.6 - 48.6 mGy. DLP: 1859 mGy-cm.mGy. LIMITATIONS: Patient motion. FINDINGS: VENTRICLES: Prominent. CEREBRUM: No masses. No hemorrhage. No midline shift. Areas of low density in the white matter mos t likely due to chronic micro-vascular ischemic change. No evidence for acute infarction. CEREBELLUM: No masses. No hemorrhage. No alteration of density. No evidence for acute infarction. EXTRAAXIAL SPACES: Age-related involutional change. No fluid collections. No masses. ORBITS AND GLOBE: No intra- or extraconal masses. Normal contour of globe without masses. CALVARIUM: No fracture. PARANASAL SINUSES: No fluid or mucosal thickening. SOFT TISSUES: No mass or hematoma. OTHER: No other significant finding. IMPRESSION: CHRONIC CHANGES OF ATROPHY AND MICROVASCULAR ISCHEMIA. NO ACUTE PROCESS. EVIDENCE OF ACUTE STROKE: NO. TECHNICAL DOCUMENTATION: JOB ID: [id number] Quality ID # 436: Final reports with documentation of one or more dose reduction techniques (e.g., Au tomated exposure control, adjustment of the mA and/or kV according to patient size, use of iterative reconstruction technique) 2010 [employer]- All Rights Reserved Reading location - IP/workstation name: [email or web address]
[2018-08-13] MEDS: FUROSEMIDE INJ/PF 40 MG/4 ML SDV IV SCH ×2 (11:09→22:19)
[2018-08-13] MEDS: CITALOPRAM HYDROBROMIDE 20 MG TABLET PO SCH (11:09)
[2018-08-13] MEDS: APIXABAN 2.5 MG TABLET PO SCH (11:10)
--- NOTE | 2018-08-13 13:50 | PDOC PROGRESS REPORT ---
Subjective Progress Note for:: 08/13/18 Subjective:: Patient was seen and examined at bedside. She is weak and lethargic. She is status post thoracentesis of the left pleural effusion yesterday. Orthopedic surgery do not recommend any intervention. Diagnostic impression is hematoma. Her atrial fibrillation improved after Cardizem dose changed. Echocardiogram and cardiology consult is pending. Her ejection fraction last February was normal. Reason For Visit: LEFT LEG CELLULITIS Physical Exam Vital Signs: Temp Pulse Resp BP Pulse Ox 97.5 F 120 H 20 126/102 H 92 08/13/18 11:38 08/13/18 12:52 08/13/18 12:52 08/13/18 11:38 08/13/18 12:52 Intake & Output 08/12/18 08/13/18 08/14/18 06:59 06:59 06:59 Intake Total 470 724 50 Output Total 500 300 Balance -30 424 50 Weight 107 lb 12.897 oz 107 lb 5.842 oz General appearance: PRESENT: thin Head exam: PRESENT: atraumatic, normocephalic Eye exam: ABSENT: nystagmus Mouth exam: PRESENT: moist, neck supple Neck exam: ABSENT: meningismus, tenderness Respiratory exam: PRESENT: other - Decreased breathing sounds right lower lobe. ABSENT: accessory muscle use Cardiovascular exam: PRESENT: irregular rhythm Pulses: PRESENT: normal radial pulses GI/Abdominal exam: PRESENT: normal bowel sounds, soft. ABSENT: mass, tenderness Rectal exam: PRESENT: deferred Neurological exam: PRESENT: alert, awake, oriented to person, oriented to place, oriented to time, oriented to situation Results Laboratory Results: 08/12/18 05:33 08/13/18 04:32 08/12/18 08/13/18 16:50 04:32 Sodium 137.8 Potassium 4.1 Chloride 98 Carbon Dioxide 32 H Anion Gap 8 BUN 18 Creatinine 0.52 Est GFR ( Amer) > 60 Est GFR (Non-Af Amer) > 60 Glucose 108 Calcium 8.5 Magnesium 1.7 Fluid Type PLEURAL Fluid Source LUNG Fluid Color YELLOW Fluid Appearance HAZY Fluid Viscosity LIQUID Fluid WBC 58 Fluid RBC 2140 08/09/18 08/10/18 14:51 11:27 Troponin I < 0.012 NT-Pro-B Natriuret Pep 5720 H Impressions: Extremity Arterial Study 08/09/18 14:22 IMPRESSION: ESSENTIALLY NORMAL LEFT LOWER EXTREMITY ARTERIAL DOPPLER. Lower Extremity CT 08/11/18 00:00 IMPRESSION: Diffuse subcutaneous edema/inflammation likely reflecting cellulitis. More focal inflammation and soft tissue swelling/phlegmon along the dorsal aspect of the distal foot. This has a somewhat hyperdense appearance.Developing abscess would be difficult to exclude entirely. However, no underlying osseous abnormality. TECHNICAL DOCUMENTATION: Quality ID # 436: Final reports with documentation of one or more dose reduction techniques (e.g., Automated exposure control, adjustment of the mA and/or kV according to patient size, use of iterative reconstruction technique) copyright 2011 [employer] All Rights Reserved Chest X-Ray 08/12/18 00:00 IMPRESSION: Bilateral pleural effusions. Left pleural effusion is decreased over previous. No pneumothorax. Head CT 08/13/18 00:00 IMPRESSION: CHRONIC CHANGES OF ATROPHY AND MICROVASCULAR ISCHEMIA. NO ACUTE PROCESS. EVIDENCE OF ACUTE STROKE: NO. Assessment & Plan - Diagnosis (1) Cellulitis of lower leg Is this a current diagnosis for this admission?: Yes Plan: Orthopedic surgery evaluate the patient and diagnostic impression as hematoma. Will stop antibiotics. (2) CHF (congestive heart failure) Qualifiers: Heart failure type: combined systolic and diastolic Heart failure chronicity: acute on chronic Qualified Code(s): I50.43 - Acute on chronic combined systolic (congestive) and diastolic (congestive) heart failure Is this a current diagnosis for this admission?: Yes Plan: Continue IV Lasix. Repeat echocardiogram is pending. Consult cardiology pending. (3) HLD (hyperlipidemia) Qualifiers: Hyperlipidemia type: unspecified Qualified Code(s): E78.5 - Hyperlipidemia, unspecified Is this a current diagnosis for this admission?: Yes Plan: continue statin (4) HTN (hypertension) Qualifiers: Hypertension type: essential hypertension Qualified Code(s): I10 - Essential (primary) hypertension Is this a current diagnosis for this admission?: Yes Plan: Continue current medications. Monitor blood pressure. (5) Hypothyroid Is this a current diagnosis for this admission?: Yes Plan: Continue levothyroxine (6) Pleural effusion Is this a current diagnosis for this admission?: Yes Plan: There is post left-sided thoracentesis. May need right-sided thoracentesis as well. (7) Atrial fibrillation with rapid ventricular response Is this a current diagnosis for this admission?: Yes Plan: She has a history of atrial fibrillation. She developed A. fib with rapid ventricular response. She was given IV Cardizem boluses over the past 2 days. On her Cardizem dose was increased. Cardiology consult is pending. This m orning when I saw her, her rate was in the 90s.
--- NOTE | 2018-08-13 15:42 | RADIOLOGY REPORT (SQ) ---
EXAM DESCRIPTION: CHEST SINGLE VIEW COMPLETED DATE/TIME: 08/13/2018 3:20 pm REASON FOR STUDY: pleural effusion COMPARISON: 08/12/2018 NUMBER OF VIEWS: One view. TECHNIQUE: Single frontal radiographic image of the chest acquired. LIMITATIONS: Positioning. FINDINGS: LUNGS AND PLEURA: Bilateral pleural effusions and associated airspace disease. There has been interval silhouetting of the left heart border and diaphragm. No pneumothorax. MEDIASTINUM AND HEART: Stable heart size and mediastinal structures. SUPPORT DEVICES: Appropriate location without change. BONY STRUCTURES: No acute findings. HARDWARE: None. OTHER: No other significant finding. IMPRESSION: Worsening CHF or superimposed pneumonia. Reading location - IP/workstation name: [email or web address]
[2018-08-13] MEDS ORDERED: LABETALOL HCL INJ 20 MG/4 ML DISP.SYRIN IV ONE (16:15)
[2018-08-13 16:38] LABS: A/G RATIO 0.8 (0.7-1.7); ALBUMIN 2 2.9 g/dL (2.9-4.4); ALPHA-2-GLOBULIN 2 0.6 g/dL (0.4-1.0); BETA GLOBULINS 1.1 g/dL (0.7-1.3); GAMMA GLOBULIN 1.8 g/dL (0.4-1.8); GLOBULIN TOTAL 3.8 g/dL (2.2-3.9); MONOCLONAL SPIKE Not Observed g/dL (Not Observ); PROTEIN TOTAL SERUM 6.7 g/dL (6.0-8.5)
[2018-08-13 16:38] LABS: M-SPIKE % UR Not Observed % (Not Observ); PROTEIN TOTAL URINE <4.0 mg/dL (Not Estab.)
--- NOTE | 2018-08-13 17:30 | RADIOLOGY REPORT (SQ) ---
EXAM DESCRIPTION: CT CHEST WITHOUT COMPLETED DATE/TIME: 08/13/2018 5:10 pm REASON FOR STUDY: abnormal CXR, worsening effusiona and infiltrates COMPARISON: None. TECHNIQUE: CT scan performed of the chest without intravenous contrast. Images reviewed with lung, soft tissue and bone windows. Reconstructed coronal and sagittal MPR images reviewed. All images st ored on PACS. All CT scanners at this facility use dose modulation, iterative reconstruction, and/or weight based d osing when appropriate to reduce radiation dose to as low as reasonably achievable (ALARA). [facility]: Dose Right [facility]: CareDose [facility]: Dose Right [facility]: Teradose 4D [facility]: [employer] RADIATION DOSE: CT Rad equipment meets quality standard of care and radiation dose reduction techniq ues were employed. CTDIvol: 5.5 mGy. DLP: 193 mGy-cm. mGy. LIMITATIONS: No technical limitations. FINDINGS: LUNGS AND PLEURA: Large bilateral pleural effusions. Prominent airspace disease in the le ft lower lobe. Left-sided pneumothorax, approximately 10% in the apex and 10% in the base. HILAR AND MEDIASTINAL STRUCTURES: No identified masses or abnormal nodes. No obvious aneurysm. HEART AND VASCULAR STRUCTURES: No aneurysm. Cardiomegaly. No pericardial effusion. UPPER ABDOMEN: No significant findings. Limited exam. THYROID AND OTHER SOFT TISSUES: No masses. No adenopathy. BONES: No significant finding. HARDWARE: Pacemaker. Coronary bypass hardware. OTHER: No other significant findings. IMPRESSION: 1. CARDIOMEGALY. LARGE BILATERAL PLEURAL EFFUSIONS. 2. AIRSPACE DISEASE IN THE LEFT LOWER LOBE, POSSIBLY DUE TO ATELECTASIS ALTHOUGH CONCERNING FOR PNEUM ONIA. 3. APPROXIMATELY 10% PNEUMOTHORAX ON THE LEFT SIDE. THE PATIENT APPARENTLY HAD A THORACENTESIS PERFO RMED YESTERDAY. TECHNICAL DOCUMENTATION: JOB ID: [id number] Quality ID # 436: Final reports with documentation of one or more dose reduction techniques (e.g., Au tomated exposure control, adjustment of the mA and/or kV according to patient size, use of iterative reconstruction technique) 2010 [employer]- All Rights Reserved Reading location - IP/workstation name: [email or web address]
[2018-08-13] MEDS ORDERED: MORPHINE SULFATE 10 MG/ML INJ IV PRN (17:48)
[2018-08-13] MEDS ORDERED: IMIPENEM/CILASTATIN SODIUM INJ 500 MG VIAL IV SCH (22:30)
--- NOTE | 2018-08-13 22:58 | RADIOLOGY REPORT (SQ) ---
EXAM DESCRIPTION: XR CHEST 1 VIEW COMPLETED DATE/TME: 08/13/2018 20:00 CLINICAL HISTORY: 88 years Female, Pleural Effusion COMPARISON: Same day. NUMBER OF VIEWS/TECHNIQUE: 1/AP FINDINGS: Bilateral lower thoracic opacity/effusion. Moderate mixed airspace and interstitial opacities. Atherosclerotic vascular disease. Left cardiac stimulator with leads. Sternotomy. Cardiac/mediastinal hardware/clips. Mildly enlarged cardiac silhouette. No pneumothorax. Stable bony thorax. IMPRESSION: No significant change.
[2018-08-13] MEDS ORDERED: DIPHENHYDRAMINE HCL 25 MG/10 ML UDC PO ONE (23:15)
[2018-08-13] MEDS ORDERED: LANSOPRAZOLE 15 MG TAB.RAP.DR PO SCH (23:15)
[2018-08-14] MEDS ORDERED: DIPHENHYDRAMINE HCL 25 MG/10 ML UDC PO ONE (00:05)
[2018-08-14] MEDS ORDERED: IMIPENEM/CILASTATIN SODIUM INJ 500 MG VIAL IV PRN (00:11)
[2018-08-14] MEDS ORDERED: IMIPENEM/CILASTATIN SODIUM INJ 500 MG VIAL IV ONE (00:29)
[2018-08-14] MEDS: DILTIAZEM HCL 60 MG TABLET PO SCH ×4 (00:36→17:26)
[2018-08-14] MEDS ORDERED: IMIPENEM/CILASTATIN SODIUM 500 MG in NORMAL SALINE 100 ML IV ONE (01:00)
--- NOTE | 2018-08-14 02:53 | RADIOLOGY REPORT (SQ) ---
EXAM DESCRIPTION: XR CHEST 1 VIEW COMPLETED DATE/TME: 08/14/2018 00:00 CLINICAL HISTORY: 88 years Female, PLUERAL EFFUSION COMPARISON: One day prior. NUMBER OF VIEWS/TECHNIQUE: 1/AP FINDINGS: Bilateral lower thoracic opacity/effusion. Moderate mixed airspace and interstitial opacities. Sternotomy. Cardiac/mediastinal hardware/clips. Left cardiac stimulator with leads. Mildly enlarged cardiac silhouette. No pneumothorax. Stable bony thorax. IMPRESSION: No significant change.
[2018-08-14] MEDS ORDERED: DIPHENHYDRAMINE HCL 25 MG/10 ML UDC PO SCH (06:00)
[2018-08-14] MEDS: LEVOTHYROXINE SODIUM 0.075 MG TABLET PO SCH (06:29)
[2018-08-14 06:44] LABS: HEMATOCRIT 31.7 % (36.0-47.0); HEMOGLOBIN 10.8 g/dL (12.0-15.5); MEAN CORPUSCULAR HGB CONC 34.1 g/dL (32.0-36.0); MEAN CORPUSCULAR VOLUME 88 fl (80-97); PLATELET COUNT 137 10^3/uL (150-450); RED BLOOD COUNT 3.61 10^6/uL (3.72-5.28); RED CELL DISTRIBUTION WIDTH 17.3 % (11.5-14.0); WHITE BLOOD COUNT 8.1 10^3/uL (4.0-10.5)
[2018-08-14 07:00] LABS: ANION GAP 7 (5-19); BLOOD UREA NITROGEN 21 mg/dL (7-20); CALCIUM 8.3 mg/dL (8.4-10.2); CARBON DIOXIDE 35 mmol/L (22-30); CHLORIDE 97 mmol/L (98-107); GLUCOSE 94 mg/dL (75-110); POTASSIUM 3.4 mmol/L (3.6-5.0); SODIUM 139.3 mmol/L (137-145)
--- NOTE | 2018-08-14 10:11 | RADIOLOGY REPORT (SQ) ---
EXAM DESCRIPTION: CHEST SINGLE VIEW COMPLETED DATE/TIME: 08/14/2018 9:56 am REASON FOR STUDY: pneumothorax left s/p thoracentesis. COMPARISON: 08/14/2018 EXAM PARAMETERS: NUMBER OF VIEWS: One view. TECHNIQUE: Single frontal radiographic view of the chest acquired. RADIATION DOSE: NA LIMITATIONS: None. FINDINGS: LUNGS AND PLEURA: Lungs demonstrate persistent bibasilar effusions and associated consolid ation. No appreciable pneumothorax. MEDIASTINUM AND HILAR STRUCTURES: No discrete masses. HEART AND VASCULAR STRUCTURES: Stable. Atherosclerotic aorta. BONES: Median sternotomy changes. HARDWARE: Left-sided cardiac pacer with leads overlying right atrium right ventricle. CABG hardware. OTHER: No other significant finding. IMPRESSION: Persistent moderate bilateral pleural effusions, left greater than right. No appreciabl e pneumothorax. TECHNICAL DOCUMENTATION: JOB ID: [id number] [employer]- All Rights Reserved Reading location - IP/workstation name: [email or web address]
[2018-08-14] MEDS: FUROSEMIDE INJ/PF 40 MG/4 ML SDV IV SCH (10:57)
--- NOTE | 2018-08-14 10:59 | PDOC PROGRESS REPORT ---
Subjective Progress Note for:: 08/14/18 Subjective:: Patient was seen and examined at bedside. She is weak and frail. Orthopedic surgery do not recommend any intervention. Diagnostic impression is hematoma. Her atrial fibrillation with controlled rate now. Echocardiogram and cardiology consult is still pending. Her ejection fraction last February was normal. Dr. Mckeon was consulted and I see that he ordered IV antibiotics. Daughter is at bedside. Reason For Visit: LEFT LEG CELLULITIS Physical Exam Vital Signs: Temp Pulse Resp BP Pulse Ox 98.1 F 87 18 93/51 L 96 08/14/18 08:00 08/14/18 08:00 08/14/18 08:00 08/14/18 08:00 08/14/18 08:00 Pulse Oximeter Continuous Start: 08/13/18 22:11 Freq: RTQ4 Status: Active Protocol: Document 08/14/18 04:00 LRO (Rec: 08/14/18 06:16 LRO [id number]) Pulse Oximetry Assessment Oxygen Saturation (92-100) 96 Oxygen Flow Rate (L/min) 2 Oxygen Delivery Method Nasal Cannula Fraction of Inspired Oxygen (FIO2) 28 Equipment Usage Equipment in Use Continuous SpO2 Machine # 13 Intake & Output 08/13/18 08/14/18 08/15/18 06:59 06:59 06:59 Intake Total 724 391 Output Total 300 Balance 424 391 Weight 107 lb 5.842 oz 103 lb 6.349 oz General appearance: PRESENT: thin Head exam: PRESENT: atraumatic, normocephalic Mouth exam: PRESENT: moist, neck supple Neck exam: ABSENT: meningismus, tenderness Respiratory exam: PRESENT: crackles Cardiovascular exam: PRESENT: irregular rhythm GI/Abdominal exam: PRESENT: normal bowel sounds, soft Rectal exam: PRESENT: deferred Neurological exam: PRESENT: awake Results Laboratory Results: 08/14/18 05:47 08/14/18 05:47 08/11/18 08/14/18 08/14/18 04:36 05:47 05:47 WBC 8.1 RBC 3.61 L Hgb 10.8 L Hct 31.7 L MCV 88 MCH 30.0 MCHC 34.1 RDW 17.3 H Plt Count 137 L Sodium 139.3 Potassium 3.4 L Chloride 97 L Carbon Dioxide 35 H Anion Gap 7 BUN 21 H Creatinine 0.59 Est GFR ( Amer) > 60 Est GFR (Non-Af Amer) > 60 Glucose 94 Calcium 8.3 L Total Protein 6.7 Albumin 2.9 08/09/18 08/10/18 14:51 11:27 Troponin I < 0.012 NT-Pro-B Natriuret Pep 5720 H Impressions: Extremity Arterial Study 08/09/18 14:22 IMPRESSION: ESSENTIALLY NORMAL LEFT LOWER EXTREMITY ARTERIAL DOPPLER. Lower Extremity CT 08/11/18 00:00 IMPRESSION: Diffuse subcutaneous edema/inflammation likely reflecting cellulitis. More focal inflammation and soft tissue swelling/phlegmon along the dorsal aspect of the distal foot. This has a somewhat hyperdense appearance.Developing abscess would be difficult to exclude entirely. However, no underlying osseous abnormality. TECHNICAL DOCUMENTATION: Quality ID # 436: Final reports with documentation of one or more dose reduction techniques (e.g., Automated exposure control, adjustment of the mA and/or kV according to patient size, use of iterative reconstruction technique) copyright 2011 [email or web address]- All Rights Reserved Chest CT 08/13/18 00:00 IMPRESSION: 1. CARDIOMEGALY. LARGE BILATERAL PLEURAL EFFUSIONS. 2. AIRSPACE DISEASE IN THE LEFT LOWER LOBE, POSSIBLY DUE TO ATELECTASIS ALTHOUGH CONCERNING FOR PNEUMONIA. 3. APPROXIMATELY 10% PNEUMOTHORAX ON THE LEFT SIDE. THE PATIENT APPARENTLY HAD A THORACENTESIS PERFORMED YESTERDAY. Head CT 08/13/18 00:00 IMPRESSION: CHRONIC CHANGES OF ATROPHY AND MICROVASCULAR ISCHEMIA. NO ACUTE PROCESS. EVIDENCE OF ACUTE STROKE: NO. Chest X-Ray 08/14/18 08:45 IMPRESSION: Persistent moderate bilateral pleural effusions, left greater than right. No appreciable pneumothorax. Assessment & Plan - Diagnosis (1) Cellulitis of lower leg Is this a current diagnosis for this admission?: Yes Plan: Orthopedic surgery evaluate the patient and diagnostic impression as hematoma. We stopped antibiotics. (2) CHF (congestive heart failure) Qualifiers: Heart failure type: combined systolic and diastolic Heart failure chronicity: acute on chronic Qualified Code(s): I50.43 - Acute on chronic combined systolic (congestive) and diastolic (congestive) heart failure Is this a current diagnosis for this admission?: Yes Plan: Continue IV Lasix. Repeat echocardiogram is still pending. Consult cardiology still pending. (3) HLD (hyperlipidemia) Qualifiers: Hyperlipidemia type: unspecified Qualified Code(s): E78.5 - Hyperlipidemia, unspecified Is this a current diagnosis for this admission?: Yes Plan: continue statin (4) HTN (hypertension) Qualifiers: Hypertension type: essential hypertension Qualified Code(s): I10 - Essential (primary) hypertension Is this a current diagnosis for this admission?: Yes Plan: Continue current medications. Monitor blood pressure. She is hypotensive now. We will watch her closely. (5) Hypothyroid Is this a current diagnosis for this admission?: Yes Plan: Continue levothyroxine. TSH normal. (6) Pleural effusion Is this a current diagnosis for this admission?: Yes Plan: There is post left-sided thoracentesis. Developed pneumothorax ex vacuo. We will not do thoracentesis. Will encourage incentive spirometry. Pulmonology is consulted. I see that the ordered IV antibiotics. (7) Atrial fibrillation with rapid ventricular response Is this a current diagnosis for this admission?: Yes Plan: She has a history of atrial fibrillation. She developed A. fib with rapid ventricular response. She was given IV Cardizem boluses and now she is on oral Cardizem. Rate is controlled. Cardiology consult still pending. Echocardiogram report still pending. (8) Rib lesion Is this a current diagnosis for this admission?: Yes Plan: Focal lucencies observed on x-ray but was negative on the CT scan. Protein electrophoresis is negative for monoclonal antibodies. No M spike. (9) Pneumothorax Is this a current diagnosis for this admission?: Yes Plan: Pneumothorax ex vacuo, resolved. Likely due to trapped lung versus atelectasis. Patient is very cachectic. She is not eating well and she is not getting out of bed. Neurology is consulted. Encourage ambulation. 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 Encouraged using incentive spirometry. Discussed with the daughter.
[2018-08-14] MEDS ORDERED: POTASSIUM CHLORIDE 10 MEQ CAPSULE.ER PO ONE (11:15)
[2018-08-14] MEDS: DIPHENHYDRAMINE HCL 25 MG/10 ML UDC PO SCH ×2 (11:26→17:26)
[2018-08-14] MEDS: CITALOPRAM HYDROBROMIDE 20 MG TABLET PO SCH (12:14)
[2018-08-14] MEDS: IMIPENEM/CILASTATIN SODIUM 500 MG in NORMAL SALINE 100 ML IV SCH ×2 (12:16→18:20)
[2018-08-14] MEDS ORDERED: POTASSIUM CHLORIDE 20 MEQ/15 ML UDCUP PO ONE (13:00)
[2018-08-14 13:57] LABS: ALBUMIN BODY FLUID 1.4 g/dL (.); TOTAL PROTEIN BODY FLUID 3.2 g/dL (.)
--- NOTE | 2018-08-14 14:35 | XCELERA REPORT ---
[address] [address] Transthoracic Echocardiogram Report Name: GIBSON VILLARREAL Age: 88 yrs Gender: Female : 1930 Patient Status: Inpatient Patient Location: [address] [place], [place] [address]A Study Date: 08/13/2018 02:54 PM Procedure: A complete two-dimensional transthoracic echocardiogram was performed (2D, M-mode, spectral and color flow Doppler). The study was technically difficult with many images being suboptimal in quality. Reason For Study: CHF Ordering Physician: YNES YOUNG Performed By: Mari Reagan Interpretation Summary Left ventricular systolic function is normal. There is mild concentric left ventricular hypertrophy. The left ventricle is grossly normal size. Wall motion cannot be accurately commented on, but no definite regional wall motion abnormalities noted. There is mild right ventricular hypertrophy. The right ventricle is mildly dilated. Right ventricular function cannot be assessed due to poor image quality. The left atrium is moderately dilated. The right atrium is moderately dilated. There is a mild amount of mitral regurgitation There is no mitral valve stenosis. There is a mild amount of aortic regurgitation There is no aortic valve stenosis There is a trace to mild amount of tricuspid regurgitation There is mild pulmonary hypertension by echo Right ventricular systolic pressure is estimated to be elevated at 30-40mmHg. The pulmonic valve is not well visualized. The aortic root is not well visualized but is probably normal size. The inferior vena cava appeared normal and decreased < 50% with respiration (RAP 10-15 mmHg) There is no pericardial effusion. MMode/2D Measurements & Calculations RVDd: 4.3 cm LVIDd: 3.7 cm FS: 19.1 % Ao root diam: 3.2 cm IVSd: 0.73 cm LVIDs: 3.0 cm EDV(Teich): 58.3 ml Ao root area: 7.9 cm2 LVPWd: 1.5 cm ESV(Teich): 34.9 ml EF(Teich): 40.1 % Doppler Measurements & Calculations MV E max mateusz: MV dec slope: Ao V2 max: AI max mateusz: 78.8 cm/sec 133.1 cm/sec 392.0 cm/sec MV A max mateusz: 598.7 cm/sec2 Ao max PG: AI max P.5 mmHg 32.2 cm/sec MV dec time: 7.1 mmHg AI dec slope: MV E/A: 2.5 0.13 sec Ao V2 mean: 88.6 cm/sec 408.4 cm/sec2 Ao mean PG: AI P1/2t: 281.2 msec 3.7 mmHg Ao V2 VTI: 21.7 cm LV V1 max PG: TR max mateusz: 2.6 mmHg 251.5 cm/sec LV V1 mean PG: TR max P.3 mmHg 1.3 mmHg LV V1 max: 81.3 cm/sec LV V1 mean: 52.0 cm/sec LV V1 VTI: 12.2 cm Left Ventricle The left ventricle is grossly normal size. There is mild concentric left ventricular hypertrophy. Left ventricular systolic function is normal. LV diastolic function could not be adequately assessed due to atrial fibrilation. Wall motion cannot be accurately commented on, but no definite regional wall motion abnormalities noted. Right Ventricle The right ventricle is mildly dilated. There is mild right ventricular hypertrophy. Right ventricular function cannot be assessed due to poor image quality. Atria The right atrium is moderately dilated. The left atrium is moderately dilated. A patent foramen ovale is present. Mitral Valve The mitral valve leaflets are sclerotic, but show no functional abnormalities. There is no mitral valve stenosis. There is a mild amount of mitral regurgitation. Aortic Valve The aortic valve is not well visualized secondary to technical limitations. There is no aortic valve stenosis. There is a mild amount of aortic regurgitation. Tricuspid Valve The tricuspid valve is not well visualized secondary to technical limitations. There is no tricuspid stenosis. There is a trace to mild amount of tricuspid regurgitation. There is mild pulmonary hypertension by echo. Right ventricular systolic pressure is estimated to be elevated at 30-40mmHg. Pulmonic Valve The pulmonic valve is not well visualized. Great Vessels The aortic root is not well visualized but is probably normal size. The inferior vena cava appeared normal and decreased < 50% with respiration (RAP 10-15 mmHg). Effusions There is no pericardial effusion. : YNES YOUNG > Ynes Young
[2018-08-14] MEDS: LANSOPRAZOLE 15 MG TAB.RAP.DR PO SCH (15:14)
[2018-08-14] MEDS: IBUPROFEN 800 MG TABLET PO PRN (17:26)
[2018-08-14] MEDS: APIXABAN 2.5 MG TABLET PO SCH (17:26)
[2018-08-14] MEDS ORDERED: FUROSEMIDE 40 MG TABLET PO SCH (18:00)
--- NOTE | 2018-08-14 20:36 | PDOC PROGRESS REPORT ---
Subjective Progress Note for:: 08/14/18 Subjective:: Patient seems to be doing better with gradual improvement. Pt is denying any chest arm or neck discomfort. Patient denying any PND, orthopnea. Patient denied any sustained palpitations, dizziness, syncope, near syncope. Patient denying any fever chills. Patient denying any other significant discomfort. Patient is maintaining chronic atrial fibrillation. Review of systems: Rest review of systems negative. Medications: Medications have been reviewed. Reason For Visit: LEFT LEG CELLULITIS Physical Exam Vital Signs: Temp Pulse Resp BP Pulse Ox 97.6 F 78 16 97/56 L 95 08/14/18 16:00 08/14/18 16:00 08/14/18 16:00 08/14/18 16:00 08/14/18 16:00 Pulse Oximeter Continuous Start: 08/13/18 22:11 Freq: RTQ4 Status: Active Protocol: Document 08/14/18 16:00 LDA (Rec: 08/14/18 17:09 LDA [id number]) Pulse Oximetry Assessment Oxygen Saturation (92-100) 95 Oxygen Flow Rate (L/min) 2 Oxygen Delivery Method Nasal Cannula Fraction of Inspired Oxygen (FIO2) 28 Equipment Usage Equipment in Use Continuous SpO2 Machine # 13 Intake & Output 08/13/18 08/14/18 08/15/18 06:59 06:59 06:59 Intake Total 724 391 970 Output Total 300 450 Balance 424 391 520 Weight 48.7 kg 46.9 kg Exam: GENERAL: Underweight and debilitated looking. Alert and oriented x3 HEAD: Atraumatic, normocephalic. EYES: LOAN, sclera anicteric, conjunctiva are normal. ENT: Moist mucous membranes. No oral ulcerations or bleeding gums noted. No obvious ear, nose or throat abnormalities noted. NECK: supple without lymphadenopathy. Trachea is central. No cervical or axillary lymphadenopathy noted. Carotids are 2+, JVD WNL LUNGS: Bilateral mild wheezes rales or rhonchi noted. No significant dullness noted on percussion. CHEST: Palpation of the chest wall shows no significant chest wall tenderness. HEART: [place] [employer]GER, No PSH, 1/6 SHELL aortic area, 1/6 groves systolic murmur mitral area, no rubs, no gallops. ABDOMEN: Soft, no significant tenderness appreciated, normoactive bowel sounds. No guarding, no rebound. No rigidity noted . No masses appreciated. EXTREMITIES: Pedal pulses are 1-2+, no calf tenderness noted. No clubbing or cyanosis. negative pedal edema noted NEUROLOGICAL: Focused neurological exam showed no significant neurologic deficit. Normal speech, no focal weakness appreciated. PSYCH: Normal mood, normal affect. Judgment and insight within normal limits. SKIN: No significant ecchymosis, skin is noted to be warm. MUSCULOSKELETAL EXAM: No significant acute joint swelling noted. Results Laboratory Results: 08/14/18 05:47 08/14/18 05:47 08/11/18 08/12/18 08/14/18 04:36 16:50 05:47 WBC 8.1 RBC 3.61 L Hgb 10.8 L Hct 31.7 L MCV 88 MCH 30.0 MCHC 34.1 RDW 17.3 H Plt Count 137 L Sodium Potassium Chloride Carbon Dioxide Anion Gap BUN Creatinine Est GFR ( Amer) Est GFR (Non-Af Amer) Glucose Calcium Total Protein 6.7 Albumin 2.9 Fluid Total Protein 3.2 Fluid Albumin 1.4 Fluid LDH 79 08/14/18 05:47 WBC RBC Hgb Hct MCV MCH MCHC RDW Plt Count Sodium 139.3 Potassium 3.4 L Chloride 97 L Carbon Dioxide 35 H Anion Gap 7 BUN 21 H Creatinine 0.59 Est GFR ( Amer) > 60 Est GFR (Non-Af Amer) > 60 Glucose 94 Calcium 8.3 L Total Protein Albumin Fluid Total Protein Fluid Albumin Fluid LDH 08/09/18 17:25 Blood Blood Culture - Final NO GROWTH IN 5 DAYS 08/09/18 14:51 Blood Blood Culture - Final NO GROWTH IN 5 DAYS 08/09/18 08/10/18 14:51 11:27 Troponin I < 0.012 NT-Pro-B Natriuret Pep 5720 H EKG Comments: Telemetry shows atrial fibrillation Impressions: Extremity Arterial Study 08/09/18 14:22 IMPRESSION: ESSENTIALLY NORMAL LEFT LOWER EXTREMITY ARTERIAL DOPPLER. Lower Extremity CT 08/11/18 00:00 IMPRESSION: Diffuse subcutaneous edema/inflammation likely reflecting cellulitis. More focal inflammation and soft tissue swelling/phlegmon along the dorsal aspect of the distal foot. This has a somewhat hyperdense appearance.Developing abscess would be difficult to exclude entirely. However, no underlying osseous abnormality. TECHNICAL DOCUMENTATION: Quality ID # 436: Final reports with documentation of one or more dose reduction techniques (e.g., Automated exposure control, adjustment of the mA and/or kV according to patient size, use of iterative reconstruction technique) copyright 2011 [employer]- All Rights Reserved Chest CT 08/13/18 00:00 IMPRESSION: 1. CARDIOMEGALY. LARGE BILATERAL PLEURAL EFFUSIONS. 2. AIRSPACE DISEASE IN THE LEFT LOWER LOBE, POSSIBLY DUE TO ATELECTASIS ALTHOUGH CONCERNING FOR PNEUMONIA. 3. APPROXIMATELY 10% PNEUMOTHORAX ON THE LEFT SIDE. THE PATIENT APPARENTLY HAD A THORACENTESIS PERFORMED YESTERDAY. Head CT 08/13/18 00:00 IMPRESSION: CHRONIC CHANGES OF ATROPHY AND MICROVASCULAR ISCHEMIA. NO ACUTE PROCESS. EVIDENCE OF ACUTE STROKE: NO. Chest X-Ray 08/14/18 08:45 IMPRESSION: Persistent moderate bilateral pleural effusions, left greater than right. No appreciable pneumothorax. Assessment & Plan - Diagnosis (1) Atrial fibrillation with rapid ventricular response Is this a current diagnosis for this admission?: Yes (2) Failure to thrive Qualifiers: Failure to thrive age range: in adult Qualified Code(s): R62.7 - Adult failure to thrive Is this a current diagnosis for this admission?: Yes (3) CHF (congestive heart failure) Qualifiers: Heart failure type: combined systolic and diastolic Heart failure chronicity: acute on chronic Qualified Code(s): I50.43 - Acute on chronic combined systolic (congestive) and diastolic (congestive) heart failure Is this a current diagnosis for this admission?: Yes (4) HLD (hyperlipidemia) Qualifiers: Hyperlipidemia type: unspecified Qualified Code(s): E78.5 - Hyperlipidemia, unspecified Is this a current diagnosis for this admission?: Yes (5) HTN (hypertension) Qualifiers: Hypertension type: essential hypertension Qualified Code(s): I10 - Essential (primary) hypertension Is this a current diagnosis for this admission?: Yes - Notes Notes: Patient had a 2D echocardiogram which was reviewed today. It showed LVEF to be WNL. However RV is enlarged. Patient noted to have mild pulmonary hypertension. As regards atrial fibrillation, patient was on chronic Coumadin therapy. As regards CHF patient seems compensated. I am noticing that patient now made a DNR. She looks very undernourished and debilitated. At this point, do not feel patient will be a candidate for any aggressive intervention. Will recommend supportive care. - Time Time with patient: Greater than 35 minutes - More than 50% of the time spent coordinating care, discussing management plans with involved caregivers. Management plans discussed with involved personnels. Medical decision making was of moderate to high complexity, patient's has multiple comorbidities. Medications reviewed and adjusted accordingly: Yes
[2018-08-15] MEDS: DILTIAZEM HCL 60 MG TABLET PO SCH ×4 (05:37→17:54)
[2018-08-15] MEDS: DIPHENHYDRAMINE HCL 25 MG/10 ML UDC PO SCH ×3 (05:46→17:54)
[2018-08-15] MEDS: IMIPENEM/CILASTATIN SODIUM 500 MG in NORMAL SALINE 100 ML IV SCH ×3 (05:48→19:30)
[2018-08-15] MEDS: LEVOTHYROXINE SODIUM 0.075 MG TABLET PO SCH (05:50)
[2018-08-15 06:05] LABS: HEMATOCRIT 31.4 % (36.0-47.0); HEMOGLOBIN 10.7 g/dL (12.0-15.5); MEAN CORPUSCULAR HEMOGLOBIN 30.4 pg (27.0-33.4); MEAN CORPUSCULAR HGB CONC 34.2 g/dL (32.0-36.0); MEAN CORPUSCULAR VOLUME 89 fl (80-97); PLATELET COUNT 135 10^3/uL (150-450); RED BLOOD COUNT 3.53 10^6/uL (3.72-5.28); RED CELL DISTRIBUTION WIDTH 17.2 % (11.5-14.0); WHITE BLOOD COUNT 8.8 10^3/uL (4.0-10.5)
[2018-08-15 06:24] LABS: ANION GAP 7 (5-19); BLOOD UREA NITROGEN 26 mg/dL (7-20); CALCIUM 8.3 mg/dL (8.4-10.2); CARBON DIOXIDE 33 mmol/L (22-30); CHLORIDE 98 mmol/L (98-107); GLUCOSE 108 mg/dL (75-110); POTASSIUM 4.2 mmol/L (3.6-5.0); SODIUM 137.9 mmol/L (137-145)
--- NOTE | 2018-08-15 08:16 | CONSULTATION REPORT E ---
Consultation Report NAME: GIBSON VILLARREAL : 1930 AGE: 88Y DATE: 08/13/2018 413 A TO: ELOY SIERRA M.D. FROM: JONA GLASS M.D. Requesting Physician HISTORY OF PRESENT ILLNESS: The patient is an 88-year-old female who came in with left foot infected hematoma with an I and D. Consulted because of bilateral pleural effusion. The patient had thoracentesis done today on the left side showing 10% pneumothorax on chest CT scan. The patient looks stable, had a chest x-ray done at 8 p.m. showing bilateral pleural effusion and right small pneumothorax on chest x-ray. The patient appeared to be stable, not in apparent severe respiratory distress. Repeat chest x-ray patient upright with a portable upright chest x-ray to evaluate the pneumothorax at bedside. The patient had continuous pulse ox at bedside as well. The patient currently is on 2 L oxygen. The patient was seen in followup by Dr. Dago Porras who performed the ultrasound-guided thoracentesis. PAST MEDICAL HISTORY: 1. History of atrial fibrillation. 2. Congestive heart failure. 3. Chronic kidney disease. 4. Hyperlipidemia. 5. Hypertension. 6. Peripheral vascular disease. 7. History of bronchitis. 8. Hypothyroidism. 9. Hiatal hernia. 10. Depression. PAST SURGICAL HISTORY: 1. The patient had a cardiac cath in 2011. 2. Cholecystectomy. 3. Coronary artery bypass graft. 4. Hysterectomy. 5. Pacemaker. 6. Cardiac bypass. SOCIAL HISTORY: Never smoked. Present alcohol use: None. Denies any illicit drug use or prescription drug abuse. HOME MEDICATIONS: Include: 1. Nitroglycerin. 2. Celexa. 3. Synthroid. 4. Eliquis. 5. Cardizem. 5. Torsemide. ALLERGIES: Include: 1. OMNICEF. 2. TRILIPIX. 3. PLAVIX. 4. CODEINE. 5. MUCINEX. 6. HYDRALAZINE. 7. LOSARTAN. 8. DEMEROL. 9. NIACIN. 10. NIFEDIPINE. 11. ROSUVASTATIN. REVIEW OF SYSTEMS: CONSTITUTIONAL: No fever or chills. Complains about fatigue. ENT: Denies any eye pain, sore throat, or mouth pain. CARDIOVASCULAR: Denies any chest pain or shortness of breath. RESPIRATORY: No shortness of breath. No coughing. No purulent sputum production. GASTROINTESTINAL: No nausea, vomiting, diarrhea. GENITOURINARY: No dysuria or hematuria. SKIN: No rashes, lesions, or sores. PHYSICAL EXAMINATION: GENERAL: The patient appeared sleepy, not in apparent respiratory distress and afebrile. VITAL SIGNS: Temperature 98.2 with a T-max of 98.3, heart rate is 101, blood pressure is 98/66, respiratory rate is 18, saturation 95% on 2 L nasal cannula. CHEST AND LUNGS: No wheezing, no rhonchi, no coarse crackles. Fine rales bibasilarly. CARDIOVASCULAR: S1, S2 distinct. Normal rate, regular rhythm. ABDOMEN: Flabby. Positive bowel sounds. Soft, nondistended. EXTREMITIES: No joint swelling. LABORATORY: CBC done yesterday showed white count of 9.3, hemoglobin is elevated at 0.9, hematocrit is 25.3, platelet count is 180. Chemistry: Sodium is 137, potassium is 4.1, chloride 98, CO2 is 32, BUN is 18, creatinine 0.52, glucose 108, calcium is 8.5, magnesium 1.7. Thoracentesis done yesterday showed white count of 58 with RBC of 21,140, suggestive of possible traumatic. The pleural fluid collection is pending. The patient had chest CT scan on August 13 showing about 10% pneumothorax left lung, had pleural effusion bilaterally and consolidation involving the left lower lobe, opacity also involving the right lower lobe. Could not completely exclude pneumonic process. PLAN AND RECOMMENDATIONS: 1. Agree with repeating the chest x-ray tonight to rule out worsening pneumothorax. The patient is followed by hospitalist - Dr Mitchell. 2. Prepare pneumothorax kit keep at bedside in case patient deteriorates if we need to put a pneumothorax pleural catheter to drain the air and at the same time the pleural fluid. 3. Started patient on IV Primaxin 500 mg IV piggyback q. 8 hours. Considering patient's cephalosporin allergy, will give patient Benadryl 25 mg elixir po every 8 hours one hour before IV Primaxin dose. 4. Slowly diurese the patient, keeping the blood pressure above 110 mmHg systolic. Will connect patient to continuous pulse ox at bedside tonight so patient can be carefully watched overnight. Will repeat the chest x-ray again tomorrow morning. DICTATING PHYSICIAN: ELOY SIERRA MD,PAUL,MPH [id number] PHY#: [id number] ID: [id number] JOB#: [id number] ACCT: [id number] cc:ELOY SIERRA M.D. > MTDD
[2018-08-15] MEDS: POTASSIUM CHLORIDE 10 MEQ CAPSULE.ER PO SCH (10:00)
[2018-08-15] MEDS: APIXABAN 2.5 MG TABLET PO SCH ×2 (10:00→17:53)
[2018-08-15] MEDS: LANSOPRAZOLE 15 MG TAB.RAP.DR PO SCH (10:00)
[2018-08-15] MEDS: FUROSEMIDE 20 MG TABLET PO SCH ×2 (10:00→17:53)
[2018-08-15] MEDS ORDERED: FUROSEMIDE 40 MG TABLET PO SCH (10:00)
[2018-08-15] MEDS: CITALOPRAM HYDROBROMIDE 20 MG TABLET PO SCH (10:01)
[2018-08-15] MEDS: LEVALBUTEROL HCL NEB 1.25 MG/3 ML AMPUL NEB PRN (10:12)
[2018-08-15 11:39] LABS: ALANINE AMINOTRANSFERASE 18 U/L (9-52); ALBUMIN 2.8 g/dL (3.5-5.0); ALKALINE PHOSPHATASE 89 U/L (38-126); ANION GAP 8 (5-19); ASPARTATE AMINO TRANSFERASE 32 U/L (14-36); BILIRUBIN,DIRECT 0.6 mg/dL (0.0-0.4); BILIRUBIN,TOTAL 1.2 mg/dL (0.2-1.3); BLOOD UREA NITROGEN 25 mg/dL (7-20); CALCIUM 8.4 mg/dL (8.4-10.2); CARBON DIOXIDE 33 mmol/L (22-30); CHLORIDE 98 mmol/L (98-107); GLUCOSE 158 mg/dL (75-110); POTASSIUM 4.3 mmol/L (3.6-5.0); SODIUM 138.9 mmol/L (137-145); TOTAL PROTEIN 5.8 g/dL (6.3-8.2)
--- NOTE | 2018-08-15 15:37 | PROGRESS NOTE E ---
Progress Note NAME: GIBSON VILLARREAL : 1930 AGE: 88Y DATE: ROOM: 413 SUBJECTIVE: This is an 88-year-old female with a past medical history of congestive heart failure, CAD, peripheral vascular disease, admitted for increased shortness of breath. Had serial chest x-rays done since last night. There is no apparent pneumothorax noted on the serial chest x-rays. The patient appeared to be breathing appropriately. No fever spikes for the last 24 hours. OBJECTIVE: GENERAL: The patient appeared afebrile, lethargic or sleepy. VITAL SIGNS: Afebrile with a T-max of temperature 98.5, blood pressure is 94/49, heart rate 77, respiratory rate 15, saturation 96% on 2L nasal cannula. EYES: No jaundice or pallor. EARS, NOSE, AND THROAT: No ear drainage. CHEST AND LUNGS: No wheezing, rhonchi, no coarse crackles noted. Decreased breath sounds bibasilarly. CARDIAC: S1, S2 distinct. Normal rate and regular rhythm. ABDOMEN: Flabby, positive bowel sounds, soft, nondistended, nontender. EXTREMITIES: No joint swelling, no cellulitis. LABORATORY: CBC done today showed white count of 8.1, hemoglobin is 10.8, hematocrit 31.7, and platelet count of 137. Chemistry showed sodium is 139, potassium is 3.4, chloride 97, CO2 is 35, creatinine 0.59, glucose 94, and calcium 8.3. The pleural fluid collected on 08/12/2018 showed positive pleural effusion pattern. ASSESSMENT: 1. Pleural effusion, bilateral, most likely due to congestive heart failure. 2. Pneumonia, bibasilar, most likely despite absence of leukocytosis and patient's inability to expectorate sputum and severe immunocompromised state PLAN/RECOMMENDATIONS: 1. Recommend continuing the Primaxin for now. 2. Optimize the CHF therapy. May consider low-dose therapy with JUSTIN inhibition. 3. Recommend discussion with family about palliative care and hospice care. DICTATING PHYSICIAN: ELOY SIERRA MD,PAUL,MPH [id number] PHY#: [id number] ID: [id number] JOB#: [id number] ACCT: [id number] cc: > MTDD
--- NOTE | 2018-08-15 17:38 | PDOC PROGRESS REPORT ---
Subjective Progress Note for:: 08/15/18 Subjective:: Patient was seen and examined at bedside. She is weak and frail. She is lethargic and confused. She is not eating or drinking. He is deteriorating clinically. She is on antibiotics by Dr. Mckeon. Reason For Visit: LEFT LEG CELLULITIS Physical Exam Vital Signs: Temp Pulse Resp BP Pulse Ox 98.4 F 109 H 16 106/69 100 08/15/18 07:57 08/15/18 10:12 08/15/18 10:12 08/15/18 07:57 08/15/18 16:00 Pulse Oximeter Continuous Start: 08/13/18 22:11 Freq: RTQ4 Status: Active Protocol: Document 08/15/18 16:00 [facility] (Rec: 08/15/18 16:41 [facility] [id number]) Pulse Oximetry Assessment Oxygen Saturation (92-100) 100 Oxygen Flow Rate (L/min) 2 Oxygen Delivery Method Nasal Cannula Equipment Usage Equipment in Use Continuous SpO2 Machine # 13 Intake & Output 08/14/18 08/15/18 08/16/18 06:59 06:59 06:59 Intake Total 391 1306 100 Output Total 700 Balance 391 606 100 Weight 103 lb 6.349 oz 100 lb 8.493 oz General appearance: PRESENT: thin Head exam: PRESENT: atraumatic, normocephalic Mouth exam: PRESENT: moist, neck supple Neck exam: ABSENT: meningismus, tenderness Respiratory exam: PRESENT: crackles, decreased breath sounds, rhonchi Cardiovascular exam: PRESENT: irregular rhythm Pulses: PRESENT: normal radial pulses GI/Abdominal exam: PRESENT: normal bowel sounds, soft Rectal exam: PRESENT: deferred Neurological exam: PRESENT: altered Psychiatric exam: PRESENT: flat affect Results Laboratory Results: 08/15/18 05:30 08/15/18 10:19 08/15/18 08/15/18 08/15/18 05:30 05:30 10:19 WBC 8.8 RBC 3.53 L Hgb 10.7 L Hct 31.4 L MCV 89 MCH 30.4 MCHC 34.2 RDW 17.2 H Plt Count 135 L Sodium 137.9 138.9 Potassium 4.2 4.3 Chloride 98 98 Carbon Dioxide 33 H 33 H Anion Gap 7 8 BUN 26 H 25 H Creatinine 0.58 0.54 Est GFR ( Amer) > 60 > 60 Est GFR (Non-Af Amer) > 60 > 60 Glucose 108 158 H Calcium 8.3 L 8.4 Magnesium 2.1 Total Bilirubin 1.2 AST 32 ALT 18 Alkaline Phosphatase 89 Total Protein 5.8 L Albumin 2.8 L 08/12/18 16:50 Pleural Fluid - Not Specified Gram Stain - Final 08/12/18 16:50 Pleural Fluid - Not Specified Body Fluid Culture - Final NO AEROBIC OR ANAEROBIC ORGANISMS RECOVERED 08/09/18 17:25 Blood Blood Culture - Final NO GROWTH IN 5 DAYS 08/09/18 14:51 Blood Blood Culture - Final NO GROWTH IN 5 DAYS 08/09/18 08/10/18 14:51 11:27 Troponin I < 0.012 NT-Pro-B Natriuret Pep 5720 H Impressions: Extremity Arterial Study 08/09/18 14:22 IMPRESSION: ESSENTIALLY NORMAL LEFT LOWER EXTREMITY ARTERIAL DOPPLER. Lower Extremity CT 08/11/18 00:00 IMPRESSION: Diffuse subcutaneous edema/inflammation likely reflecting cellulitis. More focal inflammation and soft tissue swelling/phlegmon along the dorsal aspect of the distal foot. This has a somewhat hyperdense appearance.Developing abscess would be difficult to exclude entirely. However, no underlying osseous abnormality. TECHNICAL DOCUMENTATION: Quality ID # 436: Final reports with documentation of one or more dose reduction techniques (e.g., Automated exposure control, adjustment of the mA and/or kV according to patient size, use of iterative reconstruction technique) copyright 2011 [employer]- All Rights Reserved Chest CT 08/13/18 00:00 IMPRESSION: 1. CARDIOMEGALY. LARGE BILATERAL PLEURAL EFFUSIONS. 2. AIRSPACE DISEASE IN THE LEFT LOWER LOBE, POSSIBLY DUE TO ATELECTASIS ALTHOUGH CONCERNING FOR PNEUMONIA. 3. APPROXIMATELY 10% PNEUMOTHORAX ON THE LEFT SIDE. THE PATIENT APPARENTLY HAD A THORACENTESIS PERFORMED YESTERDAY. Head CT 08/13/18 00:00 IMPRESSION: CHRONIC CHANGES OF ATROPHY AND MICROVASCULAR ISCHEMIA. NO ACUTE PROCESS. EVIDENCE OF ACUTE STROKE: NO. Chest X-Ray 08/14/18 08:45 IMPRESSION: Persistent moderate bilateral pleural effusions, left greater than right. No appreciable pneumothorax. Assessment & Plan - Diagnosis (1) Cellulitis of lower leg Is this a current diagnosis for this admission?: Yes Plan: Orthopedic surgery evaluate the patient and diagnostic impression as hematoma. We stopped antibiotics. (2) CHF (congestive heart failure) Qualifiers: Heart failure type: combined systolic and diastolic Heart failure chronicity: acute on chronic Qualified Code(s): I50.43 - Acute on chronic combined systolic (congestive) and diastolic (congestive) heart failure Is this a current diagnosis for this admission?: Yes Plan: Continue IV Lasix. Repeat echocardiogram shows normal EF. Consult cardiology recommended palliative care. (3) HLD (hyperlipidemia) Qualifiers: Hyperlipidemia type: unspecified Qualified Code(s): E78.5 - Hyperlipidemia, unspecified Is this a current diagnosis for this admission?: Yes Plan: continue statin (4) HTN (hypertension) Qualifiers: Hypertension type: essential hypertension Qualified Code(s): I10 - Essential (primary) hypertension Is this a current diagnosis for this admission?: Yes Plan: Continue current medications. Monitor blood pressure. (5) Hypothyroid Is this a current diagnosis for this admission?: Yes Plan: Continue levothyroxine. TSH normal. (6) Pleural effusion Is this a current diagnosis for this admission?: Yes Plan: There is post left-sided thoracentesis. Developed pneumothorax ex vacuo. We will not do thoracentesis. Will encourage incentive spirometry. Pulmonology is consulted. (7) Atrial fibrillation with rapid ventricular response Is this a current diagnosis for this admission?: Yes Plan: She has a history of atrial fibrillation. She developed A. fib with rapid ventricular response. She was given IV Cardizem boluses and now she is on oral Cardizem. Rate is controlled. Cardiology consult appreciated. Echocardiogram shows normal EF. (8) Rib lesion Is this a current diagnosis for this admission?: Yes Plan: Focal lucencies observed on x-ray but was negative on the CT scan. Protein electrophoresis is negative for monoclonal antibodies. No M spike. (9) Pneumothorax Is this a current diagnosis for this admission?: Yes Plan: Pneumothorax ex vacuo, resolved. Likely due to trapped lung versus atelectasis. Patient is very cachectic. She is not eating well and she is not getting out of bed. Encourage ambulation. Continue dietary supplements. encouraged using incentive spirometry. Discussed with the daughter prior. - Plan Summary Plan Summary: We consulted palliative care. I think the patient is a good candidate for hospice.
--- NOTE | 2018-08-15 21:11 | PDOC PROGRESS REPORT ---
Subjective Progress Note for:: 08/15/18 Subjective:: Patient seen on morning rounds. She was noted to be very lethargic and debilitated. Patient did not answer to any questions. Patient is maintaining chronic atrial fibrillation. Review of systems: Rest review of systems negative. Medications: Medications have been reviewed. Reason For Visit: LEFT LEG CELLULITIS Physical Exam Vital Signs: Temp Pulse Resp BP Pulse Ox 97.7 F 76 23 H 106/69 99 08/15/18 16:00 08/15/18 16:00 08/15/18 16:00 08/15/18 07:57 08/15/18 19:36 Pulse Oximeter Continuous Start: 08/13/18 22:11 Freq: RTQ4 Status: Active Protocol: Document 08/15/18 19:36 [facility] (Rec: 08/15/18 19:37 [facility] [id number]) Pulse Oximetry Assessment Oxygen Saturation (92-100) 99 Oxygen Flow Rate (L/min) 2 Oxygen Delivery Method Nasal Cannula Fraction of Inspired Oxygen (FIO2) 28 Equipment Usage Equipment in Use Continuous SpO2 Machine # 13 Intake & Output 08/14/18 08/15/18 08/16/18 06:59 06:59 06:59 Intake Total 391 1306 475 Output Total 700 450 Balance 391 606 25 Weight 46.9 kg 45.6 kg Exam: GENERAL: well-nourished and in no acute distress. Patient is very lethargic and was not able to be aroused. HEAD: Atraumatic, normocephalic. EYES: Pupils equal round and reactive to light, extraocular movements intact, sclera anicteric, conjunctiva are normal. ENT: TMs normal, nares patent, oropharynx clear without exudates. Moist mucous membranes. No oral ulcerations or bleeding gums noted NECK: supple without lymphadenopathy or JVD. Trachea is central. No cervical or axillary lymphadenopathy noted. Carotids are 2+ LUNGS: Breath sounds bibasilar fine crackles at bases. No significant dullness noted. CHEST: Palpation of chest wall shows no significant chest wall tenderness. HEART: [place] [employer], No PSH, 2/6 SHELL aortic area, 1/6 groves systolic murmur mitral area, rubs or gallops. ABDOMEN: Soft, no significant tenderness appreciated, normoactive bowel sounds. No guarding, no rebound. No rigidity noted . No masses appreciated. EXTREMITIES: Pedal pulses are 1-2+, no calf tenderness noted, Trace + pedal edema noted. No clubbing or cyanosis. NEUROLOGICAL: Patient is not able to participate in neurological exam because of patient's current mental status PSYCH: Patient cannot participate in a neurologic and psych exam because of the patient's current mental status SKIN: No significant ecchymosis, rash, ulcerations or signs of pruritus noted. MUSCULOSKELETAL EXAM: No significant joint swelling noted. Results Laboratory Results: 08/15/18 05:30 08/15/18 10:19 08/15/18 08/15/18 08/15/18 05:30 05:30 10:19 WBC 8.8 RBC 3.53 L Hgb 10.7 L Hct 31.4 L MCV 89 MCH 30.4 MCHC 34.2 RDW 17.2 H Plt Count 135 L Sodium 137.9 138.9 Potassium 4.2 4.3 Chloride 98 98 Carbon Dioxide 33 H 33 H Anion Gap 7 8 BUN 26 H 25 H Creatinine 0.58 0.54 Est GFR ( Amer) > 60 > 60 Est GFR (Non-Af Amer) > 60 > 60 Glucose 108 158 H Calcium 8.3 L 8.4 Magnesium 2.1 Total Bilirubin 1.2 AST 32 ALT 18 Alkaline Phosphatase 89 Total Protein 5.8 L Albumin 2.8 L 08/12/18 16:50 Pleural Fluid - Not Specified Gram Stain - Final 08/12/18 16:50 Pleural Fluid - Not Specified Body Fluid Culture - Final NO AEROBIC OR ANAEROBIC ORGANISMS RECOVERED 08/09/18 17:25 Blood Blood Culture - Final NO GROWTH IN 5 DAYS 08/09/18 08/10/18 14:51 11:27 Troponin I < 0.012 NT-Pro-B Natriuret Pep 5720 H Impressions: Extremity Arterial Study 08/09/18 14:22 IMPRESSION: ESSENTIALLY NORMAL LEFT LOWER EXTREMITY ARTERIAL DOPPLER. Lower Extremity CT 08/11/18 00:00 IMPRESSION: Diffuse subcutaneous edema/inflammation likely reflecting cellulitis. More focal inflammation and soft tissue swelling/phlegmon along the dorsal aspect of the distal foot. This has a somewhat hyperdense appearance.Developing abscess would be difficult to exclude entirely. However, no underlying osseous abnormality. TECHNICAL DOCUMENTATION: Quality ID # [id number]: Final reports with documentation of one or more dose reduction techniques (e.g., Automated exposure control, adjustment of the mA and/or kV according to patient size, use of iterative reconstruction technique) copyright 2010 [employer]- All Rights Reserved Chest CT 08/13/18 00:00 IMPRESSION: 1. CARDIOMEGALY. LARGE BILATERAL PLEURAL EFFUSIONS. 2. AIRSPACE DISEASE IN THE LEFT LOWER LOBE, POSSIBLY DUE TO ATELECTASIS ALTHOUGH CONCERNING FOR PNEUMONIA. 3. APPROXIMATELY 10% PNEUMOTHORAX ON THE LEFT SIDE. THE PATIENT APPARENTLY HAD A THORACENTESIS PERFORMED YESTERDAY. Head CT 08/13/18 00:00 IMPRESSION: CHRONIC CHANGES OF ATROPHY AND MICROVASCULAR ISCHEMIA. NO ACUTE PROCESS. EVIDENCE OF ACUTE STROKE: NO. Chest X-Ray 08/14/18 08:45 IMPRESSION: Persistent moderate bilateral pleural effusions, left greater than right. No appreciable pneumothorax. Assessment & Plan - Diagnosis (1) Atrial fibrillation with rapid ventricular response Is this a current diagnosis for this admission?: Yes (2) Failure to thrive Qualifiers: Failure to thrive age range: in adult Qualified Code(s): R62.7 - Adult failure to thrive Is this a current diagnosis for this admission?: Yes (3) CHF (congestive heart failure) Qualifiers: Heart failure type: combined systolic and diastolic Heart failure chronicity: acute on chronic Qualified Code(s): I50.43 - Acute on chronic combined systolic (congestive) and diastolic (congestive) heart failure Is this a current diagnosis for this admission?: Yes (4) HLD (hyperlipidemia) Qualifiers: Hyperlipidemia type: unspecified Qualified Code(s): E78.5 - Hyperlipidemia, unspecified Is this a current diagnosis for this admission?: Yes (5) HTN (hypertension) Qualifiers: Hypertension type: essential hypertension Qualified Code(s): I10 - Essential (primary) hypertension Is this a current diagnosis for this admission?: Yes - Notes Notes: Patient condition has significantly deteriorated. Agree with current management plans by the hospitalist. Agree with DNR status. - Time Time with patient: 15-25 minutes Medications reviewed and adjusted accordingly: Yes
[2018-08-16] MEDS: DIPHENHYDRAMINE HCL 25 MG/10 ML UDC PO SCH ×3 (02:39→17:40)
[2018-08-16] MEDS: DILTIAZEM HCL 60 MG TABLET PO SCH ×4 (02:39→17:40)
[2018-08-16] MEDS: IMIPENEM/CILASTATIN SODIUM 500 MG in NORMAL SALINE 100 ML IV SCH ×3 (04:12→18:50)
[2018-08-16] MEDS: LEVOTHYROXINE SODIUM 0.075 MG TABLET PO SCH (06:06)
[2018-08-16] MEDS: APIXABAN 2.5 MG TABLET PO SCH ×2 (09:48→17:40)
[2018-08-16] MEDS: POTASSIUM CHLORIDE 10 MEQ CAPSULE.ER PO SCH (09:48)
[2018-08-16] MEDS: FUROSEMIDE 20 MG TABLET PO SCH ×2 (09:49→17:40)
[2018-08-16] MEDS: CITALOPRAM HYDROBROMIDE 20 MG TABLET PO SCH (09:49)
[2018-08-16] MEDS: LANSOPRAZOLE 15 MG TAB.RAP.DR PO SCH (09:50)
--- NOTE | 2018-08-16 13:19 | PDOC PROGRESS REPORT ---
Subjective Progress Note for:: 08/16/18 Subjective:: Patient was seen and examined at bedside. She is weak and frail. She is lethargic and confused. She is not eating or drinking. Reason For Visit: LEFT LEG CELLULITIS Physical Exam Vital Signs: Temp Pulse Resp BP Pulse Ox 97.4 F 80 16 113/73 93 08/16/18 12:00 08/16/18 12:36 08/16/18 12:36 08/16/18 12:00 08/16/18 12:36 Pulse Oximeter Continuous Start: 08/13/18 22:11 Freq: RTQ4 Status: Active Protocol: Document 08/16/18 12:36 [facility] (Rec: 08/16/18 12:41 [facility] [id number]) Pulse Oximetry Assessment Oxygen Saturation (92-100) 93 Oxygen Flow Rate (L/min) 3 Oxygen Delivery Method Nasal Cannula Fraction of Inspired Oxygen (FIO2) 32 Equipment Usage Equipment in Use Continuous SpO2 Machine # N 13 Intake & Output 08/15/18 08/16/18 08/17/18 06:59 06:59 06:59 Intake Total 1306 675 Output Total 700 450 Balance 606 225 Weight 100 lb 8.493 oz General appearance: PRESENT: no acute distress, thin Head exam: PRESENT: atraumatic, normocephalic Eye exam: ABSENT: conjunctival injection Mouth exam: PRESENT: moist, neck supple Neck exam: ABSENT: meningismus, tenderness Respiratory exam: PRESENT: decreased breath sounds, rhonchi Cardiovascular exam: PRESENT: irregular rhythm Pulses: PRESENT: normal radial pulses GI/Abdominal exam: PRESENT: normal bowel sounds, soft Neurological exam: PRESENT: altered Results Laboratory Results: 08/15/18 05:30 08/15/18 10:19 08/12/18 16:50 Pleural Fluid - Not Specified Gram Stain - Final 08/12/18 16:50 Pleural Fluid - Not Specified Body Fluid Culture - Final NO AEROBIC OR ANAEROBIC ORGANISMS RECOVERED 08/09/18 08/10/18 14:51 11:27 Troponin I < 0.012 NT-Pro-B Natriuret Pep 5720 H Impressions: Extremity Arterial Study 08/09/18 14:22 IMPRESSION: ESSENTIALLY NORMAL LEFT LOWER EXTREMITY ARTERIAL DOPPLER. Lower Extremity CT 08/11/18 00:00 IMPRESSION: Diffuse subcutaneous edema/inflammation likely reflecting cellulitis. More focal inflammation and soft tissue swelling/phlegmon along the dorsal aspect of the distal foot. This has a somewhat hyperdense appearance.Developing abscess would be difficult to exclude entirely. However, no underlying osseous abnormality. TECHNICAL DOCUMENTATION: Quality ID # [id number]: Final reports with documentation of one or more dose reduction techniques (e.g., Automated exposure control, adjustment of the mA and/or kV according to patient size, use of iterative reconstruction technique) copyright 2011 [employer]- All Rights Reserved Chest CT 08/13/18 00:00 IMPRESSION: 1. CARDIOMEGALY. LARGE BILATERAL PLEURAL EFFUSIONS. 2. AIRSPACE DISEASE IN THE LEFT LOWER LOBE, POSSIBLY DUE TO ATELECTASIS ALTHOUGH CONCERNING FOR PNEUMONIA. 3. APPROXIMATELY 10% PNEUMOTHORAX ON THE LEFT SIDE. THE PATIENT APPARENTLY HAD A THORACENTESIS PERFORMED YESTERDAY. Head CT 08/13/18 00:00 IMPRESSION: CHRONIC CHANGES OF ATROPHY AND MICROVASCULAR ISCHEMIA. NO ACUTE PROCESS. EVIDENCE OF ACUTE STROKE: NO. Chest X-Ray 08/14/18 08:45 IMPRESSION: Persistent moderate bilateral pleural effusions, left greater than right. No appreciable pneumothorax. Assessment & Plan - Diagnosis (1) Cellulitis of lower leg Is this a current diagnosis for this admission?: Yes Plan: Orthopedic surgery evaluate the patient and diagnostic impression as hematoma. We stopped antibiotics. (2) CHF (congestive heart failure) Qualifiers: Heart failure type: combined systolic and diastolic Heart failure chronicity: acute on chronic Qualified Code(s): I50.43 - Acute on chronic combined systolic (congestive) and diastolic (congestive) heart failure Is this a current diagnosis for this admission?: Yes Plan: Continue IV Lasix. Repeat echocardiogram shows normal EF. Consult cardiology recommended palliative care. (3) HLD (hyperlipidemia) Qualifiers: Hyperlipidemia type: unspecified Qualified Code(s): E78.5 - Hyperlipidemia, unspecified Is this a current diagnosis for this admission?: Yes Plan: continue statin (4) HTN (hypertension) Qualifiers: Hypertension type: essential hypertension Qualified Code(s): I10 - Essential (primary) hypertension Is this a current diagnosis for this admission?: Yes Plan: Continue current medications. Monitor blood pressure. (5) Hypothyroid Is this a current diagnosis for this admission?: Yes Plan: Continue levothyroxine. TSH normal. (6) Pleural effusion Is this a current diagnosis for this admission?: Yes Plan: There is post left-sided thoracentesis. Developed pneumothorax ex vacuo. We will not do thoracentesis. Will encourage incentive spirometry. (7) Atrial fibrillation with rapid ventricular response Is this a current diagnosis for this admission?: Yes Plan: She has a history of atrial fibrillation. She developed A. fib with rapid ventricular response. She was given IV Cardizem boluses and now she is on oral Cardizem. Rate is controlled. Cardiology consult appreciated. Echocardiogram shows normal EF. (8) Rib lesion Is this a current diagnosis for this admission?: Yes Plan: Focal lucencies observed on x-ray but was negative on the CT scan. Protein electrophoresis is negative for monoclonal antibodies. No M spike. (9) Pneumothorax Is this a current diagnosis for this admission?: Yes Plan: Pneumothorax ex vacuo, resolved. Likely due to trapped lung versus atelectasis. Patient is very cachectic. She is not eating well and she is not getting out of bed. Encourage ambulation. Continue dietary supplements. encouraged using incentive spirometry. Discussed with the daughter prior. - Plan Summary Plan Summary: Patient is a good candidate for hospice. We have consulted palliative care. Discussed with the daughter. She would wait and talk to palliative care team and discuss with her father and family.
[2018-08-16] MEDS: IBUPROFEN 800 MG TABLET PO PRN (17:40)
--- NOTE | 2018-08-16 22:34 | PDOC PROGRESS REPORT ---
Subjective Progress Note for:: 08/16/18 Subjective:: Patient seen on morning rounds. He is noted to be more alert but still very weak and lethargic. She is quite debilitated and cachectic looking. Patient is maintaining chronic atrial fibrillation. Review of systems: Rest review of systems negative. Medications: Medications have been reviewed. Reason For Visit: LEFT LEG CELLULITIS Physical Exam Vital Signs: Temp Pulse Resp BP Pulse Ox 97.9 F 110 H 20 104/59 L 96 08/16/18 20:00 08/16/18 20:00 08/16/18 20:00 08/16/18 20:00 08/16/18 20:00 Pulse Oximeter Continuous Start: 08/13/18 22:11 Freq: RTQ4 Status: Active Protocol: Document 08/16/18 16:30 [facility] (Rec: 08/16/18 17:49 [facility] [id number]) Pulse Oximetry Assessment Oxygen Saturation (92-100) 96 Oxygen Flow Rate (L/min) 3 Oxygen Delivery Method Nasal Cannula Fraction of Inspired Oxygen (FIO2) 32 Equipment Usage Equipment in Use Continuous SpO2 Machine # [id number] Intake & Output 08/15/18 08/16/18 08/17/18 06:59 06:59 06:59 Intake Total 1306 675 548 Output Total 700 450 430 Balance 606 225 118 Weight 45.6 kg Exam: GENERAL: Very thin built and cachectic looking. Patient is alert but noted to be confused. HEAD: Atraumatic, normocephalic. EYES: Pupils equal round and reactive to light, extraocular movements could not be checked, sclera anicteric, conjunctiva are normal. ENT: TMs normal, nares patent, oropharynx clear without exudates. Moist mucous membranes. No oral ulcerations or bleeding gums noted NECK: supple without lymphadenopathy or JVD. Trachea is central. No cervical or axillary lymphadenopathy noted. Carotids are 2+ LUNGS: Lateral mild wheezing and bibasal crackles at the extreme bases CHEST: Palpation of the chest wall shows no significant chest wall tenderness or abnormalities. HEART: [place] [employer], No PSH, 2/6 SHELL aortic area, 1/6 groves systolic murmur mitral area, no rubs or gallops. ABDOMEN: Soft, no significant tenderness appreciated, normoactive bowel sounds. No guarding, no rebound. No rigidity noted . No masses appreciated. EXTREMITIES: Pedal pulses are 1-2+, no calf tenderness noted, 1+ pedal edema noted. No clubbing or cyanosis. NEUROLOGICAL: She is alert but neurological exam not attempted. PSYCH: Patient alert but psych exam not attempted. Results Laboratory Results: 08/15/18 05:30 08/15/18 10:19 08/09/18 08/10/18 14:51 11:27 Troponin I < 0.012 NT-Pro-B Natriuret Pep 5720 H Impressions: Extremity Arterial Study 08/09/18 14:22 IMPRESSION: ESSENTIALLY NORMAL LEFT LOWER EXTREMITY ARTERIAL DOPPLER. Lower Extremity CT 08/11/18 00:00 IMPRESSION: Diffuse subcutaneous edema/inflammation likely reflecting cellulitis. More focal inflammation and soft tissue swelling/phlegmon along the dorsal aspect of the distal foot. This has a somewhat hyperdense appearance.Developing abscess would be difficult to exclude entirely. However, no underlying osseous abnormality. TECHNICAL DOCUMENTATION: Quality ID # [id number]: Final reports with documentation of one or more dose reduction techniques (e.g., Automated exposure control, adjustment of the mA and/or kV according to patient size, use of iterative reconstruction technique) copyright 2011 [employer]- All Rights Reserved Chest CT 08/13/18 00:00 IMPRESSION: 1. CARDIOMEGALY. LARGE BILATERAL PLEURAL EFFUSIONS. 2. AIRSPACE DISEASE IN THE LEFT LOWER LOBE, POSSIBLY DUE TO ATELECTASIS ALTHOUGH CONCERNING FOR PNEUMONIA. 3. APPROXIMATELY 10% PNEUMOTHORAX ON THE LEFT SIDE. THE PATIENT APPARENTLY HAD A THORACENTESIS PERFORMED YESTERDAY. Head CT 08/13/18 00:00 IMPRESSION: CHRONIC CHANGES OF ATROPHY AND MICROVASCULAR ISCHEMIA. NO ACUTE PROCESS. EVIDENCE OF ACUTE STROKE: NO. Chest X-Ray 08/14/18 08:45 IMPRESSION: Persistent moderate bilateral pleural effusions, left greater than right. No appreciable pneumothorax. Assessment & Plan - Diagnosis (1) Atrial fibrillation with rapid ventricular response Is this a current diagnosis for this admission?: Yes (2) Failure to thrive Qualifiers: Failure to thrive age range: in adult Qualified Code(s): R62.7 - Adult failure to thrive Is this a current diagnosis for this admission?: Yes (3) CHF (congestive heart failure) Qualifiers: Heart failure type: combined systolic and diastolic Heart failure chronicity: acute on chronic Qualified Code(s): I50.43 - Acute on chronic combined systolic (congestive) and diastolic (congestive) heart failure Is this a current diagnosis for this admission?: Yes (4) HLD (hyperlipidemia) Qualifiers: Hyperlipidemia type: unspecified Qualified Code(s): E78.5 - Hyperlipidemia, unspecified Is this a current diagnosis for this admission?: Yes (5) HTN (hypertension) Qualifiers: Hypertension type: essential hypertension Qualified Code(s): I10 - Essential (primary) hypertension Is this a current diagnosis for this admission?: Yes - Notes Notes: Patient patient remains very debilitated and weak. Patient currently DNR. No invasive evaluation planned. Will sign off. Please inform if any further help is needed. - Time Time with patient: 15-25 minutes Medications reviewed and adjusted accordingly: Yes
[2018-08-17] MEDS: DILTIAZEM HCL 60 MG TABLET PO SCH ×5 (01:34→19:02)
[2018-08-17] MEDS: DIPHENHYDRAMINE HCL 25 MG/10 ML UDC PO SCH ×2 (01:34→11:25)
[2018-08-17] MEDS: IMIPENEM/CILASTATIN SODIUM 500 MG in NORMAL SALINE 100 ML IV SCH ×2 (02:59→11:25)
[2018-08-17] MEDS: LEVOTHYROXINE SODIUM 0.075 MG TABLET PO SCH (05:55)
[2018-08-17] MEDS: LEVALBUTEROL HCL NEB 1.25 MG/3 ML AMPUL NEB PRN (09:29)
[2018-08-17] MEDS: APIXABAN 2.5 MG TABLET PO SCH ×2 (10:12→18:25)
[2018-08-17] MEDS: FUROSEMIDE 20 MG TABLET PO SCH ×3 (11:26→19:02)
[2018-08-17] MEDS: LANSOPRAZOLE 15 MG TAB.RAP.DR PO SCH (11:26)
[2018-08-17] MEDS: CITALOPRAM HYDROBROMIDE 20 MG TABLET PO SCH (11:27)
[2018-08-17] MEDS: POTASSIUM CHLORIDE 10 MEQ CAPSULE.ER PO SCH (11:27)
[2018-08-17] MEDS ORDERED: LEVOFLOXACIN 500 MG/D5W RTU 500 MG/100 ML RTUPB IV ONE (12:00)
[2018-08-17] MEDS: IBUPROFEN 800 MG TABLET PO PRN (15:18)
--- NOTE | 2018-08-17 15:31 | PDOC TRANSFER SUMMARY ---
General - Admit/Disc Date/PCP Admission Date/Primary Care Provider: 08/09/18 17:25 AYSE CAO MD Discharge Date: 08/17/18 - Discharge Diagnosis (1) Cellulitis of lower leg Is this a current diagnosis for this admission?: Yes (2) CHF (congestive heart failure) Is this a current diagnosis for this admission?: Yes (3) HLD (hyperlipidemia) Is this a current diagnosis for this admission?: Yes (4) HTN (hypertension) Is this a current diagnosis for this admission?: Yes (5) Hypothyroid Is this a current diagnosis for this admission?: Yes (6) Pleural effusion Is this a current diagnosis for this admission?: Yes (7) Atrial fibrillation with rapid ventricular response Is this a current diagnosis for this admission?: Yes (8) Rib lesion Is this a current diagnosis for this admission?: Yes (9) Pneumothorax Is this a current diagnosis for this admission?: Yes - Additional Information Resuscitation Status: Do Not Resuscitate Discharge Diet: Cardiac Discharge Activity: Activity As Tolerated, Balance Activity w/Rest Prescriptions: Levofloxacin [Levaquin 500 mg Tablet] 500 mg PO DAILY #5 tablet Home Medications: Nitroglycerin [Nitrostat 0.4 mg (1/150 Gr) Tabs 25/Bottle] 0.4 mg SL DAILYP PRN 11/18/11 Citalopram Hydrobromide [Celexa 10 mg Tablet] 10 mg PO DAILY 02/24/18 Levothyroxine Sodium [Synthroid 0.075 mg Tablet] 0.075 mg PO Q6AM 02/24/18 Diltiazem HCl [Cardizem 60 mg Tablet] 120 mg PO Q6 tablet 08/17/18 Furosemide [Lasix 20 mg Tablet] 20 mg PO BID tablet 08/17/18 Ibuprofen [Motrin 800 mg Tablet] 800 mg PO Q8HP PRN tablet 08/17/18 Lansoprazole [Prevacid 15 mg Odt Tablet] 15 mg PO DAILY tab.rap. 08/17/18 Levalbuterol HCl [Xopenex Neb 1.25 mg/3 ml Ampul] 1.25 mg NEB RTQ4HP PRN vial.neb 08/17/18 Levofloxacin [Levaquin 500 mg Tablet] 500 mg PO DAILY #5 tablet 08/17/18 Potassium Chloride [Klor-Con 10 Meq Capsule ER] 20 meq PO DAILY capsule.er 08/17/18 History of Present Illness Admission Date/PCP: 08/09/18 17:25 AYSE CAO MD History of Present Illness: GIBSON VILLARREAL is a 88 year old female with history of CAD, PVD, CHF. Patient has had problems with lower extremity redness and worsening edema. She was seen at [facility] and diagnosed with cellulitis and treated with doxycycline. Patient states that there has been helpful but not very well. The past few days her feet have been getting worse, particularly the swelling. She went to see her PCP and was advised to come to the ED. Patient denies fever or chills, no chest pain or palpitations. She reports some shortness of breath. She has not been eating much and she has been weak. She also complains of back pain. Of note is that she had x-ray of the lumbar spine during her last ED visit that revealed compression fractures of varied chronicity. There was also concern for focal lucencies in the visualized lower ribs, raising concern for possible multiple myeloma. In the ED, blood cultures done. Patient referred for admission. Hospital Course Hospital Course: Patient was evaluated by orthopedic surgery. Diagnostic impression was a hematoma. An antibiotic was stopped. She received IV Lasix for CHF and bilateral pleural effusion. Echocardiogram shows normal ejection fraction. Cardiology was consulted and recommended palliative care. She also received thoracentesis on the left side and the fluid reaccumulated quickly. She had lesions on her lower ribs with focal lucencies observed on x-ray. Protein electrophoresis was negative for monoclonal antibodies and there was no M spike. Also CT scan of the chest did not show these lesions. Patient is a good candidate for hospice but family wants her to go to rehab first and hospice will follow outpatient.. Physical Exam Vital Signs: Temp Pulse Resp BP Pulse Ox 97.3 F 74 20 94/49 L 98 08/17/18 12:00 08/17/18 12:00 08/17/18 12:00 08/17/18 12:00 08/17/18 12:00 Pulse Oximeter Continuous Start: 08/13/18 22:11 Freq: RTQ4 Status: Active Protocol: Document 08/17/18 12:00 [facility] (Rec: 08/17/18 12:12 [facility] [id number]) Pulse Oximetry Assessment Oxygen Saturation (92-100) 97 Oxygen Flow Rate (L/min) 3 Oxygen Delivery Method Nasal Cannula Equipment Usage Equipment Standby Continuous SpO2 Machine # 13 Intake & Output 08/16/18 08/17/18 08/18/18 06:59 06:59 06:59 Intake Total 675 748 Output Total 450 630 Balance 225 118 Weight 98 lb 15.801 oz General appearance: PRESENT: thin Head exam: PRESENT: atraumatic, normocephalic Mouth exam: PRESENT: neck supple Neck exam: ABSENT: meningismus, tenderness Respiratory exam: PRESENT: decreased breath sounds, rhonchi Cardiovascular exam: PRESENT: irregular rhythm GI/Abdominal exam: PRESENT: normal bowel sounds, soft Neurological exam: PRESENT: altered Results Laboratory Results: 08/15/18 05:30 08/15/18 10:19 08/09/18 08/10/18 14:51 11:27 Troponin I < 0.012 NT-Pro-B Natriuret Pep 5720 H Impressions: Extremity Arterial Study 08/09/18 14:22 IMPRESSION: ESSENTIALLY NORMAL LEFT LOWER EXTREMITY ARTERIAL DOPPLER. Lower Extremity CT 08/11/18 00:00 IMPRESSION: Diffuse subcutaneous edema/inflammation likely reflecting cellulitis. More focal inflammation and soft tissue swelling/phlegmon along the dorsal aspect of the distal foot. This has a somewhat hyperdense appearance.Developing abscess would be difficult to exclude entirely. However, no underlying osseous abnormality. TECHNICAL DOCUMENTATION: Quality ID # [id number]: Final reports with documentation of one or more dose reduction techniques (e.g., Automated exposure control, adjustment of the mA and/or kV according to patient size, use of iterative reconstruction technique) copyright 2011 [employer]- All Rights Reserved Chest CT 08/13/18 00:00 IMPRESSION: 1. CARDIOMEGALY. LARGE BILATERAL PLEURAL EFFUSIONS. 2. AIRSPACE DISEASE IN THE LEFT LOWER LOBE, POSSIBLY DUE TO ATELECTASIS ALTHOUGH CONCERNING FOR PNEUMONIA. 3. APPROXIMATELY 10% PNEUMOTHORAX ON THE LEFT SIDE. THE PATIENT APPARENTLY HAD A THORACENTESIS PERFORMED YESTERDAY. Head CT 08/13/18 00:00 IMPRESSION: CHRONIC CHANGES OF ATROPHY AND MICROVASCULAR ISCHEMIA. NO ACUTE PROCESS. EVIDENCE OF ACUTE STROKE: NO. Chest X-Ray 08/14/18 08:45 IMPRESSION: Persistent moderate bilateral pleural effusions, left greater than right. No appreciable pneumothorax. Qualifiers - * PATIENT BEING DISCHARGED WITH ANY OF THE FOLLOWING DIAGNOSIS: No
[2018-08-18] MEDS: DILTIAZEM HCL 60 MG TABLET PO SCH ×3 (02:48→11:26)
[2018-08-18] MEDS: LEVOTHYROXINE SODIUM 0.075 MG TABLET PO SCH (06:23)
[2018-08-18] MEDS ORDERED: LEVOFLOXACIN 250 MG/D5W RTU 250 MG/50 ML RTUPB IV SCH (10:00)
[2018-08-18] MEDS: LANSOPRAZOLE 15 MG TAB.RAP.DR PO SCH (11:16)
[2018-08-18] MEDS: CITALOPRAM HYDROBROMIDE 20 MG TABLET PO SCH (11:16)
[2018-08-18] MEDS: POTASSIUM CHLORIDE 10 MEQ CAPSULE.ER PO SCH (11:17)
[2018-08-18] MEDS: FUROSEMIDE 20 MG TABLET PO SCH (11:17)
[2018-08-18] MEDS: IBUPROFEN 800 MG TABLET PO PRN (11:26)
[2018-08-18 12:35] VITALS: BP 124/76
== END 2018-08-18 15:34 | DRG 602 ==
LOC: ER 13:47 → EH 17:25 → 4N 08-10 03:45
PROVIDERS: ADMIT Internal Medicine; ATTEND Internal Medicine
PROC: 0W9B3ZX Drainage of Left Pleural Cavity, Percutaneous Approach, Diagnostic (ICD-10-PCS; principal; 2018-08-12)
PROC: 3E0F3GC Introduction of Other Therapeutic Substance into Respiratory Tract, Percutaneous Approach (ICD-10-PCS; 2018-08-14)
DX: L03.116 Cellulitis of left lower limb (principal); I50.43 Acute on chronic combined systolic (congestive) and diastolic (congestive) heart failure; J18.9 Pneumonia, unspecified organism; J90 Pleural effusion, not elsewhere classified; I13.0 Hypertensive heart and chronic kidney disease with heart failure and stage 1 through stage 4 chronic kidney disease, or unspecified chronic kidney disease; L97.819 Non-pressure chronic ulcer of other part of right lower leg with unspecified severity; M48.56XA Collapsed vertebra, not elsewhere classified, lumbar region, initial encounter for fracture; J93.9 Pneumothorax, unspecified; I73.9 Peripheral vascular disease, unspecified; I48.2 Chronic atrial fibrillation; I27.20 Pulmonary hypertension, unspecified; I25.10 Atherosclerotic heart disease of native coronary artery without angina pectoris; Z95.1 Presence of aortocoronary bypass graft; E78.5 Hyperlipidemia, unspecified; E03.9 Hypothyroidism, unspecified; K44.9 Diaphragmatic hernia without obstruction or gangrene; F32.9 Major depressive disorder, single episode, unspecified; S90.32XA Contusion of left foot, initial encounter; N18.9 Chronic kidney disease, unspecified; M89.9 Disorder of bone, unspecified; Z66 Do not resuscitate; R62.7 Adult failure to thrive; R41.3 Other amnesia; R53.81 Other malaise; Z95.0 Presence of cardiac pacemaker; Z98.84 Bariatric surgery status; Z82.49 Family history of ischemic heart disease and other diseases of the circulatory system; Z79.01 Long term (current) use of anticoagulants; Z88.2 Allergy status to sulfonamides; Z88.8 Allergy status to other drugs, medicaments and biological substances; Z88.1 Allergy status to other antibiotic agents; Z88.7 Allergy status to serum and vaccine; Z88.6 Allergy status to analgesic agent; Z68.20 Body mass index [BMI] 20.0-20.9, adult; Z95.5 Presence of coronary angioplasty implant and graft
CPT/HCPCS: 36415; 70450; 71045; 71046; 71250; 72110; 80048; 80053; 81001; 82042; 82803; 82962; 83605; 83615; 83735; 83880; 84100; 84157; 84165; 84166; 84443; 84484; 85025; 85027; 85610; 85652; 85730; 86140; 87040; 87070; 87075; 87086; 87205; 88112; 89050; 93005; 93010; 93306; 93926; 94762; 94799; 99285; J0743; J1940; J1956; J3490

== ENCOUNTER 2018-08-20 18:18 | Emergency (ER) | payer MEDICARE, BC ==
[2018-08-20] MEDS ORDERED: LIDOCAINE 5% (700 MG) TRANSDERMAL ADH..PATCH TP ONE (19:35)
[2018-08-20] MEDS ORDERED: OXYCODONE HCL IR 5 MG TABLET PO ONE (19:36)
[2018-08-20] MEDS ORDERED: ONDANSETRON 4 MG TAB.RAPDIS PO ONE (19:36)
--- NOTE | 2018-08-20 21:36 | ER Document Report ---
ED General - General Chief Complaint: Back Pain Stated Complaint: BACK PAIN Time Seen by Provider: 08/20/18 18:50 Primary Care Provider: AYSE CAO MD [Primary Care Provider] - Follow up as needed Mode of Arrival: Stretcher Information source: Patient Notes: This is a 88-year-old woman with a history of coronary artery disease, peripheral vascular disease, CHF and family reports a compression fracture in the lower lumbar area who is sent in for lower back pain. Patient is a resident of [facility] and the only medicine they have written for his Tylenol. Family requested that she be evaluated in the ER for pain to get something stronger. Patient has a recent hospitalization and is been referred for palliative care. TRAVEL OUTSIDE OF THE [place] IN LAST 30 DAYS: No - HPI Onset: Last week Onset/Duration: Gradual Quality of pain: Dull Severity: Moderate Pain Level: 2 Associated symptoms: denies: Chest pain, Fever, Shortness of breath Exacerbated by: Movement Relieved by: Remaining still Similar symptoms previously: Yes Recently seen / treated by doctor: Yes - Related Data Allergies/Adverse Reactions: cefdinir [From Omnicef] Allergy (Unknown, Verified 05/30/17 17:09) Choline Fenofibrate [From Trilipix] Allergy (Unknown, Verified 05/30/17 17:09) clopidogrel bisulfate [From Plavix] Allergy (Unknown, Verified 05/30/17 17:09) codeine [Codeine] Allergy (Unknown, Verified 05/30/17 17:09) guaifenesin [From Mucinex] Allergy (Unknown, Verified 05/30/17 17:09) hydralazine [Hydralazine] Allergy (Unknown, Verified 05/30/17 17:09) Influenza Vaccine,Trival 2010 * [Influenza Vaccine,Trival 2010] Allergy (Unknown, Verified 05/30/17 17:09) lovastatin [From Mevacor] Allergy (Unknown, Verified 05/30/17 17:09) meperidine HCl [From Demerol] Allergy (Unknown, Verified 05/30/17 17:09) niacin [Niacin] Allergy (Unknown, Verified 05/30/17 17:09) nifedipine [From Procardia] Allergy (Unknown, Verified 05/30/17 17:09) pentazocine lactate [From Talwin] Allergy (Unknown, Verified 05/30/17 17:09) pravastatin sodium [From Pravachol] Allergy (Unknown, Verified 05/30/17 17:09) propoxyphene HCl [From Darvon] Allergy (Unknown, Verified 05/30/17 17:09) rosuvastatin calcium [From Crestor] Allergy (Unknown, Verified 05/30/17 17:09) Sulfa (Sulfonamide Antibiotics) Allergy (Unknown, Verified 05/30/17 17:09) atorvastatin calcium [From Lipitor] Adverse Reaction (Severe, Verified 05/30/17 17:09) Past Medical History - General Information source: Relative - Social History Smoking Status: Former Smoker Cigarette use (# per day): No Chew tobacco use (# tins/day): No Frequency of alcohol use: None Drug Abuse: None Lives with: [facility] Family History: CAD, CVA, Hypertension Patient has suicidal ideation: No Patient has homicidal ideation: No - Past Medical History Cardiac Medical History: Reports: Hx Atrial Fibrillation, Hx Congestive Heart Failure, Hx Coronary Artery Disease, Hx Hypercholesterolemia, Hx Hypertension, Hx Peripheral Vascular Disease Pulmonary Medical History: Reports: Hx Bronchitis Denies: Hx Tuberculosis Endocrine Medical History: Reports: Hx Hypothyroidism Renal/ Medical History: Denies: Hx Peritoneal Dialysis GI Medical History: Reports: Hx Hiatal Hernia Psychiatric Medical History: Reports: Hx Depression Past Surgical History: Reports: Hx Abdominal Surgery - hernia repair 2008, Hx Cardiac Catheterization - december 2011, Hx Cardiac Surgery - triple bypass 1992, cardiac stent, Hx Cholecystectomy - 1995, Hx Coronary Artery Bypass Graft, Hx Hysterectomy, Hx PacemakerComment Only: Hx Gastric Bypass Surgery - Triple - Immunizations Hx Diphtheria, Pertussis, Tetanus Vaccination: Yes Hx Pneumococcal Vaccination: 07/17/99 Review of Systems - Review of Systems Constitutional: denies: Chills, Fever EENT: No symptoms reported Cardiovascular: denies: Chest pain, Palpitations, Heart racing Respiratory: denies: Short of breath - Patient has chronic shortness of breath, no shortness of breath beyond what she normally has. Gastrointestinal: denies: Abdomen distended, Abdominal pain, Diarrhea Genitourinary: No symptoms reported Female Genitourinary: No symptoms reported Musculoskeletal: See HPI Skin: No symptoms reported Hematologic/Lymphatic: No symptoms reported Neurological/Psychological: No symptoms reported Physical Exam - Vital signs Vitals: Resp 20 08/20/18 18:31 Notes: Physical exam: GENERAL: Is a debilitated 88-year-old female, she is alert, she does have lower lumbar pain. She is otherwise resting in her stretcher. HEAD: Atraumatic, normocephalic. EYES: Pupils equal round and reactive to light, extraocular movements intact, sclera anicteric, conjunctiva are normal. ENT: TMs normal, nares patent, oropharynx clear without exudates. Moist mucous membranes. NECK: Normal range of motion, supple without obvious mass or JVD. LUNGS: Breath sounds clear to auscultation bilaterally and equal. No wheezes rales or rhonchi. HEART: Regular rate and rhythm without murmurs, rubs or gallops. ABDOMEN: Soft, normoactive bowel sounds. No tenderness to palpation. No gu arding, no rebound. No masses appreciated. Back: Lower lumbar pain, no crepitus or skin changes. EXTREMITIES: Normal range of motion, no pitting or edema. No clubbing or cyanosis. NEUROLOGICAL: She is oriented and answering questions. Normal speech, does move all extremities. PSYCH: Normal mood, normal affect. SKIN: Warm, Dry, normal turgor, no rashes or lesions noted. Course - Vital Signs Vital signs: Temp Pulse Resp BP Pulse Ox 97.9 F 91 19 124/61 94 08/20/18 22:14 08/20/18 22:14 08/20/18 22:14 08/20/18 22:14 08/20/18 22:14 Discharge - Discharge Clinical Impression: Acute low back pain Condition: Stable Disposition: HOME, SELF-CARE Additional Instructions: Recommendations include pain control: Oxycodone 5 mg every 6 hours for pain. Make sure that the patient is on a laxative if not already. Lidoderm patch: 1 daily Ibuprofen 400 mg for breakthrough pain every 6-8 hours. Have patient follow-up with your doctor palliative care. Turn to the emergency room for any problems. Prescriptions: Oxycodone HCl [Oxaydo] 5 mg PO Q4HP PRN #30 tablet.orl PRN Reason: Ibuprofen 400 mg PO Q6HP PRN #20 tablet PRN Reason: Lidocaine [Lidoderm 5% (700 mg) Transdermal Patch] 1 patch TP DAILY #30 adh..patch Referrals: AYSE CAO MD [Primary Care Provider] - Follow up as needed
[2018-08-20 22:16] VITALS: BP 124/61
== END 2018-08-20 22:16 | disposition home or self-care (01) ==
LOC: ER 18:18
DX: M54.5 Low back pain (principal); I48.91 Unspecified atrial fibrillation; I50.9 Heart failure, unspecified; I25.10 Atherosclerotic heart disease of native coronary artery without angina pectoris; I11.0 Hypertensive heart disease with heart failure; E78.00 Pure hypercholesterolemia, unspecified; Z90.49 Acquired absence of other specified parts of digestive tract; Z95.1 Presence of aortocoronary bypass graft; Z90.710 Acquired absence of both cervix and uterus
CPT/HCPCS: 99283; A9270 ×2; S0119

== ENCOUNTER 2018-08-21 11:10 | Inpatient (IN) | payer MEDICARE, BC ==
[2018-08-21] MEDS ORDERED: NORMAL SALINE 250 ML IV ONE (11:36)
[2018-08-21 11:40] LABS: VENOUS BLOOD BASE EXCESS 11.8 mmol/L; VENOUS BLOOD HCO3 44.7 mmol/L (20-32)
[2018-08-21 11:41] LABS: VENOUS BLOOD PCO2 120.9 mmHg (35-63); VENOUS BLOOD PH 7.19 (7.30-7.42)
[2018-08-21 11:42] LABS: HEMATOCRIT 36.2 % (36.0-47.0); HEMOGLOBIN 11.6 g/dL (12.0-15.5); PLATELET COUNT 317 10^3/uL (150-450); RED BLOOD COUNT 3.86 10^6/uL (3.72-5.28); WHITE BLOOD COUNT 10.3 10^3/uL (4.0-10.5)
[2018-08-21 11:45] LABS: PROTHROMBIN TIME 17.9 SEC (11.4-15.4)
[2018-08-21] MEDS ORDERED: DILTIAZEM HCL 60 MG TABLET PO ONE (12:06)
[2018-08-21] MEDS ORDERED: DIGOXIN INJ 0.5 MG/2 ML AMPULE IV ONE ×2 (12:07→13:04)
[2018-08-21] MEDS: DILTIAZEM HCL/D5W 125 MG/125 ML RTUINJ IV PRN (12:27)
--- NOTE | 2018-08-21 12:28 | RADIOLOGY REPORT (SQ) ---
EXAM DESCRIPTION: CHEST SINGLE VIEW COMPLETED DATE/TIME: 08/21/2018 12:11 pm REASON FOR STUDY: ams COMPARISON: 08/14/2018 EXAM PARAMETERS: NUMBER OF VIEWS: One view. TECHNIQUE: Single frontal radiographic view of the chest acquired. RADIATION DOSE: NA LIMITATIONS: None. FINDINGS: LUNGS AND PLEURA: Lungs demonstrate persistent bilateral pleural effusions, large on the l eft and moderate on the right, mildly increased from prior. Associated bibasilar consolidation. Sta ble additional interstitial changes from prior. No pneumothorax. MEDIASTINUM AND HILAR STRUCTURES: Partially obscured and grossly stable. HEART AND VASCULAR STRUCTURES: Enlarged cardiac silhouette. Evidence of prior CABG and median sterno zay. BONES: Median sternotomy wires. Decreased mineralization diffusely. No acute bony abnormality. HARDWARE: Left-sided cardiac pacer with leads overlying right atrium and right ventricle. Post CABG but changes. OTHER: No other significant finding. IMPRESSION: Bilateral pleural effusions, large on the left and moderate on the right, increased from prior. Associates bibasilar consolidation likely atelectasis although infection is not excluded. TECHNICAL DOCUMENTATION: JOB ID: [id number] [employer]- All Rights Reserved Reading location - IP/workstation name: [email or web address]
[2018-08-21 12:35] LABS: MEAN CORPUSCULAR VOLUME 94 fl (80-97)
[2018-08-21 12:37] LABS: ABSOLUTE LYMPHOCYTES# (MANUAL) 0.4 10^3/uL (0.5-4.7); ABSOLUTE MONOCYTES # (MANUAL) 0.7 10^3/uL (0.1-1.4); ABSOLUTE NEUTROPHILS# (MANUAL) 9.2 10^3/uL (1.7-8.2); ALANINE AMINOTRANSFERASE 26 U/L (9-52); ALBUMIN 3.1 g/dL (3.5-5.0); ALKALINE PHOSPHATASE 128 U/L (38-126); ANION GAP 6 (5-19); ASPARTATE AMINO TRANSFERASE 28 U/L (14-36); BASOPHILS % (MANUAL) 0 % (0-2); BILIRUBIN,DIRECT 0.4 mg/dL (0.0-0.4); BILIRUBIN,TOTAL 0.6 mg/dL (0.2-1.3); BLOOD UREA NITROGEN 27 mg/dL (7-20); CALCIUM 8.9 mg/dL (8.4-10.2); CARBON DIOXIDE 39 mmol/L (22-30); CHLORIDE 95 mmol/L (98-107); EOSINOPHILS % (MANUAL) 0 % (0-6); GLUCOSE 95 mg/dL (75-110); LYMPHOCYTES % (MANUAL) 4 % (13-45); MONOCYTES % (MANUAL) 7 % (3-13); POTASSIUM 5.5 mmol/L (3.6-5.0); SEGMENTED NEUTROPHILS % (MAN) 89 % (42-78); SODIUM 139.5 mmol/L (137-145); TOTAL CELLS COUNTED 100; TOTAL PROTEIN 6.5 g/dL (6.3-8.2)
[2018-08-21 12:38] LABS: ANISOCYTOSIS 1+; OVALOCYTES 1+; PLATELET COMMENT ADEQUATE; POIKILOCYTOSIS 1+; POLYCHROMASIA SLIGHT
[2018-08-21 13:29] LABS: APPEARANCE,URINE SLIGHTLY-CLOUDY; BILIRUBIN,URINE NEGATIVE (NEGATIVE); COLOR,URINE YELLOW; GLUCOSE, URINE NEGATIVE (NEGATIVE); KETONES,URINE NEGATIVE (NEGATIVE); LEUKOCYTE ESTERASE,URINE NEGATIVE (NEGATIVE); NITRITE,URINE NEGATIVE (NEGATIVE); PROTEIN,URINE NEGATIVE (NEGATIVE); URINE SPECIFIC GRAVITY 1.015; UROBILINOGEN,URINE NEGATIVE mg/dL (<2.0)
--- NOTE | 2018-08-21 13:52 | ER Document Report ---
ED General - General Chief Complaint: Altered Mental Status Stated Complaint: ALTERED MENTAL STATUS Time Seen by Provider: 08/21/18 11:27 TRAVEL OUTSIDE OF THE [place] IN LAST 30 DAYS: No - HPI Patient complains to provider of: Altered mental status Notes: Patient coming in for evaluation of altered mental status. Patient was recently discharged from the hospital at that time was a DNR. Patient according to paperwork sent in from in the local halfway says full code. According family members they wish to continue to make the patient a DNR. Current EMS patient was found to have of low respirations approximate 6 pinpoint pupils did demonstrate 1 mg of Narcan with improvement of her story status. Patient did become more alert and was transported to the ER patient upon her arrival will respond to voice will open her eyes to follow commands. Patient is on nonrebreather at this time. We were able to titrate this down to a nasal cannula. Did review the patient's last visit showing pleural effusions that underwent thoracentesis that also had rapid recollection recommend hospice however patient placed patient in halfway. Patient was seen approximate 24 hours ago because of back pain patient has apparently underlying compression fractures was given 1 dose of oxycodone. Patient upon my evaluation looks to have improved her story status however looks to be in A. fib with RVR. A brief review of the patient's past medical records available in [facility] was performed - Related Data Allergies/Adverse Reactions: cefdinir [From Omnicef] Allergy (Unknown, Verified 05/30/17 17:09) Choline Fenofibrate [From Trilipix] Allergy (Unknown, Verified 05/30/17 17:09) clopidogrel bisulfate [From Plavix] Allergy (Unknown, Verified 05/30/17 17:09) codeine [Codeine] Allergy (Unknown, Verified 05/30/17 17:09) guaifenesin [From Mucinex] Allergy (Unknown, Verified 05/30/17 17:09) hydralazine [Hydralazine] Allergy (Unknown, Verified 05/30/17 17:09) Influenza Vaccine,Trival 2010 * [Influenza Vaccine,Trival 2010] Allergy (Unknown, Verified 05/30/17 17:09) lovastatin [From Mevacor] Allergy (Unknown, Verified 05/30/17 17:09) meperidine HCl [From Demerol] Allergy (Unknown, Verified 05/30/17 17:09) niacin [Niacin] Allergy (Unknown, Verified 05/30/17 17:09) nifedipine [From Procardia] Allergy (Unknown, Verified 05/30/17 17:09) pentazocine lactate [From Talwin] Allergy (Unknown, Verified 05/30/17 17:09) pravastatin sodium [From Pravachol] Allergy (Unknown, Verified 05/30/17 17:09) propoxyphene HCl [From Darvon] Allergy (Unknown, Verified 05/30/17 17:09) rosuvastatin calcium [From Crestor] Allergy (Unknown, Verified 05/30/17 17:09) Sulfa (Sulfonamide Antibiotics) Allergy (Unknown, Verified 05/30/17 17:09) atorvastatin calcium [From Lipitor] Adverse Reaction (Severe, Verified 05/30/17 17:09) Past Medical History - Social History Smoking Status: Unknown if Ever Smoked Family History: CAD, CVA, Hypertension Patient has suicidal ideation: No Patient has homicidal ideation: No - Past Medical History Cardiac Medical History: Reports: Hx Atrial Fibrillation, Hx Congestive Heart Failure, Hx Coronary Artery Disease, Hx Hypercholesterolemia, Hx Hypertension, Hx Peripheral Vascular Disease Pulmonary Medical History: Reports: Hx Bronchitis Denies: Hx Tuberculosis Endocrine Medical History: Reports: Hx Hypothyroidism Renal/ Medical History: Denies: Hx Peritoneal Dialysis GI Medical History: Reports: Hx Hiatal Hernia Psychiatric Medical History: Reports: Hx Depression Past Surgical History: Reports: Hx Abdominal Surgery - hernia repair 2008, Hx Cardiac Catheterization - december 2011, Hx Cardiac Surgery - triple bypass 1992, cardiac stent, Hx Cholecystectomy - 1995, Hx Coronary Artery Bypass Graft, Hx Hysterectomy, Hx PacemakerComment Only: Hx Gastric Bypass Surgery - Triple - Immunizations Hx Diphtheria, Pertussis, Tetanus Vaccination: Yes Hx Pneumococcal Vaccination: 07/17/99 Review of Systems - Review of Systems -: Yes ROS unobtainable due to patient's medical condition - Altered mental status dementia Physical Exam - Vital signs Vitals: Temp Resp BP Pulse Ox 97.9 F 17 120/57 L 100 08/21/18 11:46 08/21/18 11:46 08/21/18 11:46 08/21/18 11:46 Interpretation: Tachycardic, Tachypneic - General General appearance: Appears well, Alert - HEENT Head: Normocephalic, Atraumatic Eyes: Normal Pupils: PERRL - Respiratory Respiratory status: No respiratory distress Chest status: Nontender Breath sounds: Normal Chest palpation: Normal - Cardiovascular Rhythm: Irregularly irregular, Tachycardia Heart sounds: Normal auscultation Murmur: No - Abdominal Inspection: Normal Distension: No distension Bowel sounds: Normal Tenderness: Nontender Organomegaly: No organomegaly - Back Back: Normal, Nontender - Extremities General upper extremity: Nontender, Normal color, Normal ROM, Normal temperature. No: Normal inspection - Contusions and bruises General lower extremity: Nontender, Normal color, Normal ROM, Normal temperatur e. No: Normal inspection - Contusions and bruises - Neurological Neuro grossly intact: Yes Reeds Coma Scale Eye Opening: Spontaneous Emery Coma Scale Verbal: Confused Reeds Coma Scale Motor: Obeys Commands Reeds Coma Scale Total: 14 - Skin Skin Temperature: Warm Skin Moisture: Dry Skin Color: Normal Course - Re-evaluation Re-evalutation: 08/21/18 18:11 Chest x-ray shows recannulation of pleural effusions. Patient was able to titrate off of nonrebreather we continue to give a Cardizem drip along with pushes of digoxin to help control A. fib with RVR patient's blood pressure remained labile patient was transitioned over to BiPAP as that the laboratory studies that showed rest or acidosis with hypercapnia. Discussed at length with the family that the patient continue to monitor pain that pain control be very difficult given her underlying medical issues that a decision will need to be made by the family whether to place the patient on palliative care hospice and control her pain are to continue to medically manage her and have the patient be in pain. Discussed with hospitalist patient will be admitted for further evaluation - Vital Signs Vital signs: Temp Pulse Resp BP Pulse Ox 97.9 F 18 127/93 H 95 08/21/18 11:46 08/21/18 17:00 08/21/18 17:10 08/21/18 17:10 - Laboratory Result Diagrams: 08/21/18 11:21 08/21/18 11:21 Laboratory results interpreted by me: 08/21/18 08/21/18 08/21/18 11:21 11:21 11:21 Hgb 11.6 L RDW 18.0 H Seg Neuts % (Manual) 89 H Lymphocytes % (Manual) 4 L Abs Neuts (Manual) 9.2 H Abs Lymphs (Manual) 0.4 L PT 17.9 H VBG pH VBG pCO2 VBG HCO3 Potassium 5.5 H Chloride 95 L Carbon Dioxide 39 H BUN 27 H Alkaline Phosphatase 128 H Albumin 3.1 L 08/21/18 11:21 Hgb RDW Seg Neuts % (Manual) Lymphocytes % (Manual) Abs Neuts (Manual) Abs Lymphs (Manual) PT VBG pH 7.19 L* VBG pCO2 120.9 H* VBG HCO3 44.7 H Potassium Chloride Carbon Dioxide BUN Alkaline Phosphatase Albumin Critical Care Note - Critical Care Note Total time excluding time spent on procedures (mins): 35 Comments: Multiple evaluation patient with respiratory acidosis hypercapnia respiratory failure. Discharge - Discharge Clinical Impression: partial skin avulsion right elbow.wrist , Traumatic hematoma of left foot, Altered mental status, Atrial fibrillation with rapid ventricular response, Pleural effusion, DNR (do not resuscitate) Respiratory failure with hypercapnia Qualifiers: Chronicity: acute on chronic Qualified Code(s): J96.22 - Acute and chronic respiratory failure with hypercapnia Condition: Fair Disposition: ADMITTED INPATIENT Admitting Provider: Hospitalist - [facility] Admitted: Telemetry
[2018-08-21] MEDS ORDERED: ACETAMINOPHEN 325 MG TABLET PO PRN (14:21)
[2018-08-21] MEDS ORDERED: PROMETHAZINE HCL INJ 25 MG/1 ML VIAL IV PRN (14:21)
[2018-08-21] MEDS ORDERED: LEVALBUTEROL HCL NEB 0.63 MG/3 ML AMPUL NEB PRN (14:21)
[2018-08-21] MEDS ORDERED: NITROGLYCERIN 0.4 MG/TAB 25 TAB/BOTTLE SL PRN (14:26)
--- NOTE | 2018-08-21 14:44 | PDOC H&P ---
History of Present Illness Admission Date/PCP: 08/21/18 14:14 AYSE CAO MD Patient complains of: Brought in from the snf with altered mental status History of Present Illness: GIBSON VILLARREAL is a 88 year old female with history of congestive heart failure, atrial fibrillation, hypothyroidism, recurrent bilateral pleural effusions, coronary artery coronary artery disease status post triple bypass and also stent placements, hypertension recently discharged to [facility] came back for altered mental status. In the emergency room she was given Narcan for presumed Narcotic overdose and patient shows signs of improvement. She was placed on BiPAP because PCO2 is 120 on VBG. And the chest x-ray shows polyp indicating may be possible pneumonia in association with the large right pleural effusion and moderate-sized left pleural effusion. Mutmaz consult was called for admission for altered mental status. Went to see the patient in the emergency room the family members at bedside has been told me she wanted her to be DNR/DNI. He also does want any pleural tap. Because he thinks the pleural fluid is coming back again within a few days because of the congestive heart failure. We respect his opinion. The family does want all other measurements including the controlling heart rate,improving her oxygenation, improving her p ain. Patient is on BiPAP not communicating most of the history is received from the family members and the ER physician's notes. Past Medical History Cardiac Medical History: Reports: Atrial Fibrillation, Congestive Heart Failure, Coronary Artery Disease, Hyperlipidema, Hypertension, Peripheral Vascular Disease Pulmonary Medical History: Reports: Bronchitis Denies: Tuberculosis Endocrine Medical History: Reports: Hypothyroidism GI Medical History: Reports: Hiatal Hernia Psychiatric Medical History: Reports: Depression Past Surgical History Past Surgical History: Reports: Cardiac Catheterization - december 2011, Cho lecystectomy - 1995, Coronary Artery Bypass Graft, Hysterectomy, Pacemaker Comment Only: Gastric Bypass Surgery - Triple Social History Lives with: Correction Smoking Status: Unknown if Ever Smoked Frequency of Alcohol Use: None Hx Recreational Drug Use: No Drugs: None Hx Prescription Drug Abuse: No - Advance Directive Resuscitation Status: Do Not Resuscitate Family History Family History: CAD, CVA, Hypertension Parental Family History Reviewed: Yes Children Family History Reviewed: Yes Sibling(s) Family History Reviewed.: Yes Medication/Allergy Home Medications: Nitroglycerin [Nitrostat 0.4 mg (1/150 Gr) Tabs 25/Bottle] 0.4 mg SL DAILYP PRN 05/04/12 Citalopram Hydrobromide [Celexa 10 mg Tablet] 10 mg PO DAILY 02/24/18 Levothyroxine Sodium [Synthroid 0.075 mg Tablet] 0.075 mg PO Q6AM 02/24/18 Diltiazem HCl [Cardizem 60 mg Tablet] 120 mg PO Q6 tablet 08/17/18 Furosemide [Lasix 20 mg Tablet] 20 mg PO BID tablet 08/17/18 Ibuprofen [Motrin 800 mg Tablet] 800 mg PO Q8HP PRN tablet 08/17/18 Lansoprazole [Prevacid 15 mg Odt Tablet] 15 mg PO DAILY tab.rap.dr 08/17/18 Levalbuterol HCl [Xopenex Neb 1.25 mg/3 ml Ampul] 1.25 mg NEB RTQ4HP PRN vial.neb 08/17/18 Levofloxacin [Levaquin 500 mg Tablet] 500 mg PO DAILY #5 tablet 08/17/18 Potassium Chloride [Klor-Con 10 Meq Capsule ER] 20 meq PO DAILY capsule.er 08/17/18 Ibuprofen 400 mg PO Q6HP PRN #20 tablet 08/20/18 Lidocaine [Lidoderm 5% (700 mg) Transdermal Patch] 1 patch TP DAILY #30 adh..patch 08/20/18 Oxycodone HCl [Oxaydo] 5 mg PO Q4HP PRN #30 tablet.orl 08/20/18 Allergies/Adverse Reactions: cefdinir [From Omnicef] Allergy (Unknown, Verified 05/30/17 17:09) Choline Fenofibrate [From Trilipix] Allergy (Unknown, Verified 05/30/17 17:09) clopidogrel bisulfate [From Plavix] Allergy (Unknown, Verified 05/30/17 17:09) codeine [Codeine] Allergy (Unknown, Verified 05/30/17 17:09) guaifenesin [From Mucinex] Allergy (Unknown, Verified 05/30/17 17:09) hydralazine [Hydralazine] Allergy (Unknown, Verified 05/30/17 17:09) Influenza Vaccine,Trival 2009 * [Influenza Vaccine,Trival 2009] Allergy (Unknown, Verified 05/30/17 17:09) lovastatin [From Mevacor] Allergy (Unknown, Verified 05/30/17 17:09) meperidine HCl [From Demerol] Allergy (Unknown, Verified 05/30/17 17:09) niacin [Niacin] Allergy (Unknown, Verified 05/30/17 17:09) nifedipine [From Procardia] Allergy (Unknown, Verified 05/30/17 17:09) pentazocine lactate [From Talwin] Allergy (Unknown, Verified 05/30/17 17:09) pravastatin sodium [From Pravachol] Allergy (Unknown, Verified 05/30/17 17:09) propoxyphene HCl [From Darvon] Allergy (Unknown, Verified 05/30/17 17:09) rosuvastatin calcium [From Crestor] Allergy (Unknown, Verified 05/30/17 17:09) Sulfa (Sulfonamide Antibiotics) Allergy (Unknown, Verified 05/30/17:) atorvastatin calcium [From Lipitor] Adverse Reaction (Severe, Verified 05/30/17 17:09) Review of Systems Constitutional: ABSENT: fever(s), headache(s), weight gain, weight loss Nose, Mouth, and Throat: ABSENT: sore throat Cardiovascular: ABSENT: chest pain, edema, orthropnea Respiratory: PRESENT: dyspnea Gastrointestinal: ABSENT: abdominal pain, constipation, diarrhea, hematemesis, hematochezia, nausea, vomiting Musculoskeletal: ABSENT: joint swelling Integumentary: ABSENT: rash, wounds Neurological: PRESENT: other - Patient came into the ER with altered mental status Physical Exam Vital Signs: Intake & Output 08/20/18 08/21/18 08/22/18 06:59 06:59 06:59 Intake Total 250 Balance 250 General appearance: PRESENT: mild distress, other - On BiPAP Head exam: PRESENT: atraumatic Eye exam: PRESENT: PERRLA Neck exam: ABSENT: carotid bruit, JVD, lymphadenopathy, thyromegaly Respiratory exam: PRESENT: decreased breath sounds, other - Decreased bilateral entry at the bases. Secondary to pleural effusions. Cardiovascular exam: PRESENT: systolic murmur, tachycardia GI/Abdominal exam: PRESENT: normal bowel sounds, soft. ABSENT: distended, guarding, mass, organolmegaly, rebound, tenderness Extremities exam: PRESENT: full ROM. ABSENT: calf tenderness, clubbing, pedal edema Neurological exam: PRESENT: other - Patient is on BiPAP unable to follow the commands. Psychiatric exam: PRESENT: anxious Results Laboratory Results: 08/21/18 11:21 08/21/18 11:21 08/21/18 08/21/18 08/21/18 11:21 11:21 11:21 WBC 10.3 RBC 3.86 Hgb 11.6 L Hct 36.2 MCV 94 D MCH 30.0 MCHC 32.0 RDW 18.0 H Plt Count 317 Seg Neutrophils % Not Reportable Lymphocytes % Not Reportable Monocytes % Not Reportable Eosinophils % Not Reportable Basophils % Not Reportable Absolute Neutrophils Not Reportable Absolute Lymphocytes Not Reportable Absolute Monocytes Not Reportable Absolute Eosinophils Not Reportable Absolute Basophils Not Reportable VBG pH VBG pCO2 VBG HCO3 VBG Base Excess Sodium 139.5 Potassium 5.5 H Chloride 95 L Carbon Dioxide 39 H Anion Gap 6 BUN 27 H Creatinine 0.89 Est GFR ( Amer) > 60 Est GFR (Non-Af Amer) > 60 Glucose 95 Lactic Acid 0.8 Calcium 8.9 Total Bilirubin 0.6 AST 28 ALT 26 Alkaline Phosphatase 128 H Total Protein 6.5 Albumin 3.1 L Lipase Urine Color Urine Appearance Urine pH Ur Specific [place] Urine Protein Urine Glucose (UA) Urine Ketones Urine Blood Urine Nitrite Ur Leukocyte Esterase Urine WBC (Auto) Urine RBC (Auto) 08/21/18 08/21/18 08/21/18 11:21 11:21 13:09 WBC RBC Hgb Hct MCV MCH MCHC RDW Plt Count Seg Neutrophils % Lymphocytes % Monocytes % Eosinophils % Basophils % Absolute Neutrophils Absolute Lymphocytes Absolute Monocytes Absolute Eosinophils Absolute Basophils VBG pH 7.19 L* VBG pCO2 120.9 H* VBG HCO3 44.7 H VBG Base Excess 11.8 Sodium Potassium Chloride Carbon Dioxide Anion Gap BUN Creatinine Est GFR ( Amer) Est GFR (Non-Af Amer) Glucose Lactic Acid Calcium Total Bilirubin AST ALT Alkaline Phosphatase Total Protein Albumin Lipase 31.2 Urine Color YELLOW Urine Appearance SLIGHTLY-CLOUDY Urine pH 5.0 Ur Specific [place] 1.015 Urine Protein NEGATIVE Urine Glucose (UA) NEGATIVE Urine Ketones NEGATIVE Urine Blood NEGATIVE Urine Nitrite NEGATIVE Ur Leukocyte Esterase NEGATIVE Urine WBC (Auto) 11 Urine RBC (Auto) 4 Impressions: Chest X-Ray 08/21/18 11:23 IMPRESSION: Bilateral pleural effusions, large on the left and moderate on the right, increased from prior. Associates bibasilar consolidation likely atelectasis although infection is not excluded. Assessment & Plan - Diagnosis (1) Altered mental status Is this a current diagnosis for this admission?: Yes Plan: 08/21/2018-patient was brought in from the snf with shallow breathing and change in mental status most likely secondary to oxycodone she is receiving at the snf. After the giving the Narcan she showed significant improvement in the ER. Patient is still not back to baseline on BiPAP PCO2 is 120 hopefully she was showing improvement by tomorrow. Patient is DNR/DNI they do not want any aggressive measures. (2) Atrial fibrillation with rapid ventricular response Is this a current diagnosis for this admission?: Yes Plan: 08/21/2018-patient has a trace to fibrillation on diltiazem at snf. She was started on Cardizem drip in the ER. Consultation of Dr. Chu Jose recommended. Once rate is controlled we will put her back on p.o. diltiazem. (3) Pleural effusion Is this a current diagnosis for this admission?: Yes Plan: 08/21/2018-patient has persistent right pleural effusion along with a left pleural effusion last admission 1 week ago pleural tap was done and today's chest x-ray shows worsening of the right pleural effusion. I discussed the plan of care with he does not want any thoracentesis because of the high likelihood that pleural effusion may recur due to congestive heart failure. (4) Respiratory failure with hypercapnia Qualifiers: Chronicity: acute on chronic Qualified Code(s): J96.22 - Acute and chronic respiratory failure with hypercapnia Is this a current diagnosis for this admission?: Yes Plan: 08/21/2018-patient was admitted with acute on chronic respiratory failure with hypercapnia PCO2 on VBG is 120. She was placed on BiPAP. Going to do the follow-up ABG on regular basis. She Xopenex nebulizations every 4 as needed. (5) HTN (hypertension) Qualifiers: Hypertension type: essential hypertension Qualified Code(s): I10 - Essential (primary) hypertension Is this a current diagnosis for this admission?: Yes Plan: 08/21/2018-patient has history of hypertension on antihypertensive medications at the snf blood pressure today is 130/70 - Time Time Spent: 50 to 70 Minutes Critical Time spent with patient: 15-24 minutes Anticipated discharge: SNF
[2018-08-21 15:12] LABS: ARTERIAL BLOOD BASE EXCESS 6.3 mmol/L; ARTERIAL BLOOD H2CO3 2.34 mmol/L (1.05-1.35); ARTERIAL BLOOD HCO3 35.5 mmol/L (20-24); ARTERIAL BLOOD O2 SATURATION 92.8 % (94-98); ARTERIAL BLOOD PH 7.28 (7.35-7.45); ARTERIAL BLOOD PO2 75.9 mmHg (80-100); ARTERIAL BLOOD TOTAL CO2 37.9 mmol/L (21-25)
[2018-08-21 15:14] LABS: ARTERIAL BLOOD FIO2 35%
[2018-08-21 15:16] LABS: CREATINE KINASE MB 1.27 ng/mL (<4.55)
[2018-08-21 15:17] LABS: ARTERIAL BLOOD PCO2 77.6 mmHg (35-45)
[2018-08-21 15:23] LABS: TROPONIN I < 0.012 ng/mL
--- NOTE | 2018-08-21 16:44 | RADIOLOGY REPORT (SQ) ---
EXAM DESCRIPTION: CT CHEST WITHOUT COMPLETED DATE/TIME: 08/21/2018 4:28 pm REASON FOR STUDY: pneumonia COMPARISON: Same day radiograph TECHNIQUE: CT scan performed of the chest without intravenous contrast. Images reviewed with lung, soft tissue and bone windows. Reconstructed coronal and sagittal MPR images reviewed. All images st ored on PACS. All CT scanners at this facility use dose modulation, iterative reconstruction, and/or weight based d osing when appropriate to reduce radiation dose to as low as reasonably achievable (ALARA). [facility]: Dose Right [facility]: CareDose [facility]: Dose Right [facility]: Teradose 4D [facility]: Elite Daily RADIATION DOSE: CT Rad equipment meets quality standard of care and radiation dose reduction techniq ues were employed. CTDIvol: 5.4 mGy. DLP: 191 mGy-cm. mGy. LIMITATIONS: No technical limitations. FINDINGS: LUNGS AND PLEURA: There are bilateral pleural effusions, moderate on the right and large o n the left. Associated basilar consolidation, likely atelectasis. Additional mild patchy areas of g round-glass attenuation within the anterior right upper lobe. No pneumothorax. HILAR AND MEDIASTINAL STRUCTURES: No identified masses or abnormal nodes. No obvious aneurysm. HEART AND VASCULAR STRUCTURES: Enlarged heart, stable. Left-sided cardiac pacer with leads overlie i n the right atrium and right ventricle. Scattered coronary atherosclerosis. No significant pericard ial effusion. UPPER ABDOMEN: Prior cholecystectomy. No definite acute intra-abdominal process. THYROID AND OTHER SOFT TISSUES: No masses. No adenopathy. BONES: Decreased mineralization. No acute bony abnormality. No suspicious osseous lesions. HARDWARE: None in the chest. OTHER: No other significant findings. IMPRESSION: Large left and moderate right pleural effusions with bilateral lower lobe consolidation, likely atelectasis. TECHNICAL DOCUMENTATION: JOB ID: [id number] Quality ID # [id number]: Final reports with documentation of one or more dose reduction techniques (e.g., Au tomated exposure control, adjustment of the mA and/or kV according to patient size, use of iterative reconstruction technique) 2010 [employer]- All Rights Reserved Reading location - IP/workstation name: [email or web address]
[2018-08-21] MEDS: VANCOMYCIN HCL 750 MG in DEXTROSE 5%-WATER 250 ML IV SCH (16:54)
[2018-08-21 17:29] LABS: URINE AMPHETAMINES SCREEN NEGATIVE; URINE BARBITURATES SCREEN NEGATIVE; URINE BENZODIAZEPINES SCREEN NEGATIVE; URINE MARIJUANA (THC) SCREEN NEGATIVE; URINE METHADONE SCREEN NEGATIVE; URINE PHENCYCLIDINE SCREEN NEGATIVE
[2018-08-21 17:37] LABS: URINE COCAINE SCREEN NEGATIVE
[2018-08-21] MEDS ORDERED: FUROSEMIDE 20 MG TABLET PO SCH (18:00)
[2018-08-21] MEDS ORDERED: PIPERACILLIN/TAZOBACTAM 3.375 GM VIAL IV SCH (18:00)
[2018-08-21] MEDS ORDERED: DILTIAZEM HCL 60 MG TABLET PO SCH (18:00)
[2018-08-21] MEDS ORDERED: ACETAMINOPHEN 325 MG SUPP.RECT PR PRN (19:10)
[2018-08-21] MEDS ORDERED: LEVOTHYROXINE SODIUM INJ/PF 0.5 MG SDV IV ONE (19:11)
[2018-08-21 20:06] LABS: CREATINE KINASE MB 1.27 ng/mL (<4.55)
[2018-08-21 20:13] LABS: TROPONIN I < 0.012 ng/mL
[2018-08-21] MEDS: MEROPENEM 1 GM in NORMAL SALINE 50 ML IV SCH (20:24)
--- NOTE | 2018-08-21 21:39 | EKG REPORT ---
SEVERITY:- ABNORMAL ECG - ATRIAL FIBRILLATION NONSPECIFIC INTRAVENTRICULAR CONDUCTION DELAY ANTERIOR INFARCT, AGE INDETERMINATE : Confirmed by: Ynes Mohan 21-Aug-2018 21:38:54
[2018-08-21] MEDS ORDERED: FAMOTIDINE 20 MG TABLET PO SCH (22:00)
[2018-08-21] MEDS ORDERED: FAMOTIDINE INJ/PF 20 MG/2 ML SDV IV SCH (22:00)
[2018-08-21] MEDS: FAMOTIDINE INJ/PF 20 MG/2 ML SDV IV SCH (22:15)
[2018-08-21] MEDS: LORAZEPAM INJ 2 MG/1 ML VIAL IV PRN (23:31)
--- NOTE | 2018-08-21 23:59 | Progress Note ---
Provider Note Provider Note: Patient seen and examined. Bilateral moderate pleural effusion. Patient is DNR and DNI. Consider Thoracentesis for symptomatic relief.
[2018-08-22 02:35] LABS: ABSOLUTE LYMPHOCYTES (AUTO) 0.4 10^3/uL (0.5-4.7); ABSOLUTE MONOCYTES (AUTO) 0.6 10^3/uL (0.1-1.4); ABSOLUTE NEUT (AUTO) 5.9 10^3/uL (1.7-8.2); BASOPHILS % (AUTO) 0.2 % (0-2); EOSINOPHILS % (AUTO) 0.1 % (0-6); HEMATOCRIT 33.7 % (36.0-47.0); HEMOGLOBIN 11.2 g/dL (12.0-15.5); LYMPHOCYTES % (AUTO) 5.8 % (13-45); MEAN CORPUSCULAR HEMOGLOBIN 30.2 pg (27.0-33.4); MEAN CORPUSCULAR HGB CONC 33.2 g/dL (32.0-36.0); MEAN CORPUSCULAR VOLUME 91 fl (80-97); MONOCYTES % (AUTO) 8.2 % (3-13); PLATELET COUNT 260 10^3/uL (150-450); RED CELL DISTRIBUTION WIDTH 17.5 % (11.5-14.0); SEGMENTED NEUTROPHILS % (AUTO) 85.7 % (42-78); TOTAL CELLS COUNTED % (AUTO) 100 %; WHITE BLOOD COUNT 6.9 10^3/uL (4.0-10.5)
[2018-08-22 02:49] LABS: ALANINE AMINOTRANSFERASE 29 U/L (9-52); ALBUMIN 2.9 g/dL (3.5-5.0); ALKALINE PHOSPHATASE 119 U/L (38-126); ASPARTATE AMINO TRANSFERASE 27 U/L (14-36); BILIRUBIN,DIRECT 0.4 mg/dL (0.0-0.4); BILIRUBIN,TOTAL 0.6 mg/dL (0.2-1.3); BLOOD UREA NITROGEN 24 mg/dL (7-20); CALCIUM 8.7 mg/dL (8.4-10.2); CARBON DIOXIDE 38 mmol/L (22-30); CHLORIDE 97 mmol/L (98-107); GLUCOSE 81 mg/dL (75-110); SODIUM 139.3 mmol/L (137-145)
[2018-08-22 02:54] LABS: ANION GAP 4 (5-19)
[2018-08-22 03:01] LABS: CREATINE KINASE MB 0.89 ng/mL (<4.55)
[2018-08-22 03:03] LABS: TROPONIN I < 0.012 ng/mL
[2018-08-22] MEDS: MEROPENEM 1 GM in NORMAL SALINE 50 ML IV SCH ×2 (05:57→17:55)
[2018-08-22] MEDS ORDERED: LEVOTHYROXINE SODIUM 0.075 MG TABLET PO SCH (06:00)
[2018-08-22] MEDS: DILTIAZEM HCL/D5W 125 MG/125 ML RTUINJ IV PRN (06:00)
[2018-08-22] MEDS ORDERED: (PENDING PHARMACY ID) (Citalopram Hydrobromide [Celexa 10 Mg Tablet] 10 MG) PO SCH (10:00)
[2018-08-22] MEDS ORDERED: ENOXAPARIN SODIUM INJ 30 MG/0.3 ML DISP.SYRIN SUBCUT SCH (10:00)
[2018-08-22] MEDS ORDERED: LEVOTHYROXINE SODIUM INJ/PF 0.1 MG SDV IV SCH (10:00)
[2018-08-22] MEDS ORDERED: CITALOPRAM HYDROBROMIDE 20 MG TABLET PO SCH (10:00)
[2018-08-22] MEDS ORDERED: DOCUSATE SODIUM 100 MG CAPSULE PO SCH (10:00)
[2018-08-22] MEDS ORDERED: VANCOMYCIN HCL INJ 1000 MG VIAL IV SCH (10:00)
[2018-08-22] MEDS: LIDOCAINE 5% (700 MG) TRANSDERMAL ADH..PATCH TP SCH (10:18)
--- NOTE | 2018-08-22 10:29 | PDOC PROGRESS REPORT ---
Subjective Progress Note for:: 08/22/18 Subjective:: 88 year old female with history of congestive heart failure, atrial fibrillation, hypothyroidism, recurrent bilateral pleural effusions, coronary artery coronary artery disease status post triple bypass and also stent placements, hypertension recently discharged to [facility] came back for altered mental status. In the emergency room she was given Narcan for presumed Narcotic overdose and patient shows signs of improvement. She was placed on BiPAP because PCO2 is 120 on VBG. And the chest x-ray shows polyp indicating may be possible pneumonia in association with the large right pleural effusion and moderate-sized left pleural effusion. Mumtaz consult was called for admission for altered mental status. Went to see the patient in the emergency room the family members at bedside has been told me she wanted her to be DNR/DNI. He also does want any pleural tap. Because he thinks the pleural fluid is coming back again within a few days because of the congestive heart failure. We respect his opinion. The family does want all other measurements including the controlling heart rate,improving her oxygenation, improving her pain. Patient is on BiPAP not communicating most of the history is received from the family members and the ER physician's notes. 08/22/2018-acute events last night. Dr. Mohan talk to the family yesterday. As per his recommendations family wants thoracentesis today. They understand that reaccumulation of of the fluid is a possibility within a few days. They still want to go ahead with procedure today. Patient is afebrile. Patient is still on BiPAP. We are going to repeat the ABG today. Reason For Visit: ALTERED MENTAL STATUS Physical Exam Vital Signs: Temp Pulse Resp BP Pulse Ox 98.3 F 131 H 20 114/64 98 08/22/18 08:00 08/22/18 08:00 08/22/18 08:00 08/22/18 08:00 08/22/18 08:00 Intake & Output 08/21/18 08/22/18 08/23/18 06:59 06:59 06:59 Intake Total 832 Output Total 350 Balance 482 Weight 43.2 kg General appearance: PRESENT: mild distress, other - On BiPAP Head exam: PRESENT: atraumatic Eye exam: PRESENT: PERRLA Mouth exam: PRESENT: dry mucosa Neck exam: ABSENT: carotid bruit, JVD, lymphadenopathy, thyromegaly Respiratory exam: PRESENT: decreased breath sounds Cardiovascular exam: PRESENT: irregular rhythm, systolic murmur, tachycardia GI/Abdominal exam: PRESENT: normal bowel sounds, soft. ABSENT: distended, guarding, mass, organolmegaly, rebound, tenderness Extremities exam: PRESENT: full ROM. ABSENT: calf tenderness, clubbing, pedal edema Neurological exam: PRESENT: other - Patient is on BiPAP sleeping comfortably in the bed. Psychiatric exam: PRESENT: appropriate affect, normal mood. ABSENT: homicidal ideation, suicidal ideation Results Laboratory Results: 08/22/18 02:26 08/22/18 02:26 08/21/18 08/21/18 08/21/18 11:21 11:21 11:21 WBC 10.3 RBC 3.86 Hgb 11.6 L Hct 36.2 MCV 94 D MCH 30.0 MCHC 32.0 RDW 18.0 H Plt Count 317 Seg Neutrophils % Not Reportable Lymphocytes % Not Reportable Monocytes % Not Reportable Eosinophils % Not Reportable Basophils % Not Reportable Absolute Neutrophils Not Reportable Absolute Lymphocytes Not Reportable Absolute Monocytes Not Reportable Absolute Eosinophils Not Reportable Absolute Basophils Not Reportable Carbonic Acid HCO3/H2CO3 Ratio ABG pH ABG pCO2 ABG pO2 ABG HCO3 ABG O2 Saturation ABG Base Excess VBG pH VBG pCO2 VBG HCO3 VBG Base Excess FiO2 Sodium 139.5 Potassium 5.5 H Chloride 95 L Carbon Dioxide 39 H Anion Gap 6 BUN 27 H Creatinine 0.89 Est GFR ( Amer) > 60 Est GFR (Non-Af Amer) > 60 Glucose 95 Lactic Acid 0.8 Calcium 8.9 Magnesium Total Bilirubin 0.6 AST 28 ALT 26 Alkaline Phosphatase 128 H Total Protein 6.5 Albumin 3.1 L Lipase TSH Urine Color Urine Appearance Urine pH Ur Specific [place] Urine Protein Urine Glucose (UA) Urine Ketones Urine Blood Urine Nitrite Ur Leukocyte Esterase Urine WBC (Auto) Urine RBC (Auto) 08/21/18 08/21/18 08/21/18 11:21 11:21 13:09 WBC RBC Hgb Hct MCV MCH MCHC RDW Plt Count Seg Neutrophils % Lymphocytes % Monocytes % Eosinophils % Basophils % Absolute Neutrophils Absolute Lymphocytes Absolute Monocytes Absolute Eosinophils Absolute Basophils Carbonic Acid HCO3/H2CO3 Ratio ABG pH ABG pCO2 ABG pO2 ABG HCO3 ABG O2 Saturation ABG Base Excess VBG pH 7.19 L* VBG pCO2 120.9 H* VBG HCO3 44.7 H VBG Base Excess 11.8 FiO2 Sodium Potassium Chloride Carbon Dioxide Anion Gap BUN Creatinine Est GFR ( Amer) Est GFR (Non-Af Amer) Glucose Lactic Acid Calcium Magnesium Total Bilirubin AST ALT Alkaline Phosphatase Total Protein Albumin Lipase 31.2 TSH Urine Color YELLOW Urine Appearance SLIGHTLY-CLOUDY Urine pH 5.0 Ur Specific [place] 1.015 Urine Protein NEGATIVE Urine Glucose (UA) NEGATIVE Urine Ketones NEGATIVE Urine Blood NEGATIVE Urine Nitrite NEGATIVE Ur Leukocyte Esterase NEGATIVE Urine WBC (Auto) 11 Urine RBC (Auto) 4 08/21/18 08/22/18 08/22/18 14:50 02:26 02:26 WBC 6.9 RBC 3.70 L Hgb 11.2 L Hct 33.7 L MCV 91 MCH 30.2 MCHC 33.2 RDW 17.5 H Plt Count 260 Seg Neutrophils % 85.7 H Lymphocytes % 5.8 L Monocytes % 8.2 Eosinophils % 0.1 Basophils % 0.2 Absolute Neutrophils 5.9 Absolute Lymphocytes 0.4 L Absolute Monocytes 0.6 Absolute Eosinophils 0.0 Absolute Basophils 0.0 Carbonic Acid 2.34 H HCO3/H2CO3 Ratio 15:1 ABG pH 7.28 L ABG pCO2 77.6 H* ABG pO2 75.9 L ABG HCO3 35.5 H ABG O2 Saturation 92.8 L ABG Base Excess 6.3 VBG pH VBG pCO2 VBG HCO3 VBG Base Excess FiO2 35% Sodium 139.3 Potassium 5.0 Chloride 97 L Carbon Dioxide 38 H Anion Gap 4 L BUN 24 H Creatinine 0.58 Est GFR ( Amer) > 60 Est GFR (Non-Af Amer) > 60 Glucose 81 Lactic Acid Calcium 8.7 Magnesium 2.3 Total Bilirubin 0.6 AST 27 ALT 29 Alkaline Phosphatase 119 Total Protein 6.0 L Albumin 2.9 L Lipase TSH Urine Color Urine Appearance Urine pH Ur Specific [place] Urine Protein Urine Glucose (UA) Urine Ketones Urine Blood Urine Nitrite Ur Leukocyte Esterase Urine WBC (Auto) Urine RBC (Auto) 08/22/18 02:26 WBC RBC Hgb Hct MCV MCH MCHC RDW Plt Count Seg Neutrophils % Lymphocytes % Monocytes % Eosinophils % Basophils % Absolute Neutrophils Absolute Lymphocytes Absolute Monocytes Absolute Eosinophils Absolute Basophils Carbonic Acid HCO3/H2CO3 Ratio ABG pH ABG pCO2 ABG pO2 ABG HCO3 ABG O2 Saturation ABG Base Excess VBG pH VBG pCO2 VBG HCO3 VBG Base Excess FiO2 Sodium Potassium Chloride Carbon Dioxide Anion Gap BUN Creatinine Est GFR ( Amer) Est GFR (Non-Af Amer) Glucose Lactic Acid Calcium Magnesium Total Bilirubin AST ALT Alkaline Phosphatase Total Protein Albumin Lipase TSH 5.39 H Urine Color Urine Appearance Urine pH Ur Specific [place] Urine Protein Urine Glucose (UA) Urine Ketones Urine Blood Urine Nitrite Ur Leukocyte Esterase Urine WBC (Auto) Urine RBC (Auto) 08/21/18 08/21/18 08/21/18 11:21 11:21 19:18 Creatine Kinase 35 < 20 L CK-MB (CK-2) 1.27 Troponin I < 0.012 NT-Pro-B Natriuret Pep 08/21/18 08/22/18 08/22/18 19:18 02:26 02:26 Creatine Kinase < 20 L CK-MB (CK-2) 1.27 0.89 Troponin I < 0.012 < 0.012 NT-Pro-B Natriuret Pep 08/22/18 02:26 Creatine Kinase CK-MB (CK-2) Troponin I NT-Pro-B Natriuret Pep 6120 H Impressions: Chest CT 08/21/18 00:00 IMPRESSION: Large left and moderate right pleural effusions with bilateral lower lobe consolidation, likely atelectasis. Chest X-Ray 08/21/18 11:23 IMPRESSION: Bilateral pleural effusions, large on the left and moderate on the right, increased from prior. Associates bibasilar consolidation likely atelectasis although infection is not excluded. Assessment & Plan - Diagnosis (1) Altered mental status Is this a current diagnosis for this admission?: Yes Plan: 08/21/2018-[facility] with [facility] breathing and change in mental status most likely secondary to oxycodone she is receiving at the prison. After the giving the Narcan she showed significant improvement in the ER. Patient is still not back to baseline on BiPAP PCO2 is 120 hopefully she was showing improvement by tomorrow. Patient is DNR/DNI they do not want any aggressive measures. 08/22/2018-patient was admitted with altered mental status/acute encephalopathy. Probably secondary to narcotic use. After given Narcan she showed signs of improvement. Patient is still on BiPAP. Initial PCO2 on VBG is 120 follow-up ABG shows PCO2 of 76. Plan is to repeat the ABG today. (2) Atrial fibrillation with rapid ventricular response Is this a current diagnosis for this admission?: Yes Plan: 08/21/2018-patient has afibrillation on diltiazem at prison. She was started on Cardizem drip in the ER. Consultation of Dr. Chu Jose recommended. Once rate is controlled we will put her back on p.o. diltiazem. 08/22/2018-patient has history of chronic atrial fibrillation on diltiazem p.o. at prison. Presently she is on IV Cardizem. With titrating the dose based on the heart rate. Consultation with Dr. Mohan was done. (3) Pleural effusion Is this a current diagnosis for this admission?: Yes Plan: 08/21/2018-patient has persistent right pleural effusion along with a left pleural effusion last admission 1 week ago pleural tap was done and today's chest x-ray shows worsening of the right pleural effusion. I discussed the plan of care with he does not want any thoracentesis because of the high likelihood that pleural effusion may recur due to congestive heart failure. 08/22/2018-patient has bilateral pleural effusions especially large one on the right side. As per the family request I placed the order for thoracentesis. We do the follow-up chest x-rays. (4) Respiratory failure with hypercapnia Qualifiers: Chronicity: acute on chronic Qualified Code(s): J96.22 - Acute and chronic respiratory failure with hypercapnia Is this a current diagnosis for this admission?: Yes Plan: 08/21/2018-patient was admitted with acute on chronic respiratory failure with hypercapnia PCO2 on VBG is 120. She was placed on BiPAP. Going to do the follow-up ABG on regular basis. She Xopenex nebulizations every 4 as needed. 08/22/2018-patient was admitted with acute on chronic respiratory failure with hypercapnia initial VBG shows PCO2 of 120 she was on BiPAP in the ABG PCO2 is improved to 76. Going to repeat the ABG this morning. (5) HTN (hypertension) Qualifiers: Hypertension type: essential hypertension Qualified Code(s): I10 - Essential (primary) hypertension Is this a current diagnosis for this admission?: Yes Plan: 08/21/2018-patient has history of hypertension on antihypertensive medications at the prison blood pressure today is 130/70 08/22/2018-patient has history of hypertension blood pressure today is 114/64 blood pressure is well controlled. Plan is to continue the present management. Patient's overall prognosis poor condition is critical. Family is aware of it. Patient is DNR/DNI. - Time Time Spent with patient: 15-24 minutes Medications reviewed and adjusted accordingly: Yes Anticipated discharge: Hospice
[2018-08-22 11:24] LABS: ARTERIAL BLOOD BASE EXCESS 12.4 mmol/L; ARTERIAL BLOOD H2CO3 2.13 mmol/L (1.05-1.35); ARTERIAL BLOOD HCO3 40.2 mmol/L (20-24); ARTERIAL BLOOD O2 SATURATION 95.4 % (94-98); ARTERIAL BLOOD PH 7.37 (7.35-7.45); ARTERIAL BLOOD TOTAL CO2 42.3 mmol/L (21-25)
[2018-08-22 11:25] LABS: ARTERIAL BLOOD FIO2 35%; ARTERIAL BLOOD PCO2 70.6 mmHg (35-45)
--- NOTE | 2018-08-22 12:06 | RADIOLOGY REPORT (SQ) ---
EXAM DESCRIPTION: CHEST SINGLE VIEW COMPLETED DATE/TIME: 08/22/2018 11:48 am REASON FOR STUDY: plural effusion COMPARISON: CT chest 08/21/2018, AP chest 08/21/2018, 08/14/2018 EXAM PARAMETERS: NUMBER OF VIEWS: One view. TECHNIQUE: Single frontal radiographic view of the chest acquired. RADIATION DOSE: NA LIMITATIONS: None. FINDINGS: LUNGS AND PLEURA: Re-accumulation of a moderate left pleural effusion. Small to moderate right pleural effusion. No pneumothorax. Persistent left basilar consolidation likely atelectasis. MEDIASTINUM AND HILAR STRUCTURES: No masses. Contour normal. HEART AND VASCULAR STRUCTURES: Stable cardiomegaly, old sternotomy and CABG BONES: Osteoporotic HARDWARE: Left-sided pacemaker OTHER: No other significant finding. IMPRESSION: Re-accumulation of a moderate left pleural effusion. Persistent small to moderate right pleural effusion. 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
--- NOTE | 2018-08-22 15:23 | RADIOLOGY REPORT (SQ) ---
EXAM DESCRIPTION: U/S THORACENTESIS WITH IMAGING COMPLETED DATE/TIME: 08/22/2018 2:59 pm REASON FOR STUDY: rt pleural effusion COMPARISON: CT chest 08/13/2018, 08/21/2018 Chest films 08/12/2018, 08/13/2018, 08/14/2018, 08/21/2018 LIMITATIONS: None. PROCEDURE: Procedure, risks, benefit, and alternative explained to patient's daughter who then gave written consent. Patient on BiPAP, procedure performed at bedside. The left chest wall was marked using ultrasound guidance. A time-out was called for correct marking verification. Chest prepped and draped using sterile technique. Local anesthesia achieved using 4.5 ml of 1% lidocaine injection. A 6fr Safe-T- Centesis set was introduced into the left pleural space. Fluid was aspirated. The catheter was removed and the entry site was covered with sterile bandage. No immediate complications noted. Total amount of fluid removed, 550 mL of serosanguineous fluid. No testing on the fluid Images acquired during the procedure were stored on PACS. FINDINGS: ENTRY SITE: Left posterior chest FLUID VOLUME: 550 mL of serosanguineous fluid FLUID ANALYSIS: No OTHER: Therapeutic only IMPRESSION: SUCCESSFUL THORACENTESIS USING ULTRASOUND GUIDANCE. COMMENT: Patient medication list reviewed: Yes- Quality ID# [id number]:Eligible professional attests to doc umenting in the medical record they obtained, updated, or reviewed the patient's current medications. TECHNICAL DOCUMENTATION: JOB ID: [id number] [employer]- All Rights Reserved Reading location - IP/workstation name: [email or web address]
--- NOTE | 2018-08-22 16:29 | RADIOLOGY REPORT (SQ) ---
EXAM DESCRIPTION: CHEST SINGLE VIEW COMPLETED DATE/TIME: 08/22/2018 4:16 pm REASON FOR STUDY: post thoracentesis COMPARISON: Earlier the same day. EXAM PARAMETERS: NUMBER OF VIEWS: One view. TECHNIQUE: Single frontal radiographic view of the chest acquired. RADIATION DOSE: NA LIMITATIONS: None. FINDINGS: LUNGS AND PLEURA: Large left pleural effusion remains status post thoracentesis. No pneum othorax. There is a small right effusion. MEDIASTINUM AND HILAR STRUCTURES: No masses. Contour normal. HEART AND VASCULAR STRUCTURES: Heart remains enlarged with central vascular prominence. BONES: No acute findings. HARDWARE: None in the chest. OTHER: No other significant finding. IMPRESSION: No pneumothorax following left-sided thoracentesis. TECHNICAL DOCUMENTATION: JOB ID: [id number] [employer]- All Rights Reserved Reading location - IP/workstation name: [email or web address]
[2018-08-22] MEDS: LORAZEPAM INJ 2 MG/1 ML VIAL IV PRN (16:55)
[2018-08-22] MEDS: VANCOMYCIN HCL 750 MG in DEXTROSE 5%-WATER 250 ML IV SCH (17:56)
--- NOTE | 2018-08-22 18:27 | RADIOLOGY REPORT (SQ) ---
EXAM DESCRIPTION: CHEST SINGLE VIEW COMPLETED DATE/TIME: 08/22/2018 6:19 pm REASON FOR STUDY: 2 hours post thoracentesis COMPARISON: 08/22/2018 EXAM PARAMETERS: NUMBER OF VIEWS: One view. TECHNIQUE: Single frontal radiographic view of the chest acquired. RADIATION DOSE: NA LIMITATIONS: None. FINDINGS: LUNGS AND PLEURA: Interval deterioration in the appearance of the chest. There is now com plete opacification of the left chest likely related to mucous plug. Midline shift to the left. The re is still effusion on the left. Moderate right effusion. No pneumothorax. MEDIASTINUM AND HILAR STRUCTURES: No masses. Contour normal. HEART AND VASCULAR STRUCTURES: Heart normal in size. Normal vasculature. BONES: No acute findings. HARDWARE: CABG hardware. OTHER: No other significant finding. IMPRESSION: Interval deterioration in the appearance of the chest with complete opacification of the left chest likely related to complete atelectasis of the left lung and volume loss. Most likely josefa ology is mucous plug. Persistent left effusion. Persistent right effusion. TECHNICAL DOCUMENTATION: JOB ID: [id number] [employer]- All Rights Reserved Reading location - IP/workstation name: [email or web address]
--- NOTE | 2018-08-22 19:30 | PDOC PROGRESS REPORT ---
Subjective Progress Note for:: 08/21/18 Subjective:: Pt seen. Also talked in details with the family members. Recommended thoracentesis for comfort and relief from dyspnea. Patient however confused and somewhat obtunded but in mild respiratory distress. She has a BiPAP mask on. Reason For Visit: ALTERED MENTAL STATUS Physical Exam Vital Signs: Temp Pulse Resp BP Pulse Ox 97.5 F 117 H 22 H 119/69 99 08/21/18 20:12 08/21/18 23:00 08/21/18 22:05 08/21/18 23:00 08/21/18 22:05 Intake & Output 08/20/18 08/21/18 08/22/18 06:59 06:59 06:59 Intake Total 550 Balance 550 Weight 49 kg Exam: GENERAL: Seems malnourished in respiratory distress. Patient is alert but not oriented to place time or person. HEAD: Atraumatic, normocephalic. EYES: Pupils equal round and reactive to light, extraocular movements intact, sclera anicteric, conjunctiva are normal. ENT: TMs normal, nares patent, oropharynx clear without exudates. Moist mucous membranes. No oral ulcerations or bleeding gums noted NECK: supple without lymphadenopathy or JVD. Trachea is central. No cervical or axillary lymphadenopathy noted. Carotids are 2+ LUNGS: Breath sounds bibasilar fine crackles at bases. Lateral dullness noted.. CHEST: Palpation of chest wall shows no significant chest wall tenderness. HEART: [employer], No PSH, 2/6 SHELL aortic area, 1/6 groves systolic murmur mitral area, rubs or gallops. ABDOMEN: Soft, no significant tenderness appreciated, normoactive bowel sounds. No guarding, no rebound. No rigidity noted . No masses appreciated. EXTREMITIES: Pedal pulses are 1-2+, no calf tenderness noted, Trace + pedal edema noted. No clubbing or cyanosis. NEUROLOGICAL: Patient is alert but is not able to participate in neurological exam because of patient's current mental status PSYCH: Patient cannot participate in a neurologic and psych exam because of the patient's current mental status SKIN: No significant ecchymosis, rash, ulcerations or signs of pruritus noted. MUSCULOSKELETAL EXAM: No significant joint swelling noted. Results Laboratory Results: 08/21/18 11:21 08/21/18 11:21 0208/21/18 08/21/18 11:21 11:21 11:21 WBC 10.3 RBC 3.86 Hgb 11.6 L Hct 36.2 MCV 94 D MCH 30.0 MCHC 32.0 RDW 18.0 H Plt Count 317 Seg Neutrophils % Not Reportable Lymphocytes % Not Reportable Monocytes % Not Reportable Eosinophils % Not Reportable Basophils % Not Reportable Absolute Neutrophils Not Reportable Absolute Lymphocytes Not Reportable Absolute Monocytes Not Reportable Absolute Eosinophils Not Reportable Absolute Basophils Not Reportable Carbonic Acid HCO3/H2CO3 Ratio ABG pH ABG pCO2 ABG pO2 ABG HCO3 ABG O2 Saturation ABG Base Excess VBG pH VBG pCO2 VBG HCO3 VBG Base Excess FiO2 Sodium 139.5 Potassium 5.5 H Chloride 95 L Carbon Dioxide 39 H Anion Gap 6 BUN 27 H Creatinine 0.89 Est GFR ( Amer) > 60 Est GFR (Non-Af Amer) > 60 Glucose 95 Lactic Acid 0.8 Calcium 8.9 Total Bilirubin 0.6 AST 28 ALT 26 Alkaline Phosphatase 128 H Total Protein 6.5 Albumin 3.1 L Lipase Urine Color Urine Appearance Urine pH Ur Specific [place] Urine Protein Urine Glucose (UA) Urine Ketones Urine Blood Urine Nitrite Ur Leukocyte Esterase Urine WBC (Auto) Urine RBC (Auto) 08/21/18 08/21/18 08/21/18 11:21 11:21 13:09 WBC RBC Hgb Hct MCV MCH MCHC RDW Plt Count Seg Neutrophils % Lymphocytes % Monocytes % Eosinophils % Basophils % Absolute Neutrophils Absolute Lymphocytes Absolute Monocytes Absolute Eosinophils Absolute Basophils Carbonic Acid HCO3/H2CO3 Ratio ABG pH ABG pCO2 ABG pO2 ABG HCO3 ABG O2 Saturation ABG Base Excess VBG pH 7.19 L* VBG pCO2 120.9 H* VBG HCO3 44.7 H VBG Base Excess 11.8 FiO2 Sodium Potassium Chloride Carbon Dioxide Anion Gap BUN Creatinine Est GFR ( Amer) Est GFR (Non-Af Amer) Glucose Lactic Acid Calcium Total Bilirubin AST ALT Alkaline Phosphatase Total Protein Albumin Lipase 31.2 Urine Color YELLOW Urine Appearance SLIGHTLY-CLOUDY Urine pH 5.0 Ur Specific [place] 1.015 Urine Protein NEGATIVE Urine Glucose (UA) NEGATIVE Urine Ketones NEGATIVE Urine Blood NEGATIVE Urine Nitrite NEGATIVE Ur Leukocyte Esterase NEGATIVE Urine WBC (Auto) 11 Urine RBC (Auto) 4 08/21/18 14:50 WBC RBC Hgb Hct MCV MCH MCHC RDW Plt Count Seg Neutrophils % Lymphocytes % Monocytes % Eosinophils % Basophils % Absolute Neutrophils Absolute Lymphocytes Absolute Monocytes Absolute Eosinophils Absolute Basophils Carbonic Acid 2.34 H HCO3/H2CO3 Ratio 15:1 ABG pH 7.28 L ABG pCO2 77.6 H* ABG pO2 75.9 L ABG HCO3 35.5 H ABG O2 Saturation 92.8 L ABG Base Excess 6.3 VBG pH VBG pCO2 VBG HCO3 VBG Base Excess FiO2 35% Sodium Potassium Chloride Carbon Dioxide Anion Gap BUN Creatinine Est GFR ( Amer) Est GFR (Non-Af Amer) Glucose Lactic Acid Calcium Total Bilirubin AST ALT Alkaline Phosphatase Total Protein Albumin Lipase Urine Color Urine Appearance Urine pH Ur Specific [place] Urine Protein Urine Glucose (UA) Urine Ketones Urine Blood Urine Nitrite Ur Leukocyte Esterase Urine WBC (Auto) Urine RBC (Auto) 08/21/18 08/21/18 08/21/18 11:21 11:21 19:18 Creatine Kinase 35 < 20 L CK-MB (CK-2) 1.27 Troponin I < 0.012 08/21/18 19:18 Creatine Kinase CK-MB (CK-2) 1.27 Troponin I < 0.012 EKG Comments: EKG shows atrial fibrillation with rapid ventricular response. Impressions: Chest CT 08/21/18 00:00 IMPRESSION: Large left and moderate right pleural effusions with bilateral lower lobe consolidation, likely atelectasis. Chest X-Ray 08/21/18 11:23 IMPRESSION: Bilateral pleural effusions, large on the left and moderate on the right, increased from prior. Associates bibasilar consolidation likely atelectasis although infection is not excluded. Assessment & Plan - Diagnosis (1) Respiratory failure Qualifiers: Chronicity: acute on chronic Respiratory failure complication: unspecified whether with hypoxia or hypercapnia Qualified Code(s): J96.20 - Acute and chronic respiratory failure, unspecified whether with hypoxia or hypercapnia Is this a current diagnosis for this admission?: Yes (2) Altered mental status Is this a current diagnosis for this admission?: Yes (3) Atrial fibrillation with rapid ventricular response Is this a current diagnosis for this admission?: Yes (4) Pleural effusion Is this a current diagnosis for this admission?: Yes (5) CHF (congestive heart failure) Qualifiers: Heart failure type: right-sided Heart failure chronicity: acute on chronic Qualified Code(s): I50.813 - Acute on chronic right heart failure Is this a current diagnosis for this admission?: Yes - Notes Notes: Patient has acute on chronic respiratory failure, secondary to CHF, COPD, musculoskeletal cause, general debility etc. Patient also has bilateral pleural effusion. After long discussion with family members, it was felt that most r easonable option would be to make patient comfortable. It was decided however to pursue thoracentesis as this might make patient more comfortable as regards breathing. Patient does have atrial fibrillation, consider Cardizem for rate control. May add digoxin if needed. Patient is quite debilitated. She has gone downhill. Overall prognosis on the poor side. This was discussed with the family members. - Time Time with patient: 15-25 minutes - CODE STATUS : was discussed, patient remains DO NOT RESUSCITATE. Surrogate decision-maker unchanged. Multiple medical problems were addressed.
--- NOTE | 2018-08-22 19:33 | PDOC PROGRESS REPORT ---
Subjective Progress Note for:: 08/22/18 Subjective:: Pt seen. Also talked in details with the family members. Patient had thoracentesis earlier today. Subsequently developed collapse of the left lung because of most likely mucous plugging. However there could be other causes of left main bronchus occlusion. Patient however confused and somewhat obtunded but in mild respiratory distress. She has a BiPAP mask on. Reason For Visit: ALTERED MENTAL STATUS Physical Exam Vital Signs: Temp Pulse Resp BP Pulse Ox 97.5 F 97 24 H 111/36 L 100 08/22/18 15:14 08/22/18 15:14 08/22/18 16:45 08/22/18 12:00 08/22/18 16:45 Intake & Output 08/21/18 08/22/18 08/23/18 06:59 06:59 06:59 Intake Total 882 Output Total 350 Balance 532 Weight 43.2 kg Exam: GENERAL: Cachectic in mild respiratory distress. Patient is alert but not oriented to place time or person. HEAD: Atraumatic, normocephalic. EYES: Pupils equal round and reactive to light, extraocular movements intact, sclera anicteric, conjunctiva are normal. ENT: TMs normal, nares patent, oropharynx clear without exudates. Moist mucous membranes. No oral ulcerations or bleeding gums noted NECK: supple without lymphadenopathy or JVD. Trachea is central. No cervical or axillary lymphadenopathy noted. Carotids are 2+ LUNGS: Lateral mild wheezing noted. Bibasilar dullness noted. CHEST: Palpation of chest wall shows no significant chest wall tenderness. HEART: [employer], No PSH, 2/6 SHELL aortic area, 1/6 groves systolic murmur mitral area, rubs or gallops. ABDOMEN: Soft, no significant tenderness appreciated, normoactive bowel sounds. No guarding, no rebound. No rigidity noted . No masses appreciated. EXTREMITIES: Pedal pulses are 1-2+, no calf tenderness noted, Trace + pedal edema noted. No clubbing or cyanosis. NEUROLOGICAL: Patient is alert but is not able to participate in neurological exam because of patient's current mental status PSYCH: Patient cannot participate in a neurologic and psych exam because of the patient's current mental status SKIN: No significant ecchymosis, rash, ulcerations or signs of pruritus noted. MUSCULOSKELETAL EXAM: No significant joint swelling noted. Results Laboratory Results: 08/22/18 02:26 08/22/18 02:26 08/22/18 08/22/18 08/22/18 02:26 02:26 02:26 WBC 6.9 RBC 3.70 L Hgb 11.2 L Hct 33.7 L MCV 91 MCH 30.2 MCHC 33.2 RDW 17.5 H Plt Count 260 Seg Neutrophils % 85.7 H Lymphocytes % 5.8 L Monocytes % 8.2 Eosinophils % 0.1 Basophils % 0.2 Absolute Neutrophils 5.9 Absolute Lymphocytes 0.4 L Absolute Monocytes 0.6 Absolute Eosinophils 0.0 Absolute Basophils 0.0 Carbonic Acid HCO3/H2CO3 Ratio ABG pH ABG pCO2 ABG pO2 ABG HCO3 ABG O2 Saturation ABG Base Excess FiO2 Sodium 139.3 Potassium 5.0 Chloride 97 L Carbon Dioxide 38 H Anion Gap 4 L BUN 24 H Creatinine 0.58 Est GFR ( Amer) > 60 Est GFR (Non-Af Amer) > 60 Glucose 81 Calcium 8.7 Magnesium 2.3 Total Bilirubin 0.6 AST 27 ALT 29 Alkaline Phosphatase 119 Total Protein 6.0 L Albumin 2.9 L TSH 5.39 H 08/22/18 11:05 WBC RBC Hgb Hct MCV MCH MCHC RDW Plt Count Seg Neutrophils % Lymphocytes % Monocytes % Eosinophils % Basophils % Absolute Neutrophils Absolute Lymphocytes Absolute Monocytes Absolute Eosinophils Absolute Basophils Carbonic Acid 2.13 H HCO3/H2CO3 Ratio 18:1 ABG pH 7.37 ABG pCO2 70.6 H* ABG pO2 82.0 ABG HCO3 40.2 H ABG O2 Saturation 95.4 ABG Base Excess 12.4 FiO2 35% Sodium Potassium Chloride Carbon Dioxide Anion Gap BUN Creatinine Est GFR ( Amer) Est GFR (Non-Af Amer) Glucose Calcium Magnesium Total Bilirubin AST ALT Alkaline Phosphatase Total Protein Albumin TSH 08/21/18 08/21/18 08/21/18 11:21 11:21 19:18 Creatine Kinase 35 < 20 L CK-MB (CK-2) 1.27 Troponin I < 0.012 NT-Pro-B Natriuret Pep 08/21/18 08/22/18 08/22/18 19:18 02:26 02:26 Creatine Kinase < 20 L CK-MB (CK-2) 1.27 0.89 Troponin I < 0.012 < 0.012 NT-Pro-B Natriuret Pep 08/22/18 02:26 Creatine Kinase CK-MB (CK-2) Troponin I NT-Pro-B Natriuret Pep 6120 H EKG Comments: Showed atrial fibrillation with rapid ventricular response. Impressions: Chest CT 08/21/18 00:00 IMPRESSION: Large left and moderate right pleural effusions with bilateral lower lobe consolidation, likely atelectasis. Thoracentesis Ultrasound 08/22/18 00:00 IMPRESSION: SUCCESSFUL THORACENTESIS USING ULTRASOUND GUIDANCE. Chest X-Ray 08/22/18 10:30 IMPRESSION: Re-accumulation of a moderate left pleural effusion. Persistent small to moderate right pleural effusion. 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 Assessment & Plan - Diagnosis (1) Respiratory failure Qualifiers: Chronicity: acute on chronic Respiratory failure complication: unspecified whether with hypoxia or hypercapnia Qualified Code(s): J96.20 - Acute and chronic respiratory failure, unspecified whether with hypoxia or hypercapnia Is this a current diagnosis for this admission?: Yes (2) Altered mental status Is this a current diagnosis for this admission?: Yes (3) Atrial fibrillation with rapid ventricular response Is this a current diagnosis for this admission?: Yes (4) Pleural effusion Is this a current diagnosis for this admission?: Yes (5) CHF (congestive heart failure) Qualifiers: Heart failure type: right-sided Heart failure chronicity: acute on chronic Qualified Code(s): I50.813 - Acute on chronic right heart failure Is this a current diagnosis for this admission?: Yes - Notes Notes: No new recommendation. Patient's family to decide whether to make the patient comfort care. Continue Cardizem drip. May add digoxin for heart rate control if needed. May consider pulmonary consultation. Doubt patient will be a candidate for any aggressive intervention. - Time Time with patient: 15-25 minutes - CODE STATUS : was discussed, patient remains DO NOT RESUSCITATE. Surrogate decision-maker unchanged. Multiple medical problems were addressed.
[2018-08-22] MEDS: FAMOTIDINE INJ/PF 20 MG/2 ML SDV IV SCH (22:39)
[2018-08-23] MEDS: DILTIAZEM HCL/D5W 125 MG/125 ML RTUINJ IV PRN (01:16)
[2018-08-23] MEDS: MEROPENEM 1 GM in NORMAL SALINE 50 ML IV SCH (05:56)
[2018-08-23 06:08] LABS: ABSOLUTE EOSINOPHILS # (AUTO) 0.1 10^3/uL (0.0-0.6); ABSOLUTE LYMPHOCYTES (AUTO) 0.5 10^3/uL (0.5-4.7); ABSOLUTE MONOCYTES (AUTO) 0.7 10^3/uL (0.1-1.4); ABSOLUTE NEUT (AUTO) 6.4 10^3/uL (1.7-8.2); BASOPHILS % (AUTO) 0.3 % (0-2); EOSINOPHILS % (AUTO) 0.8 % (0-6); HEMATOCRIT 34.2 % (36.0-47.0); HEMOGLOBIN 11.3 g/dL (12.0-15.5); LYMPHOCYTES % (AUTO) 6.7 % (13-45); MEAN CORPUSCULAR HEMOGLOBIN 29.7 pg (27.0-33.4); MEAN CORPUSCULAR VOLUME 90 fl (80-97); MONOCYTES % (AUTO) 8.9 % (3-13); PLATELET COUNT 263 10^3/uL (150-450); RED CELL DISTRIBUTION WIDTH 17.6 % (11.5-14.0); SEGMENTED NEUTROPHILS % (AUTO) 83.3 % (42-78); TOTAL CELLS COUNTED % (AUTO) 100 %; WHITE BLOOD COUNT 7.7 10^3/uL (4.0-10.5)
[2018-08-23 06:34] LABS: ALANINE AMINOTRANSFERASE 19 U/L (9-52); ALBUMIN 2.8 g/dL (3.5-5.0); ALKALINE PHOSPHATASE 105 U/L (38-126); ANION GAP 7 (5-19); ASPARTATE AMINO TRANSFERASE 23 U/L (14-36); BILIRUBIN,DIRECT 0.4 mg/dL (0.0-0.4); BILIRUBIN,TOTAL 0.8 mg/dL (0.2-1.3); BLOOD UREA NITROGEN 19 mg/dL (7-20); CALCIUM 8.6 mg/dL (8.4-10.2); CARBON DIOXIDE 36 mmol/L (22-30); CHLORIDE 96 mmol/L (98-107); GLUCOSE 80 mg/dL (75-110); POTASSIUM 4.6 mmol/L (3.6-5.0); SODIUM 139.2 mmol/L (137-145); TOTAL PROTEIN 5.8 g/dL (6.3-8.2)
--- NOTE | 2018-08-23 09:37 | EKG REPORT ---
SEVERITY:- ABNORMAL ECG - A FIB WITH VENTRICULAR-PACED COMPLEXES RBBB AND LPFB NONSPECIFIC ST DEPRESSION, ANT-LAT LEADS : Confirmed by: Ynes Mohan 23-Aug-2018 09:37:33
[2018-08-23] MEDS: LIDOCAINE 5% (700 MG) TRANSDERMAL ADH..PATCH TP SCH (11:10)
[2018-08-23] MEDS: LORAZEPAM INJ 2 MG/1 ML VIAL IV PRN ×4 (12:07→21:42)
--- NOTE | 2018-08-23 12:13 | PDOC PROGRESS REPORT ---
Subjective Progress Note for:: 08/23/18 Subjective:: 88 year old female with history of congestive heart failure, atrial fibrillation, hypothyroidism, recurrent bilateral pleural effusions, coronary artery coronary artery disease status post triple bypass and also stent placements, hypertension recently discharged to [facility] came back for altered mental status. In the emergency room she was given Narcan for presumed Narcotic overdose and patient shows signs of improvement. She was placed on BiPAP because PCO2 is 120 on VBG. And the chest x-ray shows polyp indicating may be possible pneumonia in association with the large right pleural effusion and moderate-sized left pleural effusion. Mumtaz consult was called for admission for altered mental status. Went to see the patient in the emergency room the family members at bedside has been told me she wanted her to be DNR/DNI. He also does want any pleural tap. Because he thinks the pleural fluid is coming back again within a few days because of the congestive heart failure. We respect his opinion. The family does want all other measurements including the controlling heart rate,improving her oxygenation, improving her pain. Patient is on BiPAP not communicating most of the history is received from the family members and the ER physician's notes. 08/22/2018-acute events last night. Dr. Mohan talk to the family yesterday. As per his recommendations family wants thoracentesis today. They understand that reaccumulation of of the fluid is a possibility within a few days. They still want to go ahead with procedure today. Patient is afebrile. Patient is still on BiPAP. We are going to repeat the ABG today. 08/23/2018-patient has left-sided paralysis was done yesterday. Follow-up x-rays indicating complete opacification of the left lung. Patient is on BiPAP 100%. On examination tracheal deviation to the left side was seen. Family decided to make her comfort care only. They want to keep her in the hospital for a few more days. Family is not considering home hospice option. Overall prognosis poor condition is critical. Reason For Visit: ALTERED MENTAL STATUS Physical Exam Vital Signs: Temp Pulse Resp BP Pulse Ox 97.5 F 85 18 104/56 L 98 08/23/18 03:34 08/23/18 03:34 08/23/18 03:59 08/23/18 06:00 08/23/18 03:34 Intake & Output 08/22/18 08/23/18 08/24/18 06:59 06:59 06:59 Intake Total 882 396 Output Total 350 350 Balance 532 46 Weight 43.2 kg 38 kg General appearance: PRESENT: other - In severe distress unresponsive. Head exam: PRESENT: atraumatic Eye exam: PRESENT: PERRLA Mouth exam: PRESENT: dry mucosa Teeth exam: PRESENT: poor dentation Neck exam: PRESENT: tracheal deviation Respiratory exam: PRESENT: accessory muscle use, decreased breath sounds, prolonged expiratory phas, wheezes Cardiovascular exam: PRESENT: tachycardia GI/Abdominal exam: PRESENT: normal bowel sounds, soft. ABSENT: distended, guarding, mass, organolmegaly, rebound, tenderness Extremities exam: PRESENT: full ROM. ABSENT: calf tenderness, clubbing, pedal edema Neurological exam: PRESENT: other - Patient is obtunded not responsive. Results Laboratory Results: 08/23/18 05:29 08/23/18 05:29 08/23/18 08/23/18 05:29 05:29 WBC 7.7 RBC 3.80 Hgb 11.3 L Hct 34.2 L MCV 90 MCH 29.7 MCHC 33.0 RDW 17.6 H Plt Count 263 Seg Neutrophils % 83.3 H Lymphocytes % 6.7 L Monocytes % 8.9 Eosinophils % 0.8 Basophils % 0.3 Absolute Neutrophils 6.4 Absolute Lymphocytes 0.5 Absolute Monocytes 0.7 Absolute Eosinophils 0.1 Absolute Basophils 0.0 Sodium 139.2 Potassium 4.6 Chloride 96 L Carbon Dioxide 36 H Anion Gap 7 BUN 19 Creatinine 0.43 L Est GFR ( Amer) > 60 Est GFR (Non-Af Amer) > 60 Glucose 80 Calcium 8.6 Magnesium 2.2 Total Bilirubin 0.8 AST 23 ALT 19 Alkaline Phosphatase 105 Total Protein 5.8 L Albumin 2.8 L 08/21/18 13:09 Catheterized Urine Urine Culture - Final NO GROWTH 2 DAYS 08/21/18 08/21/18 08/21/18 11:21 11:21 19:18 Creatine Kinase 35 < 20 L CK-MB (CK-2) 1.27 Troponin I < 0.012 NT-Pro-B Natriuret Pep 08/21/18 08/22/18 08/22/18 19:18 02:26 02:26 Creatine Kinase < 20 L CK-MB (CK-2) 1.27 0.89 Troponin I < 0.012 < 0.012 NT-Pro-B Natriuret Pep 08/22/18 02:26 Creatine Kinase CK-MB (CK-2) Troponin I NT-Pro-B Natriuret Pep 6120 H Impressions: Chest CT 08/21/18 00:00 IMPRESSION: Large left and moderate right pleural effusions with bilateral lower lobe consolidation, likely atelectasis. Thoracentesis Ultrasound 08/22/18 00:00 IMPRESSION: SUCCESSFUL THORACENTESIS USING ULTRASOUND GUIDANCE. Chest X-Ray 08/22/18 10:30 IMPRESSION: Re-accumulation of a moderate left pleural effusion. Persistent small to moderate right pleural effusion. 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 Assessment & Plan - Diagnosis (1) Altered mental status Is this a current diagnosis for this admission?: Yes Plan: 08/21/2018-patient was brought in from the half-way with shallow breathing and change in mental status most likely secondary to oxycodone she is receiving at the half-way. After the giving the Narcan she showed significant improvement in the ER. Patient is still not back to baseline on BiPAP PCO2 is 120 hopefully she was showing improvement by tomorrow. Patient is DNR/DNI they do not want any aggressive measures. 08/22/2018-patient was admitted with altered mental status/acute encephalopathy. Probably secondary to narcotic use. After given Narcan she showed signs of improvement. Patient is still on BiPAP. Initial PCO2 on VBG is 120 follow-up ABG shows PCO2 of 76. Plan is to repeat the ABG today. 08/23/2018-patient was admitted with altered mental status/acute encephalopathy most likely secondary to narcotic overdose. Patient is presently on 100% oxygen on BiPAP. Overall prognosis is poor family wants comfort care measures only. It is already DNR/DNI. (2) Atrial fibrillation with rapid ventricular response Is this a current diagnosis for this admission?: Yes Plan: 08/21/2018-patient has afibrillation on diltiazem at half-way. She was started on Cardizem drip in the ER. Consultation of Dr. Chu Jose recommended. Once rate is controlled we will put her back on p.o. diltiazem. 08/22/2018-patient has history of chronic atrial fibrillation on diltiazem p.o. at half-way. Presently she is on IV Cardizem. With titrating the dose based o n the heart rate. Consultation with Dr. Mohan was done. 08/23/2018-patient has history of atrial fibrillation on Cardizem p.o. at home. She is on Cardizem drip. Family wants comfort care measures only so Cardizem drip was discontinued. (3) Pleural effusion Is this a current diagnosis for this admission?: Yes Plan: 08/21/2018-patient has persistent right pleural effusion along with a left pleural effusion last admission 1 week ago pleural tap was done and today's chest x-ray shows worsening of the right pleural effusion. I discussed the plan of care with he does not want any thoracentesis because of the high likelihood that pleural effusion may recur due to congestive heart failure. 08/22/2018-patient has bilateral pleural effusions especially large one on the right side. As per the family request I placed the order for thoracentesis. We do the follow-up chest x-rays. 08/23/2018-the CT scan shows bilateral pleural effusions and a thoracentesis was done for the left-sided pleural effusion with the immediate recollection of the fluid and follow-up x-rays indicates complete opacification of the left lung may be secondary to mucosal plugging. Family does not want any aggressive measures requested comfort care measures only. (4) Respiratory failure with hypercapnia Qualifiers: Chronicity: acute on chronic Qualified Code(s): J96.22 - Acute and chronic respiratory failure with hypercapnia Is this a current diagnosis for this admission?: Yes Plan: 08/21/2018-patient was admitted with acute on chronic respiratory failure with hypercapnia PCO2 on VBG is 120. She was placed on BiPAP. Going to do the follow-up ABG on regular basis. She Xopenex nebulizations every 4 as needed. 08/22/2018-patient was admitted with acute on chronic respiratory failure with hypercapnia initial VBG shows PCO2 of 120 she was on BiPAP in the ABG PCO2 is improved to 76. Going to repeat the ABG this morning. 08/23/2018-patient is admitted with acute on chronic respiratory failure with hypercapnia most likely secondary to narcotic overdose. Patient is going to be on comfort care measures only. (5) HTN (hypertension) Qualifiers: Hypertension type: essential hypertension Qualified Code(s): I10 - Essential (primary) hypertension Is this a current diagnosis for this admission?: Yes - Time Time Spent with patient: 25-34 minutes Medications reviewed and adjusted accordingly: Yes Anticipated discharge: Hospice
[2018-08-23] MEDS: MORPHINE SULFATE 10 MG/ML INJ IV PRN (14:23)
[2018-08-23 20:26] VITALS: BP 111/81
--- NOTE | 2018-08-23 21:45 | Physician Advisory Note ---
Physician Advisor ProgressNote .: [facility] I have reviewed the medical record for this patient. Physician Advisor Statement: Very nice documentation of toxic encephalopathy due to oxycodone. Blood gas results + acute encephalopathy/lethargy adequate to support Ac Resp Failure. Prior VBG had pCO2 of 51 w/ nl ph of 7.36, which is consistent w/chronic hypercapneic resp failure. ECHO last mo said nl EF, mild pulm HTN, unclear diast fn. Please consider documenting, if you agree: 1. Whether pt's CHF is HFpEF or systolic CHF, & whether acute on chronic, or chronic, & whether or not you believe she has pulmonary HTN. 2. Pt's prior VBG results, to give evidence for the chronic hypercapneic resp failure Thx! CK
[2018-08-24] MEDS: MORPHINE SULFATE 10 MG/ML INJ IV PRN ×2 (00:03→05:42)
[2018-08-24] MEDS: LORAZEPAM INJ 2 MG/1 ML VIAL IV PRN ×2 (03:16→08:22)
[2018-08-24] MEDS ORDERED: FUROSEMIDE INJ/PF 40 MG/4 ML SDV IV ONE (09:30)
--- NOTE | 2018-08-24 11:35 | PDOC PROGRESS REPORT ---
Subjective Progress Note for:: 08/23/18 Subjective:: Pt seen yesterday on morning rounds. Somehow not got missed.. Also talked in details with the family members. Family have decided comfort care. Reason For Visit: ALTERED MENTAL STATUS Physical Exam Vital Signs: Temp Pulse Resp BP Pulse Ox 97.5 F 145 H 15 111/81 91 L 08/23/18 19:52 08/24/18 07:00 08/23/18 19:52 08/23/18 19:52 08/23/18 19:52 Intake & Output 08/23/18 08/24/18 08/25/18 06:59 06:59 06:59 Intake Total 396 50 Output Total 350 Balance 46 50 Weight 38 kg 39.7 kg Exam: No change in patient's status. Patient remains obtunded and on BiPAP. Results Laboratory Results: 08/23/18 05:29 08/23/18 05:29 08/21/18 13:09 Catheterized Urine Urine Culture - Final NO GROWTH 2 DAYS 08/21/18 08/21/18 08/21/18 11:21 11:21 19:18 Creatine Kinase 35 < 20 L CK-MB (CK-2) 1.27 Troponin I < 0.012 NT-Pro-B Natriuret Pep 08/21/18 08/22/18 08/22/18 19:18 02:26 02:26 Creatine Kinase < 20 L CK-MB (CK-2) 1.27 0.89 Troponin I < 0.012 < 0.012 NT-Pro-B Natriuret Pep 08/22/18 02:26 Creatine Kinase CK-MB (CK-2) Troponin I NT-Pro-B Natriuret Pep 6120 H EKG Comments: Telemetry shows sustained atrial fibrillation. Impressions: Chest CT 08/21/18 00:00 IMPRESSION: Large left and moderate right pleural effusions with bilateral lower lobe consolidation, likely atelectasis. Thoracentesis Ultrasound 08/22/18 00:00 IMPRESSION: SUCCESSFUL THORACENTESIS USING ULTRASOUND GUIDANCE. Chest X-Ray 08/22/18 10:30 IMPRESSION: Re-accumulation of a moderate left pleural effusion. Persistent small to moderate right pleural effusion. 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 Assessment & Plan - Diagnosis (1) Respiratory failure Qualifiers: Chronicity: acute on chronic Respiratory failure complication: unspecified whether with hypoxia or hypercapnia Qualified Code(s): J96.20 - Acute and chronic respiratory failure, unspecified whether with hypoxia or hypercapnia Is this a current diagnosis for this admission?: Yes (2) Altered mental status Is this a current diagnosis for this admission?: Yes (3) Atrial fibrillation with rapid ventricular response Is this a current diagnosis for this admission?: Yes (4) Pleural effusion Is this a current diagnosis for this admission?: Yes (5) CHF (congestive heart failure) Qualifiers: Heart failure type: right-sided Heart failure chronicity: acute on chronic Qualified Code(s): I50.813 - Acute on chronic right heart failure Is this a current diagnosis for this admission?: Yes - Notes Notes: Patient now comfort care. No new recommendations. Will leave management plans to the hospitalist. They can get in touch with me if needed. Will sign off. - Time Time with patient: Less than 15 minutes
--- NOTE | 2018-08-24 12:03 | Death Summary ---
Summary Date : 08/24/18 Time of :: 10:00 Autopsy: No Resuscitation Status: Comfort Measures Only - Final Diagnosis (1) Altered mental status Is this a current diagnosis for this admission?: Yes (2) Atrial fibrillation with rapid ventricular response Is this a current diagnosis for this admission?: Yes (3) Pleural effusion Is this a current diagnosis for this admission?: Yes (4) Respiratory failure with hypercapnia Is this a current diagnosis for this admission?: Yes (5) HTN (hypertension) Is this a current diagnosis for this admission?: Yes Hospital Course:: 88-year-old female with history of congestive heart failure atrial fibrillation, hypothyroidism, recurrent bilateral pleural effusions, coronary artery disease status post stent placement, triple bypass, hypertension admitted for altered m ental status on 08/21/2018. She was placed on BiPAP because patient is DNR/DNI. The the chest x-ray at the time of admission shows bilateral pleural effusions and possible pneumonia. Family does not want any thoracentesis at the time of admission. Cardiology consult was done with Dr. Mohan. After discussion with the production drilling machine operator family decided to go for thoracentesis. Left-sided thoracentesis was done 400-550 cc of fluid was removed. Follow-up chest x-ray indicates reaccumulation of of the fluids and second chest x-ray shows left lung opacification with possible mucous plug. Patient is condition is continued to deteriorate. Patient is unable to swallow anything. Patient was placed on Cardizem drip for rate control because she is in A. fib with RVR. Yesterday the family decided to keep her comfort care measures only. As per the family recommendations IV fluids antibiotics and further supportive measures are discontinued. She was placed on IV Ativan and IV morphine for comfort care measures. Patient sent positive around 10 AM today peacefully. The side effect was signed. Body is going to be released to the home. Causes of include cardiopulmonary arrest, atrial fibrillation, congestive heart failure, COPD.
== END 2018-08-24 12:14 | DRG 91 ==
LOC: ER 11:10 → EH 14:14 → 3S 17:25
PROVIDERS: ADMIT Hospitalist; ATTEND Hospitalist
PROC: 0W9B3ZZ Drainage of Left Pleural Cavity, Percutaneous Approach (ICD-10-PCS; principal; 2018-08-22)
DX: G92 Toxic encephalopathy (principal); J96.22 Acute and chronic respiratory failure with hypercapnia; J90 Pleural effusion, not elsewhere classified; I50.32 Chronic diastolic (congestive) heart failure; T40.2X5A Adverse effect of other opioids, initial encounter; I50.813 Acute on chronic right heart failure; Z51.5 Encounter for palliative care; I48.2 Chronic atrial fibrillation; I11.0 Hypertensive heart disease with heart failure; I25.10 Atherosclerotic heart disease of native coronary artery without angina pectoris; Z95.1 Presence of aortocoronary bypass graft; Z66 Do not resuscitate; E87.5 Hyperkalemia; I73.9 Peripheral vascular disease, unspecified; E03.9 Hypothyroidism, unspecified; F32.9 Major depressive disorder, single episode, unspecified; Z95.0 Presence of cardiac pacemaker; Z90.710 Acquired absence of both cervix and uterus; Z88.2 Allergy status to sulfonamides; Z88.8 Allergy status to other drugs, medicaments and biological substances; Z88.1 Allergy status to other antibiotic agents; Z88.7 Allergy status to serum and vaccine; Z88.6 Allergy status to analgesic agent
CPT/HCPCS: 32555; 36415; 36600; 71045; 71250; 80053; 80307; 81001; 82550; 82553; 82803; 82962; 83605; 83690; 83735; 83880; 84443; 84484; 85025; 85610; 87040; 87086; 93005; 93010; 94660; 96361; 96365; 96375; 96376; 99285; J1160; J2060; J2185; J2270; J3370; J3490; J7050; J7060; S0028